=== PATIENT | male | born 1970 | race Caucasian/White ===

== ENCOUNTER 2019-03-11 19:13 | Inpatient (IN) | payer OTHER ==
[2019-03-11] MEDS ORDERED: IPRATROPIUM-ALBUTEROL 3 ML NEB INHALATION STA (19:19)
[2019-03-11] MEDS ORDERED: ONDANSETRON 4 MG/2 ML VIAL IVP STA (19:19)
[2019-03-11] MEDS ORDERED: ONDANSETRON 4 MG/2 ML VIAL IVP PRN (19:19)
[2019-03-11] MEDS ORDERED: methylPREDNISolone SOD SUCCI 125 MG/2 ML VIAL IV STA (19:19)
[2019-03-11] MEDS ORDERED: SODIUM CHLORIDE 0.9% 1,000 ML IV STA (19:19)
[2019-03-11] MEDS ORDERED: PANTOPRAZOLE 40 MG/10 ML VIAL IVP STA (19:19)
--- NOTE | 2019-03-11 20:00 | ED ---
SOB HPI - General Chief Complaint: Shortness of Breath Stated Complaint: Vomiting blood, OMAR Time Seen by Provider: 03/11/19 19:19 Source: patient, RN notes reviewed, old records reviewed Mode of arrival: wheelchair Limitations: no limitations - History of Present Illness Initial Comments: This is a 48-year-old male the ER for evaluation presents today for weakness shortness of breath coughing up bloody sputum. Patient denies vomiting of blood. Patient does feel, significant shortness of breath with exertion. A chest pain denies recent fevers. No travel history sick contacts. No significant admission history for shortness of breath or difficulty breathing or pain. MD Complaint: shortness of breath, cough -: days(s) Severity: moderate Severity scale (1-10): 4 Consistency: constant Improves With: oxygen, bronchodilators Worsens With: exertion Known History Of: asthma Context: recent URI Associated Symptoms: fever, cough, sputum production Treatments Prior to Arrival: none - Related Data Home Medications Medication Instructions Recorded Confirmed Loratadine [Claritin] 10 mg PO DAILY 03/11/19 03/11/19 Allergies Allergy/AdvReac Type Severity Reaction Status Date / Time aspirin Allergy Unknown Verified 03/11/19 19:29 Review of Systems ROS Statement: Those systems with pertinent positive or pertinent negative responses have been documented in the HPI. ROS Other: All systems not noted in ROS Statement are negative. Past Medical History Past Medical History: Asthma History of Any Multi-Drug Resistant Organisms: None Reported Past Surgical History: No Surgical Hx Reported Past Psychological History: No Psychological Hx Reported Smoking Status: Never smoker Past Alcohol Use History: None Reported Past Drug Use History: None Reported - Past Family History Mother Family Medical History: AFIB, Chest Pain / Angina, CVA/TIA, GERD/Reflux, Hyperlipidemia, Hypertension Father Family Medical History: Chest Pain / Angina, CVA/TIA, Hyperlipidemia, Hypertension Additional Family Medical History / Comment(s): Open heart surgery 08/12/18 General Exam Limitations: no limitations General appearance: alert, in no apparent distress, anxious Head exam: Present: atraumatic, normocephalic, normal inspection Eye exam: Present: normal appearance, PERRL, EOMI. Absent: scleral icterus, conjunctival injection, periorbital swelling ENT exam: Present: normal exam, mucous membranes moist Neck exam: Present: normal inspection. Absent: tenderness, meningismus, lymp hadenopathy Respiratory exam: Present: normal lung sounds bilaterally. Absent: respiratory distress, wheezes, rales, rhonchi, stridor Cardiovascular Exam: Present: normal rhythm, tachycardia, normal heart sounds. Absent: systolic murmur, diastolic murmur, rubs, gallop, clicks GI/Abdominal exam: Present: soft, normal bowel sounds. Absent: distended, tenderness, guarding, rebound, rigid Extremities exam: Present: normal inspection, full ROM, normal capillary refill. Absent: tenderness, pedal edema, joint swelling, calf tenderness Back exam: Present: normal inspection Neurological exam: Present: alert, oriented X3, CN II-XII intact Psychiatric exam: Present: normal affect, normal mood Skin exam: Present: warm, dry, intact, normal color. Absent: rash Course Vital Signs 03/11/19 03/11/19 03/11/19 19:14 19:48 20:01 Temperature 98.1 F Pulse Rate 129 H 121 H 119 H Respiratory 20 18 18 Rate Blood Pressure 133/90 O2 Sat by Pulse 96 Oximetry 03/11/19 03/11/19 23:17 23:59 Temperature Pulse Rate 112 H 112 H Respiratory 18 19 Rate Blood Pressure 126/84 126/84 O2 Sat by Pulse 95 95 Oximetry - Reevaluation(s) Reevaluation #1: 03/11/19 21:00 Medical records reviewed Reevaluation #2: 03/11/19 21:00 Minimal improvement patient's resting and sleeping comfortably Medical Decision Making - Medical Decision Making 48 male the ER for evaluation will will admit for Cockman it as an exacerbation of CHF, patient also has elevated troponin non-STEMI. - Lab Data Result diagrams: 03/12/19 02:49 03/11/19 20:06 Lab Results 03/11/19 03/11/19 03/11/19 Range/Units 20:06 20:06 20:06 WBC 10.3 (3.8-10.6) k/uL RBC 4.94 (4.30-5.90) m/uL Hgb 14.9 (13.0-17.5) gm/dL Hct 44.6 (39.0-53.0) % MCV 90.3 (80.0-100.0) fL MCH 30.1 (25.0-35.0) pg MCHC 33.3 (31.0-37.0) g/dL RDW 13.9 (11.5-15.5) % Plt Count 309 (150-450) k/uL Neutrophils % 81 % Lymphocytes % 10 % Monocytes % 5 % Eosinophils % 1 % Basophils % 1 % Neutrophils # 8.4 H (1.3-7.7) k/uL Lymphocytes # 1.0 (1.0-4.8) k/uL Monocytes # 0.5 (0-1.0) k/uL Eosinophils # 0.1 (0-0.7) k/uL Basophils # 0.1 (0-0.2) k/uL PT (9.0-12.0) sec INR (<1.2) APTT (22.0-30.0) sec Sodium 139 (137-145) mmol/L Potassium 4.3 (3.5-5.1) mmol/L Chloride 109 H (98-107) mmol/L Carbon Dioxide 21 L (22-30) mmol/L Anion Gap 9 mmol/L BUN 16 (9-20) mg/dL Creatinine 1.42 H (0.66-1.25) mg/dL Est GFR (CKD-EPI)AfAm 68 (>60 ml/min/1.73 sqM) Est GFR (CKD-EPI)NonAf 59 (>60 ml/min/1.73 sqM) Glucose 113 H (74-99) mg/dL Calcium 9.2 (8.4-10.2) mg/dL Magnesium 1.9 (1.6-2.3) mg/dL Total Bilirubin 1.2 (0.2-1.3) mg/dL AST 36 (17-59) U/L ALT 50 (21-72) U/L Alkaline Phosphatase 68 (38-126) U/L Creatine Kinase 524 H (55-170) U/L Troponin I (0.000-0.034) ng/mL NT-Pro-B Natriuret Pep 6300 pg/mL Total Protein 6.4 (6.3-8.2) g/dL Albumin 3.7 (3.5-5.0) g/dL 03/11/19 03/11/19 Range/Units 20:06 20:06 WBC (3.8-10.6) k/uL RBC (4.30-5.90) m/uL Hgb (13.0-17.5) gm/dL Hct (39.0-53.0) % MCV (80.0-100.0) fL MCH (25.0-35.0) pg MCHC (31.0-37.0) g/dL RDW (11.5-15.5) % Plt Count (150-450) k/uL Neutrophils % % Lymphocytes % % Monocytes % % Eosinophils % % Basophils % % Neutrophils # (1.3-7.7) k/uL Lymphocytes # (1.0-4.8) k/uL Monocytes # (0-1.0) k/uL Eosinophils # (0-0.7) k/uL Basophils # (0-0.2) k/uL PT 10.5 (9.0-12.0) sec INR 1.0 (<1.2) APTT 23.7 (22.0-30.0) sec Sodium (137-145) mmol/L Potassium (3.5-5.1) mmol/L Chloride (98-107) mmol/L Carbon Dioxide (22-30) mmol/L Anion Gap mmol/L BUN (9-20) mg/dL Creatinine (0.66-1.25) mg/dL Est GFR (CKD-EPI)AfAm (>60 ml/min/1.73 sqM) Est GFR (CKD-EPI)NonAf (>60 ml/min/1.73 sqM) Glucose (74-99) mg/dL Calcium (8.4-10.2) mg/dL Magnesium (1.6-2.3) mg/dL Total Bilirubin (0.2-1.3) mg/dL AST (17-59) U/L ALT (21-72) U/L Alkaline Phosphatase (38-126) U/L Creatine Kinase (55-170) U/L Troponin I 0.065 H* (0.000-0.034) ng/mL NT-Pro-B Natriuret Pep pg/mL Total Protein (6.3-8.2) g/dL Albumin (3.5-5.0) g/dL - EKG Data -: EKG Interpreted by Me (EKG shows sinus tachycardia rate of 120, MI 140, QRS 72, QTc 452) - Radiology Data Radiology results: report reviewed (Chest x-rays negative for acute disease, CTA chest negative for acute disease), image reviewed Disposition Clinical Impression: Acute exacerbation of chronic obstructive airways disease, Asthma with exacerbation, Acute pulmonary edema, NSTEMI (non-ST elevated myocardial infarction) Disposition: ADMITTED IP TO THIS HOSP Condition: Fair Is patient prescribed a controlled substance at d/c from ED?: No
[2019-03-11 20:17] LABS: Basophils # (A) 0.1 k/uL (0-0.2); Basophils % (A) 1 %; Eosinophils # (A) 0.1 k/uL (0-0.7); Eosinophils % (A) 1 %; HCT 44.6 % (39.0-53.0); HGB 14.9 gm/dL (13.0-17.5); Lymphocytes % (A) 10 %; MCH 30.1 pg (25.0-35.0); MCHC 33.3 g/dL (31.0-37.0); MCV 90.3 fL (80.0-100.0); Mean Platelet Volume 8.1; Monocytes # (A) 0.5 k/uL (0-1.0); Monocytes % (A) 5 %; Neutrophils # (A) 8.4 k/uL (1.3-7.7); Neutrophils % (A) 81 %; Platelet Count 309 k/uL (150-450); RBC 4.94 m/uL (4.30-5.90); RDW 13.9 % (11.5-15.5); WBC 10.3 k/uL (3.8-10.6)
[2019-03-11 20:27] LABS: Albumin 3.7 g/dL (3.5-5.0); Calcium 9.2 mg/dL (8.4-10.2); Magnesium 1.9 mg/dL (1.6-2.3); Potassium 4.3 mmol/L (3.5-5.1); Total Bilirubin 1.2 mg/dL (0.2-1.3); Total Protein 6.4 g/dL (6.3-8.2)
[2019-03-11 20:29] LABS: Partial Thromboplastin Time 23.7 sec (22.0-30.0); Prothrombin Time 10.5 sec (9.0-12.0)
--- NOTE | 2019-03-11 20:45 | XR ---
EXAMINATION: XR chest 1V portable DATE AND TIME: 03/11/2019 8:10 PM CLINICAL INDICATION: PHH; sob TECHNIQUE: AP upright portable COMPARISON: None FINDINGS: The lungs are clear. The pleural spaces are negative. The cardiac silhouette is prominently enlarged. The remainder of the mediastinal silhouette is unremarkable. The skeletal structures and soft tissues are negative for acute findings. IMPRESSION: Moderately enlarged cardiac silhouette.
[2019-03-11] MEDS ORDERED: NITROGLYCERIN SL TABS 0.4 MG TAB SUBLINGUAL PRN (20:57)
[2019-03-11] MEDS ORDERED: ALBUTEROL NEBULIZED 2.5 MG/3 ML INHALATION PRN (20:57)
[2019-03-11] MEDS ORDERED: HEPARIN SODIUM,PORCINE 5,000 UNIT/ML 1 ML VIAL IV PRN (21:01)
[2019-03-11] MEDS ORDERED: HEPARIN SODIUM,PORCINE 5,000 UNIT/ML 1 ML VIAL IV ONE (21:01)
--- NOTE | 2019-03-11 21:51 | CT ---
EXAMINATION TYPE: CT angio chest with contrast and with 3-D reconstruction renderings DATE OF EXAM: 03/11/2019 9:35 PM COMPARISON: None HISTORY: chest pain, SOB. CT DLP: 1151.2 mGycm Automated exposure control for dose reduction was used. CONTRAST: CTA scan of the thorax is performed with IV Contrast, patient injected with 93cc mL of Isov ue 370, pulmonary embolism protocol. Review reconstructions. FINDINGS: Patient motion artifact on all images, limiting visualization and therefore accuracy of the examination. AIRWAYS: Unremarkable. LUNGS: On the right lung base there is partial airlessness laterally where there is a diffuse bilate ral pattern of mild silhouetting of the pulmonary vasculature; these changes suggest mild interstitia l phase pulmonary edema. No listhesis or evidence of mendel pneumonia. PLEURAL SPACES: There is a dependent mild/moderate right-sided pleural effusion. No left-sided pleura l effusion. No pneumothorax. MEDIASTINUM: There is enhancement of the pulmonary artery and its branches, with no CT evidence for p ulmonary embolism. No acute aortic findings. There is moderate cardiomegaly, panchamber enlargement, and a mild-moderate pericardial fusion. No adenopathy. OTHER: No additional significant abnormality is seen. IMPRESSION: 1) MILD INTERSTITIAL PHASE PULMONARY EDEMA, PRESUMABLY CARDIOGENIC ETIOLOGY, WITH RIGHT PLEURAL EFFU SANDOVAL. 2) MODERATE CARDIOMEGALY, PANCHAMBER ENLARGEMENT, AND PERICARDIAL EFFUSION.
[2019-03-11] MEDS: HEPARIN SOD,PORK IN 0.45% NACL 25,000 UNIT in 0.45% NACL 1 250ML.BAG IV SCH (23:36)
[2019-03-11] MEDS: SODIUM CHLORIDE 0.9% 1,000 ML IV SCH (23:40)
[2019-03-12] MEDS: methylPREDNISolone SOD SUCCI 125 MG/2 ML VIAL IV SCH ×3 (01:30→12:18)
[2019-03-12 03:22] LABS: Cholesterol 154 mg/dL (<200); HDL Cholesterol 38 mg/dL (40-60); LDL Cholesterol,Calculated 98 mg/dL (0-99); Triglycerides 92 mg/dL (<150)
[2019-03-12 03:26] LABS: Basophils % (A) 0 %; Eosinophils # (A) 0.1 k/uL (0-0.7); Eosinophils % (A) 1 %; HCT 43.8 % (39.0-53.0); HGB 14.3 gm/dL (13.0-17.5); Lymphocytes # (A) 0.5 k/uL (1.0-4.8); Lymphocytes % (A) 4 %; MCH 30.4 pg (25.0-35.0); MCHC 32.6 g/dL (31.0-37.0); MCV 93.1 fL (80.0-100.0); Monocytes # (A) 0.1 k/uL (0-1.0); Monocytes % (A) 1 %; Neutrophils # (A) 9.5 k/uL (1.3-7.7); Neutrophils % (A) 93 %; Platelet Count 287 k/uL (150-450); RDW 15.1 % (11.5-15.5); WBC 10.2 k/uL (3.8-10.6)
[2019-03-12 06:32] LABS: Glucose,Whole Blood 161 mg/dL (75-99)
[2019-03-12] MEDS: INSULIN ASPART (NovoLOG) 100 UNIT/ML VIAL SQ SCH ×4 (06:36→21:16)
[2019-03-12] MEDS: IPRATROPIUM-ALBUTEROL 3 ML NEB INHALATION SCH ×4 (07:57→19:09)
[2019-03-12] MEDS: PANTOPRAZOLE 40 MG/10 ML VIAL IVP SCH ×2 (08:25→21:16)
[2019-03-12 09:48] LABS: Prothrombin Time 10.8 sec (9.0-12.0)
[2019-03-12 11:41] LABS: Glucose,Whole Blood 151 mg/dL (75-99)
--- NOTE | 2019-03-12 11:41 | ECHOF ---
Referral Reason:chf MEASUREMENTS -------- HEIGHT: 167.6 cm WEIGHT: 146.5 kg BP: 117/66 RVIDd: 3.4 cm (< 3.3) IVSd: 1.0 cm (0.6 - 1.1) LVIDd: 5.7 cm (3.9 - 5.3) LVPWd: 1.1 cm (0.6 - 1.1) IVSs: 1.4 cm LVIDs: 4.8 cm LVPWs: 1.4 cm LA Diam: 3.7 cm (2.7 - 3.8) LAESV Index (A-L): 37.05 ml/m Ao Diam: 3.8 cm (2.0 - 3.7) AV Cusp: 2.1 cm (1.5 - 2.6) MV EXCURSION: 16.963 mm (> 18.000) MV EF SLOPE: 90 mm/s (70 - 150) EPSS: 1.6 cm RAP: 5.00 mmHg RVSP: 42.41 mmHg FINDINGS -------- Resting tachycardia (HR>100bpm). This was a technically difficult study with suboptimal views. The left ventricular size is normal. There is borderline concentric left ventricular hypertrophy. Overall left ventricular systolic function is severely impaired with, an EF between 20 - 25 %. The right ventricle is mildly enlarged. LA is moderately dilated 34-39 ml/m2 The right atrium was not well visualized. 5 ml of Lumason was utilized for enhancement of images. The aortic valve was not well visualized. Mild mitral regurgitation is present. Mild tricuspid regurgitation present. There is mild pulmonary hypertension. The right ventricular systolic pressure, as measured by Doppler, is 42.41mmHg. Trace/mild (physiologic) pulmonic regurgitation. The aortic root is dilated measuring 3.8cm. IVC Not well visulized. There is no pericardial effusion. CONCLUSIONS -------- 1. Resting tachycardia (HR>100bpm). 2. This was a technically difficult study with suboptimal views. 3. The left ventricular size is normal. 4. There is borderline concentric left ventricular hypertrophy. 5. Overall left ventricular systolic function is severely impaired with, an EF between 20 - 25 %. 6. The right ventricle is mildly enlarged. 7. LA is moderately dilated 34-39 ml/m2 8. The right atrium was not well visualized. 9. 5 ml of Lumason was utilized for enhancement of images. 10. The aortic valve was not well visualized. 11. Mild mitral regurgitation is present. 12. Mild tricuspid regurgitation present. 13. There is mild pulmonary hypertension. 14. The right ventricular systolic pressure, as measured by Doppler, is 42.41mmHg. 15. Trace/mild (physiologic) pulmonic regurgitation. 16. The aortic root is dilated measuring 3.8cm. 17. IVC Not well visulized. 18. There is no pericardial effusion. ASSET MANAGEMENT ANALYST: Adrianne Farley RDCS
--- NOTE | 2019-03-12 12:07 | CONS ---
CONSULTATION Mr. Mccollum is a 48-year-old gentleman who is seen for cardiac evaluation. Patient's electronic medical record reviewed. The patient gives a history that he had not been feeling well for last couple of 2 to 3 days and has been having shortness of breath with minimal activity. He has been having predominantly some nonproductive cough and occasionally some blood-tinged sputum. He did not have any fever or chills and denies any chest pain. There is no previous cardiac history. When he was a child he was told that he has asthma. Usually patient is able to walk 2 miles per day without any problem. The patient denies any history of diabetes, hypertension. Denies any recent history suggestive of flu. The patient was admitted with diagnosis of asthma. CT scan of the chest was done, which did not show any evidence of pulmonary embolism. There was a small pleural and minimal pericardial effusion and there were changes suggestive of heart failure. Initial troponin was mildly elevated. PAST MEDICAL HISTORY: Past medical history includes history of asthma. No history of any surgeries. PHYSICAL EXAMINATION: Physical examination at present reveals a 48-year-old gentleman who is obesely built. Blood pressure is 110/79 mmHg. Heart rate is 110. HEENT examination is negative. Neck is supple. There is no increase in jugular venous pressure. Both the carotid pulses are felt. There is no bruit. Chest is symmetrical. HEART: The PMI is not felt. First and second heart sounds are heard. There is evidence of S3 gallop. Lungs reveal a few basal rales. Abdomen is soft. Liver and spleen not enlarged. EXTREMITIES: Peripheral pulsations are 2+. The patient's EKG which was done this morning shows sinus tachycardia without any acute ischemic changes. Patient's CPK was 524. ProBNP level is 6300. Chest x-ray shows cardiomegaly. The patient's troponin is 0.065, 0.069 and 0.042. Echocardiogram was reviewed which shows evidence of diffuse global hypokinesia with basal portion with severely impaired left ventricular systolic function and estimated ejection fraction is in the range of 25%. IMPRESSION: This patient is admitted with acute onset of shortness of breath secondary to congestive cardiac failure. The patient has a severely impaired left ventricular systolic function with a global hypokinesia possibility of acute myocarditis needs to be considered. The patient has evidence of congestive cardiac failure. The rise in the troponin could be secondary to acute congestive cardiac failure. At a later date when his heart failure is improved, patient will need cardiac catheterization to rule out any significant coronary artery disease. RECOMMENDATIONS: We will treat the patient with IV Lasix 40 mg q.12 hourly, Sed rate and C-reactive protein would be done. We will start the patient on Entresto 24/26 mg twice a day and Lopressor 25 mg b.i.d. MMODL / PRANAYN: [id number] /
[2019-03-12] MEDS: SODIUM CHLORIDE 0.9% 1,000 ML IV SCH (12:20)
--- NOTE | 2019-03-12 13:22 | HP ---
HISTORY AND PHYSICAL DATE OF SERVICE: 03/12/2019 CHIEF COMPLAINT: Shortness of breath. HISTORY OF PRESENT ILLNESS: This 48-year-old gentleman with a past medical history of asthma during the childhood, history of no other major medical problems being followed by Dr. Washington in [facility] previously was visiting family in the area. The patient had shortness of breath for the past several days. The patient thought asthma acute exacerbation. He came to to [facility]. Chest x-ray showed evidence of cardiomegaly and as well as significant CHF. The patient also had a 2D echo, subsequently ejection fraction found to be 20% to 25%. Cardiomyopathy was suspected. LA was moderately dilated 34 to 39 . Otherwise, the troponins also indeterminate increased up to 0.069. Cardiology evaluation in progress. The patient is on IV Lasix. Patient is feeling much better. Patient is being closely monitored at this time. PAST MEDICAL HISTORY: Reviewed and history of bronchial asthma during childhood. Otherwise, no other significant cardiovascular illness as mentioned earlier. MEDICATIONS: Medications prior to admission include Claritin 10 mg daily. ALLERGIES: ASPIRIN. FAMILY HISTORY: History of atrial fibrillation with CHF, CVA, TIA, GERD, hypertension, hyperlipidemia, history of CAD, CABG in the family. SOCIAL HISTORY: No history of smoking. No history of alcohol intake. REVIEW OF SYSTEMS: ENT: No diminished hearing or diminished vision. CARDIOVASCULAR SYSTEM: As mentioned earlier. RESPIRATORY SYSTEM: As mentioned earlier. GI: No nausea, vomiting. : No dysuria. NERVOUS SYSTEM: No numbness or weakness. ALLERGY/IMMUNOLOGY: As mentioned earlier. HEMATOLOGY/ONCOLOGY: No history of anemia. ENDOCRINE: No history of diabetes or hypothyroidism. CONSTITUTIONAL: As mentioned earlier. DERMATOLOGY: Negative. RHEUMATOLOGY: Negative. PSYCHIATRY: As mentioned earlier. PHYSICAL EXAMINATION: The patient is alert and oriented x3. Pulse is 113, regular, blood pressure 108/79, respiration 18, temp 98.1, pulse ox 92% on room air. HEENT: Conjunctivae normal. Oral mucosa moist. NECK: Is obese. No jugular venous distention . CARDIOVASCULAR: S1, S2 muffled. No S3, no S4. RESPIRATORY: Diminished breath sounds at the bases. A few scattered rhonchi and crackles. ABDOMEN: Soft, obese, nontender. LEGS: Minimal edema. NERVOUS SYSTEM: Higher function mentioned earlier. Moves all 4 limbs. No focal motor or sensory deficits. LYMPHATICS: No lymphadenopathy of the neck, axillae or groin. SKIN: No ulcer, rash or bleeding. JOINTS: No active deforming arthropathy. LABS: Labs are at this time shows WBC 10.2, hemoglobin 14.3, and APTT 31.7. Creatinine is 1.42. Glucose is 113. Troponin 0.069. ASSESSMENT: 1. Congestive heart failure acute exacerbation with acute on chronic systolic dysfunction, ejection fraction 20% to 25%. 2. Increased creatinine with possibly chronic kidney disease stage 3. 3. Troponin 0.069 indeterminate. 4. Increased creatine kinase. 5. History of asthma. RECOMMENDATIONS AND DISCUSSION: This 48-year-old gentleman who presented with multiple medical issues, at this time I recommend to continue current medications, continue symptomatic treatment, intravenous diuretics initiated by Cardiology. Otherwise, we will also recommend beta blockers and as well as Cardiology also initiated Entresto. We will continue to monitor. Possible cardiac cath. Repeat labs in the morning. Otherwise, heparin monitoring. Guarded prognosis because of multiple complex medical issues. Further recommendations to follow. Recommend the patient to follow with a primary physician and cardiology closely after discharge. MMODL / IJN: [id number] / JANETT
[2019-03-12] MEDS: SACUBITRIL/VALSARTAN 24 MG-26 MG TABLET PO SCH ×2 (15:20→21:19)
[2019-03-12] MEDS: FUROSEMIDE 10 MG/ML 4 ML VIAL IV SCH ×2 (15:20→23:22)
[2019-03-12 16:45] LABS: Glucose,Whole Blood 176 mg/dL (75-99)
[2019-03-12] MEDS: CARVEDILOL 3.125 MG TAB PO SCH (17:11)
[2019-03-12 20:50] LABS: Glucose,Whole Blood 203 mg/dL (75-99)
[2019-03-12] MEDS: HEPARIN SOD,PORK IN 0.45% NACL 25,000 UNIT in 0.45% NACL 1 250ML.BAG IV SCH (21:38)
[2019-03-13 06:31] LABS: Basophils % (A) 0 %; Eosinophils # (A) 0.2 k/uL (0-0.7); Eosinophils % (A) 1 %; HCT 44.6 % (39.0-53.0); Hypochromasia Slight; Lymphocytes # (A) 0.7 k/uL (1.0-4.8); Lymphocytes % (A) 3 %; MCH 29.4 pg (25.0-35.0); MCHC 31.3 g/dL (31.0-37.0); MCV 93.8 fL (80.0-100.0); Mean Platelet Volume 8.5; Monocytes # (A) 0.6 k/uL (0-1.0); Monocytes % (A) 3 %; Neutrophils # (A) 18.9 k/uL (1.3-7.7); Neutrophils % (A) 92 %; Platelet Count 330 k/uL (150-450); RBC 4.76 m/uL (4.30-5.90); RDW 15.1 % (11.5-15.5); WBC 20.5 k/uL (3.8-10.6)
[2019-03-13] MEDS: HEPARIN SOD,PORK IN 0.45% NACL 25,000 UNIT in 0.45% NACL 1 250ML.BAG IV SCH ×2 (06:32→17:15)
[2019-03-13] MEDS: CARVEDILOL 3.125 MG TAB PO SCH (06:32)
[2019-03-13 06:38] LABS: INR 1.1 (<1.2); Prothrombin Time 11.7 sec (9.0-12.0)
[2019-03-13 06:54] LABS: Calcium 8.4 mg/dL (8.4-10.2); Potassium 4.4 mmol/L (3.5-5.1)
[2019-03-13] MEDS: FUROSEMIDE 10 MG/ML 4 ML VIAL IV SCH ×2 (08:45→20:36)
[2019-03-13] MEDS: PANTOPRAZOLE 40 MG/10 ML VIAL IVP SCH (08:46)
[2019-03-13] MEDS: SACUBITRIL/VALSARTAN 24 MG-26 MG TABLET PO SCH ×2 (08:46→20:35)
[2019-03-13] MEDS: IPRATROPIUM-ALBUTEROL 3 ML NEB INHALATION SCH ×4 (08:48→20:02)
--- NOTE | 2019-03-13 16:19 | P.PN ---
Subjective Progress Note Date: 03/13/19 Principal diagnosis: This is a 48-year-old male who was recently admitted for shortness of breath with a past medical history of asthma and is being closely monitored. Chest x- ray upon admission showed evidence of cardiomegaly with significant CHF. Patient underwent a 2-D echo with an ejection fraction of 20-25%. Cardiology is following. The patient is on IV Lasix and shortness of breath has slightly improved. Patient still continues to be quite winded with exertion. Patient denies any chest pain or palpitations at this time. Patient denies any nausea or vomiting and is tolerating diet. Patient is afebrile. Per cardiology recommendations once the patient's congestive heart failure has improved patient will need cardiac catheterization for further evaluation. Guarded prognosis. Objective - Vital Signs Vital signs: Vital Signs Temp 97.5 F L 03/13/19 11:24 Pulse 110 H 03/13/19 13:04 Resp 20 03/13/19 12:52 BP 134/68 03/13/19 11:24 Pulse Ox 93 L 03/13/19 11:24 Intake & Output 03/12/19 03/13/19 03/13/19 18:59 06:59 18:59 Intake Total 782.411 299.083 582 Output Total 900 850 Balance 782.411 -600.917 -268 Weight 146.9 kg 143.9 kg Intake: Intake, IV Titration 80.411 299.083 Amount Heparin Sod,Pork in 0.45% 80.411 299.083 NaCl 25,000 unit In 0.45 % NaCl 1 250ml.bag @ 7. 089 UNITS/KG/HR 10 mls/hr IV .Q24H [facility] Rx#: [id number] Oral 702 582 Output: Urine 900 850 Other: Voiding Method Toilet Toilet # Voids 0 1 1 - Exam Gen: This is a 48-year-old male sitting up at the site of the bed in no acute distress. Vital signs are stable. Temp is 97.5F, pulse is 108, respiratory rate is 20, blood pressure is 134/68, oxygen saturation is 93% on room air. HEENT: Head is atraumatic, normocephalic. Pupils equal, round. Sclerae is anicteric. NECK: Supple. No JVD. No lymphadenopathy. No thyromegaly. LUNGS: Diminished breath sounds at the bases with a few scattered rhonchi noted. No intercostal retractions. HEART: S1 and S2 are muffled. murmur noted. ABDOMEN: Soft. Obese. Bowel sounds are present. No masses. No tenderness. EXTREMITIES: Mild lower extremity edema noted bilaterally. No calf tenderness. NEUROLOGICAL: Patient is awake, alert and oriented x3. Cranial nerves 2 through 12 are grossly intact. - Labs CBC & Chem 7: 03/13/19 06:08 03/13/19 06:08 Labs: Abnormal Lab Results - Last 24 Hours (Table) 03/12/19 03/12/19 03/12/19 Range/Units 16:44 20:39 20:48 WBC (3.8-10.6) k/uL Neutrophils # (1.3-7.7) k/uL Lymphocytes # (1.0-4.8) k/uL APTT 39.0 H (22.0-30.0) sec Chloride (98-107) mmol/L Carbon Dioxide (22-30) mmol/L BUN (9-20) mg/dL Creatinine (0.66-1.25) mg/dL Glucose (74-99) mg/dL POC Glucose (mg/dL) 176 H 203 H (75-99) mg/dL 03/13/19 03/13/19 03/13/19 Range/Units 06:08 06:08 06:08 WBC 20.5 H (3.8-10.6) k/uL Neutrophils # 18.9 H (1.3-7.7) k/uL Lymphocytes # 0.7 L (1.0-4.8) k/uL APTT 57.3 H (22.0-30.0) sec Chloride 112 H (98-107) mmol/L Carbon Dioxide 19 L (22-30) mmol/L BUN 29 H (9-20) mg/dL Creatinine 1.51 H (0.66-1.25) mg/dL Glucose 146 H (74-99) mg/dL POC Glucose (mg/dL) (75-99) mg/dL Assessment and Plan Assessment: Congestive heart failure acute exacerbation with acute on chronic systolic dysf unction, ejection fraction 20-25% Increased creatinine with possible chronic kidney disease stage III Troponin 0.069, indeterminate Increased creatinine kinase History of asthma Obesity Recommendations and discussion: Recommend continue current medications, management, and symptomatically treatment. Will continue with IV diuretics at this time. Cardiology is following closely. Will continue with bronchodilators and IV heparin at this time. Will monitor labs and vital signs closely. Guarded prognosis. Once stabilized cardiac catheterization is needed. Further recommendations to follow.
[2019-03-13] MEDS: PANTOPRAZOLE 40 MG TABLET PO SCH (17:15)
[2019-03-13] MEDS: CARVEDILOL 6.25 MG TAB PO SCH (17:15)
--- NOTE | 2019-03-13 22:57 | PN ---
PROGRESS NOTE This patient is admitted with congestive cardiac failure. Patient's echocardiogram reveals a severely impaired left ventricular systolic function. The patient is feeling better. She still feels tired and slightly short of breath. The patient's echocardiogram shows severely impaired left ventricular systolic function. The heart rate is 110, blood pressure is 134/68 mmHg. First and second heart sounds are normal. Lungs examination revealed few crackles. The patient's laboratory data shows electrolytes are normal. Creatinine is 1.51. Sedimentation rate was 10 and the patient's C-reactive protein is 134/119. FINAL IMPRESSION: This patient is admitted with acute systolic heart failure. Patient has a severely impaired left ventricular systolic function. The patient's C-reactive protein is elevated. This may be suggestive the patient probably has a recent myocarditis. The patient remains sinus tachycardia. We will increase the dose of Coreg to 6.25 mg b.i.d. Continue the rest of the medications. The patient may benefit from MRI after the discharge to establish the diagnosis of myocarditis. MMMIKEL / IJN: [id number] /
[2019-03-14] MEDS: CARVEDILOL 6.25 MG TAB PO SCH (06:10)
[2019-03-14] MEDS: PANTOPRAZOLE 40 MG TABLET PO SCH ×2 (06:10→17:10)
[2019-03-14] MEDS: HEPARIN SOD,PORK IN 0.45% NACL 25,000 UNIT in 0.45% NACL 1 250ML.BAG IV SCH (06:10)
[2019-03-14 07:28] LABS: INR 1.1 (<1.2); Prothrombin Time 11.2 sec (9.0-12.0)
[2019-03-14] MEDS: SACUBITRIL/VALSARTAN 24 MG-26 MG TABLET PO SCH ×2 (07:56→20:31)
[2019-03-14] MEDS: FUROSEMIDE 10 MG/ML 4 ML VIAL IV SCH ×2 (07:57→19:56)
[2019-03-14 08:09] LABS: Calcium 8.2 mg/dL (8.4-10.2)
[2019-03-14 08:14] LABS: Partial Thromboplastin Time 122.2 sec (22.0-30.0)
[2019-03-14 09:14] LABS: Basophils # (A) 0.1 k/uL (0-0.2); Basophils % (A) 1 %; Eosinophils # (A) 0.2 k/uL (0-0.7); Eosinophils % (A) 2 %; HCT 43.4 % (39.0-53.0); HGB 13.5 gm/dL (13.0-17.5); Lymphocytes # (A) 1.8 k/uL (1.0-4.8); Lymphocytes % (A) 15 %; MCH 28.9 pg (25.0-35.0); MCHC 31.1 g/dL (31.0-37.0); MCV 93.1 fL (80.0-100.0); Mean Platelet Volume 9.9; Monocytes # (A) 0.5 k/uL (0-1.0); Monocytes % (A) 4 %; Neutrophils % (A) 77 %; Platelet Count 332 k/uL (150-450); RBC 4.66 m/uL (4.30-5.90); WBC 11.7 k/uL (3.8-10.6)
[2019-03-14] MEDS: IPRATROPIUM-ALBUTEROL 3 ML NEB INHALATION SCH ×4 (09:19→20:04)
[2019-03-14] MEDS ORDERED: ALPRAZolam 0.5 MG TAB PO PRN (13:00)
[2019-03-14] MEDS ORDERED: ATORVASTATIN 80 MG TAB PO STA (13:00)
[2019-03-14] MEDS ORDERED: ASPIRIN 325 MG TAB PO STA (13:00)
[2019-03-14] MEDS ORDERED: ALPRAZolam 0.25 MG TAB PO PRN (13:00)
[2019-03-14] MEDS ORDERED: NITROGLYCERIN SL TABS 0.4 MG TAB SUBLINGUAL PRN (13:00)
--- NOTE | 2019-03-14 14:34 | XR ---
EXAMINATION TYPE: XR chest 2V DATE OF EXAM: 03/14/2019 COMPARISON: 03/11/2019 HISTORY: Follow-up for congestive heart failure. COPD. Preoperative evaluation. TECHNIQUE: Frontal and lateral views of the chest are obtained. FINDINGS: There is improved aeration of the lungs with minimal pulmonary vascular prominence remaini ng and strand-like probable right infrahilar atelectasis. Cardiomediastinal silhouette is enlarged. N o pleural effusion or pneumothorax. IMPRESSION: Improved aeration of the lungs in comparison the prior. Only minimal cephalization/pulmo nary vascular congestion remains.
--- NOTE | 2019-03-14 15:27 | P.PN ---
Subjective Progress Note Date: 03/14/19 This is a 48-year-old gentleman admitted to the hospital with congestive cardiac failure, his echocardiogram with Doppler study revealed a severely impaired left ventricular systolic function, today overall he's feeling significantly better. We will discontinue his heparin today and repeat a chest x-ray. I did have a discussion with the patient and his significant other today, patient will undergo cardiac catheterization on Sunday by Dr. Hubbard. The risks and benefits were explained to the patient as well as the procedure in detail. Blood pressure 94/60 with a heart rate in the 90s, 93% on room air. White blood cell count 11.7, hemoglobin 13.5, platelet count 332. Sodium 142, potassium 4.0, BUN 33 and creatinine 1.5. Objective - Vital Signs Vital signs: Vital Signs Temp 97.5 F L 03/14/19 11:05 Pulse 102 H 03/14/19 13:13 Resp 18 03/14/19 11:18 BP 121/82 03/14/19 11:05 Pulse Ox 93 L 03/14/19 11:05 Intake & Output 03/13/19 03/14/19 03/14/19 18:59 06:59 18:59 Intake Total 1269.225 250 527.283 Output Total 850 1000 1425 Balance 419.225 -750 -897.717 Weight 134.7 kg Intake: Intake, IV Titration 243.225 250 47.283 Amount Heparin Sod,Pork in 0.45% 243.225 250 47.283 NaCl 25,000 unit In 0.45 % NaCl 1 250ml.bag @ 7. 089 UNITS/KG/HR 10 mls/hr IV .Q24H [facility] Rx#: [id number] Oral 1026 480 Output: Urine 850 1000 1425 Other: Voiding Method Toilet Toilet Toilet # Voids 1 - Exam PHYSICAL EXAMINATION: GENERAL: 88-year-old gentleman in no acute distress at the time of my examination HEENT: Head is atraumatic, normocephalic. Pupils equal, round. Sclera anicteric. Conjunctiva are clear. Mucous membranes of the mouth are moist. Neck is supple. There is no elevated jugular venous pressure. No carotid bruit is heard. HEART EXAMINATION: Heart S1, S2 normal. No murmur or gallop heard. CHEST EXAMINATION: Lungs are clear with fine crackles to bilateral bases. ABDOMEN: Soft, nontender. Bowel sounds are heard. No organomegaly noted. EXTREMITIES: 2+ peripheral pulses with no evidence of peripheral edema and no calf tenderness noted. NEUROLOGIC patient is awake, alert and oriented X3. . - Labs CBC & Chem 7: 03/14/19 06:21 03/14/19 06:21 Labs: Abnormal Lab Results - Last 24 Hours (Table) 03/14/19 03/14/19 03/14/19 Range/Units 06:21 06:21 06:21 WBC 11.7 H (3.8-10.6) k/uL Neutrophils # 9.0 H (1.3-7.7) k/uL APTT 122.2 H* (22.0-30.0) sec Chloride 108 H (98-107) mmol/L BUN 33 H (9-20) mg/dL Creatinine 1.52 H (0.66-1.25) mg/dL Glucose 112 H (74-99) mg/dL Calcium 8.2 L (8.4-10.2) mg/dL Assessment and Plan Plan: Assessment and plan #1 systolic congestive heart failure acute on chronic #2 severely impaired left ventricular systolic function, possible a recent myocarditis, CRP is elevated Plan We will discontinue the heparin today, request a repeat chest x-ray. DNP note has been reviewed, I agree with a documented findings and plan of care. Patient was seen and examined.
[2019-03-14] MEDS: CARVEDILOL 12.5 MG TAB PO SCH (17:10)
--- NOTE | 2019-03-15 05:55 | P.PN ---
Subjective Progress Note Date: 03/14/19 Principal diagnosis: This is a 48-year-old male who was recently admitted for shortness of breath with a past medical history of asthma and is being closely monitored. Chest x- ray upon admission showed evidence of cardiomegaly with significant CHF. Patient underwent a 2-D echo with an ejection fraction of 20-25%. Cardiology is following. The patient is on IV Lasix and shortness of breath has slightly improved. Patient still continues to be quite winded with exertion. Patient denies any chest pain or palpitations at this time. Patient denies any nausea or vomiting and is tolerating diet. Patient is afebrile. Per cardiology recommendations once the patient's congestive heart failure has improved patient will need cardiac catheterization for further evaluation. Guarded prognosis. 03/14/2019 Patient is sitting up in bed with legs dangled in no acute distress. Patient is requiring oxygen via NC at 2 L today due to shortness of breath at times with minimal exertion. Patient denies any chest pain or palpitations at this time. Patient denies any nausea or vomiting at this time. Patient tolerating diet. Patient remains afebrile. Cardiology is following closely. Patient remains on bronchodilators at this time as well as IV lasix. Will continue to monitor closely. Guarded prognosis. Objective - Vital Signs Vital signs: Vital Signs Temp 97.0 F L 03/15/19 04:00 Pulse 87 03/15/19 04:00 Resp 18 03/15/19 04:00 BP 100/66 03/15/19 04:00 Pulse Ox 91 L 03/15/19 04:00 Intake & Output 03/14/19 03/14/19 03/15/19 06:59 18:59 06:59 Intake Total 250 1307.283 Output Total 1000 1425 900 Balance -750 -117.717 -900 Weight 134.7 kg 138.8 kg Intake: Intake, IV Titration 250 47.283 Amount Heparin Sod,Pork in 0.45% 250 47.283 NaCl 25,000 unit In 0.45 % NaCl 1 250ml.bag @ 7. 089 UNITS/KG/HR 10 mls/hr IV .Q24H [facility] Rx#: [id number] Oral 1260 Output: Urine 1000 1425 900 Other: Voiding Method Toilet Toilet Toilet - Exam Gen: This is a 48-year-old male sitting up at the site of the bed in no acute distress. Vital signs are stable. Temp is 98.2F, pulse is 101, respiratory rate is 18, blood pressure is 107/65, oxygen saturation is 93% on room air. Patient is intermittently using 02 via NC at 1-2 L HEENT: Head is atraumatic, normocephalic. Pupils equal, round. Sclerae is anicteric. NECK: Supple. No JVD. No lymphadenopathy. No thyromegaly. LUNGS: Diminished breath sounds at the bases with a few scattered rhonchi noted. No intercostal retractions. HEART: S1 and S2 are muffled. murmur noted. ABDOMEN: Soft. Obese. Bowel sounds are present. No masses. No tenderness. EXTREMITIES: Mild lower extremity edema noted bilaterally. No calf tenderness. NEUROLOGICAL: Patient is awake, alert and oriented x3. Cranial nerves 2 through 12 are grossly intact. - Labs CBC & Chem 7: 03/14/19 06:21 03/14/19 06:21 Labs: Abnormal Lab Results - Last 24 Hours (Table) 03/14/19 03/14/19 03/14/19 Range/Units 06:21 06:21 06:21 WBC 11.7 H (3.8-10.6) k/uL Neutrophils # 9.0 H (1.3-7.7) k/uL APTT 122.2 H* (22.0-30.0) sec Chloride 108 H (98-107) mmol/L BUN 33 H (9-20) mg/dL Creatinine 1.52 H (0.66-1.25) mg/dL Glucose 112 H (74-99) mg/dL Calcium 8.2 L (8.4-10.2) mg/dL Assessment and Plan Assessment: Congestive heart failure acute exacerbation with acute on chronic systolic dysfunction, ejection fraction 20-25% Increased creatinine with possible chronic kidney disease stage III Troponin 0.069, indeterminate Increased creatinine kinase History of asthma Obesity Recommendations and discussion: Recommend continue current medications, management, and symptomatically treatment. Will continue with IV diuretics at this time. Cardiology is f ollowing closely. Will continue with bronchodilators and IV heparin is being discontinued today. Chest xray today shows improved aeration of the lungs with a minimal cephalization/pulmonary vascular congestion remains. Repeat cxr in the morning. Will monitor labs and vital signs closely. Guarded prognosis. Once stabilized cardiac catheterization is needed. Further recommendations to follow.
[2019-03-15] MEDS: CARVEDILOL 12.5 MG TAB PO SCH ×2 (06:28→17:28)
[2019-03-15] MEDS: PANTOPRAZOLE 40 MG TABLET PO SCH ×2 (06:28→17:28)
[2019-03-15 08:19] LABS: Calcium 8.1 mg/dL (8.4-10.2); Potassium 3.9 mmol/L (3.5-5.1)
[2019-03-15] MEDS: IPRATROPIUM-ALBUTEROL 3 ML NEB INHALATION SCH ×4 (08:23→19:59)
[2019-03-15] MEDS: FUROSEMIDE 10 MG/ML 4 ML VIAL IV SCH (09:15)
[2019-03-15] MEDS: SACUBITRIL/VALSARTAN 24 MG-26 MG TABLET PO SCH ×2 (09:15→20:09)
[2019-03-15] MEDS: ASPIRIN 81 MG PO SCH (09:15)
[2019-03-15] MEDS: DOCUSATE 100 MG CAP PO SCH ×2 (11:52→20:00)
--- NOTE | 2019-03-15 13:14 | P.PN ---
Subjective Progress Note Date: 03/15/19 This is a 48-year-old gentleman admitted to the hospital with congestive cardiac failure, his echocardiogram with Doppler study revealed a severely impaired left ventricular systolic function, today overall he's feeling significantly better. We will discontinue his heparin today and repeat a chest x-ray. I did have a discussion with the patient and his significant other today, patient will undergo cardiac catheterization on Sunday by Dr. Hubbard. The risks and benefits were explained to the patient as well as the procedure in detail. Blood pressure 94/60 with a heart rate in the 90s, 93% on room air. White blood cell count 11.7, hemoglobin 13.5, platelet count 332. Sodium 142, potassium 4.0, BUN 33 and creatinine 1.5. 03/15/2019 A shunt seen and examined this morning, he feels well, continues to diurese well on the IV Lasix. Blood pressure 122/70 with a heart rate in the 80s today. Sodium 140, potassium 3.9, BUN 26 and creatinine 1.4. Objective - Vital Signs Vital signs: Vital Signs Temp 98.2 F 03/15/19 11:44 Pulse 88 03/15/19 11:49 Resp 16 03/15/19 11:44 BP 122/73 03/15/19 11:44 Pulse Ox 96 03/15/19 11:44 Intake & Output 03/14/19 03/15/19 03/15/19 18:59 06:59 18:59 Intake Total 1307.283 Output Total 1425 900 700 Balance -117.717 -900 -700 Weight 138.8 kg Intake: Intake, IV Titration 47.283 Amount Heparin Sod,Pork in 0.45% 47.283 NaCl 25,000 unit In 0.45 % NaCl 1 250ml.bag @ 7. 089 UNITS/KG/HR 10 mls/hr IV .Q24H [facility] Rx#: [id number] Oral 1260 Output: Urine 1425 900 700 Other: Voiding Method Toilet Toilet Urinal - Exam PHYSICAL EXAMINATION: GENERAL: 88-year-old gentleman in no acute distress at the time of my examination HEENT: Head is atraumatic, normocephalic. Pupils equal, round. Sclera anicteric. Conjunctiva are clear. Mucous membranes of the mouth are moist. Neck is supple. There is no elevated jugular venous pressure. No carotid bruit is heard. HEART EXAMINATION: Heart S1, S2 normal. No murmur or gallop heard. CHEST EXAMINATION: Lungs are clear with fine crackles to bilateral bases. ABDOMEN: Soft, nontender. Bowel sounds are heard. No organomegaly noted. EXTREMITIES: 2+ peripheral pulses with no evidence of peripheral edema and no calf tenderness noted. NEUROLOGIC patient is awake, alert and oriented X3. . - Labs CBC & Chem 7: 03/14/19 06:21 03/15/19 06:28 Labs: Abnormal Lab Results - Last 24 Hours (Table) 03/15/19 Range/Units 06:28 BUN 26 H (9-20) mg/dL Creatinine 1.40 H (0.66-1.25) mg/dL Calcium 8.1 L (8.4-10.2) mg/dL Assessment and Plan Plan: Assessment and plan #1 systolic congestive heart failure acute on chronic #2 severely impaired left ventricular systolic function, possible a recent myocarditis, CRP is elevated Plan Repeat chest x-ray did show improved aeration of the lungs as comparison with prior. We will continue the IV Lasix for 24 hours. Cardiac catheterization scheduled for Sunday. DNP note has been reviewed, I agree with a documented findings and plan of care. Patient was seen and examined.
--- NOTE | 2019-03-15 20:24 | PN ---
PROGRESS NOTE DATE OF SERVICE: 03/15/2019 This 48-year-old gentleman who was admitted with CHF acute exacerbation also had possible new onset cardiomyopathy. meds being adjusted. Cardiology is planning cardiac catheterization on Sunday. No chest pain. No palpitations. No fever. EXAM: Alert and oriented x3, pulse 93, blood pressure 119/76, respiration 20, temperature 98.4, pulse ox 97% on 2 L. HEENT: Conjunctivae normal. Oral mucosa moist. NECK: No jugular venous distention. No lymph node enlargement. CARDIOVASCULAR: S1, S2. RESPIRATORY: Diminished breath sounds at the bases. A few rhonchi, no crackles. ABDOMEN: Soft, nontender. LEGS: No swelling. NERVOUS SYSTEM: No focal deficits. LABS: Creatinine 1.40. ASSESSMENT: 1. Congestive heart failure acute exacerbation, acute on chronic systolic dysfunction, ejection fraction 20% to 25%. 2. Increased creatinine with possibly chronic kidney disease stage III. 3. Troponin 0.06, indeterminate. 4. Increased creatine kinase. 5. History of asthma. 6. History of obesity. RECOMMENDATIONS AND DISCUSSION: I recommend to continue current medications, continue to monitor, continue symptomatic treatment. Otherwise, at this time continue with beta blockers. Continue the rest of medications. The patient is also on Crestor at this time. Otherwise, cardiac cath per Cardiology. Guarded prognosis because of multiple complex medical issues. Further recommendations to follow. MMODL / IJN: [id number] / [email or web address]
[2019-03-16] MEDS: CARVEDILOL 12.5 MG TAB PO SCH ×2 (06:21→16:53)
[2019-03-16] MEDS: PANTOPRAZOLE 40 MG TABLET PO SCH ×2 (06:21→16:44)
[2019-03-16 07:03] LABS: Basophils % (A) 1 %; Eosinophils # (A) 0.3 k/uL (0-0.7); Eosinophils % (A) 5 %; HCT 44.1 % (39.0-53.0); HGB 14.2 gm/dL (13.0-17.5); Lymphocytes # (A) 1.2 k/uL (1.0-4.8); Lymphocytes % (A) 18 %; MCH 29.6 pg (25.0-35.0); MCHC 32.2 g/dL (31.0-37.0); MCV 91.9 fL (80.0-100.0); Mean Platelet Volume 7.7; Monocytes # (A) 0.4 k/uL (0-1.0); Monocytes % (A) 5 %; Neutrophils % (A) 70 %; Platelet Count 245 k/uL (150-450); RDW 13.7 % (11.5-15.5)
[2019-03-16 07:15] LABS: Calcium 8.4 mg/dL (8.4-10.2); Potassium 3.9 mmol/L (3.5-5.1)
[2019-03-16] MEDS: DOCUSATE 100 MG CAP PO SCH ×2 (08:10→21:02)
[2019-03-16] MEDS: ASPIRIN 81 MG PO SCH (08:47)
[2019-03-16] MEDS: FUROSEMIDE 40 MG TAB PO SCH (08:47)
[2019-03-16] MEDS: SACUBITRIL/VALSARTAN 24 MG-26 MG TABLET PO SCH ×2 (08:47→21:04)
[2019-03-16] MEDS: IPRATROPIUM-ALBUTEROL 3 ML NEB INHALATION SCH ×4 (08:58→20:16)
[2019-03-16] MEDS ORDERED: SODIUM CHLORIDE 0.9% 1,000 ML in EMPTY BAG 1 BAG IV ONE (13:00)
--- NOTE | 2019-03-16 13:00 | P.PN ---
Subjective Progress Note Date: 03/16/19 This is a 48-year-old gentleman admitted to the hospital with congestive cardiac failure, his echocardiogram with Doppler study revealed a severely impaired left ventricular systolic function, today overall he's feeling significantly better. We will discontinue his heparin today and repeat a chest x-ray. I did have a discussion with the patient and his significant other today, patient will undergo cardiac catheterization on Sunday by Dr. Hubbard. The risks and benefits were explained to the patient as well as the procedure in detail. Blood pressure 94/60 with a heart rate in the 90s, 93% on room air. White blood cell count 11.7, hemoglobin 13.5, platelet count 332. Sodium 142, potassium 4.0, BUN 33 and creatinine 1.5. 03/15/2019 Patient seen and examined this morning, he feels well, continues to diurese well on the IV Lasix. Blood pressure 122/70 with a heart rate in the 80s today. Sodium 140, potassium 3.9, BUN 26 and creatinine 1.4. 03/16/2019 Patient was seen and examined this morning, denies any chest discomfort, states that his breathing is overall stable. He does complain of back he coughs today. Blood pressure 118/78 with a heart rate in the 80s, 93% on room air. ABC is normal, sodium 141, potassium 3.9, BUN 22 and creatinine 1.4. Scheduled for cardiac catheterization tomorrow. Objective - Vital Signs Vital signs: Vital Signs Temp 98 F 03/16/19 11:17 Pulse 88 03/16/19 12:39 Resp 20 03/16/19 11:17 BP 118/79 03/16/19 11:17 Pulse Ox 93 L 03/16/19 11:17 Intake & Output 03/15/19 03/16/19 03/16/19 18:59 06:59 18:59 Intake Total 452 230 Output Total 1400 400 Balance -948 -170 Weight 137.7 kg Intake: Oral 452 230 Output: Urine 1400 400 Other: Voiding Method Urinal Toilet Toilet Urinal Urinal # Voids 2 # Bowel Movements 1 1 - Exam PHYSICAL EXAMINATION: GENERAL: 88-year-old gentleman in no acute distress at the time of my examination HEENT: Head is atraumatic, normocephalic. Pupils equal, round. Sclera anicteric. Conjunctiva are clear. Mucous membranes of the mouth are moist. Neck is supple. There is no elevated jugular venous pressure. No carotid bruit is heard. HEART EXAMINATION: Heart S1, S2 normal. No murmur or gallop heard. CHEST EXAMINATION: Lungs are clear with fine crackles to bilateral bases, diminished air entry to the bases ABDOMEN: Soft, nontender. Bowel sounds are heard. No organomegaly noted. EXTREMITIES: 2+ peripheral pulses with no evidence of peripheral edema and no calf tenderness noted. NEUROLOGIC patient is awake, alert and oriented X3. . - Labs CBC & Chem 7: 03/16/19 06:34 03/16/19 06:34 Labs: Abnormal Lab Results - Last 24 Hours (Table) 03/16/19 Range/Units 06:34 BUN 22 H (9-20) mg/dL Creatinine 1.40 H (0.66-1.25) mg/dL Assessment and Plan Plan: Assessment and plan #1 systolic congestive heart failure acute on chronic #2 severely impaired left ventricular systolic function, possible a recent myocarditis, CRP is elevated Plan We will repeat a chest x-ray again tomorrow morning, patient will be scheduled tomorrow to undergo cardiac catheterization. DNP note has been reviewed, I agree with a documented findings and plan of care. Patient was seen and examined.
--- NOTE | 2019-03-16 14:25 | XR ---
EXAMINATION TYPE: XR chest 2V DATE OF EXAM: 03/16/2019 COMPARISON: 03/14/2019 HISTORY: Short of breath TECHNIQUE: Frontal and lateral views of the chest are obtained. FINDINGS: There is poor inspiration. Heart appears enlarged. There is mild pulmonary congestion. The re are chest leads. IMPRESSION: Mild pulmonary congestion and cardiomegaly. No pleural fluid. No overt heart failure. In spiration decreased compared to recent exam.
[2019-03-16] MEDS: guaiFENesin SYRUP 100MG/5ML 200 MG/10 ML CUP PO PRN ×2 (16:44→23:06)
--- NOTE | 2019-03-16 20:12 | PN ---
PROGRESS NOTE DATE OF SERVICE: 03/16/2019 This 48-year-old gentleman admitted with CHF acute exacerbation, also had increased elevated creatinine. Cardiology is planning for cardiac catheterization tomorrow. The most recent chest x-ray showed persistent cardiomegaly as well as some evidence of CHF also. No chest pain. No palpitations. No fever. The patient is on p.o. diuretics. EXAM: Alert and oriented x3. Pulse is 100, blood pressure 110/70, respiration 20, temperature 98.2, pulse ox 94% on room air. HEENT: Conjunctivae normal. Oral mucosa moist. NECK: No jugular venous distention. No lymph node enlargement. CARDIOVASCULAR: S1, S2. RESPIRATORY: Diminished breath sounds at the bases. A few scattered rhonchi. ABDOMEN: Soft, nontender. LEGS: No swelling. NERVOUS SYSTEM: No focal deficits. LABS: CBC within normal limits. Creatinine 1.40. ASSESSMENT: 1. Congestive heart failure acute exacerbation with acute on chronic systolic dysfunction, ejection fraction 20 to 25%, rule out coronary artery disease. 2. Increased creatinine with possible chronic kidney disease stage III. 3. Troponin 0.06, indeterminate. 4. Increased creatine kinase. 5. History of asthma. 6. History of obesity. RECOMMENDATIONS AND DISCUSSION: Recommend to continue current management, continue symptomatic treatment. Otherwise, the chest x-ray is definitely improving. I will follow closely with Cardiology regarding the cardiac catheterization. Otherwise, continue to monitor. Guarded prognosis. Further recommendations to follow. MMODL / IJN: [id number] /
[2019-03-17] MEDS: ASPIRIN 81 MG PO SCH (03:55)
[2019-03-17] MEDS: CARVEDILOL 12.5 MG TAB PO SCH ×2 (03:55→18:20)
[2019-03-17] MEDS: FUROSEMIDE 40 MG TAB PO SCH ×2 (03:57→18:20)
[2019-03-17] MEDS: PANTOPRAZOLE 40 MG TABLET PO SCH ×2 (03:57→18:20)
[2019-03-17] MEDS: SACUBITRIL/VALSARTAN 24 MG-26 MG TABLET PO SCH ×2 (03:57→20:58)
[2019-03-17] MEDS: SODIUM CHLORIDE 0.9% 1,000 ML IV SCH ×2 (05:55→21:00)
[2019-03-17] MEDS ORDERED: ASPIRIN 325 MG TAB PO ONE (06:00)
[2019-03-17] MEDS ORDERED: ATORVASTATIN 80 MG TAB PO ONE (06:00)
[2019-03-17 06:32] LABS: Basophils # (A) 0.1 k/uL (0-0.2); Basophils % (A) 1 %; Eosinophils # (A) 0.5 k/uL (0-0.7); Eosinophils % (A) 5 %; HCT 44.7 % (39.0-53.0); HGB 14.7 gm/dL (13.0-17.5); Lymphocytes # (A) 1.3 k/uL (1.0-4.8); Lymphocytes % (A) 16 %; MCH 29.9 pg (25.0-35.0); MCHC 32.8 g/dL (31.0-37.0); MCV 91.2 fL (80.0-100.0); Mean Platelet Volume 8.5; Monocytes # (A) 0.5 k/uL (0-1.0); Monocytes % (A) 6 %; Neutrophils # (A) 5.8 k/uL (1.3-7.7); Neutrophils % (A) 70 %; Platelet Count 278 k/uL (150-450); RBC 4.91 m/uL (4.30-5.90); RDW 14.9 % (11.5-15.5); WBC 8.3 k/uL (3.8-10.6)
[2019-03-17 07:14] LABS: Calcium 8.6 mg/dL (8.4-10.2); Potassium 4.2 mmol/L (3.5-5.1)
[2019-03-17] MEDS: DOCUSATE 100 MG CAP PO SCH ×2 (07:45→21:14)
[2019-03-17] MEDS: IPRATROPIUM-ALBUTEROL 3 ML NEB INHALATION SCH ×4 (09:22→19:59)
[2019-03-17] MEDS ORDERED: ASPIRIN 81 MG PO ONE (11:29)
[2019-03-17] MEDS ORDERED: MIDAZOLAM (PF) 2 MG/2 ML VIAL IV ONE (11:31)
[2019-03-17] MEDS ORDERED: fentaNYL (PF) 50 MCG/ML 2 ML AMP IV ONE (11:32)
[2019-03-17] MEDS ORDERED: IV FLUID CONTINUATION 800 ML IV ONE (11:32)
[2019-03-17] MEDS ORDERED: IOPAMIDOL-370 125ML BTL INJ ONE (11:50)
--- NOTE | 2019-03-17 14:42 | CC ---
CARDIAC CATHETERIZATION REPORT Mr. Mccollum is a 48-year-old gentleman who was admitted with symptoms of shortness of breath. Patient was found to be in congestive cardiac failure. Echocardiogram revealed a severely impaired global hypokinesia with ejection fraction of 20% to 25%. This patient was treated with the medication. He is feeling better now. The patient was advised cardiac catheterization for definitive diagnosis procedure the right groin was prepped and draped in the usual manner and the right femoral artery was entered using Seldinger technique and micropuncture needle. Subsequently, selective coronary angiography was performed in multiple projections and the left ventricular pressures were obtained. Patient tolerated the procedure well. Sheath was removed and good hemostasis was achieved with the use of Angio-Seal. Moderate sedation was used. Total sedation time was 20 minutes. The left ventricular end-diastolic pressure is 30-32 mmHg. No gradient is noted across the aortic valve selective. CORONARY ANGIOGRAPHY: Left main coronary artery is normal and patent. LAD is a good caliber blood vessel and gives good size diagonal branch. LAD and its branches are normal circumflex coronary artery is a codominant distribution and continues as a good size PLV branch. Circumflex coronary artery and its branches are normal right coronary artery also is codominant distribution gives rise to the posterior descending artery and it is normal. FINAL IMPRESSION: This study reveals normal coronary arteries. Left ventricular end-diastolic pressure is elevated. RECOMMENDATIONS: Continue medical treatment. MMODL / IJN: [id number] /
[2019-03-17] MEDS: guaiFENesin SYRUP 100MG/5ML 200 MG/10 ML CUP PO PRN (18:23)
--- NOTE | 2019-03-18 00:47 | P.PN ---
Subjective Progress Note Date: 03/17/19 Principal diagnosis: This is a 48-year-old male who was recently admitted for shortness of breath with a past medical history of asthma and is being closely monitored. Chest x- ray upon admission showed evidence of cardiomegaly with significant CHF. Patient underwent a 2-D echo with an ejection fraction of 20-25%. Cardiology is following. The patient is on IV Lasix and shortness of breath has slightly improved. Patient still continues to be quite winded with exertion. Patient denies any chest pain or palpitations at this time. Patient denies any nausea or vomiting and is tolerating diet. Patient is afebrile. Per cardiology recommendations once the patient's congestive heart failure has improved patient will need cardiac catheterization for further evaluation. Guarded prognosis. 03/14/2019 Patient is sitting up in bed with legs dangled in no acute distress. Patient is requiring oxygen via NC at 2 L today due to shortness of breath at times with minimal exertion. Patient denies any chest pain or palpitations at this time. Patient denies any nausea or vomiting at this time. Patient tolerating diet. Patient remains afebrile. Cardiology is following closely. Patient remains on bronchodilators at this time as well as IV lasix. Will continue to monitor closely. Guarded prognosis. 03/17/2019 Patient is sitting up at the side of the bed in no acute distress. Family is at the bedside. Patient is awaiting transport to have a cardiac catheterization this morning. Patient states that his shortness of breath has improved. Patient states he is using 02 via NC when exerting himself. Patient denies any chest pain or palpitations at this time. Patient denies any nausea or vomiting. Patient is afebrile. Patient is being closely followed. Guarded prognosis. Objective - Vital Signs Vital signs: Vital Signs Temp 97.4 F L 03/17/19 08:00 Pulse 99 03/17/19 20:06 Resp 14 03/17/19 20:00 BP 111/72 03/17/19 16:09 Pulse Ox 94 L 03/17/19 16:09 Intake & Output 03/17/19 03/17/19 03/18/19 06:59 18:59 06:59 Intake Total 480 1741 Output Total 680 200 Balance -200 1541 Weight 136.6 kg Intake: IV 175 Intake, IV Titration 900 Amount Sodium Chloride 0.9% 1, 900 000 ml @ 75 mls/hr IV . [id number] [facility] Rx#:[id number] Oral 480 666 Output: Urine 680 200 Other: Voiding Method Toilet Toilet Toilet Urinal Urinal Urinal - Exam Gen: This is a 48-year-old male sitting up at the site of the bed in no acute distress. Vital signs are stable. Temp is 97.4F, pulse is 94, respiratory rate is 14, blood pressure is 99/55, oxygen saturation is 99% on room air. Patient is intermittently using 02 via NC at 1-2 L HEENT: Head is atraumatic, normocephalic. Pupils equal, round. Sclerae is anicteric. NECK: Supple. No JVD. No lymphadenopathy. No thyromegaly. LUNGS: Diminished breath sounds at the bases with a few scattered rhonchi noted. No intercostal retractions. HEART: S1 and S2 are muffled. murmur noted. ABDOMEN: Soft. Obese. Bowel sounds are present. No masses. No tenderness. EXTREMITIES: Mild lower extremity edema noted bilaterally. No calf tenderness. NEUROLOGICAL: Patient is awake, alert and oriented x3. Cranial nerves 2 through 12 are grossly intact. - Labs CBC & Chem 7: 03/17/19 06:05 03/17/19 06:05 Labs: Abnormal Lab Results - Last 24 Hours (Table) 03/17/19 Range/Units 06:05 Creatinine 1.41 H (0.66-1.25) mg/dL Glucose 105 H (74-99) mg/dL Assessment and Plan Assessment: Congestive heart failure acute exacerbation with acute on chronic systolic dysfunction, ejection fraction 20-25%, rule out coronary artery disease. Increased creatinine with possible chronic kidney disease stage III Troponin 0.069, indeterminate Increased creatinine kinase History of asthma Obesity Recommendations and discussion: Recommend continue current medications, management, and symptomatically treatment. Will continue with oral diuretics at this time. Cardiology is following closely. Will monitor labs and vital signs closely. Guarded prognosis. Cardiac catheterization is set for today. Will await report. Further recommendations to follow. Possible discharge in 24-48 hours.
[2019-03-18] MEDS: PANTOPRAZOLE 40 MG TABLET PO SCH ×2 (06:37→17:24)
[2019-03-18] MEDS: CARVEDILOL 12.5 MG TAB PO SCH ×2 (06:37→17:24)
[2019-03-18 06:39] LABS: Calcium 8.8 mg/dL (8.4-10.2); Potassium 4.1 mmol/L (3.5-5.1)
[2019-03-18 06:42] LABS: Basophils # (A) 0.1 k/uL (0-0.2); Basophils % (A) 1 %; Eosinophils # (A) 0.4 k/uL (0-0.7); Eosinophils % (A) 5 %; HCT 43.6 % (39.0-53.0); HGB 14.1 gm/dL (13.0-17.5); Lymphocytes # (A) 1.2 k/uL (1.0-4.8); Lymphocytes % (A) 16 %; MCH 29.8 pg (25.0-35.0); MCHC 32.3 g/dL (31.0-37.0); MCV 92.2 fL (80.0-100.0); Mean Platelet Volume 8.9; Monocytes # (A) 0.5 k/uL (0-1.0); Monocytes % (A) 7 %; Neutrophils # (A) 4.9 k/uL (1.3-7.7); Neutrophils % (A) 68 %; Platelet Count 264 k/uL (150-450); RBC 4.73 m/uL (4.30-5.90); WBC 7.2 k/uL (3.8-10.6)
[2019-03-18] MEDS: IPRATROPIUM-ALBUTEROL 3 ML NEB INHALATION SCH ×4 (07:54→20:05)
[2019-03-18] MEDS: SACUBITRIL/VALSARTAN 24 MG-26 MG TABLET PO SCH ×2 (08:24→21:37)
[2019-03-18] MEDS: FUROSEMIDE 40 MG TAB PO SCH (08:24)
[2019-03-18] MEDS: ASPIRIN 81 MG PO SCH (08:24)
[2019-03-18] MEDS: SPIRONOLACTONE 25 MG TAB PO SCH (08:24)
[2019-03-18] MEDS: guaiFENesin SYRUP 100MG/5ML 200 MG/10 ML CUP PO PRN ×3 (08:24→23:06)
[2019-03-18] MEDS: SODIUM CHLORIDE 0.9% 1,000 ML IV SCH (08:25)
[2019-03-18] MEDS: DOCUSATE 100 MG CAP PO SCH ×2 (08:25→21:35)
[2019-03-18 11:22] VITALS: BMI 48.3
--- NOTE | 2019-03-18 11:35 | PN ---
PROGRESS NOTE This patient is admitted with cardiomyopathy. He underwent cardiac catheterization and was found to have no significant coronary artery disease. He still continues to have some shortness of breath and nonproductive cough. He is able to walk around. Blood pressure is 114/55 mmHg. HEART: S1 and S2 normal. Lungs are clinically clear to auscultation and percussion. The patient still has 1+ leg edema. The patient's cardiac catheterization showed significantly elevated end-diastolic pressure. In view of that, I will treat the patient with IV Lasix for another 24 to 48 hours. The risks and benefits of the LifeVest were fully discussed with him and he wants to proceed with having a LifeVest until his left ventricular systolic function is improved. MMODL / IJN: [id number] /
[2019-03-18] MEDS: FUROSEMIDE 10 MG/ML 4 ML VIAL IV SCH ×2 (15:19→23:06)
--- NOTE | 2019-03-18 16:36 | P.PN ---
Subjective Progress Note Date: 03/18/19 Principal diagnosis: This is a 48-year-old male who was recently admitted for shortness of breath with a past medical history of asthma and is being closely monitored. Chest x- ray upon admission showed evidence of cardiomegaly with significant CHF. Patient underwent a 2-D echo with an ejection fraction of 20-25%. Cardiology is following. The patient is on IV Lasix and shortness of breath has slightly improved. Patient still continues to be quite winded with exertion. Patient denies any chest pain or palpitations at this time. Patient denies any nausea or vomiting and is tolerating diet. Patient is afebrile. Per cardiology recommendations once the patient's congestive heart failure has improved patient will need cardiac catheterization for further evaluation. Guarded prognosis. 03/14/2019 Patient is sitting up in bed with legs dangled in no acute distress. Patient is requiring oxygen via NC at 2 L today due to shortness of breath at times with minimal exertion. Patient denies any chest pain or palpitations at this time. Patient denies any nausea or vomiting at this time. Patient tolerating diet. Patient remains afebrile. Cardiology is following closely. Patient remains on bronchodilators at this time as well as IV lasix. Will continue to monitor closely. Guarded prognosis. 03/17/2019 Patient is sitting up at the side of the bed in no acute distress. Family is at the bedside. Patient is awaiting transport to have a cardiac catheterization this morning. Patient states that his shortness of breath has improved. Patient states he is using 02 via NC when exerting himself. Patient denies any chest pain or palpitations at this time. Patient denies any nausea or vomiting. Patient is afebrile. Patient is being closely followed. Guarded prognosis. 03/18/2019 Patient is sitting up in bed in no acute distress. Patient underwent cardiac catheterization yesterday which showed no significant coronary artery disease along with significantly elevated end-diastolic pressure and is being closely monitored at this time. Cardiology is following closely. Per cardiology recommendations patient will continue on IV Lasix for another day and continue t o monitor. A LifeVest was discussed with the patient and is currently waiting an approval for this at this time. Case management is social work are following closely. Patient had no insurance and has recently obtained Medicaid and awaiting authorization for this LifeVest. Patient denies any chest pain or palpitations at this time. Patient is still having some shortness of breath with exertion. Patient denies any nausea or vomiting and has been tolerating diet. Patient is afebrile. Guarded prognosis. Objective - Vital Signs Vital signs: Vital Signs Temp 97.6 F 03/18/19 15:40 Pulse 84 03/18/19 15:41 Resp 18 03/18/19 15:40 BP 112/71 03/18/19 15:40 Pulse Ox 94 L 03/18/19 15:40 Intake & Output 03/17/19 03/18/19 03/18/19 18:59 06:59 18:59 Intake Total 1741 660 462 Output Total 072 796 1411 Balance 1541 260 -738 Weight 135.9 kg 135.9 kg Intake: IV 175 Intake, IV Titration 900 300 Amount Sodium Chloride 0.9% 1, 900 300 000 ml @ 75 mls/hr IV . [id number] [facility] Rx#:[id number] Oral 666 360 462 Output: Urine 328 904 0950 Other: Voiding Method Toilet Toilet Toilet Urinal Urinal - Exam Gen: This is a 48-year-old male sitting up in bed in no acute distress. Vital signs are stable. Temp is 97.5F, pulse is 85, respiratory rate is 16, blood pressure is 103/67, oxygen saturation is 96 % on room air. Patient is intermittently using 02 via NC at 1-2 L HEENT: Head is atraumatic, normocephalic. Pupils equal, round. Sclerae is anicteric. NECK: Supple. No JVD. No lymphadenopathy. No thyromegaly. LUNGS: Diminished breath sounds at the bases with a few scattered rhonchi noted. No intercostal retractions. HEART: S1 and S2 are muffled. murmur noted. ABDOMEN: Soft. Obese. Bowel sounds are present. No masses. No tenderness. EXTREMITIES: Mild lower extremity edema noted bilaterally. No calf tenderness. NEUROLOGICAL: Patient is awake, alert and oriented x3. Cranial nerves 2 through 12 are grossly intact. - Labs CBC & Chem 7: 03/18/19 05:07 03/18/19 05:07 Labs: Abnormal Lab Results - Last 24 Hours (Table) 03/18/19 Range/Units 05:07 BUN 21 H (9-20) mg/dL Creatinine 1.42 H (0.66-1.25) mg/dL Glucose 104 H (74-99) mg/dL Assessment and Plan Assessment: Congestive heart failure acute exacerbation with acute on chronic systolic dysfunction, ejection fraction 20-25%, rule out coronary artery disease. Increased creatinine with possible chronic kidney disease stage III Troponin 0.069, indeterminate Increased creatinine kinase History of asthma Obesity Recommendations and discussion: Recommend continue current medications, management, and symptomatically treatment. Will continue with IV diuretics at this time. Cardiology is following closely. Will monitor labs and vital signs closely. Guarded progn osis. Patient discussed with cardiology about the possibility of a LifeVest and would like to proceed. Patient just obtained Medicaid insurance and authorization is pending at this time. Case management and social work are following closely. Further recommendations to follow. Possible discharge in 24- 48 hours.
[2019-03-19] MEDS: HYDROcodone/APAP 5-325MG 1 EACH TAB PO PRN (03:43)
[2019-03-19] MEDS: CARVEDILOL 12.5 MG TAB PO SCH ×2 (06:51→18:05)
[2019-03-19] MEDS: PANTOPRAZOLE 40 MG TABLET PO SCH ×2 (06:51→18:04)
--- NOTE | 2019-03-19 08:15 | XR ---
EXAMINATION TYPE: XR chest 2V DATE OF EXAM: 03/19/2019 COMPARISON: 03/16/2019 HISTORY: Shortness of breath TECHNIQUE: Frontal and lateral views of the chest are obtained. FINDINGS: Strand-like right basilar subsegmental atelectasis is present. There are overall low lung volumes. Trace pulmonary vascular congestion is unchanged from the prior. Cardiomediastinal silhouett e is stable. No sizable pleural effusion or pneumothorax. No acute osseous process. IMPRESSION: Stable very mild pulmonary vascular congestion and right basilar subsegmental atelectasi s.
[2019-03-19] MEDS: ASPIRIN 81 MG PO SCH (08:32)
[2019-03-19] MEDS: SACUBITRIL/VALSARTAN 24 MG-26 MG TABLET PO SCH ×2 (08:33→21:25)
[2019-03-19] MEDS: SPIRONOLACTONE 25 MG TAB PO SCH (08:33)
[2019-03-19] MEDS: FUROSEMIDE 10 MG/ML 4 ML VIAL IV SCH ×3 (08:33→23:25)
[2019-03-19] MEDS: guaiFENesin SYRUP 100MG/5ML 200 MG/10 ML CUP PO PRN ×3 (08:33→23:25)
[2019-03-19] MEDS: DOCUSATE 100 MG CAP PO SCH ×2 (08:36→21:16)
[2019-03-19] MEDS: IPRATROPIUM-ALBUTEROL 3 ML NEB INHALATION SCH ×4 (09:33→20:05)
--- NOTE | 2019-03-19 14:59 | P.PN ---
Subjective Progress Note Date: 03/19/19 Principal diagnosis: This is a 48-year-old male who was recently admitted for shortness of breath with a past medical history of asthma and is being closely monitored. Chest x- ray upon admission showed evidence of cardiomegaly with significant CHF. Patient underwent a 2-D echo with an ejection fraction of 20-25%. Cardiology is following. The patient is on IV Lasix and shortness of breath has slightly improved. Patient still continues to be quite winded with exertion. Patient denies any chest pain or palpitations at this time. Patient denies any nausea or vomiting and is tolerating diet. Patient is afebrile. Per cardiology recommendations once the patient's congestive heart failure has improved patient will need cardiac catheterization for further evaluation. Guarded prognosis. 03/14/2019 Patient is sitting up in bed with legs dangled in no acute distress. Patient is requiring oxygen via NC at 2 L today due to shortness of breath at times with minimal exertion. Patient denies any chest pain or palpitations at this time. Patient denies any nausea or vomiting at this time. Patient tolerating diet. Patient remains afebrile. Cardiology is following closely. Patient remains on bronchodilators at this time as well as IV lasix. Will continue to monitor closely. Guarded prognosis. 03/17/2019 Patient is sitting up at the side of the bed in no acute distress. Family is at the bedside. Patient is awaiting transport to have a cardiac catheterization this morning. Patient states that his shortness of breath has improved. Patient states he is using 02 via NC when exerting himself. Patient denies any chest pain or palpitations at this time. Patient denies any nausea or vomiting. Patient is afebrile. Patient is being closely followed. Guarded prognosis. 03/18/2019 Patient is sitting up in bed in no acute distress. Patient underwent cardiac catheterization yesterday which showed no significant coronary artery disease along with significantly elevated end-diastolic pressure and is being closely monitored at this time. Cardiology is following closely. Per cardiology recommendations patient will continue on IV Lasix for another day and continue t o monitor. A LifeVest was discussed with the patient and is currently waiting an approval for this at this time. Case management is social work are following closely. Patient had no insurance and has recently obtained Medicaid and awaiting authorization for this LifeVest. Patient denies any chest pain or palpitations at this time. Patient is still having some shortness of breath with exertion. Patient denies any nausea or vomiting and has been tolerating diet. Patient is afebrile. Guarded prognosis. 03/19/2019 Patient is sitting up in the bed at the bedside in no acute distress. Family is at the bedside. Currently patient has the LifeVest on and is tolerating well. Cardiology is following closely. Patient denies any chest pain or palpitations at this time. Patient states that he is still having some shortness of breath with exertion. Patient is currently on room air at this time. Patient states that he required some oxygen 1-2 L last night. Nursing staff performed and oxygen eval and patient had an oxygen saturation of 91% on room air with exertion. Patient was 93% on room air while at rest. Will continue to monitor. Patient denies any nausea or vomiting and has been tolerating diet. Patient has remained afebrile. Patient is awaiting to see cardiology today to discuss the next step in his treatment plan. Guarded prognosis. Objective - Vital Signs Vital signs: Vital Signs Temp 97.5 F L 03/19/19 11:38 Pulse 91 03/19/19 13:05 Resp 18 03/19/19 11:38 BP 100/59 03/19/19 11:38 Pulse Ox 92 L 03/19/19 11:38 Intake & Output 03/18/19 03/19/19 03/19/19 18:59 06:59 18:59 Intake Total 822 358 Output Total 2049 1050 Balance -1228 -1050 358 Weight 135.9 kg 130.8 kg Intake: Oral 822 358 Output: Urine 2049 105 Other: Voiding Method Toilet Urinal Urinal # Voids 2 - Exam Gen: This is a 48-year-old male sitting up at the bedside in no acute distress. Vital signs are stable. Temp is 97.5F, pulse is 88, respiratory rate is 18, blood pressure is 100/59, oxygen saturation is 92 % on room air. Patient is intermittently using 02 via NC at 1-2 L HEENT: Head is atraumatic, normocephalic. Pupils equal, round. Sclerae is anicteric. NECK: Supple. No JVD. No lymphadenopathy. No thyromegaly. LUNGS: Diminished breath sounds at the bases with a few scattered rhonchi no traci. No intercostal retractions. HEART: S1 and S2 are muffled. murmur noted. Life vest noted. ABDOMEN: Soft. Obese. Bowel sounds are present. No masses. No tenderness. EXTREMITIES: Mild lower extremity edema noted bilaterally with improvement. No calf tenderness. NEUROLOGICAL: Patient is awake, alert and oriented x3. Cranial nerves 2 through 12 are grossly intact. - Labs CBC & Chem 7: 03/18/19 05:07 03/18/19 05:07 Assessment and Plan Assessment: Congestive heart failure acute exacerbation with acute on chronic systolic dysfunction, ejection fraction 20-25%, rule out coronary artery disease. Increased creatinine with possible chronic kidney disease stage III Troponin 0.069, indeterminate Increased creatinine kinase History of asthma Obesity Recommendations and discussion: Recommend continue current medications, management, and symptomatic treatment. Will continue with IV diuretics at this time. Cardiology is following closely. Awaiting cardiology report from today. Spoke to cardiology [employer]OL STORAGE ATTENDANT about possible discharge in the next 24-48 hours. Will monitor labs and vital signs closely. Will monitor a.m. labs. Guarded prognosis. Case management and social work are following closely. Further recommendations to follow. Possible discharge in 24- 48 hours.
--- NOTE | 2019-03-19 19:55 | PN ---
PROGRESS NOTE This patient has cardiomyopathy with significantly impaired left ventricular systolic function. The patient gives a history that he has been having still some symptoms of shortness of breath and some nonproductive cough. Denies any orthopnea or PND. Chest x- ray shows very mild pulmonary congestion. First and second heart sounds are normal. Lungs are clinically clear to auscultation and percussion. Patient's respirations are otherwise not labored. Oxygen saturation is 92%. We will ambulate the patient and check oxygen saturation. His urine output remains good. Patient's weight is down about 7 kg. Continue IV Lasix for another 24 hours, and if the patient is feeling better, he will be discharged home tomorrow. MMODL / IJN: [id number] /
[2019-03-20] MEDS: PANTOPRAZOLE 40 MG TABLET PO SCH ×2 (06:47→17:09)
[2019-03-20] MEDS: CARVEDILOL 12.5 MG TAB PO SCH ×2 (06:51→17:10)
[2019-03-20] MEDS: FUROSEMIDE 10 MG/ML 4 ML VIAL IV SCH ×2 (08:07→09:24)
[2019-03-20] MEDS: ASPIRIN 81 MG PO SCH (08:08)
[2019-03-20] MEDS: guaiFENesin SYRUP 100MG/5ML 200 MG/10 ML CUP PO PRN ×2 (08:08→20:56)
[2019-03-20] MEDS: IPRATROPIUM-ALBUTEROL 3 ML NEB INHALATION SCH ×4 (08:10→19:24)
[2019-03-20] MEDS: SPIRONOLACTONE 25 MG TAB PO SCH (08:29)
[2019-03-20 08:37] LABS: Calcium 9.2 mg/dL (8.4-10.2)
[2019-03-20 08:38] LABS: Potassium 4.1 mmol/L (3.5-5.1)
[2019-03-20] MEDS: SACUBITRIL/VALSARTAN 24 MG-26 MG TABLET PO SCH ×2 (09:24→20:56)
[2019-03-20] MEDS: DOCUSATE 100 MG CAP PO SCH ×3 (09:24→20:50)
--- NOTE | 2019-03-20 13:26 | P.PN ---
Subjective Progress Note Date: 03/20/19 Principal diagnosis: This is a 48-year-old male who was recently admitted for shortness of breath with a past medical history of asthma and is being closely monitored. Chest x- ray upon admission showed evidence of cardiomegaly with significant CHF. Patient underwent a 2-D echo with an ejection fraction of 20-25%. Cardiology is following. The patient is on IV Lasix and shortness of breath has slightly improved. Patient still continues to be quite winded with exertion. Patient denies any chest pain or palpitations at this time. Patient denies any nausea or vomiting and is tolerating diet. Patient is afebrile. Per cardiology recommendations once the patient's congestive heart failure has improved patient will need cardiac catheterization for further evaluation. Guarded prognosis. 03/14/2019 Patient is sitting up in bed with legs dangled in no acute distress. Patient is requiring oxygen via NC at 2 L today due to shortness of breath at times with minimal exertion. Patient denies any chest pain or palpitations at this time. Patient denies any nausea or vomiting at this time. Patient tolerating diet. Patient remains afebrile. Cardiology is following closely. Patient remains on bronchodilators at this time as well as IV lasix. Will continue to monitor closely. Guarded prognosis. 03/17/2019 Patient is sitting up at the side of the bed in no acute distress. Family is at the bedside. Patient is awaiting transport to have a cardiac catheterization this morning. Patient states that his shortness of breath has improved. Patient states he is using 02 via NC when exerting himself. Patient denies any chest pain or palpitations at this time. Patient denies any nausea or vomiting. Patient is afebrile. Patient is being closely followed. Guarded prognosis. 03/18/2019 Patient is sitting up in bed in no acute distress. Patient underwent cardiac catheterization yesterday which showed no significant coronary artery disease along with significantly elevated end-diastolic pressure and is being closely monitored at this time. Cardiology is following closely. Per cardiology recommendations patient will continue on IV Lasix for another day and continue t o monitor. A LifeVest was discussed with the patient and is currently waiting an approval for this at this time. Case management is social work are following closely. Patient had no insurance and has recently obtained Medicaid and awaiting authorization for this LifeVest. Patient denies any chest pain or palpitations at this time. Patient is still having some shortness of breath with exertion. Patient denies any nausea or vomiting and has been tolerating diet. Patient is afebrile. Guarded prognosis. 03/19/2019 Patient is sitting up in the bed at the bedside in no acute distress. Family is at the bedside. Currently patient has the LifeVest on and is tolerating well. Cardiology is following closely. Patient denies any chest pain or palpitations at this time. Patient states that he is still having some shortness of breath with exertion. Patient is currently on room air at this time. Patient states that he required some oxygen 1-2 L last night. Nursing staff performed and oxygen eval and patient had an oxygen saturation of 91% on room air with exertion. Patient was 93% on room air while at rest. Will continue to monitor. Patient denies any nausea or vomiting and has been tolerating diet. Patient has remained afebrile. Patient is awaiting to see cardiology today to discuss the next step in his treatment plan. Guarded prognosis. 03/20/2019 Patient is sitting up in the chair with legs elevated in no acute distress. Patient states that he was walking the unit a couple of times today and felt quite winded and short of breath. Patient has oxygen via nasal cannula on at 2 L at the moment. Patient denies any chest pain or palpitations at this time. Patient states that he does feel a little tired today. Patient was transitioned to oral Lasix and will continue to be monitored closely. Cardiology is following closely as well. Life Vest noted on exam. Patient denies any nausea or vomiting and has been tolerating diet. Patient is afebrile. Spoke to cardiology EQUIPMENT SUPERINTENDENT and patient had a brief rapid episode of Aflutter. Patient is being placed on Eliquis per cardiology recommendations. Guarded prognosis. REVIEW OF SYSTEMS: ENT: No diminished vision or hearing. CARDIOVASCULAR: Mentioned earlier. RESPIRATORY: As mentioned earlier. GI: No nauscea, vomiting or diarrhea. : No dysuria or retention. NERVOUS SYSTEM: No numbness or weakness. CONSTITUTIONAL: Reports fatigue. Active Medications Hydrocodone Bitart/Acetaminophen (Hankamer 5-325) 1 each PO Q6HR PRN Albuterol Sulfate (Ventolin Nebulized) 2.5 mg INHALATION RT-QID PRN Albuterol/Ipratropium (Duoneb 0.5 Mg-3 Mg/3 Ml Soln) 3 ml INHALATION RT-QID [facility]AVO Alprazolam (Xanax) 0.25 mg PO Q6HR PRN Alprazolam (Xanax) 0.5 mg PO Q6HR PRN Apixaban (Eliquis) 5 mg PO BID [facility] Aspirin (Aspirin) 81 mg PO DAILY [facility] Carvedilol (Coreg) 25 mg PO BID-W/MEALS [facility] Docusate Sodium (Colace) 100 mg PO BID T[facility] Furosemide (Lasix) 40 mg PO BID@0900,1600 [facility] Guaifenesin (Robitussin) 200 mg PO Q6H PRN Nitroglycerin (Nitrostat) 0.4 mg SUBLINGUAL Q5M PRN Nitroglycerin (Nitrostat) 0.4 mg SUBLINGUAL Q5M PRN Ondansetron HCl (Zofran) 4 mg IVP Q6HR PRN Pantoprazole Sodium (Protonix) 40 mg PO AC-BID [facility] Sacubitril/Valsartan (Entresto 24 Mg-26 Mg Tablet) 1 each PO BID [facility] Spironolactone (Aldactone) 25 mg PO DAILY [facility] Objective - Vital Signs Vital signs: Vital Signs Temp 98.4 F 03/20/19 12:48 Pulse 89 03/20/19 12:48 Resp 22 03/20/19 12:48 BP 109/51 03/20/19 12:48 Pulse Ox 93 L 03/20/19 12:48 Intake & Output 03/19/19 03/20/19 03/20/19 18:59 06:59 18:59 Intake Total 1024 222 Output Total 900 Balance 1024 -900 222 Weight 130.5 kg Intake: Oral 1024 222 Output: Urine 900 Other: Voiding Method Urinal Toilet Toilet # Voids 2 500 - Exam Gen: This is a 48-year-old male sitting up at the chair in no acute distress. Vital signs are stable. Temp is 97.9F, pulse is 84, respiratory rate is 22, blood pressure is 96/57, oxygen saturation is 92 % on 2 L via nasal cannula. Patient is intermittently using 02 via NC at 1-2 L HEENT: Head is atraumatic, normocephalic. Pupils equal, round. Sclerae is anicteric. NECK: Supple. No JVD. No lymphadenopathy. No thyromegaly. LUNGS: Diminished breath sounds at the bases otherwise clear upon auscultation. No intercostal retractions. HEART: S1 and S2 are muffled. murmur noted. Life vest noted. ABDOMEN: Soft. Obese. Bowel sounds are present. No masses. No tenderness. EXTREMITIES: Mild lower extremity edema noted bilaterally with improvement. No calf tenderness. NEUROLOGICAL: Patient is awake, alert and oriented x3. Cranial nerves 2 through 12 are grossly intact. - Labs CBC & Chem 7: 03/18/19 05:07 03/20/19 06:11 Labs: Abnormal Lab Results - Last 24 Hours (Table) 03/20/19 Range/Units 06:11 BUN 25 H (9-20) mg/dL Creatinine 1.54 H (0.66-1.25) mg/dL Assessment and Plan Assessment: Congestive heart failure acute exacerbation with acute on chronic systolic dysfunction, ejection fraction 20-25%, rule out coronary artery disease. Cardiomyopathy with impaired left ventricular systolic function; cardiology is following closely. Patient has a life vest on. Increased creatinine with possible chronic kidney disease stage III; current creatinine is 1.54 Troponin 0.069, indeterminate Increased creatinine kinase History of asthma Obesity Recommendations and discussion: Recommend continue current medications, management, and symptomatic treatment. Cardiology is following closely. Spoke to cardiology EQUIPMENT SUPERINTENDENT today as patient had a brief run of a flutter. Patient being started on oral anticoagulation in the form of Eliquis. Will monitor labs and vital signs closely. Will monitor a.m. labs. Guarded prognosis. Case management and social work are following closely. Further recommendations to follow. Possible discharge in 24-48 hours.
[2019-03-20] MEDS: APIXABAN 5 MG TAB PO SCH ×2 (13:41→20:56)
[2019-03-20] MEDS ORDERED: ACETAMINOPHEN TAB 325 MG TAB PO STA (13:44)
--- NOTE | 2019-03-20 15:23 | P.PN ---
Subjective Progress Note Date: 03/20/19 This is a 48-year-old gentleman admitted to the hospital with congestive cardiac failure, his echocardiogram with Doppler study revealed a severely impaired left ventricular systolic function, today overall he's feeling significantly better. We will discontinue his heparin today and repeat a chest x-ray. I did have a discussion with the patient and his significant other today, patient will undergo cardiac catheterization on Sunday by Dr. Hubbard. The risks and benefits were explained to the patient as well as the procedure in detail. Blood pressure 94/60 with a heart rate in the 90s, 93% on room air. White blood cell count 11.7, hemoglobin 13.5, platelet count 332. Sodium 142, potassium 4.0, BUN 33 and creatinine 1.5. 03/15/2019 Patient seen and examined this morning, he feels well, continues to diurese well on the IV Lasix. Blood pressure 122/70 with a heart rate in the 80s today. Sodium 140, potassium 3.9, BUN 26 and creatinine 1.4. 03/16/2019 Patient was seen and examined this morning, denies any chest discomfort, states that his breathing is overall stable. He does complain of back he coughs today. Blood pressure 118/78 with a heart rate in the 80s, 93% on room air. ABC is normal, sodium 141, potassium 3.9, BUN 22 and creatinine 1.4. Scheduled for cardiac catheterization tomorrow. 03/20/2019 Patient did undergo a cardiac catheterization which revealed normal coronary arteries. He was also fitted with a LifeVest in the anticipating possible discharge home today. He continues to be on IV Lasix, diuresed well, breathing today is overall much improved. Patient was noted on the monitor to have an episode of atrial flutter with rapid ventricular response. Because of his cardiomyopathy, in view of the new onset atrial flutter, we would recommend to start the patient on Eliquis. Objective - Vital Signs Vital signs: Vital Signs Temp 98.4 F 03/20/19 12:48 Pulse 89 03/20/19 12:48 Resp 22 03/20/19 12:48 BP 109/51 03/20/19 12:48 Pulse Ox 93 L 03/20/19 12:48 Intake & Output 09/11/19 09/12/19 09/12/19 18:59 06:59 18:59 Intake Total 1024 222 Output Total 900 Balance 1024 -900 222 Weight 130.5 kg Intake: Oral 1024 222 Output: Urine 900 Other: Voiding Method Urinal Toilet Toilet # Voids 2 500 1 - Exam PHYSICAL EXAMINATION: GENERAL: 88-year-old gentleman in no acute distress at the time of my examination HEENT: Head is atraumatic, normocephalic. Pupils equal, round. Sclera anicteric. Conjunctiva are clear. Mucous membranes of the mouth are moist. Neck is supple. There is no elevated jugular venous pressure. No carotid bruit is heard. HEART EXAMINATION: Heart S1, S2 normal. No murmur or gallop heard. CHEST EXAMINATION: Lungs are clear to auscultation. ABDOMEN: Soft, nontender. Bowel sounds are heard. No organomegaly noted. EXTREMITIES: 2+ peripheral pulses with no evidence of peripheral edema and no calf tenderness noted. NEUROLOGIC patient is awake, alert and oriented X3. . - Labs CBC & Chem 7: 03/18/19 05:07 03/20/19 06:11 Labs: Abnormal Lab Results - Last 24 Hours (Table) 03/20/19 Range/Units 06:11 BUN 25 H (9-20) mg/dL Creatinine 1.54 H (0.66-1.25) mg/dL Assessment and Plan Plan: Assessment and plan #1 systolic congestive heart failure acute on chronic #2 severely impaired left ventricular systolic function, possible a recent myocarditis, CRP is elevated #3 nonischemic cardiomyopathy #4 cardiac catheterization revealed normal coronary arteries #5 paroxysmal atrial flutter, typical Plan We will start the patient on Eliquis 5 mg one tablet by mouth twice a day, continue oral diuretics. Continue to monitor for 24 hours and plan for possible discharge home in the morning if stable. DNP note has been reviewed, I agree with a documented findings and plan of care. Patient was seen and examined.
[2019-03-20] MEDS: FUROSEMIDE 40 MG TAB PO SCH (17:10)
[2019-03-21] MEDS: HYDROcodone/APAP 5-325MG 1 EACH TAB PO PRN (01:25)
[2019-03-21] MEDS: CARVEDILOL 12.5 MG TAB PO SCH ×2 (06:40→17:41)
[2019-03-21] MEDS: PANTOPRAZOLE 40 MG TABLET PO SCH ×2 (06:40→17:40)
[2019-03-21] MEDS: FUROSEMIDE 40 MG TAB PO SCH ×2 (08:23→15:32)
[2019-03-21] MEDS: APIXABAN 5 MG TAB PO SCH (08:23)
[2019-03-21] MEDS: ASPIRIN 81 MG PO SCH (08:23)
[2019-03-21] MEDS: DOCUSATE 100 MG CAP PO SCH (08:25)
[2019-03-21] MEDS: guaiFENesin SYRUP 100MG/5ML 200 MG/10 ML CUP PO PRN ×2 (08:47→17:40)
[2019-03-21] MEDS: IPRATROPIUM-ALBUTEROL 3 ML NEB INHALATION SCH ×3 (08:49→16:04)
[2019-03-21 09:00] VITALS: RESP 18
[2019-03-21 10:10] LABS: Calcium 9.5 mg/dL (8.4-10.2); Potassium 4.2 mmol/L (3.5-5.1)
[2019-03-21] MEDS: SPIRONOLACTONE 25 MG TAB PO SCH (10:23)
[2019-03-21] MEDS: SACUBITRIL/VALSARTAN 24 MG-26 MG TABLET PO SCH (10:23)
--- NOTE | 2019-03-21 15:43 | P.PN ---
Subjective Progress Note Date: 03/21/19 Principal diagnosis: This is a 48-year-old male who was recently admitted for shortness of breath with a past medical history of asthma and is being closely monitored. Chest x- ray upon admission showed evidence of cardiomegaly with significant CHF. Patient underwent a 2-D echo with an ejection fraction of 20-25%. Cardiology is following. The patient is on IV Lasix and shortness of breath has slightly improved. Patient still continues to be quite winded with exertion. Patient denies any chest pain or palpitations at this time. Patient denies any nausea or vomiting and is tolerating diet. Patient is afebrile. Per cardiology recommendations once the patient's congestive heart failure has improved patient will need cardiac catheterization for further evaluation. Guarded prognosis. 03/14/2019 Patient is sitting up in bed with legs dangled in no acute distress. Patient is requiring oxygen via NC at 2 L today due to shortness of breath at times with minimal exertion. Patient denies any chest pain or palpitations at this time. Patient denies any nausea or vomiting at this time. Patient tolerating diet. Patient remains afebrile. Cardiology is following closely. Patient remains on bronchodilators at this time as well as IV lasix. Will continue to monitor closely. Guarded prognosis. 03/17/2019 Patient is sitting up at the side of the bed in no acute distress. Family is at the bedside. Patient is awaiting transport to have a cardiac catheterization this morning. Patient states that his shortness of breath has improved. Patient states he is using 02 via NC when exerting himself. Patient denies any chest pain or palpitations at this time. Patient denies any nausea or vomiting. Patient is afebrile. Patient is being closely followed. Guarded prognosis. 03/18/2019 Patient is sitting up in bed in no acute distress. Patient underwent cardiac catheterization yesterday which showed no significant coronary artery disease along with significantly elevated end-diastolic pressure and is being closely monitored at this time. Cardiology is following closely. Per cardiology recommendations patient will continue on IV Lasix for another day and continue t o monitor. A LifeVest was discussed with the patient and is currently waiting an approval for this at this time. Case management is social work are following closely. Patient had no insurance and has recently obtained Medicaid and awaiting authorization for this LifeVest. Patient denies any chest pain or palpitations at this time. Patient is still having some shortness of breath with exertion. Patient denies any nausea or vomiting and has been tolerating diet. Patient is afebrile. Guarded prognosis. 03/19/2019 Patient is sitting up in the bed at the bedside in no acute distress. Family is at the bedside. Currently patient has the LifeVest on and is tolerating well. Cardiology is following closely. Patient denies any chest pain or palpitations at this time. Patient states that he is still having some shortness of breath with exertion. Patient is currently on room air at this time. Patient states that he required some oxygen 1-2 L last night. Nursing staff performed and oxygen eval and patient had an oxygen saturation of 91% on room air with exertion. Patient was 93% on room air while at rest. Will continue to monitor. Patient denies any nausea or vomiting and has been tolerating diet. Patient has remained afebrile. Patient is awaiting to see cardiology today to discuss the next step in his treatment plan. Guarded prognosis. 03/20/2019 Patient is sitting up in the chair with legs elevated in no acute distress. Patient states that he was walking the unit a couple of times today and felt quite winded and short of breath. Patient has oxygen via nasal cannula on at 2 L at the moment. Patient denies any chest pain or palpitations at this time. Patient states that he does feel a little tired today. Patient was transitioned to oral Lasix and will continue to be monitored closely. Cardiology is following closely as well. Life Vest noted on exam. Patient denies any nausea or vomiting and has been tolerating diet. Patient is afebrile. Spoke to cardiology COMBINE DRIVER and patient had a brief rapid episode of Aflutter. Patient is being placed on Eliquis per cardiology recommendations. Guarded prognosis. 03/21/2019 Patient is sitting up in the chair in no acute distress. Patient is currently on room air and tolerating well. Patient denies any acute overnight events. Patient states that he does occasionally have some mild lower right side pain but denies any current pain at the moment. Patient states that it comes and goes. Patient was given a [place] last night which helped. Patient denies any chest pain, shortness of breath, or palpitations at this time. Patient remains afebrile. Life Vest is on with no complications at this time. Cardiology is following closely. Objective - Vital Signs Vital signs: Vital Signs Temp 97.6 F 03/21/19 11:49 Pulse 74 03/21/19 12:17 Resp 18 03/21/19 11:49 BP 100/60 03/21/19 11:49 Pulse Ox 94 L 03/21/19 11:49 Intake & Output 03/20/19 03/21/19 03/21/19 18:59 06:59 18:59 Intake Total 222 480 Output Total 600 Balance 222 -600 480 Weight 131.5 kg Intake: Oral 222 480 Output: Urine 600 Other: Voiding Method Toilet # Voids 1 1 - Exam Gen: This is a 48-year-old male sitting up at the chair in no acute distress. Vital signs are stable. Temp is 97.6F, pulse is 64, respiratory rate is 18, blood pressure is 100/60, oxygen saturation is 94 % on room air Patient is intermittently using 02 via NC at 1-2 L HEENT: Head is atraumatic, normocephalic. Pupils equal, round. Sclerae is anicteric. NECK: Supple. No JVD. No lymphadenopathy. No thyromegaly. LUNGS: Diminished breath sounds at the bases otherwise clear upon auscultation. No intercostal retractions. HEART: S1 and S2 are muffled. murmur noted. Life vest noted. ABDOMEN: Soft. Obese. Bowel sounds are present. No masses. No tenderness. EXTREMITIES: Mild lower extremity edema noted bilaterally with improvement. No calf tenderness. NEUROLOGICAL: Patient is awake, alert and oriented x3. Cranial nerves 2 through 12 are grossly intact. Gait is steady. - Labs CBC & Chem 7: 03/18/19 05:07 03/21/19 09:16 Labs: Abnormal Lab Results - Last 24 Hours (Table) 03/21/19 Range/Units 09:16 BUN 31 H (9-20) mg/dL Creatinine 1.72 H (0.66-1.25) mg/dL Glucose 113 H (74-99) mg/dL Assessment and Plan Assessment: Congestive heart failure acute exacerbation with acute on chronic systolic dysfunction, ejection fraction 20-25%; patient underwent cardiac catheterization which reveals normal coronary arteries with left ventricular end-diastolic pressure elevation. Non-ischemic Cardiomyopathy with impaired left ventricular systolic function; cardiology is following closely. Patient has a life vest on. Increased creatinine with possible chronic kidney disease stage III; current creatinine is 1.54 Troponin 0.069, indeterminate Increased creatinine kinase History of asthma Obesity Recommendations and discussion: Recommend continue current medications, management, and symptomatic treatment. Cardiology is following closely. Adjustments to medications per cardiology recommendations. Will monitor labs and vital signs closely. Guarded prognosis. Case management and social work are following closely. Further recommendations to follow. Possible discharge in 24-48 hours.
[2019-03-21 15:50] VITALS: BP 91/52; TEMP 96.7
[2019-03-21 16:11] VITALS: PULSE 84
--- NOTE | 2019-03-21 16:57 | P.DS ---
Providers Date of admission: 03/11/19 20:58 Expected date of discharge: 03/21/19 Attending physician: Saamria Velasquez Consults: 03/12/19 07:56 Consult Physician Urgent Consulting Provider: Ani Hubbard Consult Reason/Comments: Elevated trops, Do you want consulting provider notified?: Yes Primary care physician: Stated None Hospital Course: Final diagnosis Congestive heart failure acute exacerbation with acute on chronic systolic dysfunction Non-ischemic cardiomyopathy with impaired left ventricular systolic function Increased creatinine with possible chronic kidney disease stage III Elevated troponin 0.069, indeterminate Increased creatinine kinase History of asthma Obesity Discharge disposition Patient is being discharged in a stable condition with guarded prognosis to home. Patient is currently staying with mother in the area and would like to follow-up with Dr. Ryan. Patient will follow-up with Dr. Hubbard in the outpatient setting in 1 week per cardiology recommendations. Total time taken is 35 minutes. History of present illness This is a 48-year-old male who was recently admitted for shortness of breath and was found to have evidence of cardiomegaly with significant CHF and was being closely monitored. Cardiology was following closely as well. During hospitalization patient underwent a 2-D echo showing an ejection fraction of 20- 25%. Once stabilized patient underwent cardiac catheterization which showed no significant coronary artery disease, significantly elevated diastolic pressure with nonischemic cardiomyopathy as well as impaired left ventricular systolic function. Patient currently has a LifeVest on and will follow-up with cardiology in the outpatient setting in one week. During hospitalization patient had a brief run of a flutter with rapid ventricular response and was placed on oral anticoagulation in the form of Eliquis. Patient's creatinine was slightly elevated. Patient is to have repeat labs in 2-3 days. Currently patient's condition is stable with much improvement. Patient denies any chest pain, shortness of breath, or palpitations at this time. Patient is afebrile. Patient denies any nausea or vomiting and has been tolerating diet. Patient states that he would like to go home today. Guarded prognosis. On exam vital signs are stable. Temp is 96.7F, pulse is 83, respirations are 18, blood pressure is 91/52, oxygen saturation is 92% on room air. Cardio S1 and S2 are muffled. Respiratory system shows diminished breath sounds at the bases otherwise clear upon auscultation. Abdomen is soft, obese, and non- tender. Nervous system shows no focal deficits and gait is steady. Please refer to medication reconciliation sheet for a list of medications. Patient Condition at Discharge: Fair Plan - Discharge Summary New Discharge Prescriptions: New Spironolactone [Aldactone] 25 mg PO DAILY #30 tab Aspirin 81 mg PO DAILY #30 chew Carvedilol [Coreg*] 12.5 mg PO BID-W/MEALS #60 tab Apixaban [Eliquis] 5 mg PO BID #60 tab Sacubitril/Valsartan [Entresto 24 mg-26 mg Tablet] 1 each PO BID #60 tablet Furosemide [Lasix] 40 mg PO BID@0900,1600 #60 tab Nitroglycerin Sl Tabs [Nitrostat] 0.4 mg SUBLINGUAL Q5M PRN #25 tab PRN Reason: Chest Pain Pantoprazole [Protonix] 40 mg PO AC-BID #60 tablet. guaiFENesin SYRUP 100MG/5ML [Robitussin] 200 mg PO Q6H PRN 10 Days cup PRN Reason: Cough Albuterol Nebulized [Ventolin Nebulized] 2.5 mg INHALATION TID PRN 30 Days #90 nebu PRN Reason: Bronchospasm Continue Loratadine [Claritin] 10 mg PO DAILY Discharge Medication List Loratadine [Claritin] 10 mg PO DAILY 03/11/19 [History] Albuterol Nebulized [Ventolin Nebulized] 2.5 mg INHALATION TID PRN 30 Days #90 nebu 03/21/19 [Rx] Apixaban [Eliquis] 5 mg PO BID #60 tab 03/21/19 [Rx] Aspirin 81 mg PO DAILY #30 chew 03/21/19 [Rx] Carvedilol [Coreg*] 12.5 mg PO BID-W/MEALS #60 tab 03/21/19 [Rx] Furosemide [Lasix] 40 mg PO BID@0900,1600 #60 tab 03/21/19 [Rx] Nitroglycerin Sl Tabs [Nitrostat] 0.4 mg SUBLINGUAL Q5M PRN #25 tab 03/21/19 [Rx] Pantoprazole [Protonix] 40 mg PO AC-BID #60 tablet. 03/21/19 [Rx] Sacubitril/Valsartan [Entresto 24 mg-26 mg Tablet] 1 each PO BID #60 tablet 03/21/19 [Rx] Spironolactone [Aldactone] 25 mg PO DAILY #30 tab 03/21/19 [Rx] guaiFENesin SYRUP 100MG/5ML [Robitussin] 200 mg PO Q6H PRN 10 Days cup 03/21/19 [Rx] Follow up Appointment(s)/Referral(s): Chicho Ryan MD [STAFF PHYSICIAN] - 1 Week (Please call office to see if accepting new patients.) Ani Hubbard MD [STAFF PHYSICIAN] - 1 Week (Spoke to milled rice broker. Office will call you with appointment time.) Ambulatory/Diagnostic Orders: Basic Metabolic Panel [LAB.AMB] Time Frame: 3 Days, Location: None Selected Patient Instructions/Handouts: Heart Failure (DC), Heart Healthy Diet (DC) Activity/Diet/Wound Care/Special Instructions: Activity Limited until follow-up Follow-up with cardiology in one week Follow-up with primary care provider this week Continue to wear the life vest as discussed and keep batteries charged at all times Repeat labs in 2-3 days Continue current heart healthy diet Discharge Disposition: HOME SELF-CARE
--- NOTE | 2019-03-21 20:18 | PN ---
PROGRESS NOTE This patient was admitted with cardiomyopathy and congestive heart failure. Patient is feeling well. He is being ambulated in the hallway. Feels slight dizziness. Blood pressure is 100/60 mmHg. Oxygen saturation is 94%. First and second heart sounds are normal. Lungs are clinically clear to auscultation and percussion. Patient will be continued on current medications and the patient will be discharged home today. MMODL / IJN: [id number] /
[2019-03-22] MEDS ORDERED: CARVEDILOL 12.5 MG TAB PO SCH (07:30)
== END 2019-03-21 18:33 | disposition home or self-care (01) | DRG 281 ==
LOC: EC 19:13 → 3SCARD 20:58
PROVIDERS: ADMIT Hospitalist; ATTEND Hospitalist
PROC: B2111ZZ Fluoroscopy of Multiple Coronary Arteries using Low Osmolar Contrast (ICD-10-PCS; 2019-03-17)
PROC: 4A023N7 Measurement of Cardiac Sampling and Pressure, Left Heart, Percutaneous Approach (ICD-10-PCS; principal; 2019-03-17 11:10)
DX: I50.23 Acute on chronic systolic (congestive) heart failure (principal); I21.4 Non-ST elevation (NSTEMI) myocardial infarction; J44.1 Chronic obstructive pulmonary disease with (acute) exacerbation; J45.901 Unspecified asthma with (acute) exacerbation; I42.9 Cardiomyopathy, unspecified; Z68.42 Body mass index [BMI] 45.0-49.9, adult; I48.3 Typical atrial flutter; R04.2 Hemoptysis; N18.3 Chronic kidney disease, stage 3 (moderate); E66.9 Obesity, unspecified; Z79.899 Other long term (current) drug therapy; Z71.3 Dietary counseling and surveillance; Z88.6 Allergy status to analgesic agent; Z82.49 Family history of ischemic heart disease and other diseases of the circulatory system; Z82.3 Family history of stroke; Z83.49 Family history of other endocrine, nutritional and metabolic diseases; Z83.79 Family history of other diseases of the digestive system
CPT/HCPCS: 36415; 71045; 71046; 71275; 80048; 80053; 80061; 82550; 83735; 83880; 84484; 85025; 85610; 85652; 85730; 86140; 86850; 86900; 86901; 93005; 93306; 93458; 94640; 94760; 96361; 96365; 96375; 96376; 99285

== ENCOUNTER → 2019-03-25 | Outpatient (CLI) | payer OTHER ==
[2019-03-25 17:40] LABS: Anion Gap 6.8 mmol/L (4.00-12.00); Calcium 9.1 mg/dL (8.7-10.3); Carbon Dioxide 26.2 mmol/L (21.6-31.8); Potassium 4.4 mmol/L (3.5-5.5)
== END | disposition home or self-care (01) ==
LOC: LABWHC1 09:56
PROVIDERS: ATTEND Registered Nurse
DX: N17.9 Acute kidney failure, unspecified (principal)
CPT/HCPCS: 36415; 80048

== ENCOUNTER 2019-04-04 03:47 | Emergency (ER) | payer OTHER ==
[2019-04-04 04:27] LABS: Basophils # (A) 0.1 k/uL (0-0.2); Basophils % (A) 2 %; Eosinophils # (A) 0.4 k/uL (0-0.7); Eosinophils % (A) 6 %; HCT 44.3 % (39.0-53.0); HGB 15.4 gm/dL (13.0-17.5); Lymphocytes # (A) 1.6 k/uL (1.0-4.8); Lymphocytes % (A) 26 %; MCH 29.5 pg (25.0-35.0); MCHC 34.8 g/dL (31.0-37.0); Mean Platelet Volume 6.8; Monocytes # (A) 0.4 k/uL (0-1.0); Monocytes % (A) 7 %; Neutrophils # (A) 3.6 k/uL (1.3-7.7); Neutrophils % (A) 57 %; Platelet Count 239 k/uL (150-450); RBC 5.23 m/uL (4.30-5.90); RDW 12.7 % (11.5-15.5); WBC 6.3 k/uL (3.8-10.6)
[2019-04-04 04:33] LABS: MCV 84.8 fL (80.0-100.0)
[2019-04-04 04:35] LABS: Albumin 4.1 g/dL (3.5-5.0); Calcium 9.5 mg/dL (8.4-10.2); Magnesium 2.2 mg/dL (1.6-2.3); Total Bilirubin 0.6 mg/dL (0.2-1.3); Total Protein 7.2 g/dL (6.3-8.2)
[2019-04-04 04:38] LABS: Potassium 4.8 mmol/L (3.5-5.1)
--- NOTE | 2019-04-04 04:42 | XR ---
EXAMINATION TYPE: XR chest 2V DATE OF EXAM: 04/04/2019 COMPARISON: 03/19/2019 HISTORY: Chest pain TECHNIQUE: Frontal and lateral views of the chest are obtained. FINDINGS: There is no heart failure nor confluent pneumonic infiltrate. Costophrenic angles are keith r. There are chest leads. Diaphragm is normal. Bony thorax is intact. IMPRESSION: No active cardiopulmonary disease. No change.
[2019-04-04 04:47] LABS: Partial Thromboplastin Time 22.6 sec (22.0-30.0); Prothrombin Time 10.3 sec (9.0-12.0)
--- NOTE | 2019-04-04 04:50 | ED ---
Chest Pain HPI - General Chief Complaint: Chest Pain Stated Complaint: Chest Pain Time Seen by Provider: 04/04/19 03:58 Source: patient Mode of arrival: ambulatory Limitations: no limitations - History of Present Illness Initial Comments: Darek is a 48-year-old gentleman with a history of heart failure who is currently wearing a LifeVest. Patient presents to the emergency department today for evaluation of left lateral chest wall pain. Patient reports that yesterday he put on the Past and is concerned he has it on too tight, he states he has pain in his left side of his chest. He did notice some redness where the bead has been up against the skin. Patient reports pain is worse with certain movements and palpation. Patient wasn't certain if this was chest pain from his heart or chest wall pain so he came to ER for evaluation. - Related Data Home Medications Medication Instructions Recorded Confirmed Loratadine [Claritin] 10 mg PO DAILY 03/11/19 03/11/19 Previous Rx's Medication Instructions Recorded Albuterol Nebulized [Ventolin 2.5 mg INHALATION TID PRN 30 Days 03/21/19 Nebulized] #90 nebu Apixaban [Eliquis] 5 mg PO BID #60 tab 03/21/19 Aspirin 81 mg PO DAILY #30 chew 03/21/19 Carvedilol [Coreg*] 12.5 mg PO BID-W/MEALS #60 tab 03/21/19 Furosemide [Lasix] 40 mg PO BID@0900,1600 #60 tab 03/21/19 Nitroglycerin Sl Tabs [Nitrostat] 0.4 mg SUBLINGUAL Q5M PRN #25 tab 03/21/19 Pantoprazole [Protonix] 40 mg PO AC-BID #60 tablet. 03/21/19 Sacubitril/Valsartan [Entresto 24 1 each PO BID #60 tablet 03/21/19 mg-26 mg Tablet] Spironolactone [Aldactone] 25 mg PO DAILY #30 tab 03/21/19 guaiFENesin SYRUP 100MG/5ML 200 mg PO Q6H PRN 10 Days cup 03/21/19 [Robitussin] Allergies Allergy/AdvReac Type Severity Reaction Status Date / Time No Known Allergies Allergy Verified 04/04/19 03:55 Review of Systems ROS Statement: Those systems with pertinent positive or pertinent negative responses have been documented in the HPI. ROS Other: All systems not noted in ROS Statement are negative. EKG Findings - EKG Comments: EKG Findings:: EKG was obtained due to complaint of chest pain and a cardiac patient, EKG was obtained at [facility], rate is 78, rhythm is sinus, there is a normal axis, there are normal intervals, SD 178, QRS 78, QTC is 337, there are no acute ST elevations or depressions there is no evidence of acute ischemia or infarction. Past Medical History Past Medical History: Asthma, Heart Failure History of Any Multi-Drug Resistant Organisms: None Reported Past Surgical History: No Surgical Hx Reported Past Psychological History: No Psychological Hx Reported Smoking Status: Never smoker Past Alcohol Use History: None Reported Past Drug Use History: None Reported - Past Family History Mother Family Medical History: AFIB, Chest Pain / Angina, CVA/TIA, GERD/Reflux, Hyperlipidemia, Hypertension Father Family Medical History: Chest Pain / Angina, CVA/TIA, Hyperlipidemia, Hypertension Additional Family Medical History / Comment(s): Open heart surgery 08/12/18 General Exam - General Exam Comments Initial Comments: Physical Exam GENERAL: Patient is well-developed and well-nourished. Patient is nontoxic and well- hydrated and is in no distress. HENT: Normocephalic, Atraumatic. EYES: PERRL, EOMI PULMONARY: Unlabored respirations. No audible rales rhonchi or wheezing was noted. CARDIOVASCULAR: There is a regular rate and rhythm without any murmurs gallops or rubs. No lower extremity edema ABDOMEN: Soft and nontender with normal bowel sounds. SKIN: There is some skin irritation over the left lateral chest where the cardiac lead was applying pressure to the chest wall No obvious skin breakdown : Deferred NEUROLOGIC: Patient is alert and oriented x3. Moving all extremities spontaneously MUSCULOSKELETAL: Normal extremities with adequate strength and full range of motion. No lower extremity swelling or edema. No calf tenderness. PSYCHIATRIC: Normal psychiatric evaluation. Limitations: no limitations Course Vital Signs 04/04/19 04/04/19 03:52 04:30 Temperature 97.8 F Pulse Rate 84 87 Respiratory 20 18 Rate Blood Pressure 112/70 134/68 O2 Sat by Pulse 96 95 Oximetry Chest Pain MDM - [facility] She was seen and evaluated history is obtained from the patient This is a 48 her old gentleman who has what appears to be musculoskeletal chest pain after wearing his lifevest too tight. However given that he is very high risk for cardiac etiology of his pain we will obtain labs EKG and chest x-ray. Improving creatinine, troponin negative, BNP only mildly elevated, chest x-ray unremarkable EKG nonischemic. Given these findings I am confident that the patient's chest pain is muscular skeletal in nature secondary to a poorly fitted lifevest. Advised the patient to readjust his lifevest follow-up with his cardiology in the outpatient setting. All questions pertaining care were answered return parameters were discussed patient was discharged home in stable condition. Disposition Clinical Impression: Chest wall pain Disposition: HOME SELF-CARE Condition: Stable Instructions (If sedation given, give patient instructions): How to Prevent Pressure Injuries (ED) Is patient prescribed a controlled substance at d/c from ED?: No Referrals: Chicho Ryan MD [Primary Care Provider] - 1-2 days
[2019-04-04 05:16] VITALS: BP 127/84; PULSE 78; RESP 19
[2019-04-04 05:26] VITALS: TEMP 98.6
== END 2019-04-04 05:25 | disposition home or self-care (01) ==
LOC: EC 03:47
DX: R07.89 Other chest pain (principal); R79.89 Other specified abnormal findings of blood chemistry; R23.8 Other skin changes; I50.9 Heart failure, unspecified; Z82.49 Family history of ischemic heart disease and other diseases of the circulatory system; Z79.899 Other long term (current) drug therapy
CPT/HCPCS: 36415; 71046; 80053; 83735; 83880; 84484; 85025; 85610; 85730; 93005; 99285

== ENCOUNTER → 2019-04-22 | Outpatient (CLI) | payer OTHER ==
[2019-04-22 15:48] LABS: African American GFR (CKD) 69.3 (60.0-200.0); Anion Gap 8.5 mmol/L (4.00-12.00); BUN/Creat Ratio 17.14 Ratio (12.00-20.00); C Reactive Protein 0.9 mg/dL (0.0-0.8); Calcium 9.7 mg/dL (8.7-10.3); Carbon Dioxide 26.5 mmol/L (21.6-31.8); Potassium 4.3 mmol/L (3.5-5.5)
== END | disposition home or self-care (01) ==
LOC: LABWHC1 11:05
PROVIDERS: ATTEND Internal Medicine Cardiovascular Disease
DX: I42.9 Cardiomyopathy, unspecified (principal)
CPT/HCPCS: 36415; 80048; 83880; 86140

== ENCOUNTER → 2019-07-07 | Outpatient (CLI) | payer OTHER ==
--- NOTE | 2019-07-07 10:20 | CT ---
EXAMINATION TYPE: CT angio head DATE OF EXAM: 07/07/2019 10:03 AM COMPARISON: None. HISTORY: Headaches with weakness CT DLP: 1518.2 mGycm Automated exposure control for dose reduction was used. TECHNIQUE: Performed without and with IV Contrast, patient injected with 100 mL of Isovue 370. 3D reconstructed images are created on an independent workstation and reviewed.. FINDINGS: Noncontrast CT shows no acute intracranial hemorrhage or midline shift. Ventricles and sulci are norm al in size. Wallace-white matter differentiation is maintained. There is [id number] eccentric muco cookie thickening inferior aspect right maxillary sinus. Remainder paranasal sinuses are clear. Globes a re intact bilaterally. Soft tissue density deep in the bilateral external auditory canals is thought to reflect cerumen. There is codominant vertebrobasilar system. Vertebral arteries are patent to basilar junction. Paten t bilateral posterior communicating arteries are seen. No significant focal stenosis or aneurysmal ch rosangela is present. Images of the anterior circulation show patent anterior communicating artery image 22 series 16. Ther e is no significant focal stenosis or aneurysmal change in the anterior circulation. IMPRESSION: No aneurysmal change at the level of the [place].
== END | disposition home or self-care (01) ==
LOC: RADCTMAIN 08:56
PROVIDERS: ATTEND Family Medicine
DX: R51 Headache (principal)
CPT/HCPCS: 70496; Q9967

== ENCOUNTER → 2019-10-07 | Day surgery (SDC) | payer OTHER ==
[2019-10-03 10:23] VITALS: BMI 48.1
[~2019-10-07] MED LIST: LACTATED RINGERS 1,000 ML IV SCH; SODIUM CHLORIDE 0.9% 1,000 ML IV SCH; ceFAZolin 1,000 MG in SODIUM CHLORIDE 0.9% IRRIGATIO 250 ML IRRIGATION ONE
[2019-10-07 08:43] LABS: Basophils # (A) 0.1 k/uL (0-0.2); Basophils % (A) 1 %; Eosinophils # (A) 0.2 k/uL (0-0.7); Eosinophils % (A) 3 %; HCT 41.6 % (39.0-53.0); HGB 14.6 gm/dL (13.0-17.5); Lymphocytes # (A) 1.7 k/uL (1.0-4.8); Lymphocytes % (A) 25 %; MCH 30.8 pg (25.0-35.0); MCV 87.8 fL (80.0-100.0); Mean Platelet Volume 8.9; Monocytes # (A) 0.5 k/uL (0-1.0); Monocytes % (A) 8 %; Neutrophils % (A) 60 %; Platelet Count 248 k/uL (150-450); RBC 4.74 m/uL (4.30-5.90); RDW 12.5 % (11.5-15.5); WBC 6.7 k/uL (3.8-10.6)
[2019-10-07 08:45] LABS: Calcium 9.3 mg/dL (8.4-10.2)
== END ==
LOC: CATHEP 06:49
PROVIDERS: ATTEND Internal Medicine Clinical Cardiac Electrophysiology
DX: I42.9 Cardiomyopathy, unspecified (principal); Z53.9 Procedure and treatment not carried out, unspecified reason
CPT/HCPCS: 80048; 85025

== ENCOUNTER → 2019-11-11 | Outpatient (CLI) | payer OTHER | END | disposition home or self-care (01) | LOC: LABWHC1 10:20 | PROVIDERS: ATTEND Internal Medicine Clinical Cardiac Electrophysiology | DX: U07.1 COVID-19 (principal) | CPT/HCPCS: 87635 ==

== ENCOUNTER → 2019-11-13 | Day surgery (SDC) | payer OTHER ==
[2019-11-11 15:21] VITALS: BMI 49.0
[~2019-11-13] MED LIST changes: +ACETAMINOPHEN IV (For NPO) 1,000 MG in EMPTY BAG 1 BAG IVPB ONE; +ACETAMINOPHEN TAB 325 MG TAB PO PRN; +IOPAMIDOL-370 50ML BTL INJ ONE; +KETAMINE 10 MG/ML 20 ML VIAL ONE; +LIDOCAINE 1% INJ 10MG/ML (20 ML MDV) ONE; +LIDOCAINE 1% INJ 10MG/ML (20 ML MDV) SQ ONE; +MIDAZOLAM 2 MG/2 ML VIAL ONE; +PROPOFOL 10 MG/ML 20 ML VIAL IV ONE; +SODIUM CHLORIDE 0.9% 100 ML BAG ONE; +ceFAZolin 1,000 MG VIAL ONE; +fentaNYL (PF) 50 MCG/ML 2 ML AMP ONE
[2019-11-13 09:30] VITALS: TEMP 97.8
[2019-11-13 09:42] LABS: Basophils # (A) 0.1 k/uL (0-0.2); Basophils % (A) 1 %; Eosinophils # (A) 0.2 k/uL (0-0.7); Eosinophils % (A) 4 %; HCT 42.4 % (39.0-53.0); Lymphocytes # (A) 1.4 k/uL (1.0-4.8); Lymphocytes % (A) 23 %; MCH 29.2 pg (25.0-35.0); MCV 88.5 fL (80.0-100.0); Mean Platelet Volume 7.9; Monocytes # (A) 0.4 k/uL (0-1.0); Monocytes % (A) 7 %; Neutrophils # (A) 3.9 k/uL (1.3-7.7); Neutrophils % (A) 63 %; Platelet Count 242 k/uL (150-450); RBC 4.78 m/uL (4.30-5.90); RDW 12.9 % (11.5-15.5); WBC 6.3 k/uL (3.8-10.6)
[2019-11-13 09:51] LABS: Calcium 9.2 mg/dL (8.4-10.2); Potassium 4.4 mmol/L (3.5-5.1)
--- NOTE | 2019-11-13 12:47 | P.PCN ---
Preoperative Diagnosis: Left upper extremity venogram 15 mL IV dye injected in the left upper arm Patent cephalic, axillary, subclavian and innominate veins up to the SVC Plan Proceed with ICD implantation
--- NOTE | 2019-11-13 12:48 | P.PCN ---
Preoperative Diagnosis: DFT testing and anesthesia A DC fibber shock was used to induce ventricular fibrillation. This was adequately and appropriately detected at least sensitivity. Successfully internally defibrillated with 10 J shock, cathode line shocking impedance 92 ohms Charge time 1.6 seconds No dropouts Successful energy 10 J Device was then programmed according to the [facility] programming with first cardioversion 10 J first defibrillation 20 J
--- NOTE | 2019-11-13 12:49 | P.PRLE ---
RE: Darek Mccollum Dear Chicho Mr. Ramirez underwent successful ICD implantation for primary prevention of sudden cardiac . As you know he has severe dilated cardiomyopathy despite ENT YOGESH beta blockers spironolactone Today I'm increasing the dose of carvedilol 18.75 mg twice daily We will see him again in the device clinic within a week Thank you for entrusting me with the care of the patient Warm regards Sincerely Sixto Reddy
[2019-11-13 15:41] VITALS: PULSE 87; RESP 18
--- NOTE | 2019-11-13 15:44 | PCN ---
PROCEDURE NOTE This is a 49-year-old male patient with severe nonischemic cardiomyopathy with dilated left ventricle, nonsustained ventricular tachycardia, congestive heart failure. No improvement on guideline-directed medical treatment. He is brought in for single- chamber ICD implantation. The patient is brought to the EP lab in a fasting state. Written informed consent was obtained prior to the procedure. The left shoulder area was prepped and draped as per protocol. 1% lidocaine was used for local anesthesia. A 4 cm incision was made parallel to the deltopectoral groove, about 1.5 cm medial to it. The incision was carried down to the level of the pectoralis muscle. A subfascial pocket was made, hemostasis was assured. The left axillary vein was accessed at a single point and via an appropriately-sized introducer sheath, [employer] single coil ICD lead was positioned the right heart. This was a [employer] model #7122, 65 cm in length and serial #[id number]. The lead was positioned in the low RV septum. R-waves were 11.3 mV, pacing impedance 1100 ohms, pacing threshold 0.5 V at 0.5 milliseconds, 10 V test negative. The lead was secured to the underlying pectoralis muscle using 2 nonabsorbable sutures. Pocket was irrigated with antibiotic solution. Lead was connected to the generator ([employer] model CD 1357-40 C, serial #[id number].) The leads and generator were then placed a subfascial pocket. The wound was closed in 3 layers and dressed per protocol. RESULT: Successful single-chamber pacemaker implantation for primary prevention of sudden cardiac in this gentleman with severe nonischemic cardiomyopathy that has not improved despite guideline-directed medical treatment. PLAN: Further maximization of carvedilol 18.75 mg twice daily. Continue Entresto, spironolactone and Lasix. MMODL / IJN: [id number] /
[2019-11-13 16:50] VITALS: BP 125/77
--- NOTE | 2019-11-13 16:56 | XR ---
EXAMINATION TYPE: XR chest 1V portable DATE OF EXAM: 11/13/2019 COMPARISON: 04/04/2019 HISTORY: Lead placement tract TECHNIQUE: Single frontal view of the chest is obtained. FINDINGS: Interval left-sided ventricular lead cardiac pacemaker has been inserted in the interim. T here is redemonstration of cardiomegaly. No postprocedural pneumothorax appreciated. No new focal con solidation, pleural effusion or pneumothorax. IMPRESSION: Interval insertion of a single lead left-sided cardiac defibrillator.
== END | disposition home or self-care (01) ==
LOC: CATHEP 08:58
PROVIDERS: ATTEND Internal Medicine Clinical Cardiac Electrophysiology
DX: I42.0 Dilated cardiomyopathy (principal); I11.0 Hypertensive heart disease with heart failure; I50.22 Chronic systolic (congestive) heart failure; I47.2 Ventricular tachycardia; G47.33 Obstructive sleep apnea (adult) (pediatric); J44.9 Chronic obstructive pulmonary disease, unspecified; Z86.73 Personal history of transient ischemic attack (TIA), and cerebral infarction without residual deficits; K21.9 Gastro-esophageal reflux disease without esophagitis; Z79.82 Long term (current) use of aspirin; Z79.02 Long term (current) use of antithrombotics/antiplatelets; Z79.01 Long term (current) use of anticoagulants; Z79.899 Other long term (current) drug therapy; Z82.49 Family history of ischemic heart disease and other diseases of the circulatory system
CPT/HCPCS: 33249; 71045; 80048; 85025; 93641

== ENCOUNTER 2019-11-25 08:44 | Emergency (ER) | payer OTHER ==
--- NOTE | 2019-11-25 09:19 | ED ---
General Adult HPI - General Chief complaint: Wound/Laceration Stated complaint: Bleeding post surgery Time Seen by Provider: 11/25/19 08:52 Source: patient, RN notes reviewed, old records reviewed Mode of arrival: ambulatory Limitations: no limitations - History of Present Illness Initial comments: This Patient is a pleasant 49-year-old male who presents emergency department today for evaluation with chief complaint of serosanguineous drainage from the lateral aspect of his defibrillator incision site. He had a defibrillator placed by Dr. Reddy on November 12. Since that he reached down to grab some close with his right hand and the wound opened and started to drain. Patient denies any chest pain, shortness of breath. Patient denies any nausea or vomiting or fevers. Patient states that the incision site is otherwise well. - Related Data Home Medications Medication Instructions Recorded Confirmed Loratadine [Claritin] 10 mg PO DAILY 03/11/19 11/13/19 Furosemide [Lasix] 40 mg PO DAILY 10/03/19 11/13/19 Pantoprazole [Protonix] 40 mg PO DAILY 10/03/19 11/13/19 Spironolactone [Aldactone] 12.5 mg PO DAILY 10/03/19 11/13/19 Previous Rx's Medication Instructions Recorded Albuterol Nebulized [Ventolin 2.5 mg INHALATION TID PRN 30 Days 03/21/19 Nebulized] #90 nebu Apixaban [Eliquis] 5 mg PO BID #60 tab 03/21/19 Aspirin 81 mg PO DAILY #30 chew 03/21/19 Nitroglycerin Sl Tabs [Nitrostat] 0.4 mg SUBLINGUAL Q5M PRN #25 tab 03/21/19 Sacubitril/Valsartan [Entresto 24 1 each PO BID #60 tablet 03/21/19 mg-26 mg Tablet] guaiFENesin SYRUP 100MG/5ML 200 mg PO Q6H PRN 10 Days cup 03/21/19 [Robitussin] Carvedilol [Coreg*] 18.75 mg PO BID #270 tablet 11/13/19 Allergies Allergy/AdvReac Type Severity Reaction Status Date / Time No Known Allergies Allergy Verified 11/11/19 14:49 Review of Systems ROS Statement: Those systems with pertinent positive or pertinent negative responses have been documented in the HPI. ROS Other: All systems not noted in ROS Statement are negative. Past Medical History Past Medical History: Asthma, Chest Pain / Angina, Heart Failure, COPD, Sleep Apnea/CPAP/BIPAP Additional Past Medical History / Comment(s): No CPAP currently. , SEE DR. VYAS H & P History of Any Multi-Drug Resistant Organisms: None Reported Past Surgical History: Heart Catheterization Additional Past Surgical History / Comment(s): defribrillator Past Anesthesia/Blood Transfusion Reactions: No Reported Reaction Past Psychological History: No Psychological Hx Reported Smoking Status: Never smoker Past Alcohol Use History: None Reported Past Drug Use History: None Reported - Past Family History Mother Family Medical History: AFIB, Chest Pain / Angina, CVA/TIA, GERD/Reflux, Hyperlipidemia, Hypertension Father Family Medical History: Chest Pain / Angina, Coronary Artery Disease (CAD), CVA/TIA, Hyperlipidemia, Hypertension Additional Family Medical History / Comment(s): Open heart surgery 08/12/18 General Exam - General Exam Comments Initial Comments: 49 year old male, no distress. Limitations: no limitations General appearance: alert Head exam: Present: atraumatic, normocephalic, normal inspection Eye exam: Present: normal appearance, PERRL, EOMI. Absent: scleral icterus, conjunctival injection, periorbital swelling ENT exam: Present: normal exam, mucous membranes moist Neck exam: Present: normal inspection. Absent: tenderness, meningismus, lymphadenopathy Respiratory exam: Present: normal lung sounds bilaterally, other (patient has a well appearing incision site over L chest wall, with less than 1cm dihisence with serosanguinous drainage. Approximately 10-20cc of fluid on rag. Drainage when leaning forward. ). Absent: respiratory distress, wheezes, rales, rhonchi, stridor Cardiovascular Exam: Present: regular rate, normal rhythm, normal heart sounds. Absent: systolic murmur, diastolic murmur, rubs, gallop, clicks GI/Abdominal exam: Present: soft, normal bowel sounds. Absent: distended, tenderness, guarding, rebound, rigid Extremities exam: Present: normal inspection, full ROM, normal capillary refill. Absent: tenderness, pedal edema, joint swelling, calf tenderness Back exam: Present: normal inspection Neurological exam: Present: alert, oriented X3, CN II-XII intact Psychiatric exam: Present: normal affect, normal mood Skin exam: Present: warm, dry, intact, normal color. Absent: rash Course Vital Signs 11/25/19 11/25/19 08:46 12:11 Temperature 97.8 F 98.2 F Pulse Rate 83 75 Respiratory 18 20 Rate Blood Pressure 131/89 122/75 O2 Sat by Pulse 96 99 Oximetry - Reevaluation(s) Reevaluation #1: 11/25/19 09:43 Wound is being dressed by Josey parker. She called Dr. Vazquez who will come to the ER to place a stitch and his surgical site. They ordered 2 g of Kefzol to patient have in ED. Reevaluation #2: 11/25/19 10:18 Patient is resting in bed, still waiting for Dr. Vazquez to perform sutures. Medical Decision Making - Medical Decision Making Sussy napier a 48 is a 49-year-old male presents emergency department today with wound dehiscence and likely bleeding seroma from his recent defibrillator placement. Patient was evaluating emergency department quickly contacted Josey Coellos practitioner. She came to evaluate the Patient and called his surgeon Dr. Vazquez. He requested that the Patient remain in the emergency department for him to place a suture. And he was given 2 g of. There is no significant signs of infection around the incision site at this time including redness significant swelling, consistent with cellulitis and there was a serosanguineous fluid that was returning from the incision site. Patient remain in emergency department and Dr. Vazquez evaluated the Patient in the ER. Patient was then received [address] Vazquez and will follow-up with him in the outpatient office next week. He was given 2 g of Kefzol one time in the emergency department with no prescription of antibiotic to go at this time. Disposition Clinical Impression: Seroma Disposition: HOME SELF-CARE Condition: Good Instructions (If sedation given, give patient instructions): Seroma (DC) Additional Instructions: Have patient follow up with cardiology office to have suture removed. Is patient prescribed a controlled substance at d/c from ED?: No Referrals: Chicho Ryan MD [Primary Care Provider] - 1-2 days Time of Disposition: 11:52
[2019-11-25 12:15] VITALS: PULSE 75; RESP 20
[2019-11-25] MEDS ORDERED: LIDOCAINE 1% INJ 10MG/ML (20 ML MDV) SQ ONE (12:16)
--- NOTE | 2019-11-25 12:58 | P.PCN ---
Preoperative Diagnosis: Procedure Wound closure Indication for procedure bleeding from the edge of the wound this morning Patient received antibiotics in the emergency room Skin was cleaned with chlorhexidine and then draped,Under sterile precautions local anesthesia was given The wound was inspected 3 sutures were applied at the edge of the wound to prevent any wound gaping The wound was dressed Plan Continue current medications discharge home follow-up next week for suture removal Keep wound dry
--- NOTE | 2019-11-25 12:59 | P.CRDCN ---
History of Present Illness History of present illness: Patient stated that this morning when he woke up he had documented blood oozing from the edge of the wound No fever chills He came to the ER and I received a call from Josey rader IV antibiotics were administered Suturing of the wound later today plan Past Medical History Past Medical History: Asthma, Chest Pain / Angina, Heart Failure, COPD, Sleep Apnea/CPAP/BIPAP Additional Past Medical History / Comment(s): No CPAP currently. , SEE DR. VYAS H & P History of Any Multi-Drug Resistant Organisms: None Reported Past Surgical History: Heart Catheterization Additional Past Surgical History / Comment(s): defribrillator Past Anesthesia/Blood Transfusion Reactions: No Reported Reaction Past Psychological History: No Psychological Hx Reported Smoking Status: Never smoker Past Alcohol Use History: None Reported Past Drug Use History: None Reported - Past Family History Mother Family Medical History: AFIB, Chest Pain / Angina, CVA/TIA, GERD/Reflux, Hyperlipidemia, Hypertension Father Family Medical History: Chest Pain / Angina, Coronary Artery Disease (CAD), CVA/TIA, Hyperlipidemia, Hypertension Additional Family Medical History / Comment(s): Open heart surgery 08/12/18 Medications and Allergies Home Medications Medication Instructions Recorded Confirmed Type RX: Loratadine [Claritin] 10 mg PO DAILY 03/11/19 11/13/19 History RX: Albuterol Nebulized [Ventolin 2.5 mg INHALATION TID PRN 30 Days 03/21/19 11/13/19 Rx Nebulized] #90 nebu RX: Apixaban [Eliquis] 5 mg PO BID #60 tab 03/21/19 11/13/19 Rx RX: Aspirin 81 mg PO DAILY #30 chew 03/21/19 11/13/19 Rx RX: Nitroglycerin Sl Tabs 0.4 mg SUBLINGUAL Q5M PRN #25 tab 03/21/19 11/13/19 Rx [Nitrostat] RX: Sacubitril/Valsartan [Entresto 1 each PO BID #60 tablet 03/21/19 11/13/19 Rx 24 mg-26 mg Tablet] RX: guaiFENesin SYRUP 100MG/5ML 200 mg PO Q6H PRN 10 Days cup 03/21/19 11/13/19 Rx [Robitussin] RX: Furosemide [Lasix] 40 mg PO DAILY 10/03/19 11/13/19 History RX: Pantoprazole [Protonix] 40 mg PO DAILY 10/03/19 11/13/19 History RX: Spironolactone [Aldactone] 12.5 mg PO DAILY 10/03/19 11/13/19 History RX: Carvedilol [Coreg*] 18.75 mg PO BID #270 tablet 11/13/19 Rx Allergies Allergy/AdvReac Type Severity Reaction Status Date / Time No Known Allergies Allergy Verified 11/11/19 14:49 Physical Exam Vitals: Vital Signs Temp Pulse Resp BP Pulse Ox 11/25/19 12:11 98.2 F 75 20 122/75 99 11/25/19 08:46 97.8 F 83 18 131/89 96 Intake and Output 11/24/19 11/25/19 11/25/19 22:59 06:59 14:59 Other: Weight 137.892 kg Results Intake and Output 11/24/19 11/25/19 11/25/19 22:59 06:59 14:59 Other: Weight 137.892 kg Patient Weight 11/26/19 06:59 Weight 137.892 kg
[2019-11-25 13:09] VITALS: BP 141/68; TEMP 98
== END 2019-11-25 13:00 | disposition home or self-care (01) ==
LOC: EC 08:44
DX: L76.34 Postprocedural seroma of skin and subcutaneous tissue following other procedure (principal); I25.2 Old myocardial infarction; I50.9 Heart failure, unspecified; Z79.899 Other long term (current) drug therapy; Z95.5 Presence of coronary angioplasty implant and graft; Z95.810 Presence of automatic (implantable) cardiac defibrillator; Z82.49 Family history of ischemic heart disease and other diseases of the circulatory system
CPT/HCPCS: 96365; 12001; 99284; J0690; J2001

== ENCOUNTER 2019-12-14 10:09 | Observation (INO) | payer OTHER ==
[2019-12-14] MEDS ORDERED: ACETAMINOPHEN TAB 500 MG TAB PO STA (10:33)
[2019-12-14] MEDS ORDERED: SODIUM CHLORIDE 0.9% 500 ML 500 ML IV STA (10:34)
--- NOTE | 2019-12-14 10:58 | ED ---
General Adult HPI - General Chief complaint: Fever Stated complaint: Fever, vomiting Time Seen by Provider: 12/14/19 10:19 Source: patient, RN notes reviewed Mode of arrival: ambulatory - History of Present Illness Initial comments: 49-year-old male with a past medical history of asthma, COPD, heart failure, AICD placement 1 month ago presents to the emergency department for a chief complaint of fever. Patient states he has had chills and felt febrile for about a week now. Patient states he does have a cough although he is unsure if this cough is worse than normal. He does think he has increased sputum production. The patient states sometimes he coughs so hard he does vomit up clear phlegm. Patient also complaining of diarrhea. Patient states he has had diarrhea on and off for the past week. States it is about 1 time per day. Patient denies any associated abdominal pain. Denies any dysuria. Denies sore throat. Does admit to increased fatigue.Patient has no other complaints at this time including shortness of breath, chest pain, abdominal pain, headache, or visual changes. - Related Data Home Medications Medication Instructions Recorded Confirmed Loratadine [Claritin] 10 mg PO DAILY 03/11/19 11/13/19 Furosemide [Lasix] 40 mg PO DAILY 10/03/19 11/13/19 Pantoprazole [Protonix] 40 mg PO DAILY 10/03/19 11/13/19 Spironolactone [Aldactone] 12.5 mg PO DAILY 10/03/19 11/13/19 Previous Rx's Medication Instructions Recorded Albuterol Nebulized [Ventolin 2.5 mg INHALATION TID PRN 30 Days 03/21/19 Nebulized] #90 nebu Apixaban [Eliquis] 5 mg PO BID #60 tab 03/21/19 Aspirin 81 mg PO DAILY #30 chew 03/21/19 Nitroglycerin Sl Tabs [Nitrostat] 0.4 mg SUBLINGUAL Q5M PRN #25 tab 03/21/19 Sacubitril/Valsartan [Entresto 24 1 each PO BID #60 tablet 03/21/19 mg-26 mg Tablet] guaiFENesin SYRUP 100MG/5ML 200 mg PO Q6H PRN 10 Days cup 03/21/19 [Robitussin] Carvedilol [Coreg*] 18.75 mg PO BID #270 tablet 11/13/19 Allergies Allergy/AdvReac Type Severity Reaction Status Date / Time No Known Allergies Allergy Verified 12/14/19 10:17 Review of Systems ROS Statement: Those systems with pertinent positive or pertinent negative responses have been documented in the HPI. ROS Other: All systems not noted in ROS Statement are negative. Past Medical History Past Medical History: Asthma, Chest Pain / Angina, Heart Failure, COPD, Sleep Apnea/CPAP/BIPAP Additional Past Medical History / Comment(s): No CPAP currently. , SEE DR. VYAS H & P recent aicd placement 11/13/2019 History of Any Multi-Drug Resistant Organisms: None Reported Past Surgical History: Heart Catheterization Additional Past Surgical History / Comment(s): defribrillator Past Anesthesia/Blood Transfusion Reactions: No Reported Reaction Past Psychological History: No Psychological Hx Reported Smoking Status: Never smoker Past Alcohol Use History: None Reported Past Drug Use History: None Reported - Past Family History Mother Family Medical History: AFIB, Chest Pain / Angina, CVA/TIA, GERD/Reflux, Hyperlipidemia, Hypertension Father Family Medical History: Chest Pain / Angina, Coronary Artery Disease (CAD), CVA/TIA, Hyperlipidemia, Hypertension Additional Family Medical History / Comment(s): Open heart surgery 08/12/18 General Exam General appearance: alert, in no apparent distress Head exam: Present: atraumatic, normocephalic, normal inspection Eye exam: Present: normal appearance, PERRL, EOMI. Absent: scleral icterus, conjunctival injection, periorbital swelling ENT exam: Present: normal exam, mucous membranes moist Neck exam: Present: normal inspection, full ROM. Absent: tenderness, meningismus, lymphadenopathy Respiratory exam: Present: normal lung sounds bilaterally. Absent: respiratory distress, wheezes, rales, rhonchi, stridor Cardiovascular Exam: Present: regular rate, normal rhythm, normal heart sounds. Absent: systolic murmur, diastolic murmur, rubs, gallop, clicks GI/Abdominal exam: Present: soft, normal bowel sounds. Absent: distended, tenderness (No abdominal tenderness), guarding, rebound, rigid Expanded GI/Abdominal exam: Absent: psoas sign, obturator sign, heel tap sign, Reza's sign, Rovsing's sign, tenderness at McBurney's Point, ascites exam: Present: normal inspection, other (No signs of infection in the groin area). Absent: testicular tenderness, urethral discharge, scrotal swelling, ve rtical testicular lie, circumcision Back exam: Absent: CVA tenderness (R), CVA tenderness (L) Neurological exam: Present: alert, oriented X3 Psychiatric exam: Present: normal affect Skin exam: Present: warm, dry, intact, normal color. Absent: rash Course Vital Signs 12/14/19 12/14/19 12/14/19 10:13 11:00 12:00 Temperature 102.7 F H Pulse Rate 115 H 123 H 112 H Respiratory 24 Rate Blood Pressure 123/78 159/106 122/70 O2 Sat by Pulse 98 95 94 L Oximetry 12/14/19 12/14/19 12/14/19 12:30 13:00 13:54 Temperature 102.4 F H 101.4 F H Pulse Rate 121 H 118 H 112 H Respiratory 18 Rate Blood Pressure 114/87 127/83 124/78 O2 Sat by Pulse 95 94 L 94 L Oximetry EKG Findings - EKG Comments: EKG Findings:: Sinus tach, [place] int 150, QRS duration 70, QTc 460 Medical Decision Making - Medical Decision Making Patient had AICD placed 11/12 for severe nonischemic cardiomyopathy with a d ilated left ventricle, nonsustained ventricular tachycardia, CHF. site does not look infected. Patient initially presents tachycardic and has had sustained tachycardia although improving. Patient also presents febrile at 102.7. He was given a gram of Tylenol and fluids and fever was refractory. Patient's symptoms include a productive cough especially in the morning. Patient always has a cough but thinks it is slightly worse than normal. Her chest x-ray does not show any evidence of pneumonia. CBC is unremarkable. lymphocytosis, chronic virus pending. White blood cell count is normal. CMP is unremarkable. Urinalysis shows possible slight UTI. Patient also evaluated by Dr Cortes. At this time patient will be kept inpatient to monitor for fever of unknown origin. He'll be started on Levaquin given possible tracheobronchitis as well as possible UTI. Blood cultures pending. - Lab Data Result diagrams: 12/14/19 11:54 12/14/19 11:10 Lab Results 12/14/19 12/14/19 12/14/19 Range/Units 11:10 11:10 11:54 WBC 7.8 (3.8-10.6) k/uL RBC 4.13 L (4.30-5.90) m/uL Hgb 12.7 L (13.0-17.5) gm/dL Hct 38.1 L (39.0-53.0) % MCV 92.2 (80.0-100.0) fL MCH 30.8 (25.0-35.0) pg MCHC 33.4 (31.0-37.0) g/dL RDW 13.8 (11.5-15.5) % Plt Count 224 (150-450) k/uL Neutrophils % 80 % Lymphocytes % 10 % Monocytes % 5 % Eosinophils % 1 % Basophils % 1 % Neutrophils # 6.2 (1.3-7.7) k/uL Lymphocytes # 0.7 L (1.0-4.8) k/uL Monocytes # 0.4 (0-1.0) k/uL Eosinophils # 0.1 (0-0.7) k/uL Basophils # 0.1 (0-0.2) k/uL PT (9.0-12.0) sec INR (<1.2) APTT (22.0-30.0) sec Sodium 138 (137-145) mmol/L Potassium 4.3 (3.5-5.1) mmol/L Chloride 107 (98-107) mmol/L Carbon Dioxide 21 L (22-30) mmol/L Anion Gap 10 mmol/L BUN 14 (9-20) mg/dL Creatinine 1.20 (0.66-1.25) mg/dL Est GFR (CKD-EPI)AfAm 83 (>60 ml/min/1.73 sqM) Est GFR (CKD-EPI)NonAf 72 (>60 ml/min/1.73 sqM) Glucose 124 H (74-99) mg/dL Plasma Lactic Acid Simeon 1.5 (0.7-2.0) mmol/L Calcium 8.6 (8.4-10.2) mg/dL Total Bilirubin 1.1 (0.2-1.3) mg/dL AST 56 (17-59) U/L ALT 42 (4-49) U/L Alkaline Phosphatase 113 (38-126) U/L Total Protein 7.9 (6.3-8.2) g/dL Albumin 3.7 (3.5-5.0) g/dL Urine Color Urine Appearance (Clear) Urine pH (5.0-8.0) Ur Specific [place] (1.001-1.035) Urine Protein (Negative) Urine Glucose (UA) (Negative) Urine Ketones (Negative) Urine Blood (Negative) Urine Nitrite (Negative) Urine Bilirubin (Negative) Urine Urobilinogen (<2.0) mg/dL Ur Leukocyte Esterase (Negative) Urine RBC (0-5) /hpf Urine WBC (0-5) /hpf Ur Squamous Epith Cells (0-4) /hpf Urine Bacteria (None) /hpf Urine Mucus (None) /hpf 12/14/19 12/14/19 Range/Units 11:54 12:29 WBC (3.8-10.6) k/uL RBC (4.30-5.90) m/uL Hgb (13.0-17.5) gm/dL Hct (39.0-53.0) % MCV (80.0-100.0) fL MCH (25.0-35.0) pg MCHC (31.0-37.0) g/dL RDW (11.5-15.5) % Plt Count (150-450) k/uL Neutrophils % % Lymphocytes % % Monocytes % % Eosinophils % % Basophils % % Neutrophils # (1.3-7.7) k/uL Lymphocytes # (1.0-4.8) k/uL Monocytes # (0-1.0) k/uL Eosinophils # (0-0.7) k/uL Basophils # (0-0.2) k/uL PT 10.0 (9.0-12.0) sec INR 1.0 (<1.2) APTT 26.4 (22.0-30.0) sec Sodium (137-145) mmol/L Potassium (3.5-5.1) mmol/L Chloride (98-107) mmol/L Carbon Dioxide (22-30) mmol/L Anion Gap mmol/L BUN (9-20) mg/dL Creatinine (0.66-1.25) mg/dL Est GFR (CKD-EPI)AfAm (>60 ml/min/1.73 sqM) Est GFR (CKD-EPI)NonAf (>60 ml/min/1.73 sqM) Glucose (74-99) mg/dL Plasma Lactic Acid Simeon (0.7-2.0) mmol/L Calcium (8.4-10.2) mg/dL Total Bilirubin (0.2-1.3) mg/dL AST (17-59) U/L ALT (4-49) U/L Alkaline Phosphatase (38-126) U/L Total Protein (6.3-8.2) g/dL Albumin (3.5-5.0) g/dL Urine Color Yellow Urine Appearance Clear (Clear) Urine pH 6.0 (5.0-8.0) Ur Specific [place] 1.041 H (1.001-1.035) Urine Protein 2+ H (Negative) Urine Glucose (UA) Negative (Negative) Urine Ketones Trace H (Negative) Urine Blood Moderate H (Negative) Urine Nitrite Negative (Negative) Urine Bilirubin 1+ H (Negative) Urine Urobilinogen 3.0 (<2.0) mg/dL Ur Leukocyte Esterase Negative (Negative) Urine RBC 10 H (0-5) /hpf Urine WBC 10 H (0-5) /hpf Ur Squamous Epith Cells <1 (0-4) /hpf Urine Bacteria Rare H (None) /hpf Urine Mucus Occasional H (None) /hpf Disposition Clinical Impression: FUO (fever of unknown origin), Cough Disposition: ADMITTED IP TO THIS HOSP Condition: Fair Is patient prescribed a controlled substance at d/c from ED?: No Referrals: Chicho Ryan MD [Primary Care Provider] - 1-2 days Time of Disposition: 14:29
[2019-12-14] MEDS ORDERED: ONDANSETRON 4 MG/2 ML VIAL IVP STA (11:02)
[2019-12-14 11:31] LABS: Albumin 3.7 g/dL (3.5-5.0); Calcium 8.6 mg/dL (8.4-10.2); Potassium 4.3 mmol/L (3.5-5.1); Total Bilirubin 1.1 mg/dL (0.2-1.3); Total Protein 7.9 g/dL (6.3-8.2)
--- NOTE | 2019-12-14 12:28 | XR ---
EXAMINATION TYPE: XR chest 2V DATE OF EXAM: 12/14/2019 HISTORY: Fever. REFERENCE: Previous study dated 11/13/2019. FINDINGS: The study is quite lordotic. The heart is enlarged. Lungs appear clear. Pleural space are clear. A unipolar pacemaker is in place on the left. IMPRESSION: CARDIOMEGALY.
[2019-12-14 12:44] LABS: Partial Thromboplastin Time 26.4 sec (22.0-30.0)
[2019-12-14 12:46] LABS: Basophils # (A) 0.1 k/uL (0-0.2); Basophils % (A) 1 %; Eosinophils # (A) 0.1 k/uL (0-0.7); Eosinophils % (A) 1 %; HCT 38.1 % (39.0-53.0); HGB 12.7 gm/dL (13.0-17.5); Lymphocytes # (A) 0.7 k/uL (1.0-4.8); Lymphocytes % (A) 10 %; MCH 30.8 pg (25.0-35.0); MCHC 33.4 g/dL (31.0-37.0); MCV 92.2 fL (80.0-100.0); Mean Platelet Volume 9.4; Monocytes # (A) 0.4 k/uL (0-1.0); Monocytes % (A) 5 %; Neutrophils # (A) 6.2 k/uL (1.3-7.7); Neutrophils % (A) 80 %; Platelet Count 224 k/uL (150-450); RBC 4.13 m/uL (4.30-5.90); RDW 13.8 % (11.5-15.5); WBC 7.8 k/uL (3.8-10.6)
[2019-12-14 12:46] LABS: Appearance,Urine Clear (Clear); Bacteria,Urine Rare /hpf; Bilirubin,Urine 1+ (Negative); Blood,Urine Moderate (Negative); Color,Urine Yellow; Glucose,Urine (UA) Negative (Negative); Ketones,Urine Trace (Negative); Leukocyte Esterase,Urine Negative (Negative); Mucus,Urine Occasional /hpf; Nitrite,Urine Negative (Negative); Protein,Urine 2+ (Negative); RBC,Urine 10 /hpf (0-5); Specific Gravity,Urine 1.041 (1.001-1.035); Squamous Epithelial Cell,Urine <1 /hpf (0-4); WBC,Urine 10 /hpf (0-5)
[2019-12-14] MEDS ORDERED: IBUPROFEN 800 MG TAB PO STA (14:09)
[2019-12-14] MEDS ORDERED: LEVOFLOXACIN 750MG-D5W PMX 750 MG in DEXTROSE/WATER 1 150ML.BAG IVPB STA (14:22)
[2019-12-14] MEDS ORDERED: PNEUMONIA PROTOCOL UTILIZED 1 EACH MISC PO PRN (14:22)
[2019-12-14 15:43] LABS: C Reactive Protein 79.1 mg/L (<10.0)
[2019-12-14] MEDS ORDERED: IBUPROFEN 800 MG TAB PO PRN (15:57)
[2019-12-14] MEDS ORDERED: ALBUTEROL NEBULIZED 2.5 MG/3 ML INHALATION PRN (18:52)
[2019-12-14] MEDS ORDERED: RX INFO: IV CONTRAST WAS GIVEN 1 EACH MISC MISCELLANE PRN (18:56)
--- NOTE | 2019-12-14 19:51 | CT ---
CT CHEST FOR PULMONARY EMBOLISM. EXAMINATION TYPE: CT angio chest DATE OF EXAM: 12/14/2019 INDICATION: Fever, dyspnea, elevated d-dimer. CT DLP: 950.9 mGycm, Automated exposure control for dose reduction was used. CONTRAST: Patient injected with 100 mL of Isovue 370. COMPARISON: 09/25/2018 TECHNIQUE: CT of the chest is performed on a spiral scan at 2 mm thick sections. Study is performed with intravenous contrast timed for evaluation for pulmonary embolism. This will limit additional po rtions of the evaluation. 3-D MIP images reconstructed by the technologist are reviewed on the compu ter in the coronal and sagittal planes. FINDINGS: No persistent filling defects are evident to suggest an acute pulmonary embolism. No mediastinal or hilar adenopathy enlarged by CT criteria is evident. The ascending aorta diameter at the level of the main pulmonary artery is 4.1 cm. The main pulmonary artery diameter at the bifur cation is 2.7 cm. Very minimal left pleural effusion is not excluded. There is fullness within the superior mediastinum. This appears to be mediastinal fat. Discrete mass is not identified. Limited CT section through the upper abdomen are unremarkable. IMPRESSIONS: 1. No acute pulmonary embolism. 2. Fullness within the superior mediastinum appears to be mediastinal fat. Is present 03/11/2019
[2019-12-14] MEDS: SACUBITRIL/VALSARTAN 24 MG-26 MG TABLET PO SCH (21:39)
[2019-12-14] MEDS: carvediloL 12.5 MG TAB PO SCH (21:39)
[2019-12-14] MEDS: AZITHROMYCIN 500 MG in SODIUM CHLORIDE 0.9% 250 ML IVPB SCH (21:39)
[2019-12-14] MEDS: APIXABAN 5 MG TAB PO SCH (21:39)
--- NOTE | 2019-12-15 04:59 | HP ---
HISTORY AND PHYSICAL Fever, vomiting, history of asthma, COPD, heart failure, AICD placement one month ago, complaining of a fever over the past 7 days, chills, fever. Has slightly increased cough with some sputum production. CT of the chest negative for PE or pneumonia. No dysuria, frequency, urgency, hesitancy. HOME MEDICATIONS: 1. Claritin. 2. Lasix. 3. Protonix. 4. Aldactone. 5. Albuterol. 6. Eliquis. 7. Aspirin. 8. Nitrostat. 9. Entresto. 10.Guaifenesin. 11.Coreg. ALLERGIES: No known drug allergies. PAST MEDICAL HISTORY: Asthma, chest pain, angina, heart failure, COPD, sleep apnea, heart catheterization, defibrillator. SOCIAL HISTORY: Never smoked. No alcohol. No illicit drugs. FAMILY HISTORY: Mother with GERD, hypertension, CVA, atrial fibrillation, hypertension, angina. Father, angina, coronary artery disease, CVA, TIA, dyslipidemia, hypertension PHYSICAL EXAMINATION: This is a white male, BMI is over 40. He appears in no acute distress. CARDIOVASCULAR: S1, S2. LUNGS: Clear. GI: Distended due to obesity. Soft. INTEGUMENT: He has a scar of left upper chest which no redness or induration for where he had a ICD put in 2 weeks ago. No rebound. No guarding. : No suprapubic tenderness. BACK: No CVA tenderness. NEUROLOGIC: Cranial nerves are intact. PSYCH: Fair mood and affect. VITAL SIGNS: Temperature 102.7, heart rate 115 to123, respiratory rate 20s to 30, blood pressure is 120s over 70s. EKG sinus tach. ASSESSMENT: 1. Fever, unclear etiology. Echo will be done to rule out valvular disease severe. 2. Nonischemic cardiomyopathy. 3. Nonsustained ventricular tachycardia. 4. Congestive heart failure. 5. Site does not look infected. Tylenol for fevers, treat for possible COVID as nothing else is showing. White cells normal. Possibly slight UTI. Consult Dr. Juarez from Infection Disease. Start Levaquin and azithromycin. Please see further orders. MMODL / IJN: [id number] /
--- NOTE | 2019-12-15 07:02 | P.CONS ---
History of Present Illness - Reason for Consult Consult date: 12/14/19 Fever Requesting physician: Chicho Ryan - Chief Complaint Fever x few days - History of Present Illness Patient is a 49-year-old male with a past medical he significant for asthma/COPD heart failure this patient who recently did have AICD placement about a month ago presenting to the ER with chief complaints of fever patient mention he is having a fever and chills is been going on for about a week patient denies having any headache or URI symptoms patient did have a cough which has been mild to moderate intensity with occasional sputum which has been mostly whitish and no yellow patient denies having any pleuritic chest pain he denies any pain in his ICD site no swelling or redness at that site patient had also having diarrhea off and on for the last 1 week no blood or mucus in the stool no nausea no vomiting denies having any dysuria or sore throat denies having any change in the taste or smell with the symptom the patient was evaluated by the ER physician on arrival to the ER patient did have a fever of 102.7 F patient was tachycardic with heart rate 115 patient did have a normal white count did have slight lymphopenia d-dimer was mildly elevated creatinine was normal liver enzymes are normal CRP is elevated urine did shows slight hematuria but leukocyte esterase was negative patient has been admitted to hospital started on Levaquin and Zithromax infectious disease has been consulted for further management of antibiotic therapy. Review of Systems Positive point has been mentioned in HPI rest of the systems are negative Past Medical History Past Medical History: Asthma, Chest Pain / Angina, Heart Failure, COPD, Sleep Apnea/CPAP/BIPAP Additional Past Medical History / Comment(s): No CPAP currently. , SEE DR. VYAS H & P recent aicd placement 11/13/2019 History of Any Multi-Drug Resistant Organisms: None Reported Past Surgical History: Heart Catheterization Additional Past Surgical History / Comment(s): defribrillator Past Anesthesia/Blood Transfusion Reactions: No Reported Reaction Past Psychological History: No Psychological Hx Reported Smoking Status: Never smoker Past Alcohol Use History: None Reported Past Drug Use History: None Reported - Past Family History Mother Family Medical History: AFIB, Chest Pain / Angina, CVA/TIA, GERD/Reflux, Hyperlipidemia, Hypertension Father Family Medical History: Chest Pain / Angina, Coronary Artery Disease (CAD), CVA/TIA, Hyperlipidemia, Hypertension Additional Family Medical History / Comment(s): Open heart surgery 08/12/18 Medications and Allergies Home Medications Medication Instructions Recorded Confirmed Type Loratadine [Claritin] 10 mg PO DAILY 03/11/19 12/14/19 History Albuterol Nebulized [Ventolin 2.5 mg INHALATION TID PRN 30 Days 03/21/19 12/14/19 Rx Nebulized] #90 nebu Apixaban [Eliquis] 5 mg PO BID #60 tab 03/21/19 12/14/19 Rx Aspirin 81 mg PO DAILY #30 chew 03/21/19 12/14/19 Rx Furosemide [Lasix] 40 mg PO DAILY 10/03/19 12/14/19 History Pantoprazole [Protonix] 40 mg PO DAILY 10/03/19 12/14/19 History Spironolactone [Aldactone] 12.5 mg PO DAILY 10/03/19 12/14/19 History Carvedilol [Coreg*] 18.75 mg PO BID #270 tablet 11/13/19 12/14/19 Rx Sacubitril/Valsartan [Entresto 24 1 tab PO BID 12/14/19 12/14/19 History mg-26 mg Tablet] Allergies Allergy/AdvReac Type Severity Reaction Status Date / Time No Known Allergies Allergy Verified 12/14/19 15:08 Physical Exam Vitals: Vital Signs Temp Pulse Pulse Resp BP BP Pulse Ox 12/15/19 03:15 98.5 F 80 121/80 95 12/14/19 20:57 101 H 12/14/19 20:47 100 12/14/19 20:00 98.5 F 93 15 119/73 95 12/14/19 17:26 99.1 F 12/14/19 15:33 100.4 F H 105 H 17 128/85 95 12/14/19 15:04 99.6 F 107 H 20 109/67 93 L 12/14/19 13:54 101.4 F H 112 H 18 124/78 94 L 12/14/19 13:00 102.4 F H 118 H 127/83 94 L 12/14/19 12:30 121 H 114/87 95 12/14/19 12:00 112 H 122/70 94 L 12/14/19 11:00 123 H 159/106 95 12/14/19 10:13 102.7 F H 115 H 24 123/78 98 Intake and Output 12/14/19 12/14/19 12/15/19 14:59 22:59 06:59 Other: Voiding Method Toilet Toilet # Voids 2 2 Weight 139.797 kg 139.797 kg GENERAL DESCRIPTION: Middle-aged male lying in bed, no distress. No tachypnea or accessory muscle of respiration use. HEENT: Shows Pallor , no scleral icterus. Oral mucous membrane is dry. NECK: Trachea central, no thyromegaly. LUNGS: Unlabored breathing. Clear to auscultation anteriorly. No wheeze or crackle. HEART: S1, S2, regular rate and rhythm. ABDOMEN: Soft, no tenderness , guarding or rigidity EXTREMITIES: No edema of feet. SKIN: No rash, no masses palpable. NEUROLOGICAL: The patient is awake, alert, oriented x3, mood and affect normal. Results CBC & Chem 7: 12/14/19 11:54 12/14/19 11:10 Labs: Abnormal Lab Results - Last 24 Hours (Table) 12/14/19 12/14/19 12/14/19 Range/Units 11:10 11:54 11:54 RBC 4.13 L (4.30-5.90) m/uL Hgb 12.7 L (13.0-17.5) gm/dL Hct 38.1 L (39.0-53.0) % Lymphocytes # 0.7 L (1.0-4.8) k/uL D-Dimer 0.96 H (<0.60) mg/L FEU Carbon Dioxide 21 L (22-30) mmol/L Glucose 124 H (74-99) mg/dL Lactate Dehydrogenase (313-618) U/L C-Reactive Protein (<10.0) mg/L Ur Specific [place] (1.001-1.035) Urine Protein (Negative) Urine Ketones (Negative) Urine Blood (Negative) Urine Bilirubin (Negative) Urine RBC (0-5) /hpf Urine WBC (0-5) /hpf Urine Bacteria (None) /hpf Urine Mucus (None) /hpf 12/14/19 12/14/19 Range/Units 11:54 12:29 RBC (4.30-5.90) m/uL Hgb (13.0-17.5) gm/dL Hct (39.0-53.0) % Lymphocytes # (1.0-4.8) k/uL D-Dimer (<0.60) mg/L FEU Carbon Dioxide (22-30) mmol/L Glucose (74-99) mg/dL Lactate Dehydrogenase 1006 H (313-618) U/L C-Reactive Protein 79.1 H (<10.0) mg/L Ur Specific [place] 1.041 H (1.001-1.035) Urine Protein 2+ H (Negative) Urine Ketones Trace H (Negative) Urine Blood Moderate H (Negative) Urine Bilirubin 1+ H (Negative) Urine RBC 10 H (0-5) /hpf Urine WBC 10 H (0-5) /hpf Urine Bacteria Rare H (None) /hpf Urine Mucus Occasional H (None) /hpf Microbiology - Last 24 Hours (Table) 12/14/19 11:33 Blood Culture - Final Blood 12/14/19 14:28 Urine Culture - Preliminary Urine,Clean Catch Assessment and Plan Assessment: patient presented to the hospital with sepsis in this patient who did have a fever tachycardia predominantly respiratory symptoms though chest x-ray reported to be negative for acute infiltrate did show some cardiomegaly in this patient who did have a recent AICD placement that site looks clean with concern for possible tracheobronchitis with asthma/COPD exacerbation versus COVID-19 infection (1) Fever Current Visit: Yes Status: Acute Code(s): R50.9 - FEVER, UNSPECIFIED SNOMED Code(s): 490679746 (2) Suspected 2019 novel coronavirus infection Current Visit: Yes Status: Acute Code(s): Z20.828 - CONTACT W AND EXPOSURE TO H VIRAL COMMUNICABLE DISEASES SNOMED Code(s): 735543325 Plan: 1-we will obtain LDH procalcitonin level and d-dimer and await nasopharyngeal swab for COVID-19 to be finalized 2-continue with Levaquin bronchodilator 3-droplet isolation and respiratory support We will follow on clinical condition and cultures to further adjust medication if needed Thank you for this consultation we will follow the patient along with you Time with Patient: Greater than 30
[2019-12-15 08:15] LABS: Basophils % (A) 0 %; Eosinophils % (A) 0 %; HCT 38.7 % (39.0-53.0); Hypochromasia Slight; Lymphocytes # (A) 0.7 k/uL (1.0-4.8); Lymphocytes % (A) 6 %; MCH 28.9 pg (25.0-35.0); MCHC 31.1 g/dL (31.0-37.0); Mean Platelet Volume 9.3; Monocytes # (A) 0.2 k/uL (0-1.0); Monocytes % (A) 2 %; Neutrophils # (A) 10.8 k/uL (1.3-7.7); Neutrophils % (A) 91 %; Platelet Count 266 k/uL (150-450); RBC 4.16 m/uL (4.30-5.90); WBC 11.9 k/uL (3.8-10.6)
[2019-12-15] MEDS: carvediloL 12.5 MG TAB PO SCH ×2 (08:49→17:24)
[2019-12-15] MEDS: ASPIRIN 81 MG PO SCH (08:50)
[2019-12-15] MEDS: SPIRONOLACTONE 25 MG TAB PO SCH (08:50)
[2019-12-15] MEDS: FUROSEMIDE 40 MG TAB PO SCH (08:50)
[2019-12-15] MEDS: LORATADINE 10 MG TAB PO SCH (08:50)
[2019-12-15] MEDS: APIXABAN 5 MG TAB PO SCH ×2 (08:50→19:47)
[2019-12-15] MEDS: PANTOPRAZOLE 40 MG TABLET PO SCH (08:50)
[2019-12-15] MEDS: CEFEPIME 2 GM in SODIUM CHLORIDE 0.9% 100 ML IVPB SCH ×2 (08:51→22:13)
[2019-12-15] MEDS: SACUBITRIL/VALSARTAN 24 MG-26 MG TABLET PO SCH ×2 (09:35→19:47)
[2019-12-15] MEDS ORDERED: LEVOFLOXACIN 750MG-D5W PMX 750 MG in DEXTROSE/WATER 1 150ML.BAG IVPB SCH (16:00)
[2019-12-15] MEDS: AZITHROMYCIN 500 MG in SODIUM CHLORIDE 0.9% 250 ML IVPB SCH (19:47)
--- NOTE | 2019-12-16 03:42 | PN ---
PROGRESS NOTE DATE OF SERVICE: 12/15/2019 REASON FOR FOLLOWUP: Sepsis with gram-negative bacteremia. INTERVAL HISTORY: The patient overall fever pattern has improved. The patient is breathing comfortably. The patient denies having any chest pain or shortness of breath or cough. No nausea, vomiting, abdominal pain, or diarrhea and no pain in the AICD site. PHYSICAL EXAMINATION: Blood pressure is 119/78 with a pulse of 95, temperature 98.6. He is 95% on room air. General description is a middle-aged male up in the bed in no distress. RESPIRATORY SYSTEM: Unlabored breathing, clear to auscultation anteriorly. HEART: S1, S2. Regular rate and rhythm. ABDOMEN: Soft, no tenderness. LABS: Blood culture with Serratia marcescens. Hemoglobin is 12, white count 11.9. DIAGNOSTIC IMPRESSION AND PLAN: Patient admitted to the hospital with sepsis with evidence of a Serratia marcescens bacteremia with no obvious clinical focus. We will obtain a WBC scan. Keep the patient on cefepime 2 grams q.12 hours. Followup blood cultures will be ordered and follow and continue with supportive care. MMODL / IJN: [id number] /
--- NOTE | 2019-12-16 05:12 | PN ---
PROGRESS NOTE This white male was admitted with fever of unknown origin, bacteremia, gram-negative was seen on the blood culture. Systolic CHF. COVID is negative. We will do a white blood cell scan to see if he has an infected ICD device that was placed 2 weeks ago because there is no other source of infection. UA is negative. Chest x-ray is negative. No significant cough or phlegm production. VITAL SIGNS: Stable, afebrile. CARDIOVASCULAR: S1, S2. LUNGS: Clear. GI: Soft. ASSESSMENT: 1. Fever, unknown origin. 2. Bacteremia, gram-negative. 3. Systolic congestive heart failure. Check white blood cell scan. Continue broad-spectrum antibiotics. MMODL / IJN: [id number] /
--- NOTE | 2019-12-16 08:00 | ECHOF ---
Referral Reason:valve vegetations rule out MEASUREMENTS -------- HEIGHT: 180.3 cm WEIGHT: 139.7 kg BP: IVSd: 1.3 cm (0.6 - 1.1) LVIDd: 4.9 cm (3.9 - 5.3) LVPWd: 1.5 cm (0.6 - 1.1) IVSs: 1.3 cm LVIDs: 4.0 cm LVPWs: 1.5 cm MV E Loy: 0.61 m/s MV DecT: 145 ms MV A Loy: 0.67 m/s MV E/A Ratio: 0.91 RAP: 5.00 mmHg RVSP: 11.51 mmHg FINDINGS -------- This was a technically difficult study with suboptimal views. The left ventricular size is normal. There is moderate concentric left ventricular hypertrophy. O verall left ventricular systolic function is low-normal with, an EF between 50 - 55 %. Right side appears enlarged. The left atrial size is normal. The right atrial size is normal. Lumason used The aortic valve is trileaflet and appears structurally normal. There is trace mitral regurgitation. Trace tricuspid regurgitation present. Right ventricular systolic pressure is normal at < 35 mmHg. There is no pulmonic regurgitation present. The aortic root size is normal. IVC Not well visulized. There is no pericardial effusion. CONCLUSIONS -------- 1. This was a technically difficult study with suboptimal views. 2. The left ventricular size is normal. 3. There is moderate concentric left ventricular hypertrophy. 4. Right side appears enlarged. 5. The left atrial size is normal. 6. The right atrial size is normal. 7. Lumason used 8. The aortic valve is trileaflet and appears structurally normal. 9. There is trace mitral regurgitation. 10. Trace tricuspid regurgitation present. 11. Right ventricular systolic pressure is normal at < 35 mmHg. 12. There is no pulmonic regurgitation present. 13. The aortic root size is normal. 14. IVC Not well visulized. 15. There is no pericardial effusion. SOLAR FIELD SERVICE TECHNICIAN: Lupe Cortez, [facility]
[2019-12-16] MEDS: SPIRONOLACTONE 25 MG TAB PO SCH (08:22)
[2019-12-16] MEDS: LORATADINE 10 MG TAB PO SCH (08:22)
[2019-12-16] MEDS: ASPIRIN 81 MG PO SCH (08:22)
[2019-12-16] MEDS: PANTOPRAZOLE 40 MG TABLET PO SCH (08:22)
[2019-12-16] MEDS: carvediloL 12.5 MG TAB PO SCH ×2 (08:22→17:43)
[2019-12-16] MEDS: FUROSEMIDE 40 MG TAB PO SCH (08:22)
[2019-12-16] MEDS: SACUBITRIL/VALSARTAN 24 MG-26 MG TABLET PO SCH ×2 (08:23→21:11)
[2019-12-16] MEDS: APIXABAN 5 MG TAB PO SCH ×2 (08:23→21:11)
[2019-12-16] MEDS: CEFEPIME 2 GM in SODIUM CHLORIDE 0.9% 100 ML IVPB SCH ×2 (08:25→21:12)
--- NOTE | 2019-12-16 10:48 | CDI ---
Documentation Clarification Form Date: 12/16/2019 10:29:15 AM From: Rosa August RN CCDS Admit Date: 12/15/2019 01:11:00 PM Patient Name: Darek Mccollum Visit Number: [id number] Discharge Date: ATTENTION: The Clinical Documentation Specialists (CDI) and [facility] Coding Staff appreciate your assistance in clarifying documentation. Please respond to the clarification below the line at the bottom and electronically sign. The CDI & [facility] Coding staff will review the response and follow-up if needed. Please note: Queries are made part of the Legal Health Record. If you have any questions, please contact the author of this message via ITS. Dr. Chicho Ryan The COVID-19 test obtained on 12/13 was reported as Negative on 12/14. Treat for possible COVID as nothing else is showing. Documented in H&P 12/13. COVID is negative Documented in your Progress note 12/14. 49-year-old male presents to the ED with fever and chills for about one week. Medical History Systolic heart failure, AICD placement one month ago, COPD, asthma. Clinical Indicators Patient reported Fever, chills, diarrhea, some sputum production and increased fatigue. 12/13 CXR Cardiomegaly 12/13 VS in ED Triage: T: 102.7, P: 115, R: 24, Sat 98% on room air 12/14 WBC 11.9, Lymphocytes 0.7, Treatment 12/13 Azithromycin Ivpb at HS dcd 12/14 In order to capture the severity of condition, please clarify the COVID-19 status: False negative, treating for COVID-19 infection COVID-19 ruled out Other, please specify (Last Form Revision: September 2019) MTDD
--- NOTE | 2019-12-16 11:04 | CDI ---
Documentation Clarification Form Date: 12/16/2019 10:50:37 AM From: Rosa August Admit Date: 12/15/2019 01:11:00 PM Patient Name: Darek Mccollum Visit Number: [id number] Discharge Date: ATTENTION: The Clinical Documentation Specialists (CDI) and [facility] Coding Staff appreciate your assistance in clarifying documentation. Please respond to the clarification below the line at the bottom and electronically sign. The CDI & [facility] Coding staff will review the response and follow-up if needed. Please note: Queries are made part of the Legal Health Record. If you have any questions, please contact the author of this message via ITS. Dr. Chicho Ryan Systolic CHF documented in your progress note 12/14 History/Risk Factors: 49-year-old male presents to the ED with fever and chills for about one week. Medical History Systolic heart failure, AICD placement one month ago, COPD, asthma. Clinical Indicators: 12/13 VSSB/P: 123/79; HR: 115; T: 102.7; RR: 24; SpO2 98% ra 12/14 Echocardiogram Results: Moderate concentric left ventricular hypertrophy. Overall left ventricular systolic function is low-normal with, an EF 50-55% Right side appears enlarged. 12/13 Chest X Ray: Cardiomegaly Treatment: 12/13 Coreg PO BID, 12/14 Lasix PO Daily, Aldactone PO Daily In your professional opinion, can you please clarify the acuity of CHF if known? Chronic Systolic Heart Failure Unable to Determine Other, please specify (Last Revision: October 2017) MTDD
--- NOTE | 2019-12-16 20:59 | PN ---
PROGRESS NOTE DATE OF SERVICE: 12/16/2019 REASON FOR FOLLOWUP: Serratia marcescens bacteremia. INTERVAL HISTORY: The patient is currently afebrile. The patient is breathing comfortably. The patient continues to have some occasional cough but no sputum production. Denies having any nausea. No vomiting. No abdominal pain. No diarrhea. PHYSICAL EXAMINATION: Blood pressure 127/73 with a pulse of 80, temperature 98.5. He is 94% on room air. General description is a middle-aged male up in the chair in no distress. RESPIRATORY SYSTEM: Unlabored breathing. Clear to auscultation anteriorly. HEART: S1, S2. Regular rate and rhythm. ABDOMEN: Soft. No tenderness. LABS: Hemoglobin is 12, white count 11.9. Procalcitonin and CRP are elevated. Urine culture negative. Blood culture with Serratia marcescens. Repeat blood culture positive as well. DIAGNOSTIC IMPRESSION AND PLAN: Patient with Serratia marcescens bacteremia with no clear focus. CT angiogram did not show any pneumonia. Echocardiogram negative for any vegetation. We are waiting for the cultures to finalize. Keep the patient on cefepime 2 grams q.12 hours and monitor his clinical course closely. MMODL / IJN: [id number] / MTDD
[2019-12-17] MEDS: carvediloL 12.5 MG TAB PO SCH ×2 (08:28→15:21)
[2019-12-17] MEDS: SPIRONOLACTONE 25 MG TAB PO SCH (08:29)
[2019-12-17] MEDS: PANTOPRAZOLE 40 MG TABLET PO SCH (08:29)
[2019-12-17] MEDS: ASPIRIN 81 MG PO SCH (08:29)
[2019-12-17] MEDS: LORATADINE 10 MG TAB PO SCH (08:29)
[2019-12-17] MEDS: FUROSEMIDE 40 MG TAB PO SCH (08:30)
[2019-12-17] MEDS: APIXABAN 5 MG TAB PO SCH ×2 (08:30→20:46)
[2019-12-17] MEDS: CEFEPIME 2 GM in SODIUM CHLORIDE 0.9% 100 ML IVPB SCH ×2 (09:19→20:45)
[2019-12-17] MEDS: SACUBITRIL/VALSARTAN 24 MG-26 MG TABLET PO SCH ×2 (10:18→20:45)
--- NOTE | 2019-12-17 12:35 | PN ---
PROGRESS NOTE DATE OF SERVICE: 12/17/2019 REASON FOR FOLLOWUP: Serratia marcescens bacteremia. INTERVAL HISTORY: The patient is currently afebrile. The patient is breathing comfortably. He is complaining of dry hacking cough of moderate intensity. No chest pain. No nausea, no vomiting. No abdominal pain, no diarrhea. PHYSICAL EXAMINATION: Blood pressure 136/87, pulse of 90, temperature 99.6. He is 94% on room air. General description is a middle-aged male, lying in bed in no distress. RESPIRATORY SYSTEM: Unlabored breathing, decreased breath sounds in the base, no wheeze. HEART: S1, S2. Regular rate and rhythm. ABDOMEN: Soft, no tenderness. LABS: Hemoglobin is 12, white count 11.9. Blood cultures 68 and 67 positive, sputum cultures currently pending. DIAGNOSTIC IMPRESSION AND PLAN: Patient with Serratia marcescens bacteremia, source is currently not all these, as this patient's workup so far has been negative. CT angiogram did not show any evidence of any pneumonia. Will keep the patient on cefepime. Waiting for the WBC scan. Continue supportive care. MMODL / IJN: [id number] /
--- NOTE | 2019-12-17 13:48 | P.CRDCN ---
History of Present Illness History of present illness: HISTORY OF PRESENTING ILLNESS This is a pleasant 49-year-old male past medical history significant for nonischemic dilated cardiomyopathy status post AICD placement 11/13/2019, chronic systolic heart failure, COPD, paroxysmal typical atrial flutter noted 03/2020 on eliquis and sleep apnea. He follows in the office with Dr. Reddy. He presented to the hospital with symptoms of cough that has been ongoing and persistent for the previous one week and fever. He was trying to rest at home however his symptoms were not showing any signs of improvement. He does have some shortness of breath at peak exertion however not significant per the patient. He denies chest pain, dizziness or palpitations. AICD was placed on 11/13/2019 the site is clean, dry, intact with no erythema, tenderness or drainage. He has had 2 positive blood cultures withserratia marcescens and is currently being followed by infectious disease on IV antibiotics. Echocardiogram requested reveals improved LV systolic function with ejection fraction 50%, moderate concentric LVH, trace tricuspid regurgitation and no evidence of vegetation on the aortic or mitral valve. DIAGNOSTICS EKG reveals sinus tachycardia heart rate 114. Chest xray reveals cardiomegaly with a unipolar pacemaker on the left. CTA negative for pulmonary embolism. Laboratory reviewed, WBC 11.9, hemoglobin 12, platelets 266, d-dimer 0.96, sodium 138, potassium 4.3, creatinine 1.2, lactate 1006, CRP 346, pro-calcitonin 5.04. Covid 19 negative. Current cardiac medications include entresto 24/26 mg BID, aspirin 81 mg daily, eliquis 5 mg BID, coreg 18.75 mg BID, lasix 40 mg daily and aldactone 12.5 mg daily.. REVIEW OF SYSTEMS At the time of my exam: CONSTITUTIONAL: Denies fever or chills. CARDIOVASCULAR: Denies chest pain, shortness of breath, orthopnea, PND or palpitations. RESPIRATORY: Complains of cough. GASTROINTESTINAL: Denies abdominal pain, diarrhea, constipation, nausea or vomiting. MUSCULOSKELETAL: Denies myalgias. NEUROLOGIC: Denies numbness, tingling or weakness. ENDOCRINE: Denies fatigue, weight change, polydipsia or polyurina. GENITOURINARY: Denies burning, hematuria or urgency with micturation. HEMATOLOGIC: Denies history of anemia or bleeding. PHYSICAL EXAMINATION Blood pressure 136/87 heart rate 91 afebrile and maintaining oxygen saturation on room air. CONSTITUTIONAL: No apparent distress. HEENT: Head is normocephalic. Pupils are equal, round. Sclerae anicteric. Mucous membranes of the mouth are moist. No JVD. No carotid bruit. CHEST EXAMINATION: Lungs are clear to auscultation. No chest wall tenderness is noted on palpation or with deep breathing. HEART EXAMINATION: Regular rate and rhythm. S1, S2 heard. No murmurs, gallops or rub. ABDOMEN: Soft, nontender. Positive bowel sounds. EXTREMITIES: 2+ peripheral pulses, no lower extremity edema and no calf tenderness. NEUROLOGIC EXAMINATION: Patient is awake, alert and oriented x3. ASSESSMENT Bacteremia with cough and fever Leukocytosis Non-ischemic dilated cardiomyopathy Chronic systolic heart failure s/p AICD implant 11/13/2019 Paroxysmal atrial flutter on eliquis PLAN No evidence to suggest AICD site infection or vegetation on TTE. Continue with recommendations and treatment per infectious disease. Thank you kindly for this consultation. Nurse Practitioner note has been reviewed, I agree with a documented findings and plan of care. Patient was seen and examined. Past Medical History Past Medical History: Asthma, Chest Pain / Angina, Heart Failure, COPD, Sleep Apnea/CPAP/BIPAP Additional Past Medical History / Comment(s): No CPAP currently. , SEE DR. VYAS H & P recent aicd placement 11/13/2019 History of Any Multi-Drug Resistant Organisms: None Reported Past Surgical History: Heart Catheterization Additional Past Surgical History / Comment(s): defribrillator Past Anesthesia/Blood Transfusion Reactions: No Reported Reaction Past Psychological History: No Psychological Hx Reported Smoking Status: Never smoker Past Alcohol Use History: None Reported Past Drug Use History: None Reported - Past Family History Mother Family Medical History: AFIB, Chest Pain / Angina, CVA/TIA, GERD/Reflux, Hyperlipidemia, Hypertension Father Family Medical History: Chest Pain / Angina, Coronary Artery Disease (CAD), CVA/TIA, Hyperlipidemia, Hypertension Additional Family Medical History / Comment(s): Open heart surgery 08/12/18 Medications and Allergies Home Medications Medication Instructions Recorded Confirmed Type Loratadine [Claritin] 10 mg PO DAILY 03/11/19 12/14/19 History Albuterol Nebulized [Ventolin 2.5 mg INHALATION TID PRN 30 Days 03/21/19 12/14/19 Rx Nebulized] #90 nebu Apixaban [Eliquis] 5 mg PO BID #60 tab 03/21/19 12/14/19 Rx Aspirin 81 mg PO DAILY #30 chew 03/21/19 12/14/19 Rx Furosemide [Lasix] 40 mg PO DAILY 10/03/19 12/14/19 History Pantoprazole [Protonix] 40 mg PO DAILY 10/03/19 12/14/19 History Spironolactone [Aldactone] 12.5 mg PO DAILY 10/03/19 12/14/19 History Carvedilol [Coreg*] 18.75 mg PO BID #270 tablet 11/13/19 12/14/19 Rx Sacubitril/Valsartan [Entresto 24 1 tab PO BID 12/14/19 12/14/19 History mg-26 mg Tablet] Allergies Allergy/AdvReac Type Severity Reaction Status Date / Time No Known Allergies Allergy Verified 12/14/19 15:08 Physical Exam Vitals: Vital Signs Temp Pulse Resp BP Pulse Ox 12/17/19 08:00 91 16 12/17/19 07:00 99.6 F 91 16 136/87 94 L 12/17/19 02:36 98 F 95 18 133/80 96 12/16/19 19:08 98.5 F 80 18 127/73 94 L 12/16/19 16:00 67 19 12/16/19 15:00 98.5 F 67 19 104/69 95 Intake and Output 12/16/19 12/17/19 12/17/19 22:59 06:59 14:59 Other: Voiding Method Toilet Toilet # Voids 2 Results 12/15/19 07:47 12/14/19 11:10 Current Medications Generic Name Dose Route Start Last Admin Trade Name Freq PRN Reason Stop Dose Admin Acetaminophen 650 mg 12/14/19 15:56 Tylenol Tab PO Q6HR PRN Fever and/ or Pain Albuterol Sulfate 2.5 mg 12/14/19 18:52 12/14/19 20:46 Ventolin Nebulized INHALATION 2.5 mg RT-TID PRN Administration Bronchospasm Apixaban 5 mg 12/14/19 21:00 12/17/19 08:30 Eliquis PO 5 mg BID TAVO Administration Aspirin 81 mg 12/15/19 09:00 12/17/19 08:29 Aspirin PO 81 mg DAILY TAVO Administration Benzonatate 200 mg 12/17/19 11:11 Tessalon Perles PO TID PRN Cough Carvedilol 18.75 mg 12/14/19 20:00 12/17/19 08:28 Coreg PO 18.75 mg BID-W/MEALS TAVO Administration Furosemide 40 mg 12/15/19 09:00 12/17/19 08:30 Lasix PO 40 mg DAILY TAVO Administration Cefepime HCl 2 gm/ Sodium 100 mls @ 200 mls/hr 12/15/19 09:00 12/17/19 09:19 Chloride IVPB 200 mls/hr Q12HR TAVO Administration Ibuprofen 800 mg 12/14/19 15:57 Motrin PO TID PRN Pain Loratadine 10 mg 12/15/19 09:00 12/17/19 08:29 Claritin PO 10 mg DAILY TAVO Administration Miscellaneous Information 1 each 12/14/19 14:22 Pneumonia Protocol Utilized PO ONCE PRN Per Protocol Pantoprazole Sodium 40 mg 12/15/19 09:00 12/17/19 08:29 Protonix PO 40 mg DAILY TAVO Administration Sacubitril/Valsartan 1 each 12/14/19 21:00 12/17/19 10:18 Entresto 24 Mg-26 Mg Tablet PO 1 each BID TAVO Administration Spironolactone 12.5 mg 12/15/19 09:00 12/17/19 08:29 Aldactone PO 12.5 mg DAILY TAVO Administration Intake and Output 12/16/19 12/17/19 12/17/19 22:59 06:59 14:59 Other: Voiding Method Toilet Toilet # Voids 2 12/15/19 07:47 12/14/19 11:10
[2019-12-17] MEDS: ACETAMINOPHEN TAB 325 MG TAB PO PRN (15:21)
[2019-12-17] MEDS: BENZONATATE 100 MG CAP PO PRN (20:46)
[2019-12-18] MEDS: CEFEPIME 2 GM in SODIUM CHLORIDE 0.9% 100 ML IVPB SCH ×2 (07:35→20:53)
[2019-12-18] MEDS: LORATADINE 10 MG TAB PO SCH (07:36)
[2019-12-18] MEDS: carvediloL 12.5 MG TAB PO SCH ×2 (07:36→17:43)
[2019-12-18] MEDS: FUROSEMIDE 40 MG TAB PO SCH (07:37)
[2019-12-18] MEDS: PANTOPRAZOLE 40 MG TABLET PO SCH (07:37)
[2019-12-18] MEDS: APIXABAN 5 MG TAB PO SCH ×2 (07:37→20:53)
[2019-12-18] MEDS: BENZONATATE 100 MG CAP PO PRN ×2 (07:37→20:53)
[2019-12-18] MEDS: SPIRONOLACTONE 25 MG TAB PO SCH (07:38)
[2019-12-18] MEDS: ASPIRIN 81 MG PO SCH (07:39)
[2019-12-18] MEDS: SACUBITRIL/VALSARTAN 24 MG-26 MG TABLET PO SCH ×2 (07:39→20:53)
--- NOTE | 2019-12-18 12:21 | NM ---
EXAMINATION TYPE: NM WBC whole body DATE OF EXAM: 12/18/2019 COMPARISON: NONE HISTORY: Bacteremia, unknown FOCUS TECHNIQUE: Following administration of 18.3 mCi Tc99m Ceretec. Images obtained 4 hour(s) and 21 katiuska r(s) post injection. FINDINGS: Normal background activity the osseous structures. Normal uptake spleen. Normal excretion within the colon on the delayed images. No suspicious focal radiotracer accumulation to suggest a focus of infection. IMPRESSION: Normal white blood cell scan. No evidence for abnormal tracer activity.
--- NOTE | 2019-12-18 12:24 | P.PN ---
Subjective HISTORY OF PRESENTING ILLNESS This is a pleasant 49-year-old male past medical history significant for nonischemic dilated cardiomyopathy status post AICD placement 11/13/2019, chronic systolic heart failure, COPD, paroxysmal typical atrial flutter noted 03/2020 on eliquis and sleep apnea. He follows in the office with Dr. Reddy. He is seen and examined sitting up in bed in no acute distress. He feels like his breathing is improving slightly. He is still coughing a dry cough with no significant sputum production. Blood pressure 119/79 heart rate 97 afebrile and maintaining oxygen saturation on room air. He continues to be on IV antibiotics per infectious disease. PHYSICAL EXAMINATION CONSTITUTIONAL: No apparent distress. HEENT: Head is normocephalic. Pupils are equal, round. Sclerae anicteric. Mucous membranes of the mouth are moist. No JVD. No carotid bruit. CHEST EXAMINATION: Lungs are clear to auscultation. No chest wall tenderness is noted on palpation or with deep breathing. HEART EXAMINATION: Regular rate and rhythm. S1, S2 heard. No murmurs, gallops or rub. EXTREMITIES: 2+ peripheral pulses, no lower extremity edema and no calf tenderness. ASSESSMENT Bacteremia with cough and fever Leukocytosis Non-ischemic dilated cardiomyopathy Chronic systolic heart failure s/p AICD implant 11/13/2019 Paroxysmal atrial flutter on eliquis PLAN Continue current medical regimen and treatment per ID. Nurse Practitioner note has been reviewed, I agree with a documented findings and plan of care. Patient was seen and examined. Objective - Vital Signs Vital signs: Vital Signs Temp 98.9 F 12/18/19 07:00 Pulse 97 12/18/19 07:00 Resp 20 12/18/19 07:00 BP 119/79 12/18/19 07:00 Pulse Ox 92 L 12/18/19 07:00 Intake & Output 12/17/19 12/18/19 12/18/19 18:59 06:59 18:59 Other: Voiding Method Toilet # Voids 2 - Labs CBC & Chem 7: 12/15/19 07:47 12/14/19 11:10 Labs: Microbiology - Last 24 Hours (Table) 12/15/19 07:47 Blood Culture Gram Stain - Final Blood Blood Culture - Final Serratia marcescens
--- NOTE | 2019-12-18 12:53 | PN ---
PROGRESS NOTE DATE OF SERVICE: 12/18/2019 REASON FOR FOLLOWUP: Serratia marcescens bacteremia. INTERVAL HISTORY: The patient is currently afebrile, patient is breathing comfortably. Patient denies having any chest pain, no shortness of breath, oral mucosa dry, no nausea, no vomiting, no abdominal pain, no diarrhea. PHYSICAL EXAMINATION: Blood pressure is 119/79 with a pulse of 97, temperature 98.9, he is 92% on room air. General description is a middle-aged male, up in the bed in no distress. RESPIRATORY SYSTEM: Unlabored breathing, decreased breath sounds at the base, no wheeze. HEART: S1, S2. Regular rate and rhythm. ABDOMEN: Soft, no tenderness. LABS: No new labs have been obtained today. Blood cultures 12/16 has been negative so far. Sputum currently pending. WBC scan is currently pending. DIAGNOSTIC IMPRESSION AND PLAN: Patient with a history of MRSA bacteremia with no obvious clinical focus of infection. The patient did have recently AICD placement. The site looks clean. Will keep the patient on cefepime 2 g q.12 hours for the WBC scan to finalize. Continue supportive care. MMODL / IJN: [id number] /
--- NOTE | 2019-12-18 15:17 | P.PN ---
Subjective 49-year-old male with a history of nonischemic dilated daily myopathy had any recently placed AICD. Patient is bacteremic with Serratia marcescens patient is presently on cefepime patient follow-up cultures are negative resources not clear. Patient remains on IV antibiotics at this time and will require IV antibiotics upon discharge patient had a WBC scan which did not localize this to the device. Constitutional: Denied any fatigue denied any fever. Cardio vascular: denied any chest pain, palpitations Gastrointestinal denied any nausea vomiting Pulmonary: Denied any shortness of breath cough Neurologic denied any new focal deficits All inpatient medications were reviewed and appropriate changes in these medications as dictated in the interval history and assessment and plan. Objective - Vital Signs Vital signs: Vital Signs Temp 98.9 F 12/18/19 07:00 Pulse 97 12/18/19 07:00 Resp 20 12/18/19 07:00 BP 119/79 12/18/19 07:00 Pulse Ox 92 L 12/18/19 07:00 Intake & Output 12/17/19 12/18/19 12/18/19 18:59 06:59 18:59 Intake Total 200 Balance 200 Intake: Oral 200 Other: Voiding Method Toilet # Voids 2 2 - Exam PHYSICAL EXAMINATION: GENERAL: The patient is alert and oriented x3, not in any acute distress. Well developed, well nourished. obese HEENT: Pupils are round and equally reacting to light. EOMI. No scleral icterus. No conjunctival pallor. Normocephalic, atraumatic. No pharyngeal erythema. No thyromegaly. CARDIOVASCULAR: S1 and S2 present. No murmurs, rubs, or gallops. PULMONARY: Chest is clear to auscultation, no wheezing or crackles. ABDOMEN: Soft, nontender, nondistended, normoactive bowel sounds. No palpable organomegaly. MUSCULOSKELETAL: No joint swelling or deformity. EXTREMITIES: No cyanosis, clubbing, or pedal edema. NEUROLOGICAL: Gross neurological examination did not reveal any focal deficits. SKIN: No rashes. - Labs CBC & Chem 7: 12/15/19 07:47 12/14/19 11:10 Labs: Microbiology - Last 24 Hours (Table) 12/15/19 12:46 Gram Stain - Final Sputum Sputum Culture - Final 12/17/19 08:16 Blood Culture - Preliminary Blood No Growth after 24 hours 12/15/19 07:47 Blood Culture Gram Stain - Final Blood Blood Culture - Final Serratia marcescens Assessment and Plan Plan: 1 bacteremia with Serratia marcescens source is not clear continue with cefepime. -congestive heart failure chronic systolic dysfunction without any acute exacerbation patient had a recent AICD placement. Patient is being continued on heart failure medications patient is presently euvolemicpatient is presently on entresto, Aldactone and Lasix. -sleep apnea -proximal atrial fibrillation on Eliquis.
--- NOTE | 2019-12-19 07:15 | DS ---
DISCHARGE SUMMARY Please add to discharge summary: His COVID-19 ruled out, negative. Chronic systolic and diastolic heart failure. MMODL / IJN: [id number] /
[2019-12-19] MEDS: CEFEPIME 2 GM in SODIUM CHLORIDE 0.9% 100 ML IVPB SCH ×2 (08:13→21:26)
[2019-12-19] MEDS: APIXABAN 5 MG TAB PO SCH ×2 (08:14→21:26)
[2019-12-19] MEDS: PANTOPRAZOLE 40 MG TABLET PO SCH (08:14)
[2019-12-19] MEDS: FUROSEMIDE 40 MG TAB PO SCH (08:14)
[2019-12-19] MEDS: carvediloL 12.5 MG TAB PO SCH ×2 (08:15→17:35)
[2019-12-19] MEDS: SPIRONOLACTONE 25 MG TAB PO SCH (08:16)
[2019-12-19] MEDS: LORATADINE 10 MG TAB PO SCH (08:16)
[2019-12-19] MEDS: SACUBITRIL/VALSARTAN 24 MG-26 MG TABLET PO SCH ×2 (08:16→21:26)
[2019-12-19] MEDS: ASPIRIN 81 MG PO SCH (08:16)
--- NOTE | 2019-12-19 09:47 | PN ---
PROGRESS NOTE A 49-year-old white male who is doing well at this time. He has had no fever, no chills. Nuclear bone scan is negative for any infection. Echo shows systolic CHF, unchanged on ejection fraction. History of MRSA bacteremia. The white blood cell scan is negative. Remains on cefepime 2 g 12 hours. He still has a congested cough. CARDIOVASCULAR: S1, S2. LUNGS: Clear. GI: Soft. Blood cultures negative. PLAN: Possible oral antibiotics and discharged home today. Fever, unclear etiology, tracheobronchitis, systolic CHF. Negative white blood cell scan. Please see further orders. MMODL / IJN: [id number] /
[2019-12-19] MEDS: BENZONATATE 100 MG CAP PO PRN ×2 (11:18→17:35)
--- NOTE | 2019-12-19 11:44 | P.PN ---
Subjective HISTORY OF PRESENTING ILLNESS This is a pleasant 49-year-old male past medical history significant for nonischemic dilated cardiomyopathy status post AICD placement 11/13/2019, chronic systolic heart failure, COPD, paroxysmal typical atrial flutter noted 03/2020 on eliquis and sleep apnea. He follows in the office with Dr. Reddy. He is seen and examined laying flat in bed in no acute distress. He continues to be on IV antibiotics per infectious disease. He denies chest pain, shortness of breath, dizziness or palpitations. Blood pressure 115/80 heart rate 91 afebrile and maintaining oxygen saturation on room air. Repeat blood cultures from yesterday are showing no growth at 24 hours. PHYSICAL EXAMINATION CONSTITUTIONAL: No apparent distress. HEENT: Head is normocephalic. Pupils are equal, round. Sclerae anicteric. Mucous membranes of the mouth are moist. No JVD. No carotid bruit. CHEST EXAMINATION: Lungs are clear to auscultation. No chest wall tenderness is noted on palpation or with deep breathing. Left anterior chest wall ICD implant site dry, clean with no erythema, drainage or tenderness. HEART EXAMINATION: Regular rate and rhythm. S1, S2 heard. No murmurs, gallops or rub. EXTREMITIES: 2+ peripheral pulses, no lower extremity edema and no calf tenderness. ASSESSMENT Bacteremia with cough and fever Leukocytosis Non-ischemic dilated cardiomyopathy Chronic systolic heart failure s/p AICD implant 11/13/2019 Paroxysmal atrial flutter on eliquis PLAN Infectious disease is requesting a THAIS be performed. This will take place Sunday. Procedure explained to the patient in detail and he is agreeable to move forward. NPO after midnight Sunday. Nurse Practitioner note has been reviewed, I agree with a documented findings and plan of care. Patient was seen and examined. Objective - Vital Signs Vital signs: Vital Signs Temp 98 F 12/19/19 07:00 Pulse 91 12/19/19 07:00 Resp 16 12/19/19 07:45 BP 115/80 12/19/19 07:00 Pulse Ox 94 L 12/19/19 07:00 Intake & Output 12/18/19 12/19/19 12/19/19 18:59 06:59 18:59 Intake Total 200 200 Balance 200 200 Intake: Oral 200 200 Other: Voiding Method Toilet # Voids 2 2 - Labs CBC & Chem 7: 12/15/19 07:47 12/14/19 11:10 Labs: Microbiology - Last 24 Hours (Table) 12/17/19 08:16 Blood Culture - Preliminary Blood No Growth after 48 hours 12/18/19 06:55 Blood Culture - Preliminary Blood No Growth after 24 hours 12/15/19 12:46 Gram Stain - Final Sputum Sputum Culture - Final
--- NOTE | 2019-12-19 15:17 | PN ---
PROGRESS NOTE DATE OF SERVICE: 12/19/2019 REASON FOR FOLLOWUP: Serratia marcescens bacteremia. INTERVAL HISTORY: The patient is currently afebrile. The patient is breathing comfortably. The patient is complaining of more coughing today, recently sputum, no hemoptysis, no chest pain. Denies any nausea, no vomiting. No abdominal pain. No diarrhea. PHYSICAL EXAMINATION: His blood pressure is 115/80 with a pulse of 91, temperature 98, he is 94% on room air. General description is a middle-aged male, up in the bed in no distress. RESPIRATORY SYSTEM: Unlabored breathing, decreased breath sounds in the base, with no wheeze. HEART: S1, S2. Regular rate and rhythm. ABDOMEN: Soft, no tenderness. LABS: No new labs have been obtained today. Blood culture from 12/14 or 12/16 has been negative. DIAGNOSTIC IMPRESSION AND PLAN: Patient with Serratia marcescens bacteremia. This patient currently with no obvious clinical focus. WBC was not helpful. No evidence of any pneumonia on the CT angiogram with more cough. A chest x-ray will be obtained. Awaiting a THAIS. Will need midline and outpatient antibiotic. Discussed with the admitting physician. MMODL / IJN: [id number] /
--- NOTE | 2019-12-19 15:35 | XR ---
EXAMINATION TYPE: XR chest 1V portable DATE OF EXAM: 12/19/2019 Comparison: 12/14/2019 Clinical History: 49-year-old male shortness of breath Findings: Left anterior chest wall ICD generator with right ventricular lead. Heart borderline enlarged. Low satish ng volumes with crowded vascular markings. Hazy densities relating to overlying soft tissue. Difficul t to exclude left basilar opacity. Otherwise, no consolidation or flank pleural effusion. Impression: Borderline heart size and hypoventilatory changes. Large patient body habitus; difficult to exclude m ild pulmonary vascular congestion versus technical artifact. No definite focal infiltrate.
[2019-12-19 15:50] LABS: HGB 11.4 gm/dL (13.0-17.5); MCH 28.7 pg (25.0-35.0); MCHC 31.6 g/dL (31.0-37.0); Mean Platelet Volume 7.9; Platelet Count 321 k/uL (150-450); RBC 3.95 m/uL (4.30-5.90); RDW 13.9 % (11.5-15.5); WBC 14.6 k/uL (3.8-10.6)
[2019-12-19 16:15] LABS: Albumin 3.6 g/dL (3.5-5.0); Calcium 8.5 mg/dL (8.4-10.2); Magnesium 1.9 mg/dL (1.6-2.3); Total Bilirubin 1.1 mg/dL (0.2-1.3)
[2019-12-20] MEDS: ACETAMINOPHEN TAB 325 MG TAB PO PRN (04:21)
[2019-12-20] MEDS: carvediloL 12.5 MG TAB PO SCH ×2 (07:53→17:55)
[2019-12-20] MEDS: APIXABAN 5 MG TAB PO SCH ×2 (07:54→20:04)
[2019-12-20] MEDS: FUROSEMIDE 40 MG TAB PO SCH (07:54)
[2019-12-20] MEDS: PANTOPRAZOLE 40 MG TABLET PO SCH (07:54)
[2019-12-20] MEDS: SPIRONOLACTONE 25 MG TAB PO SCH (07:54)
[2019-12-20] MEDS: ASPIRIN 81 MG PO SCH (07:54)
[2019-12-20] MEDS: LORATADINE 10 MG TAB PO SCH (07:54)
[2019-12-20] MEDS: CEFEPIME 2 GM in SODIUM CHLORIDE 0.9% 100 ML IVPB SCH ×2 (07:55→20:04)
[2019-12-20] MEDS: SACUBITRIL/VALSARTAN 24 MG-26 MG TABLET PO SCH ×2 (08:18→20:04)
[2019-12-20] MEDS: BENZONATATE 100 MG CAP PO PRN ×2 (10:14→20:04)
--- NOTE | 2019-12-20 20:19 | PN ---
PROGRESS NOTE Serratia marcescens bacteremia. He is currently afebrile. Breathing comfortably. Some mild coughing. Chest x-ray was read as negative. No chest pain. No abdominal pain. No diarrhea. Blood pressure 115/80, pulse 90, temp 98, O2 94%. Lungs, no wheeze, mild rhonchi. Heart S1, S2. Abdomen is soft. ASSESSMENT: Serratia marcescens bacteremia. No focus. White blood cell scan negative. No pneumonia on CT scan. THAIS will be done Sunday. PICC line with cefepime for 10 days and repeat blood cultures. Discharge home after THAIS. MMODL / IJN: [id number] /
[2019-12-20] MEDS: SYMBICORT 160-4.5 MCG INHALER INHALATION SCH (20:36)
--- NOTE | 2019-12-20 23:06 | PN ---
PROGRESS NOTE DATE OF SERVICE: 12/20/2019 REASON FOR FOLLOWUP: Pseudomonas bacteremia. INTERVAL HISTORY: The patient did spike a low-grade fever of 100.5 this afternoon. The patient feeling better, breathing comfortably, complains mostly dry in nature. No chest pain. No nausea, no vomiting. No abdominal pain, no diarrhea. PHYSICAL EXAMINATION: Blood pressure is 107/78 with a pulse of 94, temperature 99, T-max is 100.5. He is 99% on room air. General description is a middle-aged male up in the chair in no distress. Respiratory system: Unlabored breathing, decreased breath sounds at the base. No wheeze. Heart S1, S2. Regular rate and rhythm. Abdomen soft, no tenderness. LABS: No new labs have been obtained today. Blood culture repeat has been negative so far. DIAGNOSTIC IMPRESSION AND PLAN: Patient with Serratia marcescens bacteremia with no obvious focus. WBC scan was negative as well. Waiting for the THAIS to rule out an endovascular source or the AICD lead. Patient is covered with cefepime 2g q12 to continue. Repeat the labs tomorrow and monitor clinical course closely. MMODL / IJN: [id number] / MTDD
[2019-12-21] MEDS: PANTOPRAZOLE 40 MG TABLET PO SCH (08:06)
[2019-12-21] MEDS: SPIRONOLACTONE 25 MG TAB PO SCH (08:06)
[2019-12-21] MEDS: FUROSEMIDE 40 MG TAB PO SCH (08:06)
[2019-12-21] MEDS: CEFEPIME 2 GM in SODIUM CHLORIDE 0.9% 100 ML IVPB SCH ×2 (08:07→20:02)
[2019-12-21] MEDS: LORATADINE 10 MG TAB PO SCH (08:07)
[2019-12-21] MEDS: ASPIRIN 81 MG PO SCH (08:07)
[2019-12-21] MEDS: APIXABAN 5 MG TAB PO SCH ×2 (08:07→20:02)
[2019-12-21] MEDS: carvediloL 12.5 MG TAB PO SCH ×2 (08:07→17:33)
[2019-12-21] MEDS: SACUBITRIL/VALSARTAN 24 MG-26 MG TABLET PO SCH ×2 (08:08→20:02)
[2019-12-21 08:25] LABS: Basophils % (A) 0 %; Eosinophils # (A) 0.2 k/uL (0-0.7); Eosinophils % (A) 2 %; HCT 33.5 % (39.0-53.0); HGB 10.8 gm/dL (13.0-17.5); Hypochromasia Slight; Lymphocytes # (A) 1.1 k/uL (1.0-4.8); Lymphocytes % (A) 12 %; MCH 30.1 pg (25.0-35.0); MCHC 32.2 g/dL (31.0-37.0); MCV 93.5 fL (80.0-100.0); Mean Platelet Volume 8.9; Monocytes # (A) 0.4 k/uL (0-1.0); Monocytes % (A) 4 %; Neutrophils # (A) 6.7 k/uL (1.3-7.7); Neutrophils % (A) 79 %; Platelet Count 253 k/uL (150-450); RBC 3.59 m/uL (4.30-5.90); RDW 13.6 % (11.5-15.5); WBC 8.5 k/uL (3.8-10.6)
[2019-12-21 08:26] LABS: Potassium 3.9 mmol/L (3.5-5.1)
[2019-12-21 08:29] LABS: Calcium 8.4 mg/dL (8.4-10.2)
[2019-12-21] MEDS: SYMBICORT 160-4.5 MCG INHALER INHALATION SCH ×2 (08:36→21:40)
[2019-12-21 08:42] LABS: C Reactive Protein 191.1 mg/L (<10.0)
[2019-12-21] MEDS: BENZONATATE 100 MG CAP PO PRN (18:01)
--- NOTE | 2019-12-22 00:21 | PN ---
PROGRESS NOTE A 49-year-old white male. THAIS is planned for in the morning. Continue on IV cefepime. Possible discharge home tomorrow with a PICC line after THAIS. Follow up in next 24 to 48 hours. Blood cultures will be done after 2 weeks more of cefepime, current treatment continue. MMODL / IJN: [id number] /
--- NOTE | 2019-12-22 02:09 | PN ---
PROGRESS NOTE DATE OF SERVICE: 12/21/2019 REASON FOR FOLLOWUP: Serratia marcescens bacteremia, question of endovascular source. INTERVAL HISTORY: The patient is currently afebrile. The patient is breathing comfortably. Denies having any chest pain or shortness of breath. Cough is improved. No nausea, no vomiting. No abdominal pain, no diarrhea. PHYSICAL EXAMINATION: Blood pressure is 124/78 with a pulse of 94, temperature 98.3. He is 96% on room air. General description is a middle-aged male lying in bed in no distress. RESPIRATORY SYSTEM: Unlabored breathing, clear to auscultation anteriorly. HEART: S1, S2. Regular rate and rhythm. ABDOMEN: Soft, no tenderness. LABS: Hemoglobin is 10.8, white count 8.5, creatinine is 1.14. Blood culture repeat has been negative. DIAGNOSTIC IMPRESSION AND PLAN: Patient with Serratia marcescens bacteremia with concern for possible endovascular source. Awaiting THAIS tomorrow. Patient's follow-up blood cultures have been negative and has got a Midline. Will be finishing therapy with cefepime 2 grams q.12. Duration of antibiotic on the basis of the echo report. Continue with supportive care. MMODL / IJN: [id number] /
[2019-12-22] MEDS: CEFEPIME 2 GM in SODIUM CHLORIDE 0.9% 100 ML IVPB SCH ×2 (07:58→16:26)
[2019-12-22] MEDS: SYMBICORT 160-4.5 MCG INHALER INHALATION SCH (08:44)
[2019-12-22] MEDS ORDERED: fentaNYL (PF) 50 MCG/ML 2 ML AMP ONE (09:30)
[2019-12-22] MEDS: BENZOCAINE SPRAY 1 CAN TOPICAL ONE ×2 (09:54→10:01)
[2019-12-22] MEDS ORDERED: SODIUM CHLORIDE 0.9% 500 ML 500 ML IV ONE (10:10)
[2019-12-22] MEDS: fentaNYL (PF) 50 MCG/ML 2 ML AMP IV ONE ×2 (10:14→10:18)
[2019-12-22] MEDS ORDERED: MIDAZOLAM 2 MG/2 ML VIAL IV ONE (10:14)
[2019-12-22] MEDS: carvediloL 12.5 MG TAB PO SCH (11:03)
[2019-12-22] MEDS: SPIRONOLACTONE 25 MG TAB PO SCH (11:04)
[2019-12-22] MEDS: LORATADINE 10 MG TAB PO SCH (11:05)
[2019-12-22] MEDS: ASPIRIN 81 MG PO SCH (11:05)
[2019-12-22] MEDS: SACUBITRIL/VALSARTAN 24 MG-26 MG TABLET PO SCH (11:05)
[2019-12-22] MEDS: FUROSEMIDE 40 MG TAB PO SCH (11:05)
[2019-12-22] MEDS: APIXABAN 5 MG TAB PO SCH (11:05)
[2019-12-22] MEDS: PANTOPRAZOLE 40 MG TABLET PO SCH (11:05)
--- NOTE | 2019-12-22 11:21 | ECHOT ---
TRANSESOPHAGEAL ECHOCARDIOGRAM TRANSESOPHAGEAL ECHO: INDICATION: Sepsis, rule out infective endocarditis. PROCEDURE NOTE: After obtaining informed consent, transesophageal echocardiogram was performed in left lateral position using an Omni plane probe. Local and IV sedation were obtained using Xylocaine spray, 2 mg of Versed and 25 mcg of fentanyl. Patient tolerated the procedure well without any obvious immediate complications. FINDINGS: 1. There is mitral valve, mitral valve appears anatomically normal. There is mild mitral regurgitation noted. There is no evidence of vegetation. 2. Aortic valve with a 3-leaflet valve. There is no evidence of aortic stenosis or regurgitation. There is no vegetation on the aortic valve. 3. Tricuspid valve is free of vegetation. 4. Left atrium appears mildly enlarged, right atrium and right ventricle seen within normal limits. Aorta appears within normal limits. 5. Interatrial septum, there is no evidence of jnyl-by-taenc shunt by color-flow Doppler or [id number] shunt by agitated saline contrast study. 6. Left ventricle has normal size shows moderate to severe LV systolic dysfunction with an ejection fraction of 30% to 35%. 7. There is hypokinesis involving the apex and the anteroseptum suggestive of prior myocardial infarction. CONCLUSION: 1. No evidence of vegetation noted on this study. 2. Cardiomyopathy with severe LV dysfunction. MMODL / IJN: [id number] /
--- NOTE | 2019-12-22 14:02 | P.DS ---
Providers Date of admission: 12/15/19 13:11 Expected date of discharge: 12/22/19 Attending physician: Chicho Ryan Consults: 12/14/19 14:39 Consult Physician Routine Consulting Provider: Sarah Juarez Consult Reason/Comments: FUO, poss tracheobronchitis, poss UTI Do you want consulting provider notified?: Yes 12/16/19 12:47 Consult Physician Routine Consulting Provider: Pete Qiu Consult Reason/Comments: rule out iinfected icd/systolic chf Do you want consulting provider notified?: Yes 12/19/19 11:24 Consult Physician Routine Consulting Provider: Willy Wiseman Consult Reason/Comments: SOB Fever Do you want consulting provider notified?: Already Contacted Primary care physician: Chicho Ryan [facility] Course: Final diagnoses Bacteremia with Serratia marcescens, etiology unclear Chronic CHF, systolic dysfunction, without acute exacerbation Nonischemic dilated cardiomyopathy Recent AICD placement, 11/13/2019 Sleep apnea Paroxysmal atrial flutter Morbid Obesity, BMI 43 Hospital course: This a 49-year-old gentleman with history of nonischemic dilated cardiomyopathy with recently placed AICD with bacteremia with Serratia marcescens. Maintained on IV antibiotics as per infectious disease. Patient will be discharged home pending THAIS results, final DC recommendations and clearance from cardiology and ID today, in a stable condition with guarded prognosis. The impression and plan of care has been dictated as directed. : I performed a history and examination of this patient, discussed the same with the dictator. I agree with the dictator's note ,documented as a scribe. Any additional findings or plans will be noted. Patient Condition at Discharge: Stable Plan - Discharge Summary New Discharge Prescriptions: New Cefepime HCl [Maxipime] 2 gm IV Q12H #20 vial Acetaminophen Tab [Tylenol] 650 mg PO Q6HR PRN tab PRN Reason: Fever And/ Or Pain Budesonide-Formot 160-4.5 Mcg [Symbicort 160-4.5 Mcg Inhaler] 2 puff INHALATION RT-BID #1 inh Continue Loratadine [Claritin] 10 mg PO DAILY Aspirin 81 mg PO DAILY #30 chew Apixaban [Eliquis] 5 mg PO BID #60 tab Albuterol Nebulized [Ventolin Nebulized] 2.5 mg INHALATION TID PRN 30 Days #90 nebu PRN Reason: Bronchospasm Furosemide [Lasix] 40 mg PO DAILY Spironolactone [Aldactone] 12.5 mg PO DAILY Pantoprazole [Protonix] 40 mg PO DAILY Carvedilol [Coreg*] 18.75 mg PO BID #270 tablet Sacubitril/Valsartan [Entresto 24 mg-26 mg Tablet] 1 tab PO BID Discharge Medication List Loratadine [Claritin] 10 mg PO DAILY 03/11/19 [History] Albuterol Nebulized [Ventolin Nebulized] 2.5 mg INHALATION TID PRN 30 Days #90 nebu 03/21/19 [Rx] Apixaban [Eliquis] 5 mg PO BID #60 tab 03/21/19 [Rx] Aspirin 81 mg PO DAILY #30 chew 03/21/19 [Rx] Furosemide [Lasix] 40 mg PO DAILY 10/03/19 [History] Pantoprazole [Protonix] 40 mg PO DAILY 10/03/19 [History] Spironolactone [Aldactone] 12.5 mg PO DAILY 10/03/19 [History] Carvedilol [Coreg*] 18.75 mg PO BID #270 tablet 11/13/19 [Rx] Sacubitril/Valsartan [Entresto 24 mg-26 mg Tablet] 1 tab PO BID 12/14/19 [History] Cefepime HCl [Maxipime] 2 gm IV Q12H #20 vial 12/19/19 [Rx] Acetaminophen Tab [Tylenol] 650 mg PO Q6HR PRN tab 12/22/19 [Rx] Budesonide-Formot 160-4.5 Mcg [Symbicort 160-4.5 Mcg Inhaler] 2 puff INHALATION RT-BID #1 inh 12/22/19 [Rx] Follow up Appointment(s)/Referral(s): Sixto Reddy MD [STAFF PHYSICIAN] - 2 Weeks Chicho Ryan MD [Primary Care Provider] - 3 Days [facility], [NON-STAFF] - [facility],Infusion [NON-STAFF] - Ambulatory/Diagnostic Orders: Complete Blood Count w/diff [LAB.AMB] Time Frame: 3 Days, Location: None Selected
[2019-12-22 14:54] VITALS: BP 104/71; PULSE 95; RESP 16; TEMP 98.2
--- NOTE | 2019-12-22 17:38 | PN ---
PROGRESS NOTE DATE OF SERVICE: 12/22/2019 REASON FOR FOLLOWUP: Serratia marcescens bacteremia. INTERVAL HISTORY: Patient is currently afebrile, patient is breathing comfortably. Patient denies having chest pain or shortness of breath or cough. No nausea, no vomiting, no abdominal pain, no diarrhea. PHYSICAL EXAMINATION: Blood pressure 120/58 with a pulse of 81, temperature is 97.7. He is 99% on room air. General description is a middle-aged male, lying in bed in no distress. RESPIRATORY SYSTEM: Unlabored breathing, clear to auscultation anteriorly. HEART: S1, S2. Regular rate and rhythm. ABDOMEN: Soft, no tenderness. LABS: No new labs been obtained today. Blood cultures 12/16 and 12/17 negative. DIAGNOSTIC IMPRESSION AND PLAN: Patient with Serratia marcescens bacteremia. Patient did have extensive workup with no clinical focus , WBC scan negative this morning. PLAN: The plan is to finish the course of therapy with cefepime 2 g every 12hr and close outpatient followup. MMODL / IJN: [id number] / JANETT
--- NOTE | 2019-12-24 09:36 | CDI ---
Documentation Clarification Form Date: 12/24/2019 09:13:36 AM From: Tracy Rivas Phone: If you have a question about this query, please contact Verónica Cuba Owner/Operator at [phone] between 8am and 5pm. Admit Date: 12/15/2019 01:11:00 PM Patient Name: Darek Mccollum Visit Number: [id number] Discharge Date: 12/22/2019 05:56:00 PM ATTENTION: The Clinical Documentation Specialists (CDI) and [facility] Coding Staff appreciate your assistance in clarifying documentation. Please respond to the clarification below the line at the bottom and electronically sign. The CDI & [facility] Coding staff will review the response and follow-up if needed. Please note: Queries are made part of the Legal Health Record. If you have any questions, please contact the author of this message via ITS. Dr. Chicho Ryan Per ID consult and progress note documentation "Patient presents with sepsis. DCS documents bacteremia. Please clarify if patient had sepsis or was sepsis ruled out. (Covid ruled out per query) History/Risk Factors: Blood culture positive for Serratia Marcessens, fever and tachycardia Clinical Indicators: WBC up to 14.6 on 12/18 Lactic acid: 1.5 Blood cultures: Serratia Marcessens Vitals signs on admission: 102.7 F, 115 bpm, 24, 123/78 98% RA Treatment: IV antibiotics, THAIS, Midline ID Consult: patient presented with sepsis Antibiotics: Cefepime In your professional opinion, please clarify if these findings signify one of the following conditions, whether the condition is POA, and cause, if known: Condition Sepsis ruled out SIRS, without underlying infectious process Sepsis Severe Sepsis Septic Shock Other, please specify Unable to determine SIRS Criteria (2 or more of the following may indicate SIRS): -Temperature < 96.8F (36C) or > 101.0F (38.3C) -Heart Rate > 90 bpm -Respiratory Rate > 20 breaths/min or PaCO2 < 32 mmHg -White Blood Cell Count > 12,000 or < 4,000 cells/mm3 or > 10% bands -Lactate >2.0 mmol/L (>4.0 is equivalent to septic shock) MTDD
--- NOTE | 2019-12-24 22:02 | DS ---
DISCHARGE SUMMARY ADDENDUM TO DISCHARGE SUMMARY: Sepsis; Serratia marcescens sepsis; unclear etiology. MMODL / IJN: [id number] /
--- NOTE | 2020-02-19 15:13 | CDI ---
Date: 02.19.2020 CDS/Horticultural Nursery Assistant Name: Nikki Vidal Phone: If any questions, call Verónica Cuba Plasterer Helper at [phone] Patient Name: Darek Mccollum Admit Date 12.14.19 Discharge Date: 12.22.19 ATTENTION: The [facility] Coding Staff appreciate your assistance in clarifying documentation. Please respond to the clarification below the line at the bottom and electronically sign. The [facility] Coding staff will review the response and follow-up if needed. Please note: Queries are made part of the Legal Health Record. If you have any questions, please contact the Plasterer Helper. Dear Dr. Wiseman On you documentation of the THAIS, I found where you documented the utilization of the Omni plane probe and the color flow doppler. But I cannot find where you utilized the pulse wave. I need this information so that the correct charges can be applied. Please document whether the pulse wave was utilized. Thank you for your kind consideration. no pulse wave MTDD
== END 2019-12-22 17:56 | disposition home health service (06) ==
LOC: EC 10:09 → 4SSUR 14:45 → OBSVTOIN 12-15 13:11 → INTOOBSV 12-15 13:11 → 4SSUR 12-16 19:35 → UNDODISIN 12-22 17:56
PROVIDERS: ADMIT Family Medicine; ATTEND Family Medicine
DX: A41.53 Sepsis due to Serratia (principal); I50.42 Chronic combined systolic (congestive) and diastolic (congestive) heart failure; I42.8 Other cardiomyopathies; I34.0 Nonrheumatic mitral (valve) insufficiency; G47.30 Sleep apnea, unspecified; I48.92 Unspecified atrial flutter; R82.90 Unspecified abnormal findings in urine; E66.01 Morbid (severe) obesity due to excess calories; J44.9 Chronic obstructive pulmonary disease, unspecified; I47.2 Ventricular tachycardia; R79.1 Abnormal coagulation profile; R79.82 Elevated C-reactive protein (CRP); R31.9 Hematuria, unspecified; I48.0 Paroxysmal atrial fibrillation; Z20.828 Contact with and (suspected) exposure to other viral communicable diseases; Z95.810 Presence of automatic (implantable) cardiac defibrillator; Z79.899 Other long term (current) drug therapy; Z79.01 Long term (current) use of anticoagulants; Z79.82 Long term (current) use of aspirin; Z98.890 Other specified postprocedural states; Z68.41 Body mass index [BMI] 40.0-44.9, adult; Z86.14 Personal history of Methicillin resistant Staphylococcus aureus infection; Z82.49 Family history of ischemic heart disease and other diseases of the circulatory system; Z84.89 Family history of other specified conditions; Z82.3 Family history of stroke; Z83.79 Family history of other diseases of the digestive system; Z83.438 Family history of other disorder of lipoprotein metabolism and other lipidemia
CPT/HCPCS: 96365 ×2; 96366 ×9; 96367 ×2; 99284; 36415; 94640 ×4; 93005 ×2; 93312; 93320; 93325; 36410; 76937; 85379; 80053 ×2; 80048; 83605; 83615; 83735; 85025 ×3; 85027; 85610; 85730; 86140 ×3; 81001; 87040 ×4; 87070; 87086; 87205; 87077; 87186; 84145 ×2; 71045; 71046; 71275; G0378 ×9; C8929; C1751; U0003; A9569; J2250; J2930; J0456 ×2; J0692 ×8; J3010; J1956; Q9950; Q9967; 93306

== ENCOUNTER → 2020-01-13 | Day surgery (SDC) | payer OTHER ==
[2020-01-13 13:34] VITALS: BP 130/88; PULSE 96; RESP 16; TEMP 97.9
== END ==
LOC: CATHCVL 12:44
PROVIDERS: ATTEND Internal Medicine Infectious Disease
DX: R78.81 Bacteremia (principal); B96.89 Other specified bacterial agents as the cause of diseases classified elsewhere; J44.9 Chronic obstructive pulmonary disease, unspecified; I50.9 Heart failure, unspecified; Z95.810 Presence of automatic (implantable) cardiac defibrillator; Z79.01 Long term (current) use of anticoagulants; Z79.899 Other long term (current) drug therapy; Z79.51 Long term (current) use of inhaled steroids; Z79.82 Long term (current) use of aspirin
CPT/HCPCS: 36410; 76937

== ENCOUNTER 2020-03-17 11:00 | Inpatient (IN) | payer OTHER ==
[2020-03-17] MEDS ORDERED: IPRATROPIUM-ALBUTEROL 3 ML NEB INHALATION STA (12:10)
--- NOTE | 2020-03-17 12:26 | ED ---
URI HPI - History of Present Illness MD Complaint: cough, other (SOB) -: days(s) Severity: moderate Severity scale (1-10): 7 Consistency: constant Improves With: nothing Worsens With: activity Associated Symptoms: nasal congestion, cough, shortness of breath Treatments Prior to Arrival: none <Abdelrahman Her - Last Filed: 03/17/20 16:09> - General Source: patient Mode of arrival: ambulatory Limitations: no limitations <Donna Lomeli - Last Filed: 03/17/20 16:41> - General Chief Complaint: Upper Respiratory Infection Stated Complaint: Coughing and nausea Time Seen by Provider: 03/17/20 11:24 - History of Present Illness Initial Comments: 49-year-old male patient presents to the emergency department today for evaluation of cough and shortness of breath. Patient states that his symptoms a present for the last 2 days. Patient states at times he does have posttussive vomiting. States he occasionally coughs up sputum. Patient does report wheezing. States he becomes more short of breath with activity. States he does have a bitter taste in his mouth. He denies any fever or chills. Denies chest pain. Denies nasal congestion, nasal drainage, ear pain. Patient denies any sick contacts. There is a history of congestive heart failure with denies any extremity swelling. Patient denies any recent rash, chest pain, abdominal pain, diarrhea, constipation, back pain, numbness, tingling, dizziness, weakness, hematuria, dysuria, urinary urgency, urinary frequency, headache, visual changes, or any other complaints. (Donna Lomeli) - Related Data Home Medications Medication Instructions Recorded Confirmed Loratadine [Claritin] 10 mg PO DAILY 03/11/19 03/17/20 Furosemide [Lasix] 40 mg PO DAILY 10/03/19 03/17/20 Pantoprazole [Protonix] 40 mg PO DAILY 10/03/19 03/17/20 Spironolactone [Aldactone] 12.5 mg PO DAILY 10/03/19 03/17/20 Sacubitril/Valsartan [Entresto 24 1 tab PO BID 12/14/19 03/17/20 mg-26 mg Tablet] Albuterol Nebulized [Ventolin 2.5 mg INHALATION RT-TID PRN 03/17/20 03/17/20 Nebulized] guaiFENesin SYRUP 100MG/5ML 200 - 400 mg PO Q4H PRN 03/17/20 03/17/20 [Robitussin] Previous Rx's Medication Instructions Recorded Apixaban [Eliquis] 5 mg PO BID #60 tab 03/21/19 Aspirin 81 mg PO DAILY #30 chew 03/21/19 carvediloL [Coreg*] 18.75 mg PO BID #270 tablet 11/13/19 Allergies Allergy/AdvReac Type Severity Reaction Status Date / Time No Known Allergies Allergy Verified 03/17/20 13:28 Review of Systems ROS Other: All systems not noted in ROS Statement are negative. <Abdelrahman Her - Last Filed: 03/17/20 16:09> ROS Other: All systems not noted in ROS Statement are negative. <Donna Lomeli - Last Filed: 03/17/20 16:41> ROS Statement: Those systems with pertinent positive or pertinent negative responses have been documented in the HPI. Past Medical History Past Medical History: Asthma, Chest Pain / Angina, Heart Failure, COPD, Sleep Apnea/CPAP/BIPAP Additional Past Medical History / Comment(s): No CPAP currently. , SEE DR. VYAS H & P recent aicd placement 11/13/2019 History of Any Multi-Drug Resistant Organisms: None Reported Past Surgical History: Heart Catheterization Additional Past Surgical History / Comment(s): defribrillator Past Anesthesia/Blood Transfusion Reactions: No Reported Reaction Past Psychological History: No Psychological Hx Reported Smoking Status: Current every day smoker, Never smoker Past Alcohol Use History: None Reported Past Drug Use History: None Reported - Past Family History Mother Family Medical History: AFIB, Chest Pain / Angina, CVA/TIA, GERD/Reflux, Hyperlipidemia, Hypertension Father Family Medical History: Chest Pain / Angina, Coronary Artery Disease (CAD), CVA/TIA, Hyperlipidemia, Hypertension Additional Family Medical History / Comment(s): Open heart surgery 08/12/18 <Donna Lomeli - Last Filed: 03/17/20 16:41> General Exam General appearance: alert, in no apparent distress, anxious, in distress, other Head exam: Present: atraumatic, normocephalic, normal inspection Eye exam: Present: normal appearance, PERRL, EOMI. Absent: scleral icterus, conjunctival injection, periorbital swelling ENT exam: Present: normal exam, mucous membranes moist Neck exam: Present: normal inspection. Absent: tenderness, meningismus, lymphadenopathy Respiratory exam: Present: normal lung sounds bilaterally, wheezes, rhonchi, accessory muscle use, decreased breath sounds, prolonged expiratory. Absent: respiratory distress, rales, stridor Cardiovascular Exam: Present: normal rhythm, tachycardia, normal heart sounds. Absent: regular rate, systolic murmur, diastolic murmur, rubs, gallop, clicks GI/Abdominal exam: Present: soft, normal bowel sounds. Absent: distended, tenderness, guarding, rebound, rigid Extremities exam: Present: normal inspection, full ROM, normal capillary refill. Absent: tenderness, pedal edema, joint swelling, calf tenderness Back exam: Present: normal inspection Neurological exam: Present: alert, oriented X3, CN II-XII intact Psychiatric exam: Present: normal affect, normal mood Skin exam: Present: warm, dry, intact, normal color. Absent: rash <Abdelrahman Her - Last Filed: 03/17/20 16:09> Limitations: no limitations General appearance: alert, in no apparent distress, other (This is a well- developed, well-nourished adult male patient in mild respiratory distress. Vital signs upon presentation are temperature 98.6F, pulse 117, respirations 18, blood pressure 129/80, pulse ox 98% on room air.) Eye exam: Present: normal appearance, PERRL, EOMI. Absent: scleral icterus, conjunctival injection, periorbital swelling ENT exam: Present: normal exam, normal oropharynx, mucous membranes moist Respiratory exam: Present: wheezes (Respiratory wheezing noted in the posterior lung reich.), accessory muscle use (Abdominal). Absent: normal lung sounds bilaterally, respiratory distress, rales, rhonchi, stridor Cardiovascular Exam: Present: regular rate, normal rhythm, normal heart sounds. Absent: systolic murmur, diastolic murmur, rubs, gallop, clicks GI/Abdominal exam: Present: soft, normal bowel sounds. Absent: distended, tenderness, guarding, rebound, rigid Neurological exam: Present: alert, oriented X3, CN II-XII intact Psychiatric exam: Present: normal affect, normal mood Skin exam: Present: warm, dry, intact, normal color. Absent: rash <Donna Lomeli - Last Filed: 03/17/20 16:41> Course Vital Signs 03/17/20 03/17/20 03/17/20 11:18 11:21 12:11 Temperature 98.6 F Pulse Rate 117 H Respiratory 18 20 18 Rate Blood Pressure 129/80 O2 Sat by Pulse 98 Oximetry 03/17/20 03/17/20 03/17/20 12:21 12:59 13:18 Temperature Pulse Rate 116 H 125 H 123 H Respiratory 20 Rate Blood Pressure O2 Sat by Pulse Oximetry 03/17/20 13:21 Temperature Pulse Rate 120 H Respiratory 20 Rate Blood Pressure 89/68 O2 Sat by Pulse 95 Oximetry Medical Decision Making - Lab Data Result diagrams: 03/17/20 13:23 03/17/20 13:23 <Abdelrahman Her - Last Filed: 03/17/20 16:09> - Lab Data Result diagrams: 03/17/20 13:23 03/17/20 13:23 - Radiology Data Radiology results: report reviewed, image reviewed <Donna Lomeli - Last Filed: 03/17/20 16:41> - Medical Decision Making 49-year-old male patient presents to the emergency department today for evaluation of shortness of breath and cough for the last 2 days. Patient admitted to coughing up sputum. Denied fever or chills. States that he was having some nausea. No leg swelling. Does have a history of congestive heart failure, does have a defibrillator. Patient was recently admitted to the hospital for bacteremia. Upon arrival patient was tachycardic. He did have some low blood pressures during the visit here. Labs reviewed and did reveal normal white blood cell count. An elevated d-dimer at 10, elevated CRP and LDH. Lymphocytes are low and the rent them to elevated so I did consider coronavirus as a possible cause for his symptoms. We obtained CT chest angio which was non-diagnostic for PE, showed small pleural effusions, and a large per icardial effusion. Patient is given IV fluids for low BPs. The case was discussed with my attending. We will perform STAT ECHO, VQ scan, and given subq anticoagulants. He will be admitted to the ICU. COVID is pending. (Donna Lomeli) - Lab Data Lab Results 03/17/20 03/17/20 03/17/20 Range/Units 13:23 13:23 13:23 WBC 9.0 (3.8-10.6) k/uL RBC 4.00 L (4.30-5.90) m/uL Hgb 10.8 L (13.0-17.5) gm/dL Hct 34.2 L (39.0-53.0) % MCV 85.4 (80.0-100.0) fL MCH 26.9 (25.0-35.0) pg MCHC 31.5 (31.0-37.0) g/dL RDW 15.3 (11.5-15.5) % Plt Count 268 (150-450) k/uL Neutrophils % 89 % Lymphocytes % 7 % Monocytes % 2 % Eosinophils % 1 % Basophils % 1 % Neutrophils # 8.0 H (1.3-7.7) k/uL Lymphocytes # 0.6 L (1.0-4.8) k/uL Monocytes # 0.2 (0-1.0) k/uL Eosinophils # 0.1 (0-0.7) k/uL Basophils # 0.0 (0-0.2) k/uL Hypochromasia Slight PT 10.9 (9.0-12.0) sec INR 1.1 (<1.2) APTT 30.9 H (22.0-30.0) sec D-Dimer 10.87 H (<0.60) mg/L FEU Sodium 137 (137-145) mmol/L Potassium 3.8 (3.5-5.1) mmol/L Chloride 103 (98-107) mmol/L Carbon Dioxide 23 (22-30) mmol/L Anion Gap 11 mmol/L BUN 21 H (9-20) mg/dL Creatinine 1.63 H (0.66-1.25) mg/dL Est GFR (CKD-EPI)AfAm 57 (>60 ml/min/1.73 sqM) Est GFR (CKD-EPI)NonAf 49 (>60 ml/min/1.73 sqM) Glucose 122 H (74-99) mg/dL Plasma Lactic Acid Simeon (0.7-2.0) mmol/L Calcium 8.2 L (8.4-10.2) mg/dL Magnesium 1.8 (1.6-2.3) mg/dL Total Bilirubin 1.1 (0.2-1.3) mg/dL AST 134 H (17-59) U/L ALT 82 H (4-49) U/L Alkaline Phosphatase 117 (38-126) U/L Lactate Dehydrogenase 675 H (313-618) U/L Troponin I (0.000-0.034) ng/mL C-Reactive Protein 254.7 H (<10.0) mg/L Total Protein 6.7 (6.3-8.2) g/dL Albumin 3.2 L (3.5-5.0) g/dL 03/17/20 03/17/20 Range/Units 13:23 14:50 WBC (3.8-10.6) k/uL RBC (4.30-5.90) m/uL Hgb (13.0-17.5) gm/dL Hct (39.0-53.0) % MCV (80.0-100.0) fL MCH (25.0-35.0) pg MCHC (31.0-37.0) g/dL RDW (11.5-15.5) % Plt Count (150-450) k/uL Neutrophils % % Lymphocytes % % Monocytes % % Eosinophils % % Basophils % % Neutrophils # (1.3-7.7) k/uL Lymphocytes # (1.0-4.8) k/uL Monocytes # (0-1.0) k/uL Eosinophils # (0-0.7) k/uL Basophils # (0-0.2) k/uL Hypochromasia PT (9.0-12.0) sec INR (<1.2) APTT (22.0-30.0) sec D-Dimer (<0.60) mg/L FEU Sodium (137-145) mmol/L Potassium (3.5-5.1) mmol/L Chloride (98-107) mmol/L Carbon Dioxide (22-30) mmol/L Anion Gap mmol/L BUN (9-20) mg/dL Creatinine (0.66-1.25) mg/dL Est GFR (CKD-EPI)AfAm (>60 ml/min/1.73 sqM) Est GFR (CKD-EPI)NonAf (>60 ml/min/1.73 sqM) Glucose (74-99) mg/dL Plasma Lactic Acid Simeon 1.3 (0.7-2.0) mmol/L Calcium (8.4-10.2) mg/dL Magnesium (1.6-2.3) mg/dL Total Bilirubin (0.2-1.3) mg/dL AST (17-59) U/L ALT (4-49) U/L Alkaline Phosphatase (38-126) U/L Lactate Dehydrogenase (313-618) U/L Troponin I <0.012 (0.000-0.034) ng/mL C-Reactive Protein (<10.0) mg/L Total Protein (6.3-8.2) g/dL Albumin (3.5-5.0) g/dL - Radiology Data Two-view x-ray of the chest is obtained. Report was reviewed in its entirety. Impression by Dr. Mack shows limited due to large patient body habitus and AP portable technique. There is mild to moderate cardiomegaly. Allow for exam limitations noted F no acute process. CT chest angiography for PE was obtained. Report was reviewed in its entirety. Impression by Dr. Rodriguez shows nondiagnostic assessment for pulmonary embolism due to artifact and suboptimal opacification of the pulmonary arteries. Pulmonary embolism is not excluded based on this exam. Consider follow-up VQ scan is clinically warranted. Moderate to large sized pericardial effusion with small bilateral pleural effusions correlate clinically. (Donna Loemli) Critical Care Time Critical Care Time: Yes Total Critical Care Time: 65 <Abdelrahman Her - Last Filed: 03/17/20 16:09> Disposition <Abdelrahman Her - Last Filed: 03/17/20 16:09> Decision to Admit Reason: Admit from EC Decision Date: 03/17/20 Decision Time: 16:15 <Donna Lomeli - Last Filed: 03/17/20 16:41> Clinical Impression: Pericardial effusion, Dyspnea Disposition: ADMITTED IP TO THIS [facility] Condition: Serious Referrals: Chicho Ryan MD [Primary Care Provider] - 1-2 days
--- NOTE | 2020-03-17 13:08 | XR ---
EXAMINATION TYPE: XR chest 1V portable DATE OF EXAM: 03/17/2020 Comparison: 12/19/2019 Clinical History: 49-year-old male cough, Suspected COVID-19 pneumonia Findings: Left anterior chest wall AICD generator with right ventricular lead. There is large patient body habi tus and AP portable technique resulting in underpenetration. Heart mild to moderately enlarged, possi rosa m in part magnified due to AP technique. Hazy density at the left base and limitation due to overly ing generator device. No obvious consolidation or sizable effusion. Impression: Limited due to large patient body habitus and AP portable technique. There is mild to moderate cardio megaly. Allowing for exam limitations, no definite acute process. If concern for early COVID pneumoni a, radiographic follow-up may be helpful.
[2020-03-17 13:47] LABS: Basophils % (A) 1 %; Eosinophils # (A) 0.1 k/uL (0-0.7); Eosinophils % (A) 1 %; HCT 34.2 % (39.0-53.0); HGB 10.8 gm/dL (13.0-17.5); Hypochromasia Slight; Lymphocytes # (A) 0.6 k/uL (1.0-4.8); Lymphocytes % (A) 7 %; MCH 26.9 pg (25.0-35.0); MCHC 31.5 g/dL (31.0-37.0); MCV 85.4 fL (80.0-100.0); Mean Platelet Volume 9.4; Monocytes # (A) 0.2 k/uL (0-1.0); Monocytes % (A) 2 %; Neutrophils % (A) 89 %; Platelet Count 268 k/uL (150-450); RDW 15.3 % (11.5-15.5)
[2020-03-17 14:05] LABS: INR 1.1 (<1.2); Partial Thromboplastin Time 30.9 sec (22.0-30.0); Prothrombin Time 10.9 sec (9.0-12.0)
[2020-03-17 14:08] LABS: Albumin 3.2 g/dL (3.5-5.0); Calcium 8.2 mg/dL (8.4-10.2); Magnesium 1.8 mg/dL (1.6-2.3); Potassium 3.8 mmol/L (3.5-5.1); Total Bilirubin 1.1 mg/dL (0.2-1.3); Total Protein 6.7 g/dL (6.3-8.2)
[2020-03-17] MEDS ORDERED: SODIUM CHLORIDE 0.9% 500 ML 250 ML IV ONE (14:18)
[2020-03-17 14:21] LABS: C Reactive Protein 254.7 mg/L (<10.0)
[2020-03-17 14:26] LABS: D-Dimer 10.87 mg/L FEU (<0.60)
[2020-03-17] MEDS ORDERED: SODIUM CHLORIDE 0.9% 500 ML 500 ML IV ONE (14:36)
--- NOTE | 2020-03-17 15:46 | CT ---
EXAMINATION TYPE: CT chest angio for PE DATE OF EXAM: 03/17/2020 COMPARISON: 12/14/2019 HISTORY: Shortness of breath and elevated d-dimer. CT DLP: 995.9 mGycm Automated exposure control for dose reduction was used. CONTRAST: CT Chest for pulmonary embolism performed with with IV Contrast, patient injected with 80ml mL of Iso flora 370. FINDINGS: LUNGS: A bilateral pleural effusions are seen. Subsegmental areas of consolidation most typical of at electasis. No obvious pneumothorax. Exam limited due to motion. MEDIASTINUM: There is severe motion artifact. There is a moderate to large sized pericardial effusion . Assessment for pulmonary embolism is nondiagnostic. Cannot exclude a pulmonary embolism.. The heart is enlarged and there is a cardiac device. Aorta of normal caliber.. OTHER: Mild hypertrophic changes in the vertebral column. IMPRESSION: 1. Nondiagnostic assessment for pulmonary embolism due to artifact and suboptimal opacification of th e pulmonary arteries. Pulmonary embolism is not excluded based on this exam. Consider follow-up VQ sc an as clinically warranted. 2. Moderate to large sized pericardial effusion with small bilateral pleural effusions correlate clin ically.
[2020-03-17] MEDS ORDERED: SODIUM CHLORIDE 0.9% 1,000 ML IV STA (16:01)
[2020-03-17] MEDS ORDERED: SODIUM CHLORIDE 0.9% 500 ML 500 ML IV STA (16:01)
[2020-03-17] MEDS ORDERED: methylPREDNISolone SOD SUCCI 125 MG/2 ML VIAL IV STA (16:03)
[2020-03-17] MEDS ORDERED: IPRATROPIUM-ALBUTEROL 3 ML NEB INHALATION PRN (16:03)
[2020-03-17] MEDS ORDERED: NALOXONE 0.4 MG/ML 1 ML VIAL IV PRN (16:03)
--- NOTE | 2020-03-17 18:37 | NM ---
EXAMINATION TYPE: NM pul vent and perfuse DATE OF EXAM: 03/17/2020 COMPARISON: Chest x-ray and CTA chest from earlier today. HISTORY: Shortness of breath. TECHNIQUE: Utilizing inhalation of 66.1 mCi Tc 99m DTPA aerosol and intravenous injection of 5.4 mCi of Tc 99m MAA, ventilation and perfusion images are acquired post injection in multiple projections. FINDINGS: Cardiomegaly redemonstrated. There is no evidence of mismatched defects. IMPRESSION: Low scintigraphic evidence for acute pulmonary embolism.
[2020-03-17 18:53] LABS: Glucose,Whole Blood 90 mg/dL (75-99)
--- NOTE | 2020-03-17 19:00 | ECHOF ---
Referral Reason:effusion MEASUREMENTS -------- HEIGHT: 167.6 cm WEIGHT: 141.5 kg BP: 89/40 IVSd: 1.2 cm (0.6 - 1.1) LVIDd: 4.2 cm (3.9 - 5.3) LVPWd: 1.3 cm (0.6 - 1.1) EDV(Teich): 78 ml IVSs: 1.6 cm LVIDs: 3.2 cm LVPWs: 1.7 cm %IVS Thck: 38 % ESV(Teich): 41 ml EF(Teich): 47 % %FS: 23 % SV(Teich): 37 ml LA Diam: 3.6 cm (2.7 - 3.8) RVIDd: 3.4 cm (< 3.3) Ao Diam: 3.2 cm (2.0 - 3.7) EPSS: 1.1 cm MV E Loy: 0.71 m/s MV DecT: 252 ms MV Dec Coffey: 2.8 m/s MV A Loy: 0.79 m/s MV E/A Ratio: 0.91 MV PHT: 73 ms AV Vmax: 1.26 m/s AV maxP.33 mmHg TR Vmax: 2.91 m/s TR maxP.81 mmHg RAP: 5.00 mmHg RVSP: 38.81 mmHg MV EF SLOPE: 75.59 mm/s (70 - 150) MV EXCURSION: 16.07 mm (> 18.000) FINDINGS -------- Resting tachycardia (HR>100bpm). This was a technically difficult study with suboptimal views. The left ventricular size is normal. There is mild concentric left ventricular hypertrophy. Overa ll left ventricular systolic function is mildly impaired with, an EF between 45 - 50 %. The right ventricle is mildly enlarged. The left atrial size is normal. The right atrium was not well visualized. The aortic valve is trileaflet and appears structurally normal. The mitral valve is normal. Mild tricuspid regurgitation present. There is mild pulmonary hypertension. The right ventricular systolic pressure, as measured by Doppler, is 38.81mmHg. Trace/mild (physiologic) pulmonic regurgitation. The aortic root size is normal. IVC Not well visulized. There is a moderate, generalized pericardial effusion present. Fibrinous strands/Septae noted within pericardium. 5.0mg of Lumason was utilized for enhancement of images CONCLUSIONS -------- 1. The left ventricular size is normal. 2. There is mild concentric left ventricular hypertrophy. 3. Overall left ventricular systolic function is mildly impaired with, an EF between 45 - 50 %. 4. The right ventricle is mildly enlarged. 5. There is a moderate, generalized pericardial effusion present. Fibrinous strands/Septae noted with in pericardium. 6. 5.0mg of Lumason was utilized for enhancement of images 7. Mild tricuspid regurgitation present. 8. There is mild pulmonary hypertension. 9. The right ventricular systolic pressure, as measured by Doppler, is 38.81mmHg. 10. Trace/mild (physiologic) pulmonic regurgitation. CHILLER HAND: Adrianne Farley RDCS
[2020-03-17] MEDS ORDERED: ALBUTEROL NEBULIZED 2.5 MG/3 ML INHALATION SCH (20:00)
[2020-03-17] MEDS: SACUBITRIL/VALSARTAN 24 MG-26 MG TABLET PO SCH (21:20)
[2020-03-17] MEDS: carvediloL 12.5 MG TAB PO SCH ×2 (21:21→21:41)
--- NOTE | 2020-03-17 23:14 | HP ---
HISTORY AND PHYSICAL This patient is a 49-year-old white male who came to the hospital with significant shortness of breath and chronic cough, worsening cough and shortness of breath for many months. He was found on CT scan of his chest to have a large pericardial effusion, for which the cardiothoracic surgeon has been consulted. 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 He has been on Eliquis for atrial fibrillation. He is short of breath with any activity. mild history of CHF. Home medicines include Aldactone 12.5 daily, Entresto one b.i.d., albuterol 40 daily, Claritin 10 daily, Protonix 40 daily. PAST MEDICAL HISTORY: Systolic CHF, COPD, angina, heart failure, sleep apnea, asthma, AICD placement 11/13/2019, history of heart catheterization, defibrillator. Does not smoke, drink alcohol or do drugs. FAMILY HISTORY: Mother with atrial fibrillation, CVA, TIA, GERD, dyslipidemia, hypertension. Father with chest pain, angina, coronary artery disease, CVA, TIA. PHYSICAL EXAMINATION: He was in some respiratory distress. He is obese. BMI is over 40. CARDIOVASCULAR: S1, S2. Distant heart sounds. LUNGS: Transmitted upper airway sounds. HEMATOLOGY: Negative Homans. PSYCH: Fair mood and affect. EXTREMITIES: Two plus edema. Negative for DVT of the legs. GI: Abdomen is soft. NEUROLOGIC: Cranial nerves intact. VITAL SIGNS: Pulse 116-123, respiratory rate 18-20, blood pressure low 90s over 60s, oxygenation 95%. BUN 21, creatinine 1.63, hemoglobin 10.8, white count 9. ASSESSMENT: He had a negative V/Q scan. CT shows large pericardial effusion with pleural effusions. He was given IV fluids. He is going to get a STAT echo. V/Q scan was negative. His COVID is pending. He was given Lovenox, off Eliquis, in case surgery is needed. next 24 to 48 hours for possible pericardial window. ICU time 45 minutes. MMODL / IJN: [id number] /
[2020-03-18] MEDS: ALBUTEROL HFA INHALER INHALATION SCH ×5 (00:28→20:20)
[2020-03-18 06:03] LABS: Basophils % (A) 0 %; Eosinophils % (A) 1 %; HCT 29.7 % (39.0-53.0); Hypochromasia Moderate; Lymphocytes % (A) 11 %; MCH 26.7 pg (25.0-35.0); MCHC 30.9 g/dL (31.0-37.0); MCV 86.6 fL (80.0-100.0); Mean Platelet Volume 9.8; Monocytes # (A) 0.3 k/uL (0-1.0); Monocytes % (A) 3 %; Neutrophils # (A) 7.3 k/uL (1.3-7.7); Neutrophils % (A) 84 %; Platelet Count 209 k/uL (150-450); RBC 3.43 m/uL (4.30-5.90); WBC 8.7 k/uL (3.8-10.6)
[2020-03-18 06:08] LABS: Albumin 2.5 g/dL (3.5-5.0); Calcium 7.5 mg/dL (8.4-10.2); Magnesium 1.7 mg/dL (1.6-2.3); Phosphorus 2.9 mg/dL (2.5-4.5); Potassium 3.6 mmol/L (3.5-5.1); Total Bilirubin 1.1 mg/dL (0.2-1.3); Total Protein 5.5 g/dL (6.3-8.2)
[2020-03-18 06:27] LABS: HGB 9.2 gm/dL (13.0-17.5)
--- NOTE | 2020-03-18 07:31 | XR ---
EXAMINATION TYPE: XR chest 1V DATE OF EXAM: 03/18/2020 COMPARISON: 03/17/2020 HISTORY: Chest pain TECHNIQUE: Single frontal view of the chest is obtained. FINDINGS: Right lower lobe infiltrate and/or atelectasis identified. The cardiac silhouette size is within normal limits. The osseous structures are intact. IMPRESSION: 1. Right lower lobe infiltrate and/or atelectasis identified.
[2020-03-18] MEDS ORDERED: Potassium Replacement Protocol 1 EACH MISC MISCELLANE PRN (07:57)
[2020-03-18] MEDS ORDERED: Magnesium Replacement Protocol 1 EACH MISC MISCELLANE PRN (07:58)
[2020-03-18] MEDS ORDERED: POTASSIUM CHLORIDE ER 20 MEQ TAB.ER PO SCH (08:00)
[2020-03-18] MEDS ORDERED: PIPERACILLIN-TAZOBACTAM 3.375 GM in SODIUM CHLORIDE 0.9% 100 ML IVPB SCH (08:00)
--- NOTE | 2020-03-18 08:45 | P.GSCN ---
History of Present Illness Consult date: 03/18/20 Reason for Consult: Pericardial effusion Requesting physician: Abderlahman Her History of present illness: This is a 49-year-old gentleman who follows on an outpatient basis with Dr. Chicho Ryan. He has a previous medical history of chronic systolic congestive heart failure status post AICD placement, chronic atrial fibrillation on Eliquis for anticoagulation, obstructive sleep apnea without home CPAP use, asthma, morbid obesity, and family history of heart disease. Of note he had a heart catheterization in March 2019 with demonstration of normal coronary arteries. He presented to [facility] emergency room yesterday with complaints of significant cough over the last couple of days. He denied any chest pain, shortness of breath, dizziness, fevers, or sick contacts. He did endorse some nausea and vomiting but denied any other symptoms. Chest x-ray completed in the emergency room was limited due to his body habitus, it did demonstrate mild to moderate cardiomegaly, but no acute pulmonary process. Chest CTA was ordered which could not exclude pulmonary embolism, there was noted to be a moderate to large pericardial effusion with small bilateral pleural effusions. White blood cell count 9.0, hemoglobin 10.8, d-dimer 10.87, BUN 21, creatinine 1.63, troponin negative, LDH 675, C-reactive protein to 54.7, pro-calcitonin 15.69, lactic acid 1.3. He has remained afebrile, tachycardic in the low 100s, blood pressure has been variable. Covid 19 test was taken, pending. Transthoracic echocardiogram was completed demonstrating mildly impaired left ventricular systolic function with EF 45-50%, mildly enlarged right ventricle, normal aortic and mitral valve, mild tricuspid regurgitation with mild pulmonary hypertension, and moderate generalized pericardial effusion with fibrinous stranding noted in the pericardium. A VQ scan was also completed without evidence of acute pulmonary embolism. The patient was admitted for evaluation and treatment with consultation placed to cardiology, pulmonology, and infectious disease. In addition Dr. Ryan from cardiothoracic surgery was consulted regarding treatment for pericardial effusion. Review of Systems Review of systems was completed and was negative except as noted - Respiratory Reports cough Past Medical History Past Medical History: Atrial Fibrillation, Asthma, Chest Pain / Angina, Heart Failure, COPD, Sleep Apnea/CPAP/BIPAP Additional Past Medical History / Comment(s): No CPAP currently. , SEE DR. VYAS H & P recent aicd placement 11/13/2019 History of Any Multi-Drug Resistant Organisms: None Reported Past Surgical History: Heart Catheterization Past Anesthesia/Blood Transfusion Reactions: No Reported Reaction Type of Cardiac Device: AICD Past Psychological History: No Psychological Hx Reported Smoking Status: Never smoker Past Alcohol Use History: None Reported Past Drug Use History: None Reported - Past Family History Mother Family Medical History: AFIB, Chest Pain / Angina, CVA/TIA, GERD/Reflux, Hyperlipidemia, Hypertension Father Family Medical History: Chest Pain / Angina, Coronary Artery Disease (CAD), CVA/TIA, Hyperlipidemia, Hypertension Additional Family Medical History / Comment(s): Open heart surgery 08/12/18 Medications and Allergies Home Medications Medication Instructions Recorded Confirmed Type Loratadine [Claritin] 10 mg PO DAILY 03/11/19 03/17/20 History Apixaban [Eliquis] 5 mg PO BID #60 tab 03/21/19 03/17/20 Rx Aspirin 81 mg PO DAILY #30 chew 03/21/19 03/17/20 Rx Furosemide [Lasix] 40 mg PO DAILY 10/03/19 03/17/20 History Pantoprazole [Protonix] 40 mg PO DAILY 10/03/19 03/17/20 History Spironolactone [Aldactone] 12.5 mg PO DAILY 10/03/19 03/17/20 History carvediloL [Coreg*] 18.75 mg PO BID #270 tablet 11/13/19 03/17/20 Rx Sacubitril/Valsartan [Entresto 24 1 tab PO BID 12/14/19 03/17/20 History mg-26 mg Tablet] Albuterol Nebulized [Ventolin 2.5 mg INHALATION RT-TID PRN 03/17/20 03/17/20 History Nebulized] guaiFENesin SYRUP 100MG/5ML 200 - 400 mg PO Q4H PRN 03/17/20 03/17/20 History [Robitussin] Allergies Allergy/AdvReac Type Severity Reaction Status Date / Time No Known Allergies Allergy Verified 03/17/20 13:28 Surgical - Exam Vital Signs Temp Pulse Resp BP Pulse Ox 98.6 F 117 H 18 129/80 98 03/17/20 11:18 03/17/20 11:18 03/17/20 11:18 03/17/20 11:18 03/17/20 11:18 - General well developed, well nourished, no distress, no pain, obese - Eyes normal ocular movement - ENT no hearing loss - Neck no masses, no bruits, trachea midline - Respiratory Lungs sounds diminished bilaterally. Respirations even, nonlabored. Currently on 4 L nasal cannula oxygen saturation 95%. Strong dry cough. No chest wall deformities. No clubbing or cyanosis present. - Cardiovascular S1, S2 present. Tachycardic but regular rate and rhythm, sinus tach on telemetry. Palpable peripheral pulses bilaterally. No edema present. No calf pain or tenderness noted. - Abdomen Abdomen: soft, non tender, bowel sounds - Genitourinary Deferred - Rectum Deferred - Integumentary no rash, no growths - Neurologic normal coordination, normal sensation - Musculoskeletal normal posture - Psychiatric oriented to time, oriented to person, oriented to place, speech is normal, memory intact Results - Labs 03/18/20 05:04 03/18/20 05:04 Abnormal Lab Results - Last 24 Hours (Table) 03/17/20 03/17/20 03/17/20 Range/Units 13:23 13:23 13:23 RBC 4.00 L (4.30-5.90) m/uL Hgb 10.8 L (13.0-17.5) gm/dL Hct 34.2 L (39.0-53.0) % MCHC (31.0-37.0) g/dL Neutrophils # 8.0 H (1.3-7.7) k/uL Lymphocytes # 0.6 L (1.0-4.8) k/uL ESR (0-15) mm/hr APTT 30.9 H (22.0-30.0) sec D-Dimer 10.87 H (<0.60) mg/L FEU Sodium (137-145) mmol/L BUN 21 H (9-20) mg/dL Creatinine 1.63 H (0.66-1.25) mg/dL Glucose 122 H (74-99) mg/dL Calcium 8.2 L (8.4-10.2) mg/dL Ferritin 900.0 H (22.0-322.0) ng/mL AST 134 H (17-59) U/L ALT 82 H (4-49) U/L Lactate Dehydrogenase 675 H (313-618) U/L C-Reactive Protein 254.7 H (<10.0) mg/L Total Protein (6.3-8.2) g/dL Albumin 3.2 L (3.5-5.0) g/dL Procalcitonin (0.02-0.09) ng/mL Rheumatoid Factor (0-15) IU/mL 03/17/20 03/17/20 03/17/20 Range/Units 13:23 13:23 13:23 RBC (4.30-5.90) m/uL Hgb (13.0-17.5) gm/dL Hct (39.0-53.0) % MCHC (31.0-37.0) g/dL Neutrophils # (1.3-7.7) k/uL Lymphocytes # (1.0-4.8) k/uL ESR 106 H (0-15) mm/hr APTT (22.0-30.0) sec D-Dimer (<0.60) mg/L FEU Sodium (137-145) mmol/L BUN (9-20) mg/dL Creatinine (0.66-1.25) mg/dL Glucose (74-99) mg/dL Calcium (8.4-10.2) mg/dL Ferritin (22.0-322.0) ng/mL AST (17-59) U/L ALT (4-49) U/L Lactate Dehydrogenase (313-618) U/L C-Reactive Protein (<10.0) mg/L Total Protein (6.3-8.2) g/dL Albumin (3.5-5.0) g/dL Procalcitonin 15.69 H (0.02-0.09) ng/mL Rheumatoid Factor 20 H (0-15) IU/mL 03/18/20 03/18/20 Range/Units 05:04 05:04 RBC 3.43 L (4.30-5.90) m/uL Hgb 9.2 L D (13.0-17.5) gm/dL Hct 29.7 L (39.0-53.0) % MCHC 30.9 L (31.0-37.0) g/dL Neutrophils # (1.3-7.7) k/uL Lymphocytes # (1.0-4.8) k/uL ESR (0-15) mm/hr APTT (22.0-30.0) sec D-Dimer (<0.60) mg/L FEU Sodium 136 L (137-145) mmol/L BUN (9-20) mg/dL Creatinine 1.43 H (0.66-1.25) mg/dL Glucose 108 H (74-99) mg/dL Calcium 7.5 L (8.4-10.2) mg/dL Ferritin (22.0-322.0) ng/mL AST 103 H (17-59) U/L ALT 62 H (4-49) U/L Lactate Dehydrogenase (313-618) U/L C-Reactive Protein (<10.0) mg/L Total Protein 5.5 L (6.3-8.2) g/dL Albumin 2.5 L (3.5-5.0) g/dL Procalcitonin (0.02-0.09) ng/mL Rheumatoid Factor (0-15) IU/mL Microbiology - Last 24 Hours (Table) 03/17/20 13:23 Blood Culture Gram Stain - Preliminary Blood 03/17/20 13:23 Blood Culture - Final Blood Diabetes panel 03/17/20 03/18/20 Range/Units 13:23 05:04 Sodium 137 136 L (137-145) mmol/L Potassium 3.8 3.6 (3.5-5.1) mmol/L Chloride 103 105 (98-107) mmol/L Carbon Dioxide 23 25 (22-30) mmol/L BUN 21 H 17 (9-20) mg/dL Creatinine 1.63 H 1.43 H (0.66-1.25) mg/dL Glucose 122 H 108 H (74-99) mg/dL Calcium 8.2 L 7.5 L (8.4-10.2) mg/dL AST 134 H 103 H (17-59) U/L ALT 82 H 62 H (4-49) U/L Alkaline Phosphatase 117 93 (38-126) U/L Total Protein 6.7 5.5 L (6.3-8.2) g/dL Albumin 3.2 L 2.5 L (3.5-5.0) g/dL Calcium panel 03/17/20 03/18/20 Range/Units 13:23 05:04 Calcium 8.2 L 7.5 L (8.4-10.2) mg/dL Phosphorus 2.9 (2.5-4.5) mg/dL Albumin 3.2 L 2.5 L (3.5-5.0) g/dL Pituitary panel 03/17/20 03/18/20 Range/Units 13:23 05:04 Sodium 137 136 L (137-145) mmol/L Potassium 3.8 3.6 (3.5-5.1) mmol/L Chloride 103 105 (98-107) mmol/L Carbon Dioxide 23 25 (22-30) mmol/L BUN 21 H 17 (9-20) mg/dL Creatinine 1.63 H 1.43 H (0.66-1.25) mg/dL Glucose 122 H 108 H (74-99) mg/dL Calcium 8.2 L 7.5 L (8.4-10.2) mg/dL Adrenal panel 03/17/20 03/18/20 Range/Units 13:23 05:04 Sodium 137 136 L (137-145) mmol/L Potassium 3.8 3.6 (3.5-5.1) mmol/L Chloride 103 105 (98-107) mmol/L Carbon Dioxide 23 25 (22-30) mmol/L BUN 21 H 17 (9-20) mg/dL Creatinine 1.63 H 1.43 H (0.66-1.25) mg/dL Glucose 122 H 108 H (74-99) mg/dL Calcium 8.2 L 7.5 L (8.4-10.2) mg/dL Total Bilirubin 1.1 1.1 (0.2-1.3) mg/dL AST 134 H 103 H (17-59) U/L ALT 82 H 62 H (4-49) U/L Alkaline Phosphatase 117 93 (38-126) U/L Total Protein 6.7 5.5 L (6.3-8.2) g/dL Albumin 3.2 L 2.5 L (3.5-5.0) g/dL - Imaging Chest x-ray: report reviewed, image reviewed CT scan - chest: report reviewed, image reviewed Additional studies: Transthoracic echocardiogram films reviewed with Dr. Ryan Assessment and Plan Assessment: 1. Moderate generalized pericardial effusion with fibrinous stranding 2. Chronic systolic heart failure status post AICD placement in November 2019, EF 45-50% on yesterday's transthoracic echocardiogram 3. Chronic atrial fibrillation on Eliquis for anticoagulation, currently sinu 4. Obstructive sleep apnea with CPAP use 5. Asthma 6. Morbid obesity 7. Family history of heart disease Plan: The patient was seen and examined at the bedside. Chart/diagnostics were reviewed with Dr. Ryan who will see the patient today. continue current medication regimen per primary care service. Appreciate cardiology and pulmonology recommendations. Continue to hold liquids in case surgery is warranted. More recommendations to follow once patient has been seen by Dr. Ryan. Thank you for this consult. We will follow with you. Time with Patient: Greater than 30
[2020-03-18] MEDS: MAGNESIUM SULFATE-D5W PMX 1 GM in DEXTROSE/WATER 1 100ML.BAG IVPB SCH ×2 (09:09→10:21)
[2020-03-18] MEDS: ENOXAPARIN 40 MG/0.4 ML SYRINGE SQ SCH (09:09)
[2020-03-18] MEDS: PANTOPRAZOLE 40 MG/10 ML VIAL IV SCH (09:09)
[2020-03-18] MEDS: LORATADINE 10 MG TAB PO SCH (09:10)
[2020-03-18] MEDS: SPIRONOLACTONE 25 MG TAB PO SCH (09:10)
[2020-03-18] MEDS: FUROSEMIDE 40 MG TAB PO SCH (09:10)
[2020-03-18] MEDS: carvediloL 12.5 MG TAB PO SCH ×2 (09:11→16:59)
[2020-03-18] MEDS: ASPIRIN 81 MG PO SCH (09:11)
[2020-03-18] MEDS: COLCHICINE 0.6 MG EACH PO SCH (09:12)
[2020-03-18] MEDS: SACUBITRIL/VALSARTAN 24 MG-26 MG TABLET PO SCH ×2 (10:34→23:17)
[2020-03-18] MEDS: CEFEPIME 2 GM in SODIUM CHLORIDE 0.9% 100 ML IVPB SCH (16:22)
--- NOTE | 2020-03-18 19:04 | P.CNPUL ---
History of Present Illness Consult date: 03/18/20 Reason for consult: dyspnea, cough Chief complaint: Progressive cough with shortness of breath History of present illness: This is a 49-year-old gentleman with past medical history of chronic systolic congestive heart failure status post AICD placement, chronic atrial fibrillation on Eliquis for anticoagulation, obstructive sleep apnea without home CPAP use, asthma, morbid obesity, and family history of heart disease. Patient had a history of heart catheterization in March 2019 with demonstration of normal coronary arteries. He presented to [facility] emergency room yesterday with complaints of significant cough over the last couple of days. He denied any chest pain, but have exertional shortness of breath, denies any dizziness, fevers, or sick contacts. His Chest x-ray completed in the emergency room was limited due to his body habitus, it did demonstrate mild to moderate cardiomegaly, but no acute pulmonary process. Chest CTA was ordered which could not exclude pulmonary embolism, there was noted to be a moderate to large pericardial effusion with small bilateral pleural effusions. White blood cell count 9.0, hemoglobin 10.8, d-dimer 10.87, BUN 21, creatinine 1.63, troponin negative, LDH 675, C-reactive protein to 54.7, pro-calcitonin 15.69, lactic acid 1.3. He has remained afebrile, tachycardic in the low 100s, blood pressure has been variable. Covid 19 test was taken, pending. Transthoracic echocardiogram was completed demonstrating mildly impaired left ventricular systolic function with EF 45-50%, mildly enlarged right ventricle, normal aortic and mitral valve, mild tricuspid regurgitation with mild pulmonary hypertension, and moderate generalized pericardial effusion with fibrinous stranding noted in the pericardium. A VQ scan was also completed without evidence of acute pulmonary embolism. Patient has been eval by cardiothoracic surgery being planned for pericardial window for tomorrow, patient's blood culture also coming positive for Serratia has been on Maxime Review of Systems All systems: negative Past Medical History Past Medical History: Atrial Fibrillation, Asthma, Chest Pain / Angina, Heart Failure, COPD, Sleep Apnea/CPAP/BIPAP Additional Past Medical History / Comment(s): No CPAP currently. , SEE DR. VYAS H & P recent aicd placement 11/13/2019 History of Any Multi-Drug Resistant Organisms: None Reported Past Surgical History: Heart Catheterization Additional Past Surgical History / Comment(s): defribrillator Past Anesthesia/Blood Transfusion Reactions: No Reported Reaction Type of Cardiac Device: AICD Past Psychological History: No Psychological Hx Reported Smoking Status: Never smoker Past Alcohol Use History: None Reported Past Drug Use History: None Reported - Past Family History Mother Family Medical History: AFIB, Chest Pain / Angina, CVA/TIA, GERD/Reflux, Hyperlipidemia, Hypertension Father Family Medical History: Chest Pain / Angina, Coronary Artery Disease (CAD), CVA/TIA, Hyperlipidemia, Hypertension Additional Family Medical History / Comment(s): Open heart surgery 08/12/18 Medications and Allergies Home Medications Medication Instructions Recorded Confirmed Type Loratadine [Claritin] 10 mg PO DAILY 03/11/19 03/17/20 History Apixaban [Eliquis] 5 mg PO BID #60 tab 03/21/19 03/17/20 Rx Aspirin 81 mg PO DAILY #30 chew 03/21/19 03/17/20 Rx Furosemide [Lasix] 40 mg PO DAILY 10/03/19 03/17/20 History Pantoprazole [Protonix] 40 mg PO DAILY 10/03/19 03/17/20 History Spironolactone [Aldactone] 12.5 mg PO DAILY 10/03/19 03/17/20 History carvediloL [Coreg*] 18.75 mg PO BID #270 tablet 11/13/19 03/17/20 Rx Sacubitril/Valsartan [Entresto 24 1 tab PO BID 12/14/19 03/17/20 History mg-26 mg Tablet] Albuterol Nebulized [Ventolin 2.5 mg INHALATION RT-TID PRN 03/17/20 03/17/20 History Nebulized] guaiFENesin SYRUP 100MG/5ML 200 - 400 mg PO Q4H PRN 03/17/20 03/17/20 History [Robitussin] Allergies Allergy/AdvReac Type Severity Reaction Status Date / Time No Known Allergies Allergy Verified 03/17/20 13:28 Physical Exam Vitals: Vital Signs Temp Pulse Resp BP Pulse Ox 03/18/20 18:00 98 27 H 94 L 03/18/20 17:00 98 28 H 112/80 94 L 03/18/20 16:00 98.1 F 87 30 H 102/57 95 03/18/20 15:00 92 26 H 98/74 90 L 03/18/20 14:00 89 25 H 87/60 97 03/18/20 13:00 89 19 92/55 92 L 03/18/20 12:08 95 03/18/20 12:00 97.8 F 94 32 H 107/69 95 03/18/20 11:00 92 25 H 105/74 96 03/18/20 10:00 97 27 H 106/70 94 L 03/18/20 09:00 109 H 30 H 128/67 95 03/18/20 08:00 98.3 F 105 H 30 H 98/26 94 L 03/18/20 07:00 112 H 35 H 103/61 95 03/18/20 06:00 108 H 36 H 105/80 90 L 03/18/20 05:00 104 H 30 H 117/66 94 L 03/18/20 04:00 105 H 28 H 152/57 95 03/18/20 03:00 109 H 31 H 93/54 96 03/18/20 02:00 106 H 31 H 91/53 93 L 03/18/20 01:00 101 H 30 H 92/56 96 03/18/20 00:00 96 30 H 100/45 92 L 03/17/20 23:00 97 27 H 93/62 93 L 03/17/20 22:00 98 27 H 94/62 96 03/17/20 21:00 98 25 H 95 03/17/20 20:00 102 H 24 119/86 98 03/17/20 19:04 97.9 F 101 H 22 119/86 96 Intake and Output 03/18/20 03/18/20 03/18/20 06:59 14:59 22:59 Intake Total 500 300 100 Balance 500 300 100 Intake: Intake, IV Titration 300 100 Amount Cefepime 2 gm In Sodium 100 Chloride 0.9% 100 ml @ 25 mls/hr IVPB Q8HR [facility] Rx# :[id number] Magnesium Sulfate-D5w Pmx 200 1 gm In Dextrose/Water 1 100ml.bag @ 100 mls/hr IVPB Q1H [facility] Rx#: [id number] Piperacillin-Tazobactam 3 100 .375 gm In Sodium Chloride 0.9% 100 ml @ 25 mls/hr IVPB Q8HR [facility] Rx# :[id number] Oral 500 Other: Voiding Method Toilet Toilet # Voids 0 0 0 - General well developed morbidly obese male, well nourished, no distress, no pain, obese - Eyes normal ocular movement - ENT no hearing loss - Neck no masses, no bruits, trachea midline - Respiratory Lungs sounds diminished bilaterally. Respirations even, nonlabored. Currently on 4 L nasal cannula oxygen saturation 95%. Strong dry cough. No chest wall deformities. No clubbing or cyanosis present. - Cardiovascular S1, S2 present. Tachycardic but regular rate and rhythm, sinus tach on telemetry. Palpable peripheral pulses bilaterally. No edema present. No calf pain or tenderness noted. - Abdomen Abdomen: soft, non tender, bowel sounds - Genitourinary Deferred - Rectum Deferred - Integumentary no rash, no growths - Neurologic normal coordination, normal sensation - Musculoskeletal normal posture - Psychiatric oriented to time, oriented to person, oriented to place, speech is normal, memory intact Results - Laboratory Findings CBC and BMP: 03/18/20 05:04 03/18/20 15:17 PT/INR, D-dimer PT 10.9 sec (9.0-12.0) 03/17/20 13:23 INR 1.1 (<1.2) 03/17/20 13:23 D-Dimer 10.87 mg/L FEU (<0.60) H 03/17/20 13:23 Abnormal lab findings: Abnormal Labs 03/17/20 03/17/20 03/17/20 13:23 13:23 13:23 RBC 4.00 L Hgb 10.8 L Hct 34.2 L MCHC Neutrophils # 8.0 H Lymphocytes # 0.6 L ESR APTT 30.9 H D-Dimer 10.87 H Sodium BUN 21 H Creatinine 1.63 H Glucose 122 H Calcium 8.2 L Ferritin 900.0 H AST 134 H ALT 82 H Lactate Dehydrogenase 675 H C-Reactive Protein 254.7 H Total Protein Albumin 3.2 L Procalcitonin Rheumatoid Factor 03/17/20 03/17/20 03/17/20 13:23 13:23 13:23 RBC Hgb Hct MCHC Neutrophils # Lymphocytes # ESR 106 H APTT D-Dimer Sodium BUN Creatinine Glucose Calcium Ferritin AST ALT Lactate Dehydrogenase C-Reactive Protein Total Protein Albumin Procalcitonin 15.69 H Rheumatoid Factor 20 H 03/18/20 03/18/20 05:04 05:04 RBC 3.43 L Hgb 9.2 L D Hct 29.7 L MCHC 30.9 L Neutrophils # Lymphocytes # ESR APTT D-Dimer Sodium 136 L BUN Creatinine 1.43 H Glucose 108 H Calcium 7.5 L Ferritin AST 103 H ALT 62 H Lactate Dehydrogenase C-Reactive Protein Total Protein 5.5 L Albumin 2.5 L Procalcitonin Rheumatoid Factor - Diagnostic Findings Chest x-ray: report reviewed, image reviewed CT scan - chest: report reviewed, image reviewed (Echocardiogram results reviewed as well) Assessment and Plan Assessment: Serratia bacteremia, source likely pulmonary ID service following Moderate to large pericardial effusion with fibrinous stranding Chronic systolic heart failure status post AICD ejection fraction most recent 45% Bilateral pleural effusion likely related to pericardial effusion Morbid obesity obstructive sleep apnea Plan: Continue antibiotics Follow-up on cold with 19 testing Pericardial window for tomorrow Supplemental oxygen Deep breathing exercise incentive spirometry Maximize medical therapy for heart failure Further recommendations pending plan of care as per clinical response of the patient Time with Patient: Greater than 30
--- NOTE | 2020-03-18 19:47 | P.HPCAR ---
History of Present Illness This is Dr. Reddy dictating a consult on this patient The patient was interviewed and examined IMPRESSION / ASSESSMENT: Serositis with moderate pericardial effusion Serratia bacteremia Likely pulmonary infection per Dr. Cintron No evidence for device infection at least superficially PLAN: Pericardial window plan for tomorrow I will speak to Dr. Cintron and to the ID service regarding gram-negative bacteremia with Serratia We will continue his cardio myopathy medications HPI patient has been experiencing shortness of breath nasal congestion and a lot of coughing for the last several days. He was also complaining of nausea He underwent a CAT scan which showed pleural effusions and a moderate size pericardial effusion. This was confirmed on 2-D echo However I reviewed the echo there appeared to be fibrinous septae and stance in the pericardial space suggesting that this effusion had been present for some time However he's had a single chamber ICD implant several months back and following that he has had a 2-D echo as well as a THAIS in January which did not show any evidence for pericardial effusion This is most likely related to the inflammatory state with elevated CRP EKG showed sinus tachycardia no NE depression ROS: No fever chills or rigors, no cough, phlegm or expectoration, no nausea, vomiting or diarrhea, no hematuria, dysuria, no musculoskeletal complaints, no strokes or seizures, no skin lesions. EXAMINATION: Ht when he was in the emergency room his blood pressure was low but with IV fluids he has responded I saw him in the evening thereafter once he was admitted and his blood pressure normalized. He had no fever chills he was just complaining of cough I saw him again this morning he sitting comfortably in a chair. His blood pressure is normal Heart sounds are distant Breath sounds are decreased bilaterally Mild JVD Blood pressure stable this morning REVIEW OF LABS, ECG & MEDICAL DATA Labs are significant. White count is normal hemoglobin 10.8-9.2 H normal renal function is normal Ferritin 900, troponins normal LFTs mildly abnormal C-reactive protein is 254 No clear-cut evidence for pulmonary embolism secondary to poor opacification Moderate size pericardial effusion and small bilateral pleural effusions 2-D echo shows ejection fraction 45-50%, RV enlargement Moderate-sized pericardial effusion, generalized with fibrinous strands and septae within the pericardium RVSP 38 mmHg Covid 19 test negative Primary blood culture shows Serratia marcescens Gram-negative rods Physical Exam Vitals: Vital Signs Temp Pulse Resp BP Pulse Ox 03/18/20 19:00 96 29 H 93/47 94 L 03/18/20 18:00 98 27 H 94 L 03/18/20 17:00 98 28 H 112/80 94 L 03/18/20 16:00 98.1 F 87 30 H 102/57 95 03/18/20 15:00 92 26 H 98/74 90 L 03/18/20 14:00 89 25 H 87/60 97 03/18/20 13:00 89 19 92/55 92 L 03/18/20 12:08 95 03/18/20 12:00 97.8 F 94 32 H 107/69 95 03/18/20 11:00 92 25 H 105/74 96 03/18/20 10:00 97 27 H 106/70 94 L 03/18/20 09:00 109 H 30 H 128/67 95 03/18/20 08:00 98.3 F 105 H 30 H 98/26 94 L 03/18/20 07:00 112 H 35 H 103/61 95 03/18/20 06:00 108 H 36 H 105/80 90 L 03/18/20 05:00 104 H 30 H 117/66 94 L 03/18/20 04:00 105 H 28 H 152/57 95 03/18/20 03:00 109 H 31 H 93/54 96 03/18/20 02:00 106 H 31 H 91/53 93 L 03/18/20 01:00 101 H 30 H 92/56 96 03/18/20 00:00 96 30 H 100/45 92 L 03/17/20 23:00 97 27 H 93/62 93 L 03/17/20 22:00 98 27 H 94/62 96 03/17/20 21:00 98 25 H 95 03/17/20 20:00 102 H 24 119/86 98 Intake and Output 03/18/20 03/18/20 03/18/20 06:59 14:59 22:59 Intake Total 500 300 160 Balance 500 300 160 Intake: IV 60 .9 20 60 Intake, IV Titration 300 100 Amount Cefepime 2 gm In Sodium 100 Chloride 0.9% 100 ml @ 25 mls/hr IVPB Q8HR [facility] Rx# :[id number] Magnesium Sulfate-D5w Pmx 200 1 gm In Dextrose/Water 1 100ml.bag @ 100 mls/hr IVPB Q1H [facility] Rx#: [id number] Piperacillin-Tazobactam 3 100 .375 gm In Sodium Chloride 0.9% 100 ml @ 25 mls/hr IVPB Q8HR [facility] Rx# :[id number] Oral 500 Other: Voiding Method Toilet Toilet # Voids 0 0 0 Past Medical History Past Medical History: Atrial Fibrillation, Asthma, Chest Pain / Angina, Heart Failure, COPD, Sleep Apnea/CPAP/BIPAP Additional Past Medical History / Comment(s): No CPAP currently. , SEE DR. VYAS H & P recent aicd placement 11/13/2019 History of Any Multi-Drug Resistant Organisms: None Reported Past Surgical History: Heart Catheterization Additional Past Surgical History / Comment(s): defribrillator Past Anesthesia/Blood Transfusion Reactions: No Reported Reaction Type of Cardiac Device: AICD Past Psychological History: No Psychological Hx Reported Smoking Status: Never smoker Past Alcohol Use History: None Reported Past Drug Use History: None Reported - Past Family History Mother Family Medical History: AFIB, Chest Pain / Angina, CVA/TIA, GERD/Reflux, Hyperlipidemia, Hypertension Father Family Medical History: Chest Pain / Angina, Coronary Artery Disease (CAD), CVA/TIA, Hyperlipidemia, Hypertension Additional Family Medical History / Comment(s): Open heart surgery 08/12/18 Physical Examination Vital Signs Temp Pulse Resp BP Pulse Ox 03/18/20 19:00 96 29 H 93/47 94 L 03/18/20 18:00 98 27 H 94 L 03/18/20 17:00 98 28 H 112/80 94 L 03/18/20 16:00 98.1 F 87 30 H 102/57 95 03/18/20 15:00 92 26 H 98/74 90 L 03/18/20 14:00 89 25 H 87/60 97 03/18/20 13:00 89 19 92/55 92 L 03/18/20 12:08 95 03/18/20 12:00 97.8 F 94 32 H 107/69 95 03/18/20 11:00 92 25 H 105/74 96 03/18/20 10:00 97 27 H 106/70 94 L 03/18/20 09:00 109 H 30 H 128/67 95 03/18/20 08:00 98.3 F 105 H 30 H 98/26 94 L 03/18/20 07:00 112 H 35 H 103/61 95 03/18/20 06:00 108 H 36 H 105/80 90 L 03/18/20 05:00 104 H 30 H 117/66 94 L 03/18/20 04:00 105 H 28 H 152/57 95 03/18/20 03:00 109 H 31 H 93/54 96 03/18/20 02:00 106 H 31 H 91/53 93 L 03/18/20 01:00 101 H 30 H 92/56 96 03/18/20 00:00 96 30 H 100/45 92 L 03/17/20 23:00 97 27 H 93/62 93 L 03/17/20 22:00 98 27 H 94/62 96 03/17/20 21:00 98 25 H 95 03/17/20 20:00 102 H 24 119/86 98 Intake and Output 03/18/20 03/18/20 03/18/20 06:59 14:59 22:59 Intake Total 500 300 160 Balance 500 300 160 Intake: IV 60 .9 20 60 Intake, IV Titration 300 100 Amount Cefepime 2 gm In Sodium 100 Chloride 0.9% 100 ml @ 25 mls/hr IVPB Q8HR [facility] Rx# :[id number] Magnesium Sulfate-D5w Pmx 200 1 gm In Dextrose/Water 1 100ml.bag @ 100 mls/hr IVPB Q1H [facility] Rx#: [id number] Piperacillin-Tazobactam 3 100 .375 gm In Sodium Chloride 0.9% 100 ml @ 25 mls/hr IVPB Q8HR [facility] Rx# :[id number] Oral 500 Other: Voiding Method Toilet Toilet # Voids 0 0 0 Results 03/18/20 05:04 03/18/20 15:17 Cardiac Enzymes 03/18/20 Range/Units 05:04 AST 103 H (17-59) U/L CBC 03/18/20 Range/Units 05:04 WBC 8.7 (3.8-10.6) k/uL RBC 3.43 L (4.30-5.90) m/uL Hgb 9.2 L D (13.0-17.5) gm/dL Hct 29.7 L (39.0-53.0) % Plt Count 209 (150-450) k/uL Comprehensive Metabolic Panel 03/18/20 03/18/20 Range/Units 05:04 15:17 Sodium 136 L (137-145) mmol/L Potassium 3.6 4.2 (3.5-5.1) mmol/L Chloride 105 (98-107) mmol/L Carbon Dioxide 25 (22-30) mmol/L BUN 17 (9-20) mg/dL Creatinine 1.43 H (0.66-1.25) mg/dL Glucose 108 H (74-99) mg/dL Calcium 7.5 L (8.4-10.2) mg/dL AST 103 H (17-59) U/L ALT 62 H (4-49) U/L Alkaline Phosphatase 93 (38-126) U/L Total Protein 5.5 L (6.3-8.2) g/dL Albumin 2.5 L (3.5-5.0) g/dL Current Medications Generic Name Dose Route Start Last Admin Trade Name Freq PRN Reason Stop Dose Admin Acetaminophen 650 mg 03/17/20 16:03 Tylenol Tab PO Q4HR PRN Fever and/or Mild Pain Albuterol Sulfate 2 puff 03/17/20 23:59 03/18/20 15:49 Ventolin Hfa Inhaler INHALATION Not Given RT-QID [facility] Albuterol/Ipratropium 3 ml 03/17/20 16:03 Duoneb 0.5 Mg-3 Mg/3 Ml Soln INHALATION RT-Q4H PRN Shortness Of Breath Or Wheezing Aspirin 81 mg 03/18/20 09:00 03/18/20 09:11 Aspirin PO 81 mg DAILY [facility] Administration Carvedilol 18.75 mg 03/17/20 19:30 03/18/20 16:59 Coreg PO 18.75 mg AC-BID [facility] Administration Colchicine 0.6 mg 03/18/20 09:00 03/18/20 09:12 Colchicine 0.6 Mg Each PO 0.6 mg DAILY [facility] Administration Enoxaparin Sodium 40 mg 03/18/20 09:00 03/18/20 09:09 Lovenox SQ 40 mg DAILY [facility] Administration Furosemide 40 mg 03/18/20 09:00 03/18/20 09:10 Lasix PO 40 mg DAILY [facility] Administration Cefepime HCl 2 gm/ Sodium 100 mls @ 25 mls/hr 03/18/20 16:00 03/18/20 16:22 Chloride IVPB 25 mls/hr Q8HR [facility] Administration Cefazolin Sodium 3 gm/ Sodium 100 mls @ 200 mls/hr 03/19/20 06:15 Chloride IVPB 03/19/20 06:44 ONCE ONE Loratadine 10 mg 03/18/20 09:00 03/18/20 09:10 Claritin PO 10 mg DAILY [facility] Administration Miscellaneous Information 1 each 03/18/20 07:57 Potassium Replacement Protocol 1 Each Misc MISCELLANE DAILY PRN Per Protocol Protocol Miscellaneous Information 1 each 03/18/20 07:58 Magnesium Replacement Protocol 1 Each Misc MISCELLANE DAILY PRN Per Protocol Protocol Morphine Sulfate 4 mg 03/17/20 16:03 Morphine Sulfate (Inj) IV Q4HR PRN Pain Scale 8 to 10 Naloxone HCl 0.2 mg 03/17/20 16:03 Narcan IV Q2M PRN Opioid Reversal Pantoprazole Sodium 40 mg 03/18/20 09:00 03/18/20 09:09 Protonix IV 40 mg DAILY [facility] Administration Sacubitril/Valsartan 1 each 03/17/20 21:00 03/18/20 10:34 Entresto 24 Mg-26 Mg Tablet PO 1 each BID [facility] Administration Spironolactone 12.5 mg 03/18/20 09:00 03/18/20 09:10 Aldactone PO 12.5 mg DAILY [facility] Administration Intake and Output 03/18/20 03/18/20 03/18/20 06:59 14:59 22:59 Intake Total 500 300 160 Balance 500 300 160 Intake: IV 60 .9 20 60 Intake, IV Titration 300 100 Amount Cefepime 2 gm In Sodium 100 Chloride 0.9% 100 ml @ 25 mls/hr IVPB Q8HR [facility] Rx# :[id number] Magnesium Sulfate-D5w Pmx 200 1 gm In Dextrose/Water 1 100ml.bag @ 100 mls/hr IVPB Q1H [facility] Rx#: [id number] Piperacillin-Tazobactam 3 100 .375 gm In Sodium Chloride 0.9% 100 ml @ 25 mls/hr IVPB Q8HR [facility] Rx# :[id number] Oral 500 Other: Voiding Method Toilet Toilet # Voids 0 0 0 03/18/20 05:04 03/18/20 15:17
--- NOTE | 2020-03-18 21:51 | PN ---
PROGRESS NOTE This patient is a 49-year-old white male who presents with systolic heart failure, AICD placement, comes into the hospital with large pericardial effusion, started on colchicine 0.6 mg a day. Cardiothoracic Surgery is planning for cardiac window for tomorrow. He is positive for Serratia and has been on Maxipime for a long time. Cardiology saw him today as well as surgeon who assessed Serratia bacteremia, source likely pulmonary. ID Service following. large pericardial effusion, fibrinous stranding, chronic systolic heart failure, bilateral pleural effusions, morbid obesity. He has obstructive sleep apnea. Continue antibiotics. Pericardial window. IV antibiotics. Prognosis extremely guarded. ICU time 30 minutes. MMODL / IJN: [id number] /
[2020-03-19] MEDS: CEFEPIME 2 GM in SODIUM CHLORIDE 0.9% 100 ML IVPB SCH ×4 (00:12→23:27)
[2020-03-19 05:45] LABS: Basophils % (A) 0 %; Eosinophils # (A) 0.1 k/uL (0-0.7); Eosinophils % (A) 1 %; HCT 27.6 % (39.0-53.0); HGB 8.4 gm/dL (13.0-17.5); Hypochromasia Marked; Lymphocytes # (A) 0.8 k/uL (1.0-4.8); Lymphocytes % (A) 10 %; MCH 26.6 pg (25.0-35.0); MCHC 30.3 g/dL (31.0-37.0); MCV 87.6 fL (80.0-100.0); Mean Platelet Volume 9.5; Monocytes # (A) 0.2 k/uL (0-1.0); Monocytes % (A) 2 %; Neutrophils % (A) 85 %; Platelet Count 195 k/uL (150-450); RBC 3.15 m/uL (4.30-5.90); WBC 8.3 k/uL (3.8-10.6)
[2020-03-19 05:55] LABS: Calcium 7.6 mg/dL (8.4-10.2); Magnesium 2.1 mg/dL (1.6-2.3); Potassium 3.9 mmol/L (3.5-5.1)
[2020-03-19] MEDS ORDERED: ceFAZolin 3 GM in SODIUM CHLORIDE 0.9% 100 ML IVPB ONE (06:15)
[2020-03-19] MEDS: PANTOPRAZOLE 40 MG/10 ML VIAL IV SCH (07:45)
--- NOTE | 2020-03-19 07:47 | XR ---
EXAMINATION TYPE: XR chest 1V portable DATE OF EXAM: 03/19/2020 COMPARISON: R chest x-ray 03/18/2020 HISTORY: Follow-up, pneumonia TECHNIQUE: Single frontal view of the chest is obtained. FINDINGS: Lung volumes remain low. Heart shadow is enlarged. Generators present in the left pectoral region, there is a lead in the right ventricle. No evident pneumothorax. Bibasilar increased density is noted. IMPRESSION: Low lung volumes. Basilar atelectasis, correlate to exclude pneumonia, possible associat ed effusions. PA and lateral chest x-ray may be of benefit when patient is stable. Persistent pericar dial effusion.
[2020-03-19] MEDS ORDERED: ePHEDrine SULFATE/0.9% NACL/PF 50 MG/5 ML SYRINGE IV ONE (08:30)
[2020-03-19] MEDS ORDERED: fentaNYL (PF) 50 MCG/ML 2 ML AMP ONE (08:30)
[2020-03-19] MEDS ORDERED: PHENYLEPHRINE-0.9% NACL SYG 1 MG/10 ML SYRINGE ONE (08:30)
[2020-03-19] MEDS ORDERED: SUCCINYLCHOLINE CHLORIDE VIAL 200 MG/10 ML VIAL IV ONE (08:30)
[2020-03-19] MEDS ORDERED: MIDAZOLAM 2 MG/2 ML VIAL ONE (08:30)
[2020-03-19] MEDS ORDERED: ETOMIDATE 2 MG/ML 10 ML VIAL ONE (08:30)
[2020-03-19] MEDS: ALBUTEROL HFA INHALER INHALATION SCH ×4 (08:49→19:55)
[2020-03-19] MEDS ORDERED: LACTATED RINGERS 1,000 ML IV ONE ×3 (09:29→10:06)
[2020-03-19] MEDS ORDERED: NOREPINEPHRIN 4 MG-0.9% NS PMX 4 MG/250 ML ML IV ONE (10:14)
[2020-03-19] MEDS: NOREPINEPHRINE 4 MG in SODIUM CHLORIDE 0.9% 250 ML IV SCH ×3 (10:19→23:31)
[2020-03-19] MEDS ORDERED: SODIUM CHLORIDE 0.9% 500 ML 500 ML IV ONE (10:19)
[2020-03-19 10:35] LABS: ABG HCO3 23 mmol/L (21-25); ABG Oxygen Saturation 99.4 % (94-97); ABG PCO2 45 mmHg (35-45); ABG PH 7.32 (7.35-7.45); ABG PO2 241 mmHg (83-108); ABG TCO2 25 mmol/L (19-24)
[2020-03-19 10:36] LABS: Allen Test Performed? no
--- NOTE | 2020-03-19 10:56 | OP ---
OPERATIVE REPORT DATE OF SERVICE: 03/19/2020 ATTENDING SURGEON: Dr. Javier Hidalgo. CADDY/CADDIE SUPERVISOR: Claribel [place]. PREOPERATIVE DIAGNOSIS: Large pericardial effusion. POSTOPERATIVE DIAGNOSIS: Large pericardial effusion. PROCEDURE: Subxiphoid pericardial window. ANESTHESIA: General. BLOOD LOSS: 50 cc. FINDINGS: 600 mL of serous/cloudy fluid. SUMMARY: Patient brought to the operating room, placed in the supine position. From administration of a general endotracheal anesthetic, placement of an arterial line for adequate IV access, the chest and abdomen were prepped and draped in normal sterile fashion using chlorhexidine paint and sterile towels. A 3-4 cm incision was made over the xiphoid and carried distally in the midline. The linea alba was divided. The subxiphoid space was then dissected free. The xiphoid was then carefully removed as the patient was very obese and deep. Once the subxiphoid space was dissected, the pericardium was identified. The pericardium was opened. It was definitely thickened. A piece of pericardium, the size of a quarter, was excised. Approximately 500 to 600 cc of serous cloudy fluid was removed. The fluid and pericardium were sent to pathology for full studies including cytology, cell count and culture. A #36-[place] right angle chest tube was placed intrapericardial along the diaphragmatic surface through a separate stab incision. The incision was closed in 3 layers. Steri-Strips were applied. No complications. Patient tolerated procedure well, was taken back to the intensive care unit intubated but in stable condition. MMODL / IJN: [id number] /
--- NOTE | 2020-03-19 11:16 | P.PN ---
Subjective Progress Note Date: 03/19/20 (Critical care time spent 35 minutes) Principal diagnosis: 03/19/2020, patient seen eval examined, patient is status post pericardial window from this morning, on ventilator, assist control rate of 16, tidal volume of 450 100% oxygen ABG reviewed patient is waking up now once awake will be placed on CPAP and pressure support of 5 and 5 with 40% oxygen, patient is on levo fed drip as well 0.04 will bring it down to 0.02 mics subsequently will DC it in the meantime we'll give a fluid bolus of 500 mL of LR as well, This is a 49-year-old gentleman with past medical history of chronic systolic congestive heart failure status post AICD placement, chronic atrial fibrillation on Eliquis for anticoagulation, obstructive sleep apnea without home CPAP use, asthma, morbid obesity, and family history of heart disease. Patient had a history of heart catheterization in March 2019 with demonstration of normal coronary arteries. He presented to [facility] emergency room yesterday with complaints of significant cough over the last couple of days. He denied any chest pain, but have exertional shortness of breath, denies any dizziness, fevers, or sick contacts. His Chest x-ray completed in the emergency room was limited due to his body habitus, it did demonstrate mild to moderate cardiomegaly, but no acute pulmonary process. Chest CTA was ordered which could not exclude pulmonary embolism, there was noted to be a moderate to large pericardial effusion with small bilateral pleural effusions. White blood cell count 9.0, hemoglobin 10.8, d-dimer 10.87, BUN 21, creatinine 1.63, troponin negative, LDH 675, C-reactive protein to 54.7, pro-calcitonin 15.69, lactic acid 1.3. He has remained afebrile, tachycardic in the low 100s, blood pressure has been variable. Covid 19 test was taken, pending. Transthoracic echocardiogram was completed demonstrating mildly impaired left ventricular systolic function with EF 45-50%, mildly enlarged right ventricle, normal aortic and mitral valve, mild tricuspid regurgitation with mild pulmonary hypertension, and moderate generalized pericardial effusion with fibrinous stranding noted in the pericardium. A VQ scan was also completed without evidence of acute pulmonary embolism. Patient has been eval by cardiothoracic surgery being planned for pericardial window for tomorrow, patient's blood culture also coming positive for Serratia has been on Maxipime Serratia bacteremia, source likely pulmonary ID service following Moderate to large pericardial effusion with fibrinous stranding status post pericardial window Chronic systolic heart failure status post AICD ejection fraction most recent 45% Bilateral pleural effusion likely related to pericardial effusion Morbid obesity obstructive sleep apnea Objective - Vital Signs Vital signs: Vital Signs Temp 99.3 F 03/19/20 08:00 Pulse 109 H 03/19/20 08:00 Resp 21 03/19/20 08:00 BP 104/53 03/19/20 08:00 Pulse Ox 95 03/19/20 08:00 Intake & Output 03/18/20 03/19/20 03/19/20 18:59 06:59 18:59 Intake Total 460 0 1929.992 Output Total 0 50 Balance 460 0 1879.992 Weight 140.5 kg Intake: IV 60 0 1720 .9 20 60 0 20 Intake, IV Titration 400 209.992 Amount Cefepime 2 gm In Sodium 100 100 Chloride 0.9% 100 ml @ 25 mls/hr IVPB Q8HR [facility] Rx# :[id number] Magnesium Sulfate-D5w Pmx 200 1 gm In Dextrose/Water 1 100ml.bag @ 100 mls/hr IVPB Q1H [facility] Rx#: [id number] Norepinephrine 4 mg In 9.992 Sodium Chloride 0.9% 250 ml @ 0.05 MCG/KG/MIN 26. 765 mls/hr IV .Q9H30M [facility] Rx#:[id number] Piperacillin-Tazobactam 3 100 .375 gm In Sodium Chloride 0.9% 100 ml @ 25 mls/hr IVPB Q8HR [facility] Rx# :[id number] ceFAZolin 3 gm In Sodium 100 Chloride 0.9% 100 ml @ 200 mls/hr IVPB ONCE ONE Rx#:[id number] Output: Urine 0 Estimated Blood Loss 50 Other: Voiding Method Toilet Toilet # Voids 0 1 0 - Exam - General well developed morbidly obese male, well nourished, no distress, no pain, obese intubated on ventilator being weaned - Eyes normal ocular movement - ENT no hearing loss - Neck no masses, no bruits, trachea midline - Respiratory Lungs sounds diminished bilaterally. Respirations even, nonlabored. Currently on 4 L nasal cannula oxygen saturation 95%. Strong dry cough. No chest wall deformities. No clubbing or cyanosis present. - Cardiovascular S1, S2 present. Tachycardic but regular rate and rhythm, sinus tach on telemetry. Palpable peripheral pulses bilaterally. No edema present. No calf pain or tenderness noted. - Abdomen Abdomen: soft, non tender, bowel sounds - Genitourinary Deferred - Rectum Deferred - Integumentary no rash, no growths - Neurologic normal coordination, normal sensation - Musculoskeletal normal posture - Psychiatric oriented to time, oriented to person, oriented to place, speech is normal, rachel ry intact - Labs CBC & Chem 7: 03/19/20 04:47 03/19/20 04:47 Labs: Abnormal Lab Results - Last 24 Hours (Table) 03/19/20 03/19/20 03/19/20 Range/Units 04:47 04:47 10:33 RBC 3.15 L (4.30-5.90) m/uL Hgb 8.4 L (13.0-17.5) gm/dL Hct 27.6 L (39.0-53.0) % MCHC 30.3 L (31.0-37.0) g/dL Lymphocytes # 0.8 L (1.0-4.8) k/uL ABG pH 7.32 L (7.35-7.45) ABG pO2 241 H (83-108) mmHg ABG Total CO2 25 H (19-24) mmol/L ABG O2 Saturation 99.4 H (94-97) % Sodium 132 L (137-145) mmol/L Creatinine 1.40 H (0.66-1.25) mg/dL Glucose 114 H (74-99) mg/dL Calcium 7.6 L (8.4-10.2) mg/dL Microbiology - Last 24 Hours (Table) 03/18/20 12:02 Blood Culture Gram Stain - Preliminary Blood 03/18/20 12:02 Blood Culture - Final Blood 03/17/20 13:23 Blood Culture Gram Stain - Preliminary Blood Blood Culture - Preliminary Serratia marcescens 03/17/20 13:23 Blood Culture - Final Blood Assessment and Plan Assessment: Serratia bacteremia, source likely pulmonary ID service following Moderate to large pericardial effusion with fibrinous stranding status post pericardial window Chronic systolic heart failure status post AICD ejection fraction most recent 4 5% Bilateral pleural effusion likely related to pericardial effusion Morbid obesity obstructive sleep apnea Plan: Fluid bolus intubated Vasopressors Continue vent support once awake will put on CPAP 5 pressure support of 5 and monitor urine output closely Continue antibiotics Pericardial window for tomorrow Once extubated then Supplemental oxygen Deep breathing exercise incentive spirometry Maximize medical therapy for heart failure Further recommendations pending plan of care as per clinical response of the patient
--- NOTE | 2020-03-19 12:12 | XR ---
EXAMINATION TYPE: XR chest 1V portable DATE OF EXAM: 03/19/2020 COMPARISON: Prior chest x-ray 03/19/2020 HISTORY: Shortness of breath TECHNIQUE: Single frontal view of the chest is obtained. FINDINGS: Endotracheal tube shows the distal tip at the level of the right mainstem bronchus. No oth er significant interval change. IMPRESSION: Selective intubation, report relayed to the intensive care unit at the time of interpret ation of the exam.
--- NOTE | 2020-03-19 12:23 | P.PN ---
Subjective Patient was seen this morning. He was sitting in a chair and comfortable He denied any chest discomfort. He was coughing a little bit. He did not appear febrile. He has no fever Heart sounds are soft and can barely hear them. He has a pericardial effusion with a mild JVP Breath sounds are reduced bilaterally Abdomen soft ICD site has healed well there is no evidence of infection of the pocket Blood cultures show Serratia growing once again despite antibiotics This gentleman has had Serratia bacteremia and sepsis that is ongoing despite medical treatment. We have already evaluated him for endocarditis. His THAIS did not show any clear-cut masses his ICD site is healed well I will speak to Dr. Juarez after he undergoes pericardial window placement and drainage of the pericardial fluid Further management were discussed thereafter Impression Patient admitted with cough and evidence of systemic inflammation Positive blood cultures for Serratia continue History of cardio myopathy with improvement in LV function Single-chamber ICD that does not show any overt signs of infection my last evaluation Continue current medications for heart failure and final recommendations will be made after I speak to the infectious disease service Objective - Vital Signs Vital signs: Vital Signs Temp 99.3 F 03/19/20 08:00 Pulse 109 H 03/19/20 08:00 Resp 21 03/19/20 08:00 BP 104/53 03/19/20 08:00 Pulse Ox 95 03/19/20 08:00 Intake & Output 03/18/20 03/19/20 03/19/20 18:59 06:59 18:59 Intake Total 460 0 1929.992 Output Total 0 50 Balance 460 0 1879.992 Weight 140.5 kg Intake: IV 60 0 1720 .9 20 60 0 20 Intake, IV Titration 400 209.992 Amount Cefepime 2 gm In Sodium 100 100 Chloride 0.9% 100 ml @ 25 mls/hr IVPB Q8HR [facility] Rx# :[id number] Magnesium Sulfate-D5w Pmx 200 1 gm In Dextrose/Water 1 100ml.bag @ 100 mls/hr IVPB Q1H [facility] Rx#: [id number] Norepinephrine 4 mg In 9.992 Sodium Chloride 0.9% 250 ml @ 0.05 MCG/KG/MIN 26. 765 mls/hr IV .Q9H30M [facility] Rx#:[id number] Piperacillin-Tazobactam 3 100 .375 gm In Sodium Chloride 0.9% 100 ml @ 25 mls/hr IVPB Q8HR [facility] Rx# :[id number] ceFAZolin 3 gm In Sodium 100 Chloride 0.9% 100 ml @ 200 mls/hr IVPB ONCE ONE Rx#:[id number] Output: Urine 0 Estimated Blood Loss 50 Other: Voiding Method Toilet Toilet # Voids 0 1 0 - Labs CBC & Chem 7: 03/19/20 04:47 03/19/20 04:47 Labs: Abnormal Lab Results - Last 24 Hours (Table) 03/19/20 03/19/20 03/19/20 Range/Units 04:47 04:47 10:33 RBC 3.15 L (4.30-5.90) m/uL Hgb 8.4 L (13.0-17.5) gm/dL Hct 27.6 L (39.0-53.0) % MCHC 30.3 L (31.0-37.0) g/dL Lymphocytes # 0.8 L (1.0-4.8) k/uL ABG pH 7.32 L (7.35-7.45) ABG pO2 241 H (83-108) mmHg ABG Total CO2 25 H (19-24) mmol/L ABG O2 Saturation 99.4 H (94-97) % Sodium 132 L (137-145) mmol/L Creatinine 1.40 H (0.66-1.25) mg/dL Glucose 114 H (74-99) mg/dL Calcium 7.6 L (8.4-10.2) mg/dL Microbiology - Last 24 Hours (Table) 03/18/20 12:02 Blood Culture Gram Stain - Preliminary Blood 03/18/20 12:02 Blood Culture - Final Blood 03/17/20 13:23 Blood Culture Gram Stain - Preliminary Blood Blood Culture - Preliminary Serratia marcescens
[2020-03-19] MEDS: DEXMEDETOMIDINE/0.9% NACL(PMX) 400 MCG in EMPTY BAG 1 BAG IV SCH ×2 (12:56→23:28)
--- NOTE | 2020-03-19 13:13 | XR ---
EXAMINATION TYPE: XR chest 1V portable DATE OF EXAM: 03/19/2020 COMPARISON: Prior chest x-ray same dated earlier time HISTORY: Intubated, endotracheal tube reposition TECHNIQUE: Single frontal view of the chest is obtained. FINDINGS: There is been interval repositioning of the endotracheal tube which is overlying the trach eal air column in appropriate position. Median sternal drain is in place. NG tube has been placed in the interval, distal tip is overlying the stomach. Patient is rotated. IMPRESSION: Instrumentation as described.
[2020-03-19] MEDS: carvediloL 12.5 MG TAB PO SCH (13:57)
[2020-03-19] MEDS: FUROSEMIDE 40 MG TAB PO SCH (13:57)
[2020-03-19] MEDS: SPIRONOLACTONE 25 MG TAB PO SCH (13:58)
[2020-03-19] MEDS: SACUBITRIL/VALSARTAN 24 MG-26 MG TABLET PO SCH (13:58)
[2020-03-19] MEDS: ASPIRIN 81 MG PO SCH (14:02)
[2020-03-19] MEDS: COLCHICINE 0.6 MG EACH PO SCH (14:02)
[2020-03-19] MEDS: LORATADINE 10 MG TAB PO SCH (14:02)
[2020-03-19] MEDS: ENOXAPARIN 40 MG/0.4 ML SYRINGE SQ SCH (14:02)
[2020-03-19] MEDS: SODIUM CHLORIDE 0.9% 1,000 ML IV SCH (14:15)
[2020-03-19 15:23] LABS: Appearance,BF Cloudy; Color,BF Red; Nucleated Cells, Body Fluid 1100 /uL; RBC, Body Fluid 50200 /uL
[2020-03-19 15:41] LABS: Mononuclear WBC,Body Fluid 6 %; Polynuclear WBC,Body Fluid 94 %
[2020-03-19] MEDS ORDERED: SODIUM CHLORIDE 0.9% 1,000 ML IV SCH (15:45)
--- NOTE | 2020-03-19 16:03 | PN ---
PROGRESS NOTE This patient is a 49-year-old white male, status post pericardial window from this morning, on the ventilator, assist control of 16, tidal volume 450, 100% oxygen. ABG reviewed. Hopefully he will be able to be weaned off the CPAP. Saw cardiology notes. Discussed case with Infectious Disease. All this patient's trouble seemed to start on the recurrence from last admission when he was sent home on IV antibiotics for 6 weeks for Serratia bacteremia, which I think is from AICD placement with the wound closure being poor with a recurrent infection into the chest. When he came to the emergency room, maybe he caught a bug, which may be implanted in the AICD. There is no other reason that I can think of. The infection would have cleared after 6 weeks of IV antibiotics to get the recurrent infection back, and now he has got a pericardial window for pericardial effusion. He has a history of chronic atrial fibrillation, on Eliquis. He has sleep apnea. He has home CPAP, asthma, morbid obesity, systolic CHF. He has positive Serratia in the blood. He has moderate to large pericardial effusions, chronic systolic heart failure, Serratia bacteremia, status post AICD placement, morbid obesity. He is an obese white male. He is on the vent, resting comfortably. NECK: Supple. CARDIOVASCULAR: S1, S2. LUNGS: Diminished bilaterally. Abdomen is distended, obesity. EXTREMITIES: No edema. LABS: Reviewed. ASSESSMENT: 1. Serratia bacteremia. I believe AICD is the cause, but will wait to see what Infectious Disease believes. 2. Moderate to a large pericardial effusion, status post pericardial window. 3. Chronic systolic heart failure. 4. Bilateral pleural effusion. 5. Morbid obesity. Continue current treatments. Try to wean off the ventilator. Continue broad-spectrum antibiotics. Await for multiple consultations and recommendations. Prognosis guarded. MMODL / IJN: [id number] /
--- NOTE | 2020-03-19 18:08 | PN ---
PROGRESS NOTE DATE OF SERVICE: 03/19/2020 REASON FOR FOLLOWUP: Serratia marcescens bacteremia. INTERVAL HISTORY: The patient is currently afebrile. The patient was taken to the OR and the patient is status post pericardial window. Post procedure the patient is intubated. He is awake and alert, though not trying to communicate. Hemodynamically stable, not on any pressor support. FiO2 is currently stable at 50%. PHYSICAL EXAMINATION: Blood pressure is 97/73 with a pulse of 130, temperature 98.1. He is 97% on 50% FiO2. General description is a middle-aged male intubated on the vent. RESPIRATORY SYSTEM: Unlabored breathing with decreased intensity of breath sounds. No wheeze. HEART: S1, S2. Regular rate and rhythm. ABDOMEN: Soft. No tenderness. LABS: Hemoglobin is 8.4, white count 8.3, BUN of 15, creatinine 1.40. Pericardial fluid looks cloudy. Blood culture with Serratia marcescens. DIAGNOSTIC IMPRESSION AND PLAN: Patient admitted to hospital with sepsis with Serratia marcescens bacteremia with evidence of pericardial fluid, status post pericardial window. Fluid looks cloudy. The patient is currently covered with cefepime. Will discuss further with Cardiology, as the ICD may be the likely source of this infection and may need to be removed. For now, will keep the patient on cefepime while waiting for the culture to finalize. Daily blood cultures to document clearance of his bacteremia. MMODL / IJN: [id number] /
[2020-03-19] MEDS: ACETAMINOPHEN TAB 325 MG TAB PO PRN (18:23)
[2020-03-19 20:56] LABS: Amylase, Fluid Source Pericardial Fluid; Cholesterol,Body Fluid 114 mg/dL; Glucose, Body Fluid 27 mg/dL; Total Protein, Body Fluid 4400 mg/dL
[2020-03-19] MEDS: CHLORHEXIDINE GLUCONATE 15 ML CUP MUCOUS MEM SCH (21:24)
[2020-03-19 23:35] LABS: Glucose,Whole Blood 101 mg/dL (75-99)
[2020-03-20] MEDS: ACETAMINOPHEN TAB 325 MG TAB PO PRN (00:18)
[2020-03-20] MEDS: NOREPINEPHRINE 4 MG in SODIUM CHLORIDE 0.9% 250 ML IV SCH (03:57)
[2020-03-20] MEDS: SODIUM CHLORIDE 0.9% 1,000 ML IV SCH ×2 (03:57→12:00)
[2020-03-20 04:11] LABS: HCT 29.4 % (39.0-53.0); HGB 9.1 gm/dL (13.0-17.5); Hypochromasia Moderate; MCH 26.6 pg (25.0-35.0); MCHC 30.9 g/dL (31.0-37.0); MCV 86.2 fL (80.0-100.0); Mean Platelet Volume 8.5; Platelet Count 286 k/uL (150-450); RBC 3.41 m/uL (4.30-5.90); RDW 15.4 % (11.5-15.5); WBC 10.8 k/uL (3.8-10.6)
[2020-03-20 04:25] LABS: Calcium 7.8 mg/dL (8.4-10.2)
[2020-03-20 05:19] LABS: ABG Base Excess -6.3 mmol/L; ABG HCO3 19 mmol/L (21-25); ABG Oxygen Saturation 99.2 % (94-97); ABG PCO2 30 mmHg (35-45); ABG PO2 177 mmHg (83-108); ABG TCO2 20 mmol/L (19-24); Allen Test Performed? Yes
[2020-03-20] MEDS: ALBUTEROL HFA INHALER INHALATION SCH ×4 (07:32→18:42)
[2020-03-20] MEDS: CEFEPIME 2 GM in SODIUM CHLORIDE 0.9% 100 ML IVPB SCH ×2 (07:56→15:37)
[2020-03-20] MEDS: PANTOPRAZOLE 40 MG/10 ML VIAL IV SCH (08:30)
[2020-03-20] MEDS: ENOXAPARIN 40 MG/0.4 ML SYRINGE SQ SCH (08:31)
[2020-03-20] MEDS: LORATADINE 10 MG TAB PO SCH (08:31)
[2020-03-20] MEDS: COLCHICINE 0.6 MG EACH PO SCH (08:31)
[2020-03-20] MEDS: ASPIRIN 81 MG PO SCH (08:31)
[2020-03-20] MEDS: CHLORHEXIDINE GLUCONATE 15 ML CUP MUCOUS MEM SCH (08:31)
[2020-03-20 09:17] LABS: ABG Base Excess -4.8 mmol/L; ABG HCO3 20 mmol/L (21-25); ABG Oxygen Saturation 97.5 % (94-97); ABG PCO2 29 mmHg (35-45); ABG PH 7.43 (7.35-7.45); ABG PO2 97 mmHg (83-108); ABG TCO2 20 mmol/L (19-24)
[2020-03-20 09:18] LABS: Allen Test Performed? no
--- NOTE | 2020-03-20 09:24 | XR ---
EXAMINATION TYPE: XR chest 1V portable DATE OF EXAM: 03/20/2020 CLINICAL HISTORY: Tube placement TECHNIQUE: Semiupright portable view of the chest COMPARISON: 03/19/2020 chest radiograph FINDINGS: Endotracheal tube distal tip between the clavicles and jagdeep. Enteric tube with nonvisual ization of the distal tip. Mediastinal drain. Left-sided chest tube. Left-sided single-chamber AICD. Cardiomegaly. There is no focal air space opacity. No pneumothorax seen. Cardiac silhouetting of the left hemidiaphragm limits evaluation for left pleural effusion. No right pleural effusion. The osseou s structures are intact. IMPRESSION: 1. Appropriate radiographic position of endotracheal tube. Additional tubes redemonstrated. 2. Cardiomegaly.
--- NOTE | 2020-03-20 09:58 | P.PN ---
Subjective Progress Note Date: 03/20/20 Principal diagnosis: Large pericardial effusion. Past medical history significant for chronic systolic congestive heart failure status post AICD placement in November 2019, chronic persistent atrial fibrillation on Eliquis for anticoagulation, obstructive sleep apnea without home CPAP use, asthma, morbid obesity and family history of heart disease. POD #1 subxiphoid pericardial window. The patient is seen in follow-up today on 03/20/2020 at his bedside in the intensive care unit. The patient remains intubated and is on mechanical ventilator support with current mechanical ventilator settings assist control 12, TV 500, FiO2 35% PEEP of 5. Arterial blood gas results this morning show a pH of 7.40, pCO2 30, pO2 177, HCO3 19, base excess -6.3 and oxygen saturation 99.5. He is awake, and alert. The patient remains sedated with Precedex drip at 0.1 mg/kg per hour. He is also on levothyroxine drip at 0.04 mcg/kg/m for blood pressure support. He is shaking his head appropriately to yes and no questions, and his shaking his head no when asked if having any pain. Subxi phoid chest tube remains in place to low continuous wall suction -20 cm H2O. No air leak is present. Draining thin serosanguineous drainage with 60 mL output in the last 8 hours and 100 mL output since surgery. During the pericardial window yesterday 600 mL of serous/cloudy fluid was drained. Surgical pathology and cytology specimens results remain pending. Bedside telemetry showing normal sinus rhythm heart rate 92 and bedside oxygen saturation saturations are 95% on current mechanical ventilator settings. T-max temperature in the last 24 hours 101.8F. Objective - Vital Signs Vital signs: Vital Signs Temp 99.1 F 03/20/20 08:00 Pulse 105 H 03/20/20 09:00 Resp 26 H 03/20/20 09:00 BP 106/70 03/20/20 09:00 Pulse Ox 95 03/20/20 09:00 Intake & Output 03/19/20 03/20/20 03/20/20 18:59 06:59 18:59 Intake Total 3662.422 1629.693 238.132 Output Total 300 927 180 Balance 3362.422 702.693 58.132 Weight 139.706 kg Intake: IV 1870 1036 178 A Line 170 36 3 Cefepime 2 gm In Sodium 100 Chloride 0.9% 100 ml @ 25 mls/hr IVPB Q8HR [facility] Rx# :[id number] Sodium Chloride 0.9% 1, 900 75 000 ml @ 75 mls/hr IV . [id number] [facility] Rx#:[id number] ceFAZolin 3 gm In Sodium 100 Chloride 0.9% 100 ml @ 200 mls/hr IVPB ONCE ONE Rx#:[id number] Intake, IV Titration 1717.422 593.693 60.132 Amount Cefepime 2 gm In Sodium 100 Chloride 0.9% 100 ml @ 25 mls/hr IVPB Q8HR [facility] Rx# :[id number] Dexmedetomidine/0.9% NaCl 100 43.848 (Pmx) 400 mcg In Empty Bag 1 bag @ Titrate IV . Q0M [facility] Rx#:[id number] Norepinephrine 4 mg In 217.422 549.845 60.132 Sodium Chloride 0.9% 250 ml @ 0.05 MCG/KG/MIN 26. 765 mls/hr IV .Q9H30M [facility] Rx#:[id number] Sodium Chloride 0.9% 1, 450 000 ml @ 75 mls/hr IV . [id number] [facility] Rx#:[id number] Sodium Chloride 0.9% 1, 250 000 ml @ 999 mls/hr IV . Q1H1M [facility] Rx#:[id number] Sodium Chloride 0.9% 500 500 ml 500 ml @ 999 mls/hr IV .Q31M ONE Rx#:[id number] ceFAZolin 3 gm In Sodium 100 Chloride 0.9% 100 ml @ 200 mls/hr IVPB ONCE ONE Rx#:[id number] Tube Feeding 75 Other 0 Output: Chest Tube Drainage 60 Chest Tube Mediastinal 60 Gastric Drainage 500 Urine 250 367 180 Estimated Blood Loss 50 Other: Voiding Method Indwelling Catheter Indwelling Catheter Indwelling Catheter # Voids 0 ABP, PAP, CO, CI - Last Documented Arterial Blood Pressure 102/64 - Constitutional General appearance: Present: cooperative, morbidly obese, no acute distress - EENT Eyes: Present: PERRLA, normal appearance. Absent: scleral icterus ENT: Present: hearing grossly normal - Neck Details: Neck is supple, no JVD, no lymphadenopathy. - Respiratory Details: Lung sounds with scattered rhonchi throughout, diminished to his bilateral bases. Respirations are symmetrical and nonlabored with mechanical ventilator support. Mechanical ventilator settings are assist control 12, TV 500, FiO2 35%, PEEP of 5. - Cardiovascular Details: Regular rhythm and rate. S1 and S2 present, negative for S3, gallop or murmur. Bedside telemetry showing normal sinus rhythm heart rate 92 BPM. No edema present. Knee-high sequential compression devices in place to his bilateral lower extremities. - Gastrointestinal Gastrointestinal Comment(s): Abdomen is soft, nontender and nondistended. Active bowel sounds present in all 4 abdominal quadrants. No guarding or rigidity. OG tube in place to low inte rmittent wall suction. - Genitourinary Genitourinary Comment(s): Domingo catheter for accurate I&O. Draining clear roger urine. 270 mL output in the last 8 hours. - Integumentary Integumentary Comment(s): Skin is warm and dry. No clubbing or cyanosis is present. Subxiphoid incision is clean and dry, with silver impregnated dressing in place. - Neurologic Neurologic Comment(s): Precedex drip infusing at 0.1 mg/kg per hour. Following simple commands appropriately. Neurologic: Present: CNII-XII intact - Musculoskeletal Musculoskeletal: Present: generalized weakness, strength equal bilaterally - Psychiatric Psychiatric Comment(s): Unable to thoroughly assess due to Precedex drip in place at 0.1 mg/kg per hour. - Allied health notes Allied health notes reviewed: nursing - Labs CBC & Chem 7: 03/20/20 04:00 03/20/20 04:00 Labs: Abnormal Lab Results - Last 24 Hours (Table) 03/19/20 03/19/20 03/20/20 Range/Units 10:33 23:33 04:00 WBC 10.8 H (3.8-10.6) k/uL RBC 3.41 L (4.30-5.90) m/uL Hgb 9.1 L (13.0-17.5) gm/dL Hct 29.4 L (39.0-53.0) % MCHC 30.9 L (31.0-37.0) g/dL ABG pH 7.32 L (7.35-7.45) ABG pCO2 (35-45) mmHg ABG pO2 241 H (83-108) mmHg ABG HCO3 (21-25) mmol/L ABG Total CO2 25 H (19-24) mmol/L ABG O2 Saturation 99.4 H (94-97) % Sodium (137-145) mmol/L Chloride (98-107) mmol/L Carbon Dioxide (22-30) mmol/L Creatinine (0.66-1.25) mg/dL Glucose (74-99) mg/dL POC Glucose (mg/dL) 101 H (75-99) mg/dL Calcium (8.4-10.2) mg/dL 03/20/20 03/20/20 03/20/20 Range/Units 04:00 05:13 09:10 WBC (3.8-10.6) k/uL RBC (4.30-5.90) m/uL Hgb (13.0-17.5) gm/dL Hct (39.0-53.0) % MCHC (31.0-37.0) g/dL ABG pH (7.35-7.45) ABG pCO2 30 L 29 L (35-45) mmHg ABG pO2 177 H (83-108) mmHg ABG HCO3 19 L 20 L (21-25) mmol/L ABG Total CO2 (19-24) mmol/L ABG O2 Saturation 99.2 H 97.5 H (94-97) % Sodium 135 L (137-145) mmol/L Chloride 108 H (98-107) mmol/L Carbon Dioxide 18 L (22-30) mmol/L Creatinine 1.27 H (0.66-1.25) mg/dL Glucose 111 H (74-99) mg/dL POC Glucose (mg/dL) (75-99) mg/dL Calcium 7.8 L (8.4-10.2) mg/dL Microbiology - Last 24 Hours (Table) 03/19/20 09:46 Gram Stain - Preliminary Pericardial Fluid Body Fluid Culture - Preliminary 03/19/20 04:47 Blood Culture - Preliminary Blood No Growth after 24 hours 03/18/20 12:02 Blood Culture Gram Stain - Preliminary Blood Blood Culture - Preliminary Gram Neg Bacilli 03/17/20 13:23 Blood Culture Gram Stain - Final Blood Blood Culture - Final Serratia marcescens 03/19/20 09:46 Anaerobic Culture - Preliminary Pericardial Fluid 03/19/20 09:46 Fungal Culture - Preliminary Pericardial Fluid - Imaging and Cardiology Chest x-ray: report reviewed, image reviewed Assessment and Plan Assessment: 1. Moderate generalized pericardial effusion with fibrinous stranding, status post subxiphoid pericardial window 2. Chronic systolic heart failure status post AICD placement in November 2019, EF 45-50% on yesterday's transthoracic echocardiogram 3. Chronic atrial fibrillation on Eliquis for anticoagulation, currently sinu 4. Obstructive sleep apnea with CPAP use 5. Asthma 6. Morbid obesity 7. Family history of heart disease Plan: 1. Keep subxiphoid chest tube in place to low continuous wall suction -20 cm H2O. Continue to record accurate I's and O's. 2. Mechanical ventilator and ICU management recommendations per Dr. Cintron. 3. Surgical pathology and cytology results remain pending. We will continue to follow. 4. Pain management per current when necessary regimen. 5. GI and DVT prophylaxis. 6. More recommendations to follow based on patient's clinical course. Time with Patient: Greater than 30
[2020-03-20] MEDS: MORPHINE SULFATE 4 MG/ML SYRINGE IV PRN ×2 (10:29→16:19)
[2020-03-20] MEDS ORDERED: methylPREDNISolone SOD SUCCI 125 MG/2 ML VIAL IV SCH (11:00)
[2020-03-20 11:38] LABS: Glucose,Whole Blood 82 mg/dL (75-99)
[2020-03-20] MEDS: INSULIN ASPART (NovoLOG) 100 UNIT/ML VIAL SQ SCH ×4 (11:38→19:50)
--- NOTE | 2020-03-20 13:57 | P.PN ---
Subjective This is Jena Solitario PA-C dictating a progress note on this patient The patient was interviewed and examined by me as well as by Dr. Reddy Case discussed with Dr. Reddy and he agrees with the plan of care HPI/interval history Patient is a 49-year-old male with nonischemic cardiomyopathy status post recent AICD placement in November 2019, CHF, chronic atrial fibrillation, obstructive sleep apnea, asthma who presented with complaints of cough and shortness of breath. He was found to have a moderate pericardial effusion with fibrinous strands and septate within the pericardium. Blood cultures are positive for Serratia and gram-negative bacilli despite ongoing antibiotic treatment.Yesterday he underwent a sub-xiphoid pericardial window. The pericardium was noted to be thickened and 500-600 mL of serous cloudy fluid was removed. Patient seen and examined in the ICU. He was just extubated. Bedside telemetry reveals sinus tachycardia. Patient was complaining of some shortness of breath and discomfort but he attributes this to just being extubated. EXAMINATION Temperature 101F, pulse 116, blood pressure 92/73, respirations 22, oxygen saturation 94% on 2 L nasal cannula Patient seen and examined in the ICU, coughing, in mild respiratory distress Lungs are rhonchorous bilaterally Heart is tachycardic, no audible murmurs REVIEW OF LABS, ECG WBC 10, hemoglobin 9.1, platelets 286, sodium 135, potassium 4.0, BUN 14 creatin ine 1.27 IMPRESSION / ASSESSMENT: #1 shortness of breath secondary to pericardial effusion status post pericardial window, postop day #1 #2 sepsis, blood cultures positive for Serratia and gram-negative bacilli #3 nonischemic cardiomyopathy status post single-chamber ICD placement in November 2019, most recent echocardiogram showing EF 45-50% #4 chronic congestive heart failure, systolic #5 chronic atrial fibrillation, currently in sinus tachycardia, anticoagulated with eliquis #6 obstructive sleep apnea #7 asthma PLAN: Will likely schedule him for an ICD extraction later this week once he is stable after his pericardial window Will review his records from the office for further recommendations regarding device therapy Treatment of bacteremia per infectious disease Awaiting pericardial fluid cultures and analysis Further management thereafter Objective - Vital Signs Vital signs: Vital Signs Temp 101.1 F H 03/20/20 12:00 Pulse 113 H 03/20/20 13:00 Resp 19 03/20/20 13:00 BP 109/77 03/20/20 13:00 Pulse Ox 94 L 03/20/20 13:00 Intake & Output 03/19/20 03/20/20 03/20/20 18:59 06:59 18:59 Intake Total 3662.422 1629.693 569.016 Output Total 300 927 375 Balance 3362.422 702.693 194.016 Weight 139.706 kg Intake: IV 1870 1036 490 A Line 170 36 15 Cefepime 2 gm In Sodium 100 Chloride 0.9% 100 ml @ 25 mls/hr IVPB Q8HR [facility] Rx# :[id number] Sodium Chloride 0.9% 1, 900 375 000 ml @ 75 mls/hr IV . [id number] [facility] Rx#:[id number] ceFAZolin 3 gm In Sodium 100 Chloride 0.9% 100 ml @ 200 mls/hr IVPB ONCE ONE Rx#:[id number] Intake, IV Titration 1717.422 593.693 79.016 Amount Cefepime 2 gm In Sodium 100 Chloride 0.9% 100 ml @ 25 mls/hr IVPB Q8HR [facility] Rx# :[id number] Dexmedetomidine/0.9% NaCl 100 43.848 16.475 (Pmx) 400 mcg In Empty Bag 1 bag @ Titrate IV . Q0M [facility] Rx#:[id number] Norepinephrine 4 mg In 217.422 549.845 62.541 Sodium Chloride 0.9% 250 ml @ 0.05 MCG/KG/MIN 26. 765 mls/hr IV .Q9H30M [facility] Rx#:[id number] Sodium Chloride 0.9% 1, 450 000 ml @ 75 mls/hr IV . [id number] [facility] Rx#:[id number] Sodium Chloride 0.9% 1, 250 000 ml @ 999 mls/hr IV . Q1H1M [facility] Rx#:[id number] Sodium Chloride 0.9% 500 500 ml 500 ml @ 999 mls/hr IV .Q31M ONE Rx#:[id number] ceFAZolin 3 gm In Sodium 100 Chloride 0.9% 100 ml @ 200 mls/hr IVPB ONCE ONE Rx#:[id number] Tube Feeding 75 Other 0 Output: Chest Tube Drainage 60 20 Chest Tube Mediastinal 60 20 Gastric Drainage 500 Urine 250 367 355 Estimated Blood Loss 50 Other: Voiding Method Indwelling Catheter Indwelling Catheter Indwelling Catheter # Voids 0 ABP, PAP, CO, CI - Last Documented Arterial Blood Pressure 102/64 - Labs CBC & Chem 7: 03/20/20 04:00 03/20/20 04:00 Labs: Abnormal Lab Results - Last 24 Hours (Table) 03/19/20 03/20/20 03/20/20 Range/Units 23:33 04:00 04:00 WBC 10.8 H (3.8-10.6) k/uL RBC 3.41 L (4.30-5.90) m/uL Hgb 9.1 L (13.0-17.5) gm/dL Hct 29.4 L (39.0-53.0) % MCHC 30.9 L (31.0-37.0) g/dL ABG pCO2 (35-45) mmHg ABG pO2 (83-108) mmHg ABG HCO3 (21-25) mmol/L ABG O2 Saturation (94-97) % Sodium 135 L (137-145) mmol/L Chloride 108 H (98-107) mmol/L Carbon Dioxide 18 L (22-30) mmol/L Creatinine 1.27 H (0.66-1.25) mg/dL Glucose 111 H (74-99) mg/dL POC Glucose (mg/dL) 101 H (75-99) mg/dL Calcium 7.8 L (8.4-10.2) mg/dL 03/20/20 03/20/20 Range/Units 05:13 09:10 WBC (3.8-10.6) k/uL RBC (4.30-5.90) m/uL Hgb (13.0-17.5) gm/dL Hct (39.0-53.0) % MCHC (31.0-37.0) g/dL ABG pCO2 30 L 29 L (35-45) mmHg ABG pO2 177 H (83-108) mmHg ABG HCO3 19 L 20 L (21-25) mmol/L ABG O2 Saturation 99.2 H 97.5 H (94-97) % Sodium (137-145) mmol/L Chloride (98-107) mmol/L Carbon Dioxide (22-30) mmol/L Creatinine (0.66-1.25) mg/dL Glucose (74-99) mg/dL POC Glucose (mg/dL) (75-99) mg/dL Calcium (8.4-10.2) mg/dL Microbiology - Last 24 Hours (Table) 03/19/20 09:46 Gram Stain - Preliminary Pericardial Fluid Body Fluid Culture - Preliminary 03/19/20 04:47 Blood Culture - Preliminary Blood No Growth after 24 hours 03/18/20 12:02 Blood Culture Gram Stain - Preliminary Blood Blood Culture - Preliminary Gram Neg Bacilli 03/17/20 13:23 Blood Culture Gram Stain - Final Blood Blood Culture - Final Serratia marcescens 03/19/20 09:46 Anaerobic Culture - Preliminary Pericardial Fluid 03/19/20 09:46 Fungal Culture - Preliminary Pericardial Fluid
--- NOTE | 2020-03-20 16:02 | P.PN ---
Subjective Progress Note Date: 03/20/20 (Critical care time spent 35 minutes) Principal diagnosis: Failure to wean requiring extended vent support Serratia bacteremia, source likely pulmonary ID service following Moderate to large pericardial effusion with fibrinous stranding status post pericardial window Chronic systolic heart failure status post AICD ejection fraction most recent 45% Bilateral pleural effusion likely related to pericardial effusion 03/20/2020, patient is status post pericardial window, 500 mL of thick serous fluid has been removed, postop day #1, patient cannot be extubated as he was hav ing intermittent mild clonus along with dependence on vasopressors and requiring sedation, patient was place placed on Precedex, the do the levo fed drip is gradually being tapered off, patient placed on CPAP of 5 pressure support of 5 between parameters are reviewed arterial blood gas done successfully weaned and extubated, blood culture continued to grow gram-negative rods and second one however third appears to be negative so far Gram stain on pericardial fluid has been negative, white cell count hemoglobin remained stable, the renal functions improve a bit, she remains on broad-spectrum antibiotics with Cefepime, cytology on pericardial fluid and biopsies pending, postextubation will increase activity as tolerated patient has been off of pressors increase activity as tolerated we'll monitor overnight in ICU remains stable can be moved out of the ICU to [facility] with remote telemetry 03/19/2020, patient seen eval examined, patient is status post pericardial window from this morning, on ventilator, assist control rate of 16, tidal volume of 450 100% oxygen ABG reviewed patient is waking up now once awake will be placed on CPAP and pressure support of 5 and 5 with 40% oxygen, patient is on levo fed drip as well 0.04 will bring it down to 0.02 mics subsequently will DC it in the meantime we'll give a fluid bolus of 500 mL of LR as well, This is a 49-year-old gentleman with past medical history of chronic systolic congestive heart failure status post AICD placement, chronic atrial fibrillation on Eliquis for anticoagulation, obstructive sleep apnea without home CPAP use, asthma, morbid obesity, and family history of heart disease. Patient had a history of heart catheterization in March 2019 with demonstration of normal coronary arteries. He presented to [facility] emergency room yesterday with complaints of significant cough over the last couple of days. He denied any chest pain, but have exertional shortness of breath, denies any dizziness, fevers, or sick contacts. His Chest x-ray completed in the emergency room was limited due to his body habitus, it did demonstrate mild to moderate cardiomegaly, but no acute pulmonary process. Chest CTA was ordered which could not exclude pulmonary embolism, there was noted to be a moderate to large pericardial effusion with small bilateral pleural effusions. White blood cell count 9.0, hemoglobin 10.8, d-dimer 10.87, BUN 21, creatinine 1.63, troponin negative, LDH 675, C-reactive protein to 54.7, pro-calcitonin 15.69, lactic acid 1.3. He has remained afebrile, tachycardic in the low 100s, blood pressure has been variable. Covid 19 test was taken, pending. Transthoracic echocardiogram was completed demonstrating mildly impaired left ventricular systolic function with EF 45-50%, mildly enlarged right ventricle, normal aortic and mitral valve, mild tricuspid regurgitation with mild pulmonary hypertension, and moderate generalized pericardial effusion with fibrinous stranding noted in the pericardium. A VQ scan was also completed without evidence of acute pulmonary embolism. Patient has been eval by cardiothoracic surgery being planned for pericardial window for tomorrow, patient's blood culture also coming positive for Serratia has been on Maxipime Objective - Vital Signs Vital signs: Vital Signs Temp 101.1 F H 03/20/20 12:00 Pulse 116 H 03/20/20 15:00 Resp 16 03/20/20 15:00 BP 117/82 03/20/20 15:00 Pulse Ox 94 L 03/20/20 15:00 Intake & Output 03/19/20 03/20/20 03/20/20 18:59 06:59 18:59 Intake Total 3662.422 1629.693 725.016 Output Total 300 927 475 Balance 3362.422 702.693 250.016 Weight 139.706 kg Intake: IV 1870 1036 646 A Line 170 36 21 Cefepime 2 gm In Sodium 100 Chloride 0.9% 100 ml @ 25 mls/hr IVPB Q8HR [facility] Rx# :[id number] Sodium Chloride 0.9% 1, 900 525 000 ml @ 75 mls/hr IV . [id number] [facility] Rx#:[id number] ceFAZolin 3 gm In Sodium 100 Chloride 0.9% 100 ml @ 200 mls/hr IVPB ONCE ONE Rx#:[id number] Intake, IV Titration 1717.422 593.693 79.016 Amount Cefepime 2 gm In Sodium 100 Chloride 0.9% 100 ml @ 25 mls/hr IVPB Q8HR [facility] Rx# :[id number] Dexmedetomidine/0.9% NaCl 100 43.848 16.475 (Pmx) 400 mcg In Empty Bag 1 bag @ Titrate IV . Q0M [facility] Rx#:[id number] Norepinephrine 4 mg In 217.422 549.845 62.541 Sodium Chloride 0.9% 250 ml @ 0.05 MCG/KG/MIN 26. 765 mls/hr IV .Q9H30M [facility] Rx#:[id number] Sodium Chloride 0.9% 1, 450 000 ml @ 75 mls/hr IV . [id number] [facility] Rx#:[id number] Sodium Chloride 0.9% 1, 250 000 ml @ 999 mls/hr IV . Q1H1M [facility] Rx#:[id number] Sodium Chloride 0.9% 500 500 ml 500 ml @ 999 mls/hr IV .Q31M [facility] Rx#:[id number] ceFAZolin 3 gm In Sodium 100 Chloride 0.9% 100 ml @ 200 mls/hr IVPB ONCE ONE Rx#:[id number] Tube Feeding 75 Other 0 Output: Chest Tube Drainage 60 40 Chest Tube Mediastinal 60 40 Gastric Drainage 500 Urine 250 367 435 Estimated Blood Loss 50 Other: Voiding Method Indwelling Catheter Indwelling Catheter Indwelling Catheter # Voids 0 ABP, PAP, CO, CI - Last Documented Arterial Blood Pressure 102/64 - Exam - General well developed morbidly obese male, well nourished, no distress, no pain, obese intubated on ventilator being weaned - Eyes normal ocular movement - ENT no hearing loss - Neck no masses, no bruits, trachea midline - Respiratory Lungs sounds diminished bilaterally. Respirations even, nonlabored. Currently on 4 L nasal cannula oxygen saturation 95%. Strong dry cough. No chest wall deformities. No clubbing or cyanosis present. - Cardiovascular S1, S2 present. Tachycardic but regular rate and rhythm, sinus tach on telemetry. Palpable peripheral pulses bilaterally. No edema present. No calf pain or tenderness noted. - Abdomen Abdomen: soft, non tender, bowel sounds - Genitourinary Deferred - Rectum Deferred - Integumentary no rash, no growths - Neurologic normal coordination, normal sensation - Musculoskeletal normal posture - Psychiatric oriented to time, oriented to person, oriented to place, speech is normal, memory intact - Labs CBC & Chem 7: 03/20/20 04:00 03/20/20 04:00 Labs: Abnormal Lab Results - Last 24 Hours (Table) 03/19/20 03/20/20 03/20/20 Range/Units 23:33 04:00 04:00 WBC 10.8 H (3.8-10.6) k/uL RBC 3.41 L (4.30-5.90) m/uL Hgb 9.1 L (13.0-17.5) gm/dL Hct 29.4 L (39.0-53.0) % MCHC 30.9 L (31.0-37.0) g/dL ABG pCO2 (35-45) mmHg ABG pO2 (83-108) mmHg ABG HCO3 (21-25) mmol/L ABG O2 Saturation (94-97) % Sodium 135 L (137-145) mmol/L Chloride 108 H (98-107) mmol/L Carbon Dioxide 18 L (22-30) mmol/L Creatinine 1.27 H (0.66-1.25) mg/dL Glucose 111 H (74-99) mg/dL POC Glucose (mg/dL) 101 H (75-99) mg/dL Calcium 7.8 L (8.4-10.2) mg/dL 03/20/20 03/20/20 Range/Units 05:13 09:10 WBC (3.8-10.6) k/uL RBC (4.30-5.90) m/uL Hgb (13.0-17.5) gm/dL Hct (39.0-53.0) % MCHC (31.0-37.0) g/dL ABG pCO2 30 L 29 L (35-45) mmHg ABG pO2 177 H (83-108) mmHg ABG HCO3 19 L 20 L (21-25) mmol/L ABG O2 Saturation 99.2 H 97.5 H (94-97) % Sodium (137-145) mmol/L Chloride (98-107) mmol/L Carbon Dioxide (22-30) mmol/L Creatinine (0.66-1.25) mg/dL Glucose (74-99) mg/dL POC Glucose (mg/dL) (75-99) mg/dL Calcium (8.4-10.2) mg/dL Microbiology - Last 24 Hours (Table) 03/19/20 09:46 Gram Stain - Preliminary Pericardial Fluid Body Fluid Culture - Preliminary 03/19/20 04:47 Blood Culture - Preliminary Blood No Growth after 24 hours 03/18/20 12:02 Blood Culture Gram Stain - Preliminary Blood Blood Culture - Preliminary Gram Neg Bacilli 03/17/20 13:23 Blood Culture Gram Stain - Final Blood Blood Culture - Final Serratia marcescens 03/19/20 09:46 Anaerobic Culture - Preliminary Pericardial Fluid 03/19/20 09:46 Fungal Culture - Preliminary Pericardial Fluid Assessment and Plan Assessment: Failure to wean due to multiple comorbidities postoperatively did require extra 24 hours to wean extubated Serratia bacteremia, source likely pulmonary ID service following Moderate to large pericardial effusion with fibrinous stranding status post p ericardial window Chronic systolic heart failure status post AICD ejection fraction most recent 45% Bilateral pleural effusion likely related to pericardial effusion Morbid obesity obstructive sleep apnea Plan: Continue gentle rehydration Extubated patient on 2-4 L oxygen Increase activity as tolerated Once patient is stable can start by mouth Can be moved out of the ICU in next 24 hours if remains stable Monitor off of Vasopressors Continue antibiotics Status post Pericardial window Continue Supplemental oxygen, titrated down as tolerated Deep breathing exercise incentive spirometry Maximize medical therapy for heart failure Further recommendations pending plan of care as per clinical response of the patient Time with Patient: Greater than 30
[2020-03-20 16:44] LABS: Glucose,Whole Blood 132 mg/dL (75-99)
--- NOTE | 2020-03-20 17:22 | PN ---
PROGRESS NOTE DATE OF SERVICE: 03/20/2020 REASON FOR FOLLOW UP: Serratia marcescens bacteremia. INTERVAL HISTORY: Patient did have a low-grade fever of 100.4 Fahrenheit this afternoon. The patient has been extubated. He is breathing comfortably. Complaining of some pain to the chest area with the pericardial window. No nausea, no vomiting. No abdominal pain or diarrhea. PHYSICAL EXAMINATION: Blood pressure is 99/69 with a pulse of 130, temperature 100, T-max 101. He is 94% on 2 L nasal cannula. General description is a middle-aged male up in the chair in no distress. Respiratory system: Unlabored breathing, decreased breath sounds at bases. No wheeze. Heart S1, S2. Regular rate and rhythm. Abdomen soft, no tenderness. LABS: Hemoglobin is 9.1, white count 10.8, BUN of 14, creatinine is 1.27. Blood cultures 03/19 so far negative. DIAGNOSTIC IMPRESSION AND PLAN: Patient with Serratia marcescens bacteremia, source possible AICD with a plan for removal of the same ( ) mentioned next week, with purulent pericarditis status post pericardial window. Those cultures are pending. Patient to continue with cefepime while waiting for the culture to finalize and monitor clinical course closely. MMODL / IJN: [id number] /
[2020-03-20 19:44] LABS: Glucose,Whole Blood 156 mg/dL (75-99)
--- NOTE | 2020-03-20 22:28 | PN ---
PROGRESS NOTE 49-year-old white male. Temperature a 100.4 this afternoon. The patient has been extubated. He has severe cough and congestion and wheezing. I start him on IV Solu- Medrol 60 q.8h. He has chest wall pain over the pericardial window. Discussed the case with Cardiology about removing the AICD as a source of the Serratia infection in his blood that he has had for over two months. They will take it out next week when he stabilizes. Also discussed case Dr. Juarez. He has a pulse of 130, blood pressure 99/69, T-max 101, 94 on 2 L. Lungs with decreased breath sounds, scattered rhonchi and wheeze. Heart S1, S2. Abdomen is soft. White count 7.8, hemoglobin 9.1. Creatinine is 1.27. ASSESSMENT: 1. Serratia marcescens bacteremia, source possible AICD with plan for removal of the same mentioned next week. 2. Purulent pericarditis status post pericardial window. Cultures are pending. Continue with cefepime. Wait for AICD to be removed. Continue with ( ) for pericardial effusion. Prognosis extremely guarded. Hopefully the AICD is removed soon. MMODL / IJN: [id number] /
[2020-03-21] MEDS: NOREPINEPHRINE 4 MG in SODIUM CHLORIDE 0.9% 250 ML IV SCH ×3 (00:21→18:06)
[2020-03-21] MEDS: CEFEPIME 2 GM in SODIUM CHLORIDE 0.9% 100 ML IVPB SCH ×4 (00:25→23:59)
[2020-03-21 05:13] LABS: Basophils % (A) 0 %; Eosinophils % (A) 0 %; HCT 28.1 % (39.0-53.0); HGB 8.5 gm/dL (13.0-17.5); Hypochromasia Moderate; Lymphocytes # (A) 0.4 k/uL (1.0-4.8); Lymphocytes % (A) 5 %; MCH 26.2 pg (25.0-35.0); MCHC 30.3 g/dL (31.0-37.0); MCV 86.6 fL (80.0-100.0); Mean Platelet Volume 9.9; Monocytes # (A) 0.2 k/uL (0-1.0); Monocytes % (A) 2 %; Neutrophils # (A) 7.1 k/uL (1.3-7.7); Neutrophils % (A) 91 %; Platelet Count 198 k/uL (150-450); RBC 3.25 m/uL (4.30-5.90); RDW 15.3 % (11.5-15.5); WBC 7.8 k/uL (3.8-10.6)
[2020-03-21 05:15] LABS: African American GFR (CKD) >90 (>60 ml/min/1.73 sqM); Anion Gap 3 mmol/L; Blood Urea Nitrogen 15 mg/dL (9-20); Carbon Dioxide 21 mmol/L (22-30); Chloride 111 mmol/L (98-107); Glucose 153 mg/dL (74-99); Non-African American GFR(CKD) >90 (>60 ml/min/1.73 sqM); Potassium 4.7 mmol/L (3.5-5.1); Sodium 135 mmol/L (137-145)
[2020-03-21] MEDS: SODIUM CHLORIDE 0.9% 1,000 ML IV SCH ×2 (05:34→13:41)
[2020-03-21 06:32] LABS: Glucose,Whole Blood 140 mg/dL (75-99)
[2020-03-21] MEDS: INSULIN ASPART (NovoLOG) 100 UNIT/ML VIAL SQ SCH ×4 (06:32→20:01)
--- NOTE | 2020-03-21 06:38 | XR ---
EXAMINATION TYPE: XR chest 1V portable DATE OF EXAM: 03/21/2020 COMPARISON: 03/20/2020 HISTORY: Tube placement TECHNIQUE: Single frontal view of the chest is obtained. FINDINGS: ET and NG tube have been removed. Cardiac device again noted with mediastinal drain. Persi stent left lower lobe consolidation and small effusion. Tiny right effusion with subsegmental consoli dation. No overt failure. No pneumothorax. Heart is enlarged. IMPRESSION: 1. ET and NG tube removal with persistent lower lobe infiltrate and small effusion greater on the lef t.
[2020-03-21] MEDS: ALBUTEROL HFA INHALER INHALATION SCH ×4 (08:18→18:40)
[2020-03-21] MEDS: PANTOPRAZOLE 40 MG/10 ML VIAL IV SCH (08:31)
[2020-03-21] MEDS: COLCHICINE 0.6 MG EACH PO SCH (08:31)
[2020-03-21] MEDS: ASPIRIN 81 MG PO SCH (08:31)
[2020-03-21] MEDS: LORATADINE 10 MG TAB PO SCH (08:31)
[2020-03-21] MEDS: ENOXAPARIN 40 MG/0.4 ML SYRINGE SQ SCH (08:32)
--- NOTE | 2020-03-21 09:06 | P.PN ---
Subjective Progress Note Date: 03/21/20 Principal diagnosis: Large pericardial effusion. Past medical history significant for chronic systolic congestive heart failure status post AICD placement in November 2019, chronic persistent atrial fibrillation on Eliquis for anticoagulation, obstructive sleep apnea without home CPAP use, asthma, morbid obesity and family history of heart disease. POD #2 subxiphoid pericardial window. The patient is seen in follow-up today on 03/21/2020 at his bedside in the intensive care unit. The patient is currently sitting up to the bedside chair in the intensive care unit, he is awake, alert and oriented 3 and is in no acute distress. He was successfully extubated yesterday and is currently on 2 L nasal cannula with oxygen saturation is 95%. He remains hemodynamically stable and is currently on no inotropic or pressor support. Subxiphoid chest tube remains in place to low continuous wall suction -20 cm H2O. No air leak is present. Draining thin serosanguineous drainage with 40 mL output in the last 24 hours. Surgical pathology and cytology specimen results remain pending. Bedside telemetry showing sinus tachycardia heart rate 118 BPM. T-max temperature the last 24 hours 101.1F. Remains on cefepime for antibiotic coverage managed by infectious disease. Objective - Vital Signs Vital signs: Vital Signs Temp 98.1 F 03/21/20 08:00 Pulse 117 H 03/21/20 08:00 Resp 28 H 03/21/20 08:00 BP 122/93 03/21/20 08:00 Pulse Ox 97 03/21/20 08:00 Intake & Output 03/20/20 03/21/20 03/21/20 18:59 06:59 18:59 Intake Total 9550.071 4895 506 Output Total 665 475 110 Balance 594.016 611 396 Weight 137.2 kg Intake: IV 980 936 256 A Line 30 36 6 Cefepime 2 gm In Sodium 200 100 Chloride 0.9% 100 ml @ 25 mls/hr IVPB Q8HR [facility] Rx# :[id number] Sodium Chloride 0.9% 1, 750 900 150 000 ml @ 75 mls/hr IV . [id number] [facility] Rx#:[id number] Intake, IV Titration 79.016 Amount Dexmedetomidine/0.9% NaCl 16.475 (Pmx) 400 mcg In Empty Bag 1 bag @ Titrate IV . Q0M [facility] Rx#:[id number] Norepinephrine 4 mg In 62.541 Sodium Chloride 0.9% 250 ml @ 0.05 MCG/KG/MIN 26. 765 mls/hr IV .Q9H30M [facility] Rx#:[id number] Oral 200 150 250 Output: Chest Tube Drainage 50 30 40 Chest Tube Mediastinal 50 30 40 Urine 615 445 70 Other: Voiding Method Indwelling Catheter Indwelling Catheter Indwelling Catheter ABP, PAP, CO, CI - Last Documented Arterial Blood Pressure 102/64 - Constitutional General appearance: Present: cooperative, morbidly obese, no acute distress - EENT Eyes: Present: PERRLA, normal appearance. Absent: scleral icterus ENT: Present: hearing grossly normal - Neck Details: Neck is supple, no JVD, no lymphadenopathy. - Respiratory Details: Lung sounds with few scattered crackles throughout, diminished to his bilateral bases. No wheezes or rhonchi. Respirations are symmetrical and nonlabored. Oxygen saturation is 95% on 2 L nasal cannula. - Cardiovascular Details: Regular rhythm and tachycardic rate. S1 and S2 present, negative for S3, gallop or murmur. Subxiphoid chest tube to low continuous wall suction -20 cm H2O. No air leak is present. Draining thin serosanguineous drainage with 40 mL output in the last 24 hours. - Gastrointestinal Gastrointestinal Comment(s): Abdomen is soft, nontender and nondistended. Active bowel sounds present in all 4 abdominal quadrants. Morbidly obese. Tolerating oral intake. Passing flatus. - Genitourinary Genitourinary Comment(s): Domingo catheter for accurate I&O. Draining clear roger urine. 300 mL output in the last 8 hours. - Integumentary Integumentary Comment(s): Skin is warm and dry. No clubbing or cyanosis is present. Subxiphoid incision with silver impregnated dressing clean and dry and in place. - Neurologic Neurologic: Present: CNII-XII intact - Musculoskeletal Musculoskeletal: Present: gait normal, generalized weakness, strength equal bilaterally - Psychiatric Psychiatric: Present: A&O x's 3, appropriate affect, intact judgment & insight - Allied health notes Allied health notes reviewed: nursing - Labs CBC & Chem 7: 03/21/20 04:25 03/21/20 04:25 Labs: Abnormal Lab Results - Last 24 Hours (Table) 0903/20/20 03/20/20 Range/Units 09:10 16:43 19:43 RBC (4.30-5.90) m/uL Hgb (13.0-17.5) gm/dL Hct (39.0-53.0) % MCHC (31.0-37.0) g/dL Lymphocytes # (1.0-4.8) k/uL ABG pCO2 29 L (35-45) mmHg ABG HCO3 20 L (21-25) mmol/L ABG O2 Saturation 97.5 H (94-97) % Sodium (137-145) mmol/L Chloride (98-107) mmol/L Carbon Dioxide (22-30) mmol/L Glucose (74-99) mg/dL POC Glucose (mg/dL) 132 H 156 H (75-99) mg/dL Calcium (8.4-10.2) mg/dL 03/21/20 03/21/20 03/21/20 Range/Units 04:25 04:25 06:30 RBC 3.25 L (4.30-5.90) m/uL Hgb 8.5 L (13.0-17.5) gm/dL Hct 28.1 L (39.0-53.0) % MCHC 30.3 L (31.0-37.0) g/dL Lymphocytes # 0.4 L (1.0-4.8) k/uL ABG pCO2 (35-45) mmHg ABG HCO3 (21-25) mmol/L ABG O2 Saturation (94-97) % Sodium 135 L (137-145) mmol/L Chloride 111 H (98-107) mmol/L Carbon Dioxide 21 L (22-30) mmol/L Glucose 153 H (74-99) mg/dL POC Glucose (mg/dL) 140 H (75-99) mg/dL Calcium 8.0 L (8.4-10.2) mg/dL Microbiology - Last 24 Hours (Table) 03/19/20 04:47 Blood Culture - Preliminary Blood No Growth after 48 hours 03/18/20 12:02 Blood Culture Gram Stain - Final Blood Blood Culture - Final Serratia marcescens 03/19/20 09:46 Gram Stain - Preliminary Pericardial Fluid Body Fluid Culture - Preliminary - Imaging and Cardiology Chest x-ray: report reviewed, image reviewed Assessment and Plan Assessment: 1. Moderate generalized pericardial effusion with fibrinous stranding, status post subxiphoid pericardial window 2. Chronic systolic heart failure status post AICD placement in November 2019, EF 45-50% on yesterday's transthoracic echocardiogram 3. Chronic atrial fibrillation on Eliquis for anticoagulation, currently sinu 4. Obstructive sleep apnea with CPAP use 5. Asthma 6. Morbid obesity 7. Family history of heart disease Plan: 1. Keep subxiphoid chest tube in place to low continuous wall suction -20 cm H2O. Continue to record accurate I's and O's. 2. Wean oxygen as tolerated. Encourage use of incentive spirometry 10 times every hour while awake. Bronchodilators and pulmonary management recommendations per Dr. Cintron. 3. Surgical pathology and cytology results remain pending. We will continue to follow. 4. Pain management per current when necessary regimen. 5. GI and DVT prophylaxis. 6. More recommendations to follow based on patient's clinical course. Time with Patient: Greater than 30
[2020-03-21] MEDS: FUROSEMIDE 40 MG TAB PO SCH (10:46)
[2020-03-21] MEDS: METOPROLOL SUCCINATE (ER) 25 MG TAB.ER.24H PO SCH (10:46)
[2020-03-21 11:51] LABS: Glucose,Whole Blood 148 mg/dL (75-99)
[2020-03-21] MEDS ORDERED: predniSONE 20 MG TAB PO SCH (13:30)
--- NOTE | 2020-03-21 13:31 | P.PN ---
Subjective This is Jena Solitario PA-C dictating a progress note on this patient The patient was interviewed and examined by me as well as by Dr. Reddy Case discussed with Dr. Reddy and he agrees with the plan of care HPI/interval history Patient is a 49-year-old male with nonischemic cardiomyopathy status post recent AICD placement in November 2019, CHF, chronic atrial fibrillation, obstructive sleep apnea, asthma who presented with complaints of cough and shortness of breath. He was found to have a moderate pericardial effusion with fibrinous strands and septate within the pericardium. Blood cultures are positive for Serratia and gram-negative bacilli despite ongoing antibiotic treatment. he underwent a sub- xiphoid pericardial window. The pericardium was noted to be thickened and 500- 600 mL of serous cloudy fluid was removed. Patient seen and examined in the ICU. His breathing is much better today. He denies any chest pain. Bedside telemetry revealed sinus tachycardia with heart rates in the 110s EXAMINATION Patient is afebrile, pulse 111, respirations 28, blood pressure 120/82, oxygen saturation 95% on 2 L nasal cannula Patient seen and examined sitting up in the chair in no acute distress Heart is tachycardic, no audible murmurs Lungs diminished at the bases Mild lower extremity edema bilaterally REVIEW OF LABS, ECG WBC 7.8, hemoglobin 8.5, platelets 198, sodium 135, potassium 4.3, BUN 15, creatinine 0.98 IMPRESSION / ASSESSMENT: #1 shortness of breath secondary to pericardial effusion status post pericardial window, postop day #2 pericardial fluid analysis consistent with exudative pathology #2 sepsis, blood cultures positive for Serratia and gram-negative bacilli #3 nonischemic cardiomyopathy status post single-chamber ICD placement in November 2019, most recent echocardiogram showing EF 45-50% #4 chronic congestive heart failure, systolic #5 chronic atrial fibrillation, currently in sinus tachycardia, anticoagulated with eliquis #6 obstructive sleep apnea #7 asthma PLAN: Start metoprolol succinate 25 mg daily Lasix 40 mg by mouth daily Still awaiting the results of the pericardial fluid cultures Will likely schedule him for an ICD extraction later this week once he is stable after his pericardial window Likely LifeVest afterwards and then reassessment of LV function for decision regarding future device therapy Treatment of bacteremia per infectious disease Further management thereafter Objective - Vital Signs Vital signs: Vital Signs Temp 98.1 F 03/21/20 08:00 Pulse 111 H 03/21/20 11:00 Resp 28 H 03/21/20 11:00 BP 120/82 03/21/20 11:00 Pulse Ox 95 03/21/20 11:00 Intake & Output 03/20/20 03/21/20 03/21/20 18:59 06:59 18:59 Intake Total 9987.777 8386 740 Output Total 665 475 200 Balance 594.016 611 540 Weight 137.2 kg Intake: IV 980 936 490 A Line 30 36 15 Cefepime 2 gm In Sodium 200 100 Chloride 0.9% 100 ml @ 25 mls/hr IVPB Q8HR [facility] Rx# :[id number] Sodium Chloride 0.9% 1, 750 900 375 000 ml @ 75 mls/hr IV . [id number] [facility] Rx#:[id number] Intake, IV Titration 79.016 Amount Dexmedetomidine/0.9% NaCl 16.475 (Pmx) 400 mcg In Empty Bag 1 bag @ Titrate IV . Q0M [facility] Rx#:[id number] Norepinephrine 4 mg In 62.541 Sodium Chloride 0.9% 250 ml @ 0.05 MCG/KG/MIN 26. 765 mls/hr IV .Q9H30M [facility] Rx#:[id number] Oral 200 150 250 Output: Chest Tube Drainage 50 30 40 Chest Tube Mediastinal 50 30 40 Urine 615 445 160 Other: Voiding Method Indwelling Catheter Indwelling Catheter Indwelling Catheter ABP, PAP, CO, CI - Last Documented Arterial Blood Pressure 102/64 - Labs CBC & Chem 7: 03/21/20 04:25 03/21/20 04:25 Labs: Abnormal Lab Results - Last 24 Hours (Table) 03/20/20 03/20/20 03/21/20 Range/Units 16:43 19:43 04:25 RBC 3.25 L (4.30-5.90) m/uL Hgb 8.5 L (13.0-17.5) gm/dL Hct 28.1 L (39.0-53.0) % MCHC 30.3 L (31.0-37.0) g/dL Lymphocytes # 0.4 L (1.0-4.8) k/uL Sodium (137-145) mmol/L Chloride (98-107) mmol/L Carbon Dioxide (22-30) mmol/L Glucose (74-99) mg/dL POC Glucose (mg/dL) 132 H 156 H (75-99) mg/dL Calcium (8.4-10.2) mg/dL 03/21/20 03/21/20 03/21/20 Range/Units 04:25 06:30 11:50 RBC (4.30-5.90) m/uL Hgb (13.0-17.5) gm/dL Hct (39.0-53.0) % MCHC (31.0-37.0) g/dL Lymphocytes # (1.0-4.8) k/uL Sodium 135 L (137-145) mmol/L Chloride 111 H (98-107) mmol/L Carbon Dioxide 21 L (22-30) mmol/L Glucose 153 H (74-99) mg/dL POC Glucose (mg/dL) 140 H 148 H (75-99) mg/dL Calcium 8.0 L (8.4-10.2) mg/dL Microbiology - Last 24 Hours (Table) 03/19/20 09:46 Anaerobic Culture - Preliminary Pericardial Fluid 03/19/20 09:46 Gram Stain - Preliminary Pericardial Fluid Body Fluid Culture - Preliminary 03/19/20 04:47 Blood Culture - Preliminary Blood No Growth after 48 hours 03/18/20 12:02 Blood Culture Gram Stain - Final Blood Blood Culture - Final Serratia marcescens
[2020-03-21 16:27] LABS: Glucose,Whole Blood 143 mg/dL (75-99)
[2020-03-21 19:58] LABS: Glucose,Whole Blood 159 mg/dL (75-99)
[2020-03-21] MEDS: methylPREDNISolone SOD SUCCI 40 MG/ML 1 ML VIAL IV SCH (20:02)
[2020-03-22] MEDS: SODIUM CHLORIDE 0.9% 1,000 ML IV SCH (04:15)
--- NOTE | 2020-03-22 06:46 | XR ---
EXAMINATION TYPE: XR chest 1V portable DATE OF EXAM: 03/22/2020 CLINICAL HISTORY: Difficulty breathing progress study. TECHNIQUE: Single AP portable upright view of the chest is obtained. COMPARISON: Chest x-ray from one day earlier and older studies. FINDINGS: Stable cardiomegaly with single lead pacemaker/ICD. Stable small left pleural effusion and associated left basilar atelectasis and/or infiltrate. Right lung remains clear. Osseous structures are intact. Overlying mediastinal drainage catheter redemonstrated. IMPRESSION: Cardiomegaly with small left pleural effusion and associated left base atelectasis and/or infiltrate. No significant change from one day earlier.
[2020-03-22 06:54] LABS: Basophils % (A) 0 %; Eosinophils % (A) 0 %; HCT 28.5 % (39.0-53.0); HGB 8.5 gm/dL (13.0-17.5); Hypochromasia Marked; Lymphocytes # (A) 0.6 k/uL (1.0-4.8); Lymphocytes % (A) 4 %; MCH 26.7 pg (25.0-35.0); MCHC 29.9 g/dL (31.0-37.0); MCV 89.3 fL (80.0-100.0); Monocytes # (A) 0.3 k/uL (0-1.0); Monocytes % (A) 2 %; Neutrophils % (A) 92 %; Platelet Count 307 k/uL (150-450); RBC 3.19 m/uL (4.30-5.90)
[2020-03-22 07:02] LABS: African American GFR (CKD) >90 (>60 ml/min/1.73 sqM); Anion Gap 7 mmol/L; Blood Urea Nitrogen 16 mg/dL (9-20); Carbon Dioxide 21 mmol/L (22-30); Chloride 110 mmol/L (98-107); Glucose 143 mg/dL (74-99); Non-African American GFR(CKD) 79 (>60 ml/min/1.73 sqM); Potassium 4.5 mmol/L (3.5-5.1); Sodium 138 mmol/L (137-145)
[2020-03-22 07:13] LABS: Glucose,Whole Blood 146 mg/dL (75-99)
[2020-03-22] MEDS ORDERED: MAGNESIUM HYDROXIDE 2,400 MG/10 ML CUP PO PRN (07:18)
[2020-03-22] MEDS ORDERED: bisacodyL 10 MG SUPP RECTAL PRN (07:18)
[2020-03-22] MEDS: CEFEPIME 2 GM in SODIUM CHLORIDE 0.9% 100 ML IVPB SCH ×3 (08:16→23:33)
[2020-03-22] MEDS: ENOXAPARIN 40 MG/0.4 ML SYRINGE SQ SCH (08:16)
[2020-03-22] MEDS: methylPREDNISolone SOD SUCCI 40 MG/ML 1 ML VIAL IV SCH ×2 (08:16→20:22)
[2020-03-22] MEDS: ALBUTEROL HFA INHALER INHALATION SCH ×4 (08:16→20:53)
[2020-03-22] MEDS: INSULIN ASPART (NovoLOG) 100 UNIT/ML VIAL SQ SCH ×4 (08:16→20:22)
[2020-03-22] MEDS: FUROSEMIDE 40 MG TAB PO SCH (08:17)
[2020-03-22] MEDS: ASPIRIN 81 MG PO SCH (08:17)
[2020-03-22] MEDS: METOPROLOL SUCCINATE (ER) 25 MG TAB.ER.24H PO SCH (08:17)
[2020-03-22] MEDS: LORATADINE 10 MG TAB PO SCH (08:17)
[2020-03-22] MEDS: COLCHICINE 0.6 MG EACH PO SCH (08:17)
[2020-03-22] MEDS: PANTOPRAZOLE 40 MG TABLET PO SCH (08:17)
--- NOTE | 2020-03-22 08:50 | P.PN ---
Subjective Progress Note Date: 03/22/20 Principal diagnosis: Large pericardial effusion. Past medical history significant for chronic systolic congestive heart failure status post AICD placement in November 2019, chronic persistent atrial fibrillation on Eliquis for anticoagulation, obstructive sleep apnea without home CPAP use, asthma, morbid obesity and family history of heart disease. POD #3 subxiphoid pericardial window. The patient is currently sitting up in the recliner in the intensive care unit in no acute distress. Denies pain, shortness of breath. Remains hemodynamically stable. Medial chest tube remains in place to continuous wall suction with minimal output. No new concerns. Objective - Vital Signs Vital signs: Vital Signs Temp 98.1 F 03/22/20 04:00 Pulse 105 H 03/22/20 08:00 Resp 22 03/22/20 08:00 BP 122/86 03/22/20 08:00 Pulse Ox 93 L 03/22/20 08:00 Intake & Output 03/21/20 03/22/20 03/22/20 18:59 06:59 18:59 Intake Total 1877 1200 75 Output Total 610 1377 90 Balance 1267 -177 -15 Weight 142.2 kg Intake: IV 1127 1000 75 A Line 27 Cefepime 2 gm In Sodium 200 100 Chloride 0.9% 100 ml @ 25 mls/hr IVPB Q8HR [facility] Rx# :[id number] Sodium Chloride 0.9% 1, 900 900 75 000 ml @ 75 mls/hr IV . [id number] [facility] Rx#:[id number] Oral 750 200 Output: Chest Tube Drainage 55 12 0 Chest Tube Mediastinal 55 12 0 Urine 555 1365 90 Other: Voiding Method Indwelling Catheter Indwelling Catheter ABP, PAP, CO, CI - Last Documented Arterial Blood Pressure 102/64 - Constitutional General appearance: Present: cooperative, morbidly obese, no acute distress - Respiratory Details: Lungs sounds diminished bilaterally. Respirations even, nonlabored. Currently on 2 L nasal cannula with oxygen saturation 96%. Able to achieve 1000 mL on his incentive spirometry. - Cardiovascular Details: S1, S2 present. Tachycardic but regular rate and rhythm, sinus tach with heart rate in the high 90s to low 100s on telemetry. Palpable peripheral pulses bilaterally. No edema present. No calf pain or tenderness noted. Medial chest tube present to continuous wall suction, 12 mL of thin serous drainage overnight, 47 mL in the last 24 hours. - Gastrointestinal Gastrointestinal Comment(s): Abdomen soft, nontender, nondistended. Active bowel sounds present 4 quadrants. Tolerating diet. Positive flatus, negative bowel movement - Genitourinary Genitourinary Comment(s): Domingo present draining clear, yellow urine. Output 80-150 mL per hour overnight. - Integumentary Integumentary Comment(s): Skin is warm and dry with evidence of good perfusion. - Neurologic Neurologic: Present: CNII-XII intact - Musculoskeletal Musculoskeletal: Present: gait normal, strength equal bilaterally - Psychiatric Psychiatric: Present: A&O x's 3, appropriate affect, intact judgment & insight - Allied health notes Allied health notes reviewed: nursing - Labs CBC & Chem 7: 03/22/20 06:01 03/22/20 06:01 Labs: Abnormal Lab Results - Last 24 Hours (Table) 03/21/20 03/21/20 03/21/20 Range/Units 11:50 16:26 19:56 WBC (3.8-10.6) k/uL RBC (4.30-5.90) m/uL Hgb (13.0-17.5) gm/dL Hct (39.0-53.0) % MCHC (31.0-37.0) g/dL Neutrophils # (1.3-7.7) k/uL Lymphocytes # (1.0-4.8) k/uL Chloride (98-107) mmol/L Carbon Dioxide (22-30) mmol/L Glucose (74-99) mg/dL POC Glucose (mg/dL) 148 H 143 H 159 H (75-99) mg/dL Calcium (8.4-10.2) mg/dL 03/22/20 03/22/20 03/22/20 Range/Units 06:01 06:01 07:10 WBC 13.0 H (3.8-10.6) k/uL RBC 3.19 L (4.30-5.90) m/uL Hgb 8.5 L (13.0-17.5) gm/dL Hct 28.5 L (39.0-53.0) % MCHC 29.9 L (31.0-37.0) g/dL Neutrophils # 12.0 H (1.3-7.7) k/uL Lymphocytes # 0.6 L (1.0-4.8) k/uL Chloride 110 H (98-107) mmol/L Carbon Dioxide 21 L (22-30) mmol/L Glucose 143 H (74-99) mg/dL POC Glucose (mg/dL) 146 H (75-99) mg/dL Calcium 8.0 L (8.4-10.2) mg/dL Microbiology - Last 24 Hours (Table) 03/19/20 04:47 Blood Culture - Preliminary Blood No Growth after 72 hours 03/19/20 09:46 Anaerobic Culture - Preliminary Pericardial Fluid 03/19/20 09:46 Gram Stain - Preliminary Pericardial Fluid Body Fluid Culture - Preliminary - Imaging and Cardiology Chest x-ray: report reviewed, image reviewed Assessment and Plan Assessment: 1. Large generalized pericardial effusion with fibrinous stranding, status post subxiphoid pericardial window 2. Bacteremia with Serratia 3. Chronic systolic heart failure, nonischemic cardiomyopathy status post AICD placement in November 2019, EF 45-50% on transthoracic echocardiogram 4. Chronic atrial fibrillation on Eliquis for anticoagulation, currently sinus 5. Obstructive sleep apnea without CPAP use 6. Asthma 7. Morbid obesity 8. Family history of heart disease Plan: 1. Awaiting discontinuation of pericardial chest tube for pathology, cytology, culture results. 2. Wean oxygen as tolerated. Encourage use of incentive spirometry 10 times every hour while awake. Bronchodilators, steroids per Dr. Cintron. 3. IV antibiotics per infectious disease 4. Pain management per current regimen. 5. GI and DVT prophylaxis. 6. Management of comorbid conditions per primary, pulmonology, cardiology 7. May transfer out of ICU from cardiothoracic surgery standpoint when okay with other services 8. More recommendations to follow Time with Patient: Greater than 30
--- NOTE | 2020-03-22 09:28 | PN ---
PROGRESS NOTE A 49-year-old white male status post pericardial window day 2. He had a 60 cc per shift of serous fluid out of his chest tube, pericardial fluid, serous in nature. He still has some cough and congestion. Cardiology is going to remove his AICD later this week. Remains on Colcrys 0.6 mg per day. He is on cefepime to cover Serratia marcescens bacteremia. He appears to be getting better. He is sitting up in bed talking. He is 94% on 2 L. Respiratory rate is 18 to 20, blood pressure 110/60s, pulse is in the low 90s to 100. Lungs are clear. Cardiovascular is S1, S2. No rubs are appreciated. Endocrine with BMI is 40. hematology 2+ edema. Chest x-ray this morning shows the ET and NG tube removal with persistent lower lobe infiltrates, small pleural effusion, greater on the left. Remains on cefepime. Pericardial fluid, continue to await for fluid results for pathology. Continue broad-spectrum antibiotics. AICD removed later in the week. Continue Solu-Medrol steroids for breathing, inflammation and IV cefepime for Serratia bacteremia. Prognosis guarded. MMODL / IJN: [id number] /
--- NOTE | 2020-03-22 09:57 | P.PN ---
Subjective Progress Note Date: 03/22/20 This is a 49-year-old gentleman with history of cardiomyopathy status post AICD placement in November 2019. He was admitted to the hospital with a large pericardial effusion and also sepsis. He is being treated with antibiotics. Patient had pericardiocentesis. He is sitting up in the chair and seemed to be doing well. No complaints of any chest pain. He may be transferred to telemetry unit. The plan is to continue antibiotic therapy. There is a plan for possible removal of the AICD. His recent LV function showed ejection fraction of 40-45%. Additionally guarded the insertion of the AICD will be made depending upon the clinical course. Patient is cleared by cardiothoracic surgeons to be transf erred to telemetry unit. Prognosis still guarded Objective - Vital Signs Vital signs: Vital Signs Temp 98.1 F 03/22/20 04:00 Pulse 105 H 03/22/20 08:00 Resp 22 03/22/20 08:00 BP 122/86 03/22/20 08:00 Pulse Ox 93 L 03/22/20 08:00 Intake & Output 03/21/20 03/22/20 03/22/20 18:59 06:59 18:59 Intake Total 1877 1200 75 Output Total 610 1377 90 Balance 1267 -177 -15 Weight 142.2 kg Intake: IV 1127 1000 75 A Line 27 Cefepime 2 gm In Sodium 200 100 Chloride 0.9% 100 ml @ 25 mls/hr IVPB Q8HR [facility] Rx# :[id number] Sodium Chloride 0.9% 1, 900 900 75 000 ml @ 75 mls/hr IV . [id number] [facility] Rx#:[id number] Oral 750 200 Output: Chest Tube Drainage 55 12 0 Chest Tube Mediastinal 55 12 0 Urine 555 1365 90 Other: Voiding Method Indwelling Catheter Indwelling Catheter ABP, PAP, CO, CI - Last Documented Arterial Blood Pressure 102/64 - Exam GENERAL EXAM: Patient is alert and oriented and doesn't appear to be in any acute distress HEENT: Normocephalic. Normal reaction of pupils, equal size, normal range of extraocular motion. No erythema or exudates in the throat. NECK: No masses, no nuchal rigidity. CHEST: No chest wall deformity. LUNGS: Accept default HEART: [S1 and S2 normal with no audible mumurs or gallops. Regular rhythm, femorals equal on both sides..] ABDOMEN: No hepatosplenomegaly, normal bowel sounds, no guarding or rigidity. SKIN: No rashes CENTRAL NERVOUS SYSTEM: No focal deficits. EXTREMITIES: [No cyanosis, clubbing or edema.] - Labs CBC & Chem 7: 03/22/20 06:01 03/22/20 06:01 Labs: Abnormal Lab Results - Last 24 Hours (Table) 03/21/20 03/21/20 03/21/20 Range/Units 11:50 16:26 19:56 WBC (3.8-10.6) k/uL RBC (4.30-5.90) m/uL Hgb (13.0-17.5) gm/dL Hct (39.0-53.0) % MCHC (31.0-37.0) g/dL Neutrophils # (1.3-7.7) k/uL Lymphocytes # (1.0-4.8) k/uL Chloride (98-107) mmol/L Carbon Dioxide (22-30) mmol/L Glucose (74-99) mg/dL POC Glucose (mg/dL) 148 H 143 H 159 H (75-99) mg/dL Calcium (8.4-10.2) mg/dL 03/22/20 03/22/20 03/22/20 Range/Units 06:01 06:01 07:10 WBC 13.0 H (3.8-10.6) k/uL RBC 3.19 L (4.30-5.90) m/uL Hgb 8.5 L (13.0-17.5) gm/dL Hct 28.5 L (39.0-53.0) % MCHC 29.9 L (31.0-37.0) g/dL Neutrophils # 12.0 H (1.3-7.7) k/uL Lymphocytes # 0.6 L (1.0-4.8) k/uL Chloride 110 H (98-107) mmol/L Carbon Dioxide 21 L (22-30) mmol/L Glucose 143 H (74-99) mg/dL POC Glucose (mg/dL) 146 H (75-99) mg/dL Calcium 8.0 L (8.4-10.2) mg/dL Microbiology - Last 24 Hours (Table) 03/19/20 09:46 Gram Stain - Preliminary Pericardial Fluid Body Fluid Culture - Preliminary 03/19/20 04:47 Blood Culture - Preliminary Blood No Growth after 72 hours 03/19/20 09:46 Anaerobic Culture - Preliminary Pericardial Fluid Assessment and Plan (1) History of automatic internal cardiac defibrillator (AICD) Current Visit: Yes Status: Acute Code(s): Z95.810 - PRESENCE OF AUTOMATIC (IMPLANTABLE) CARDIAC DEFIBRILLATOR SNOMED Code(s): 693627134 (2) Pericardial effusion Current Visit: Yes Status: Acute Code(s): I31.3 - PERICARDIAL EFFUSION (NONINFLAMMATORY) SNOMED Code(s): 889811299 (3) Bacteremia Current Visit: No Status: Acute Code(s): R78.81 - BACTEREMIA SNOMED Code(s): 9868050 (4) History of cardiomyopathy Current Visit: Yes Status: Acute Code(s): Z86.79 - PERSONAL HISTORY OF OTHER DISEASES OF THE CIRCULATORY SYSTEM SNOMED Code(s): 477360792765174 Plan: Patient is clinically doing better. He possible transfer to telemetry. Continu e antibiotic therapy. Possible extraction of the AICD
--- NOTE | 2020-03-22 11:00 | CDI ---
Documentation Clarification Form Date: 03/22/2020 CDS: Rosa August RN, CCDS Admit Date: 03/17/2020 Patient Name: Darek Mccollum [id number] ATTENTION: The Clinical Documentation Specialists (CDI) and [facility] Coding Staff appreciate your assistance in clarifying documentation. Please respond to the clarification below the line at the bottom and electronically sign. The CDI & [facility] Coding staff will review the response and follow-up if needed. Please note: Queries are made part of the Legal Health Record. If you have any questions, please contact the author of this message via ITS. Dr. Ryan: The diagnosis Sepsis is documented In the ID progress note 03/19. History/Risk Factors: 49-year-old male presents to the ED with cough and shortness of breath. Medical History: Systolic CHF; COPD; Sleep Apnea, Asthma and AICD Placement 11/719. Clinical Indicators: 03/17 Admission VSS. B/P: 129/80; HR: 117; Temp: 98.6 F; RR: 18; SpO2: 98% room air. 03/18 B/P: 92/49; HR: 99; Temp 100.1 F; RR: 22; SpO2: 95% 4L nasal cannula 03/17 Blood Culture: Serratia marcescens 03/19 Subxiphoid pericardial window. Cultures pending. Internal Medicine progress note 03/20 Discussed the case with Cardiology about removing the AICD as a source of the Serratia infection in his blood that he has had for over two months. ID Progress Note 03/19: Patient admitted to hospital with sepsis with Serratia marcescens bacteremia with evidence of pericardial fluid, status post pericardial window. Treatment: 03/17 0.9NS 1.250L bolus followed by 130cc/hr; 03/18 Zosyn Ivpb; 03/19 Cefazolin Ivpb x 1; 03/22 Cefepime Ivpb, Please clarify if the Sepsis was: Present/active this admission Treated and resolved this admission Ruled out Other, please specify Clinically unable to determine (Last Query Form Revision: March 2019) MTDD
--- NOTE | 2020-03-22 11:26 | PN ---
PROGRESS NOTE DATE OF SERVICE: 03/21/2020 REASON FOR FOLLOWUP: Serratia marcescens bacteremia. INTERVAL HISTORY: Patient is currently afebrile, has been breathing comfortably. Denies having any worsening chest pain or shortness of breath. Minimal cough. No sputum. No nausea, no vomiting. No abdominal pain no diarrhea. PHYSICAL EXAMINATION: Blood pressure is 124/92 with a pulse of 80, temperature of 97.8. He is 95% on 2 L nasal cannula. General description is a middle-aged male lying in bed in no distress respiratory system: Unlabored breathing, decreased breath sounds in the base, with some wheeze heart S1, S2. Regular rate and rhythm no tenderness. LABS: Hemoglobin 8.5, white count 7.2, BUN of 15 and 0.98. Blood cultures 03/19 so far negative. DIAGNOSTIC IMPRESSION AND PLAN: Patient with Serratia marcescens bacteremia source possible AICD as patient did have extensive workup. Wounds last admission on a new focus of infection. Keep he patient on cefepime as blood culture has been negative and monitor clinical course closely. MMODL / IJN: [id number] /
[2020-03-22 11:36] LABS: Glucose,Whole Blood 145 mg/dL (75-99)
[2020-03-22 16:36] LABS: Glucose,Whole Blood 182 mg/dL (75-99)
--- NOTE | 2020-03-22 17:14 | PN ---
PROGRESS NOTE DATE OF SERVICE: 03/22/2020 REASON FOR FOLLOWUP: Serratia marcescens bacteremia. INTERVAL HISTORY: Patient is currently afebrile. The patient is breathing comfortably. The patient denies having any chest pain, no shortness of breath. Minimal cough. No nausea, no vomiting. No abdominal pain or diarrhea. PHYSICAL EXAMINATION: Blood pressure is 129/60 with a pulse of 90, temperature 97.8. He is 93% on room air. General description is a middle-aged male, up in the bed in no distress. RESPIRATORY SYSTEM: Unlabored breathing, decreased breath sounds in the base, no wheeze. HEART: S1, S2. Regular rate and rhythm. ABDOMEN: Soft, no tenderness. LABS: Hemoglobin 8.4, white count 13, with a BUN of 16, creatinine is 1.11. Blood culture of 03/19 has been negative so far. DIAGNOSTIC IMPRESSION AND PLAN: Patient with Serratia marcescens bacteremia. Concern likely possible AICD infection. Plan at this time is to continue cefepime 2 g. Waiting for the pneumonia AICD and monitor clinical course closely. MMODL / IJN: [id number] /
--- NOTE | 2020-03-22 17:17 | P.PN ---
Subjective Progress Note Date: 03/22/20 Principal diagnosis: Failure to wean requiring extended vent support Serratia bacteremia, source likely pulmonary ID service following Moderate to large pericardial effusion with fibrinous stranding status post pericardial window Chronic systolic heart failure status post AICD ejection fraction most recent 45% Bilateral pleural effusion likely related to pericardial effusion 03/22/2020, patient seen eval examined last reviewed medications reviewed care plan discussed, respiratory status remains stable, patient remains on room air, denies any chest pain, still have chest tube, no air leak is present, Domingo's catheter has been removed will DC the IV fluids increase activity as tolerated, cultures are pending including pericardial fluid repeat blood culture however saldaña s been negative initial were positive for Serratia, patient remains on the broad-spectrum antibiotics IV steroids, white cell count remains elevated but stable 13,000, patient can be moved out of the ICU 03/20/2020, patient is status post pericardial window, 500 mL of thick serous fluid has been removed, postop day #1, patient cannot be extubated as he was having intermittent mild clonus along with dependence on vasopressors and requiring sedation, patient was place placed on Precedex, the do the levo fed drip is gradually being tapered off, patient placed on CPAP of 5 pressure support of 5 between parameters are reviewed arterial blood gas done successfully weaned and extubated, blood culture continued to grow gram-negative rods and second one however third appears to be negative so far Gram stain on pericardial fluid has been negative, white cell count hemoglobin remained stable, the renal functions improve a bit, she remains on broad-spectrum antibiotics with Cefepime, cytology on pericardial fluid and biopsies pending, postextubation will increase activity as tolerated patient has been off of pressors increase activity as tolerated we'll monitor overnight in ICU remains stable can be moved out of the ICU to [facility] with remote telemetry 03/19/2020, patient seen eval examined, patient is status post pericardial window from this morning, on ventilator, assist control rate of 16, tidal volume of 450 100% oxygen ABG reviewed patient is waking up now once awake will be plac ed on CPAP and pressure support of 5 and 5 with 40% oxygen, patient is on levo fed drip as well 0.04 will bring it down to 0.02 mics subsequently will DC it in the meantime we'll give a fluid bolus of 500 mL of LR as well, This is a 49-year-old gentleman with past medical history of chronic systolic congestive heart failure status post AICD placement, chronic atrial fibrillation on Eliquis for anticoagulation, obstructive sleep apnea without home CPAP use, asthma, morbid obesity, and family history of heart disease. Patient had a history of heart catheterization in March 2019 with demo nstration of normal coronary arteries. He presented to [facility] emergency room yesterday with complaints of significant cough over the last couple of days. He denied any chest pain, but have exertional shortness of breath, denies any dizziness, fevers, or sick contacts. His Chest x-ray completed in the emergency room was limited due to his body habitus, it did demonstrate mild to moderate cardiomegaly, but no acute pulmonary process. Chest CTA was ordered which could not exclude pulmonary embolism, there was noted to be a moderate to large pericardial effusion with small bilateral pleural effusions. White blood cell count 9.0, hemoglobin 10.8, d-dimer 10.87, BUN 21, creatinine 1.63, troponin negative, LDH 675, C-reactive protein to 54.7, pro-calcitonin 15.69, lactic acid 1.3. He has remained afebrile, tachycardic in the low 100s, blood pressure has been variable. Covid 19 test was taken, pending. Transthoracic echocardiogram was completed demonstrating mildly impaired left ventricular systolic function with EF 45-50%, mildly enlarged right ventricle, normal aortic and mitral valve, mild tricuspid regurgitation with mild pulmonary hypertension, and moderate generalized pericardial effusion with fibrinous stranding noted in the pericardium. A VQ scan was also completed without evidence of acute pulmonary embolism. Patient has been eval by cardiothoracic surgery being planned for pericardial window for tomorrow, patient's blood culture also coming positive for Serratia has been on Maxipime Objective - Vital Signs Vital signs: Vital Signs Temp 97.9 F 03/22/20 16:00 Pulse 96 03/22/20 16:00 Resp 19 03/22/20 16:00 BP 106/76 03/22/20 16:00 Pulse Ox 94 L 03/22/20 16:00 Intake & Output 03/21/20 03/22/20 03/22/20 18:59 06:59 18:59 Intake Total 1877 1200 775 Output Total 610 1377 1685 Balance 1267 -177 -910 Weight 142.2 kg Intake: IV 1127 1000 775 A Line 27 Cefepime 2 gm In Sodium 200 100 100 Chloride 0.9% 100 ml @ 25 mls/hr IVPB Q8HR [facility] Rx# :[id number] Sodium Chloride 0.9% 1, 900 900 675 000 ml @ 75 mls/hr IV . [id number] [facility] Rx#:[id number] Oral 750 200 Output: Chest Tube Drainage 55 12 0 Chest Tube Mediastinal 55 12 0 Urine 555 1365 1685 Other: Voiding Method Indwelling Catheter Indwelling Catheter Bedside Commode ABP, PAP, CO, CI - Last Documented Arterial Blood Pressure 102/64 - Exam - General well developed morbidly obese male, well nourished, no distress, no pain, obese intubated on ventilator being weaned - Eyes normal ocular movement - ENT no hearing loss - Neck no masses, no bruits, trachea midline - Respiratory Lungs sounds diminished bilaterally. Respirations even, nonlabored. Currently on 4 L nasal cannula oxygen saturation 95%. Strong dry cough. No chest wall deformities. No clubbing or cyanosis present. - Cardiovascular S1, S2 present. Tachycardic but regular rate and rhythm, sinus tach on telemetry. Palpable peripheral pulses bilaterally. No edema present. No calf pain or tenderness noted. - Abdomen Abdomen: soft, non tender, bowel sounds - Genitourinary Deferred - Rectum Deferred - Integumentary no rash, no growths - Neurologic normal coordination, normal sensation - Musculoskeletal normal posture - Psychiatric oriented to time, oriented to person, oriented to place, speech is normal, memory intact - Labs CBC & Chem 7: 03/22/20 06:01 03/22/20 06:01 Labs: Abnormal Lab Results - Last 24 Hours (Table) 03/21/20 03/22/20 03/22/20 Range/Units 19:56 06:01 06:01 WBC 13.0 H (3.8-10.6) k/uL RBC 3.19 L (4.30-5.90) m/uL Hgb 8.5 L (13.0-17.5) gm/dL Hct 28.5 L (39.0-53.0) % MCHC 29.9 L (31.0-37.0) g/dL Neutrophils # 12.0 H (1.3-7.7) k/uL Lymphocytes # 0.6 L (1.0-4.8) k/uL Chloride 110 H (98-107) mmol/L Carbon Dioxide 21 L (22-30) mmol/L Glucose 143 H (74-99) mg/dL POC Glucose (mg/dL) 159 H (75-99) mg/dL Calcium 8.0 L (8.4-10.2) mg/dL 03/22/20 03/22/20 03/22/20 Range/Units 07:10 11:32 16:29 WBC (3.8-10.6) k/uL RBC (4.30-5.90) m/uL Hgb (13.0-17.5) gm/dL Hct (39.0-53.0) % MCHC (31.0-37.0) g/dL Neutrophils # (1.3-7.7) k/uL Lymphocytes # (1.0-4.8) k/uL Chloride (98-107) mmol/L Carbon Dioxide (22-30) mmol/L Glucose (74-99) mg/dL POC Glucose (mg/dL) 146 H 145 H 182 H (75-99) mg/dL Calcium (8.4-10.2) mg/dL Microbiology - Last 24 Hours (Table) 03/19/20 09:46 Gram Stain - Preliminary Pericardial Fluid Body Fluid Culture - Preliminary 03/19/20 04:47 Blood Culture - Preliminary Blood No Growth after 72 hours Assessment and Plan Assessment: Pericardial temponade, status post window Serratia bacteremia, source likely pulmonary ID service following Moderate to large pericardial effusion with fibrinous stranding status post pericardial window Chronic systolic heart failure status post AICD ejection fraction most recent 45% Bilateral pleural effusion likely related to pericardial effusion Morbid obesity obstructive sleep apnea Baseline COPD not in exacerbation Plan: IV fluid can be Hep-Lock Continue on room air up and about Increase activity as tolerated Once patient is stable can start by mouth Can be moved out of the ICU Continue antibiotics Status post Pericardial window Deep breathing exercise incentive spirometry Maximize medical therapy for heart failure Further recommendations pending plan of care as per clinical response of the patient Time with Patient: Greater than 30
--- NOTE | 2020-03-22 17:25 | P.PN ---
Progress Note - Text Discussed with patient. Discussed with nurse We'll plan lead extraction and device extraction tomorrow Clear liquids tilt 6 AM tomorrow morning Nothing by mouth Thereafter except meds
[2020-03-22] MEDS ORDERED: SODIUM CHLORIDE 0.9% 1,000 ML IV SCH ×2 (17:30)
--- NOTE | 2020-03-22 18:17 | PN ---
PROGRESS NOTE 49-year-old white male, cardiomyopathy status post AICD and a large pericardial effusion, sepsis being treated with antibiotics. Positive Serratia marcescens in the bloodstream again, pericardiocentesis. Getting large serous amount of fluids coming out of the heart. Ejection fraction 40 to 45%. Prognosis guarded. Hope to get the AICD removed in the near future. PHYSICAL EXAMINATION: Temperature 98.1, pulse 100 to 105, respiratory 18 to 22, blood pressure 132/86, O2 is 93. He is sitting up in a chair. His cough is much improved he states, but he still coughs. Chest essentially clear. GI soft. Bandage over his mid chest and abdomen area. Hematology: Negative Homans. Psych: Fair mood and affect. ASSESSMENT: Hemoglobin 8.5, white count 13, BUN 16, creatinine 1.11. ASSESSMENT: 1. History of automatic internal cardiac defibrillator. 2. Pericardial effusion. 3. Bacteremia. 4. History of cardiomyopathy. Doing better. Go to telemetry. Continue with antibiotics. Extract the AICD as soon as possible per Cardiology. MMODL / IJN: [id number] /
[2020-03-22 20:18] LABS: Glucose,Whole Blood 157 mg/dL (75-99)
[2020-03-23] MEDS: INSULIN ASPART (NovoLOG) 100 UNIT/ML VIAL SQ SCH ×4 (06:46→20:52)
[2020-03-23 06:47] LABS: Glucose,Whole Blood 161 mg/dL (75-99)
[2020-03-23 07:35] LABS: HCT 28.9 % (39.0-53.0); HGB 8.4 gm/dL (13.0-17.5); Hypochromasia Marked; MCH 26.6 pg (25.0-35.0); MCHC 28.9 g/dL (31.0-37.0); MCV 92.2 fL (80.0-100.0); Mean Platelet Volume 8.5; Platelet Count 281 k/uL (150-450); RBC 3.14 m/uL (4.30-5.90); RDW 15.5 % (11.5-15.5); WBC 12.3 k/uL (3.8-10.6)
--- NOTE | 2020-03-23 07:37 | P.PN ---
Subjective Progress Note Date: 03/23/20 Principal diagnosis: Large pericardial effusion. Past medical history significant for chronic systolic congestive heart failure status post AICD placement in November 2019, chronic persistent atrial fibrillation on Eliquis for anticoagulation, obstructive sleep apnea without home CPAP use, asthma, morbid obesity and family history of heart disease. POD #4 subxiphoid pericardial window. The patient is currently laying in bed in the intensive care unit in no acute distress. Denies pain, shortness of breath. Remains hemodynamically stable. Medial chest tube remains in place to water seal with no output. Patient scheduled for ICD device removal today. Objective - Vital Signs Vital signs: Vital Signs Temp 98.6 F 03/23/20 00:00 Pulse 80 03/23/20 00:00 Resp 20 03/23/20 00:00 BP 102/65 03/23/20 00:00 Pulse Ox 94 L 03/23/20 00:00 Intake & Output 03/22/20 03/23/20 03/23/20 18:59 06:59 18:59 Intake Total 950 100 Output Total 2185 Balance -1235 100 Weight 139.933 kg Intake: IV 950 100 Cefepime 2 gm In Sodium 200 100 Chloride 0.9% 100 ml @ 25 mls/hr IVPB Q8HR [facility] Rx# :[id number] Sodium Chloride 0.9% 1, 750 000 ml @ 75 mls/hr IV . [id number] [facility] Rx#:[id number] Output: Chest Tube Drainage 0 Chest Tube Mediastinal 0 Urine 2185 Other: Voiding Method Bedside Commode Bedside Commode # Voids 2 ABP, PAP, CO, CI - Last Documented Arterial Blood Pressure 102/64 - Constitutional General appearance: Present: cooperative, morbidly obese, no acute distress - Respiratory Details: Lungs sounds diminished bilaterally. Respirations even, nonlabored. Currently on room air with oxygen saturation 94%. Able to achieve 1250 mL on his incentive spirometry. - Cardiovascular Details: S1, S2 present. Tachycardic but regular rate and rhythm, sinus tach with heart rate in the high 90s to low 100s on telemetry. Palpable peripheral pulses bilaterally. No edema present. No calf pain or tenderness noted. Medial chest tube present to waterseal, no drainage in the last 24 hours. - Gastrointestinal Gastrointestinal Comment(s): Abdomen soft, nontender, nondistended. Active bowel sounds present 4 quadrants. Tolerating diet, currently nothing by mouth for device removal today. Positive flatus, negative bowel movement - Genitourinary Genitourinary Comment(s): Domingo discontinued yesterday, patient has voided - Integumentary Integumentary Comment(s): Skin is warm and dry with evidence of good perfusion. - Neurologic Neurologic: Present: CNII-XII intact - Musculoskeletal Musculoskeletal: Present: gait normal, strength equal bilaterally - Psychiatric Psychiatric: Present: A&O x's 3, appropriate affect, intact judgment & insight - Allied health notes Allied health notes reviewed: nursing - Labs CBC & Chem 7: 03/22/20 06:01 03/22/20 06:01 Labs: Abnormal Lab Results - Last 24 Hours (Table) 03/22/20 03/22/20 03/22/20 Range/Units 11:32 16:29 20:17 POC Glucose (mg/dL) 145 H 182 H 157 H (75-99) mg/dL C-Reactive Protein (<10.0) mg/L 03/23/20 03/23/20 Range/Units 06:19 06:45 POC Glucose (mg/dL) 161 H (75-99) mg/dL C-Reactive Protein 66.2 H (<10.0) mg/L Microbiology - Last 24 Hours (Table) 03/19/20 09:46 Gram Stain - Preliminary Pericardial Fluid Body Fluid Culture - Preliminary 03/19/20 04:47 Blood Culture - Preliminary Blood No Growth after 72 hours Assessment and Plan Assessment: 1. Large generalized pericardial effusion with fibrinous stranding, status post subxiphoid pericardial window, pathology/cytology/cultures pending 2. Bacteremia with Serratia 3. Chronic systolic heart failure, nonischemic cardiomyopathy status post AICD placement in November 2019, EF 45-50% on transthoracic echocardiogram 4. Chronic atrial fibrillation on Eliquis for anticoagulation, currently sinus 5. Obstructive sleep apnea without CPAP use 6. Asthma 7. Morbid obesity 8. Family history of heart disease Plan: 1. Awaiting discontinuation of pericardial chest tube for pathology, cytology, culture results. 2. Encourage use of incentive spirometry 10 times every hour while awake. Bronchodilators, steroids per Dr. Cintron. 3. IV antibiotics per infectious disease 4. Pain management per current regimen. 5. GI and DVT prophylaxis. 6. Management of comorbid conditions per primary, pulmonology, cardiology 7. May transfer out of ICU from cardiothoracic surgery standpoint when okay with other services 8. More recommendations to follow Time with Patient: Greater than 30
[2020-03-23 07:50] LABS: Calcium 7.8 mg/dL (8.4-10.2); Potassium 4.4 mmol/L (3.5-5.1)
[2020-03-23] MEDS: ALBUTEROL HFA INHALER INHALATION SCH ×4 (07:59→20:15)
[2020-03-23] MEDS: ENOXAPARIN 40 MG/0.4 ML SYRINGE SQ SCH (08:00)
[2020-03-23] MEDS: CEFEPIME 2 GM in SODIUM CHLORIDE 0.9% 100 ML IVPB SCH ×2 (08:00→18:54)
[2020-03-23] MEDS: ASPIRIN 81 MG PO SCH (08:01)
[2020-03-23] MEDS: FUROSEMIDE 40 MG TAB PO SCH (08:01)
[2020-03-23] MEDS: METOPROLOL SUCCINATE (ER) 25 MG TAB.ER.24H PO SCH (08:01)
[2020-03-23] MEDS: methylPREDNISolone SOD SUCCI 40 MG/ML 1 ML VIAL IV SCH ×2 (08:01→20:52)
[2020-03-23] MEDS: PANTOPRAZOLE 40 MG TABLET PO SCH (08:01)
[2020-03-23] MEDS: COLCHICINE 0.6 MG EACH PO SCH (08:01)
[2020-03-23] MEDS: LORATADINE 10 MG TAB PO SCH (08:02)
--- NOTE | 2020-03-23 09:55 | P.PN ---
Subjective Progress Note Date: 03/23/20 Principal diagnosis: Failure to wean requiring extended vent support Serratia bacteremia, source likely pulmonary ID service following Moderate to large pericardial effusion with fibrinous stranding status post pericardial window Chronic systolic heart failure status post AICD ejection fraction most recent 45% Bilateral pleural effusion likely related to pericardial effusion 03/23/2020, patient sitting upright on the chair breathing comfortably denies any chest pain, patient is still have a chest tube, chest tube will be Probably for another day, patient is being planned for removal of AICD, followed by placement of life jacket, cultures and cytology still pending on pericardial fluid, hemodynamic stable patient is awaiting placement for medical floor with remote telemetry 03/22/2020, patient seen eval examined last reviewed medications reviewed care plan discussed, respiratory status remains stable, patient remains on room air, denies any chest pain, still have chest tube, no air leak is present, Domingo's catheter has been removed will DC the IV fluids increase activity as tolerated, cultures are pending including pericardial fluid repeat blood culture however has been negative initial were positive for Serratia, patient remains on the broad-spectrum antibiotics IV steroids, white cell count remains elevated but stable 13,000, patient can be moved out of the ICU 03/20/2020, patient is status post pericardial window, 500 mL of thick serous fluid has been removed, postop day #1, patient cannot be extubated as he was having intermittent mild clonus along with dependence on vasopressors and requiring sedation, patient was place placed on Precedex, the do the levo fed drip is gradually being tapered off, patient placed on CPAP of 5 pressure suppor t of 5 between parameters are reviewed arterial blood gas done successfully weaned and extubated, blood culture continued to grow gram-negative rods and second one however third appears to be negative so far Gram stain on pericardial fluid has been negative, white cell count hemoglobin remained stable, the renal functions improve a bit, she remains on broad-spectrum antibiotics with Cefepime, cytology on pericardial fluid and biopsies pending, postextubation will increase activity as tolerated patient has been off of pressors increase activity as tolerated we'll monitor overnight in ICU remains stable can be moved out of the ICU to [facility] with remote telemetry 03/19/2020, patient seen eval examined, patient is status post pericardial window from this morning, on ventilator, assist control rate of 16, tidal volume of 450 100% oxygen ABG reviewed patient is waking up now once awake will be placed on CPAP and pressure support of 5 and 5 with 40% oxygen, patient is on levo fed drip as well 0.04 will bring it down to 0.02 mics subsequently will DC it in the meantime we'll give a fluid bolus of 500 mL of LR as well, This is a 49-year-old gentleman with past medical history of chronic systolic congestive heart failure status post AICD placement, chronic atrial fibrillation on Eliquis for anticoagulation, obstructive sleep apnea without home CPAP use, asthma, morbid obesity, and family history of heart disease. Patient had a history of heart catheterization in March 2019 with demonstration of normal coronary arteries. He presented to [facility] emergency room yesterday with complaints of significant cough over the last couple of days. He denied any chest pain, but have exertional shortness of breath, denies any dizziness, fevers, or sick contacts. His Chest x-ray completed in the emergency room was limited due to his body habitus, it did demonstrate mild to moderate cardiomegaly, but no acute pulmonary process. Chest CTA was ordered which could not exclude pulmonary embolism, there was noted to be a moderate to large pericardial effusion with small bilateral pleural effusions. White blood cell count 9.0, hemoglobin 10.8, d-dimer 10.87, BUN 21, creatinine 1.63, troponin negative, LDH 675, C-reactive protein to 54.7, pro-calcitonin 15.69, lactic acid 1.3. He has remained afebrile, tachycardic in the low 100s, blood pressure has been variable. Covid 19 test was taken, pending. Transthoracic echocardiogram was completed demonstrating mildly impaired left ventricular systolic function with EF 45-50%, mildly enlarged right ventricle, normal aortic and mitral valve, mild tricuspid regurgitation with mild pulmonary hypertension, and moderate generalized pericardial effusion with fibrinous stranding noted in the pericardium. A VQ scan was also completed without evidence of acute pulmonary embolism. Patient has been eval by cardiothoracic surgery being planned for pericardial window for tomorrow, patient's blood culture also coming positive for Serratia has been on Maxipime Objective - Vital Signs Vital signs: Vital Signs Temp 97.5 F L 03/23/20 08:00 Pulse 75 03/23/20 08:00 Resp 20 03/23/20 08:00 BP 123/75 03/23/20 08:00 Pulse Ox 93 L 03/23/20 08:00 Intake & Output 03/22/20 03/23/20 03/23/20 18:59 06:59 18:59 Intake Total 950 100 Output Total 2185 Balance -1235 100 Weight 139.933 kg Intake: IV 950 100 Cefepime 2 gm In Sodium 200 100 Chloride 0.9% 100 ml @ 25 mls/hr IVPB Q8HR [facility] Rx# :[id number] Sodium Chloride 0.9% 1, 750 000 ml @ 75 mls/hr IV . [id number] [facility] Rx#:[id number] Output: Chest Tube Drainage 0 Chest Tube Mediastinal 0 Urine 2185 Other: Voiding Method Bedside Commode Bedside Commode # Voids 2 ABP, PAP, CO, CI - Last Documented Arterial Blood Pressure 102/64 - Exam - General well developed morbidly obese male, well nourished, no distress, no pain, obese intubated on ventilator being weaned - Eyes normal ocular movement - ENT no hearing loss - Neck no masses, no bruits, trachea midline - Respiratory Lungs sounds diminished bilaterally. Respirations even, nonlabored. Currently on 4 L nasal cannula oxygen saturation 95%. Strong dry cough. No chest wall deformities. No clubbing or cyanosis present. - Cardiovascular S1, S2 present. Tachycardic but regular rate and rhythm, sinus tach on telemetry. Palpable peripheral pulses bilaterally. No edema present. No calf pain or tenderness noted. - Abdomen Abdomen: soft, non tender, bowel sounds - Genitourinary Deferred - Rectum Deferred - Integumentary no rash, no growths - Neurologic normal coordination, normal sensation - Musculoskeletal normal posture - Psychiatric oriented to time, oriented to person, oriented to place, speech is normal, memory intact - Labs CBC & Chem 7: 03/23/20 06:19 03/23/20 06:19 Labs: Abnormal Lab Results - Last 24 Hours (Table) 03/22/20 03/22/20 03/22/20 Range/Units 11:32 16:29 20:17 WBC (3.8-10.6) k/uL RBC (4.30-5.90) m/uL Hgb (13.0-17.5) gm/dL Hct (39.0-53.0) % MCHC (31.0-37.0) g/dL Chloride (98-107) mmol/L Carbon Dioxide (22-30) mmol/L BUN (9-20) mg/dL Glucose (74-99) mg/dL POC Glucose (mg/dL) 145 H 182 H 157 H (75-99) mg/dL Calcium (8.4-10.2) mg/dL C-Reactive Protein (<10.0) mg/L 03/23/20 03/23/20 03/23/20 Range/Units 06:19 06:19 06:19 WBC 12.3 H (3.8-10.6) k/uL RBC 3.14 L (4.30-5.90) m/uL Hgb 8.4 L (13.0-17.5) gm/dL Hct 28.9 L (39.0-53.0) % MCHC 28.9 L (31.0-37.0) g/dL Chloride 111 H (98-107) mmol/L Carbon Dioxide 21 L (22-30) mmol/L BUN 21 H (9-20) mg/dL Glucose 155 H (74-99) mg/dL POC Glucose (mg/dL) (75-99) mg/dL Calcium 7.8 L (8.4-10.2) mg/dL C-Reactive Protein 66.2 H (<10.0) mg/L 03/23/20 Range/Units 06:45 WBC (3.8-10.6) k/uL RBC (4.30-5.90) m/uL Hgb (13.0-17.5) gm/dL Hct (39.0-53.0) % MCHC (31.0-37.0) g/dL Chloride (98-107) mmol/L Carbon Dioxide (22-30) mmol/L BUN (9-20) mg/dL Glucose (74-99) mg/dL POC Glucose (mg/dL) 161 H (75-99) mg/dL Calcium (8.4-10.2) mg/dL C-Reactive Protein (<10.0) mg/L Microbiology - Last 24 Hours (Table) 03/19/20 04:47 Blood Culture - Preliminary Blood No Growth after 96 hours 03/19/20 09:46 Gram Stain - Preliminary Pericardial Fluid Body Fluid Culture - Preliminary Assessment and Plan Assessment: Pericardial temponade, status post window Serratia bacteremia, source likely pulmonary ID service following Moderate to large pericardial effusion with fibrinous stranding status post pericardial window Chronic systolic heart failure status post AICD ejection fraction most recent 45% Bilateral pleural effusion likely related to pericardial effusion Morbid obesity obstructive sleep apnea Baseline COPD not in exacerbation Plan: IV fluid can be Hep-Lock Continue on room air up and about Increase activity as tolerated Once patient is stable can start by mouth Can be moved out of the ICU Continue antibiotics Status post Pericardial window For removal of AICD and chest tube later on today or tomorrow Deep breathing exercise incentive spirometry Maximize medical therapy for heart failure Follow-up on pericardial fluid cytology Further recommendations pending plan of care as per clinical response of the patient
[2020-03-23 11:52] LABS: Glucose,Whole Blood 131 mg/dL (75-99)
--- NOTE | 2020-03-23 12:49 | PN ---
PROGRESS NOTE Mr. Mccollum is a 49-year-old gentleman who is admitted to hospital with pericardial effusion, thought to be secondary to an infected AICD. He is going to have removal of the hardware. On exam, heart rate is 75 beats per minute. Blood pressure is 123/75, respiratory rate is 18, O2 saturation is 93%. He is afebrile. Chest exam reveals good air entry bilaterally. Heart exam reveals first and second heart sounds. No gallop. Exam of extremities did not reveal any edema. Peripheral pulses are felt. LABS: Show that his hemoglobin is 8.4, potassium is 4.4, creatinine is 1.1. ASSESSMENT: 1. Pericardial effusion. 2. Infected AICD. PLAN: Patient will undergo removal of the hardware today. MMODL / IJN: [id number] /
[2020-03-23] MEDS ORDERED: ceFAZolin 1,000 MG in SODIUM CHLORIDE 0.9% IRRIGATIO 250 ML IRRIGATION ONE (15:00)
--- NOTE | 2020-03-23 15:31 | PN ---
PROGRESS NOTE DATE OF SERVICE: 03/23/2020 REASON FOR FOLLOWUP: Serratia marcescens bacteremia with concern for possible AICD infection. INTERVAL HISTORY: The patient is currently afebrile. The patient is feeling better, breathing comfortably. He did have mild cough but no sputum, no nausea, no vomiting. No abdominal pain or diarrhea. PHYSICAL EXAMINATION: Blood pressure 135/89 with a pulse of 68, temperature 97.7. He is 94% on room air. General description is a middle-aged male up in the bed in no distress. RESPIRATORY SYSTEM: Unlabored breathing. Clear to auscultation anteriorly. HEART: S1, S2. Regular rate and rhythm. ABDOMEN: Soft. No tenderness. LABS: Hemoglobin 8. 5, white count 12.3. Creatinine is 1.17. Blood culture repeat is so far negative. DIAGNOSTIC IMPRESSION AND PLAN: Patient with Serratia marcescens bacteremia episode and concern for possible AICD infection, scheduled to be removed this afternoon. This should be sent for the cultures. Continue with the cefepime and will monitor clinical course closely. MMODL / IJN: [id number] /
--- NOTE | 2020-03-23 16:20 | P.PN ---
Progress Note - Text Diagnosis History of nonischemic cardiomyopathy with congestive heart failure status post single chamber ICD Recurrent bacteremia with Serratia No other obvious source We will remove ICD lead and generator today LifeVest for 3 months in the interim. While antibiotics are being administered and confirm that the bacteremia has been addressed Reassessment for subcutaneous ICD after 3 months when reconfirm the patient has no bacteremia Continue cardio myopathy medications
[2020-03-23] MEDS ORDERED: MIDAZOLAM 2 MG/2 ML VIAL ONE (16:36)
[2020-03-23] MEDS ORDERED: fentaNYL (PF) 50 MCG/ML 2 ML AMP ONE (16:36)
[2020-03-23] MEDS ORDERED: KETAMINE 10 MG/ML 20 ML VIAL ONE (16:36)
[2020-03-23] MEDS ORDERED: PROPOFOL 10 MG/ML 20 ML VIAL IV ONE (16:36)
[2020-03-23] MEDS ORDERED: IV FLUID CONTINUATION 1,000 ML IV ONE (16:36)
[2020-03-23] MEDS ORDERED: LIDOCAINE 1% INJ 10MG/ML (20 ML MDV) ONE ×2 (17:10→17:12)
[2020-03-23] MEDS ORDERED: LIDOCAINE 1% INJ 10MG/ML (20 ML MDV) SQ ONE (17:12)
--- NOTE | 2020-03-23 17:44 | P.PCN ---
Preoperative Diagnosis: Diagnosis Recurrent Serratia bacteremia despite IV antibiotics No clear-cut source Patient has an ICD No evidence for superficial skin infection or cellulitis No tenderness over the ICD site No swelling over the ICD site No evidence for pocket infection on examination THAIS was negative in the past However in view of recurrent bacteremia ICD explantation was recommended by ID. The patient has developed pansinusitis and systemic inflammation with high CRP and positive blood cultures for Serratia repeatedly Patient was brought to the EP lab in a fasting state with informed consent was obtained prior to the procedure the left shoulder area was prepped and draped as a protocol 1% lidocaine was used for local anesthesia a 4 cm incision was made parallel to the deltopectoral groove about 1.5 cm medial to it incision was carried down to level of the pectoralis muscle and the subfascial pocket was made hemostasis was assured. Procedures Level of the generator Generator was explanted There was no evidence for pocket infection Cultures were taken Tissue biopsy was taken for culture The lead is freed from the sonic soft tissue and from the lead sleeve and was carefully extracted Sutures applied around the access site to prevent backbleeding The pocket was irrigated antibiotic solution The wound is closed in 3 layers and dressed per protocol Procedure Surgeon ICD lead extraction Single-chamber ICD generator explantation Primary closure of the wound No clinical evidence for infection in the pocket or at the ICD lead insertion site Plan Restart carvedilol Restart ENTRESTO Restart all cardio myopathy medications In 12 days ELIQUIS should be started LifeVest for 3 months Form has been completed and is in the chart
--- NOTE | 2020-03-23 17:45 | P.PRLE ---
RE: Darek Mccollum Dear Chicho Mccollum underwent a extraction and ICD generator explant There was no evidence for pocket infection clinically nor was there any infection at the lead insertion site The entire system is been removed and hopefully his recurrent bacteremia will resolve On restarting his carvedilol and ENTRESTO and all his other cardio myopathy medications and he should go back on ELIQUIS in the next 1-2 days
[2020-03-23] MEDS ORDERED: HYDROcodone/APAP 5-325MG 1 EACH TAB PO PRN (17:46)
[2020-03-23] MEDS ORDERED: ACETAMINOPHEN TAB 325 MG TAB PO PRN (17:46)
[2020-03-23] MEDS ORDERED: ACETAMINOPHEN IV (For NPO) 1,000 MG in EMPTY BAG 1 BAG IVPB ONE (17:46)
[2020-03-23 18:52] LABS: Glucose,Whole Blood 127 mg/dL (75-99)
[2020-03-23] MEDS: carvediloL 3.125 MG TAB PO SCH (19:58)
[2020-03-23 20:47] LABS: Glucose,Whole Blood 138 mg/dL (75-99)
[2020-03-23] MEDS: SACUBITRIL/VALSARTAN 24 MG-26 MG TABLET PO SCH (22:34)
[2020-03-24] MEDS: CEFEPIME 2 GM in SODIUM CHLORIDE 0.9% 100 ML IVPB SCH ×4 (01:19→23:47)
[2020-03-24 07:02] LABS: Glucose,Whole Blood 139 mg/dL (75-99)
[2020-03-24] MEDS: INSULIN ASPART (NovoLOG) 100 UNIT/ML VIAL SQ SCH ×4 (07:03→21:32)
[2020-03-24] MEDS: ALBUTEROL HFA INHALER INHALATION SCH ×4 (07:40→20:27)
[2020-03-24] MEDS: ASPIRIN 81 MG PO SCH (09:16)
[2020-03-24] MEDS: ENOXAPARIN 40 MG/0.4 ML SYRINGE SQ SCH (09:16)
[2020-03-24] MEDS: carvediloL 3.125 MG TAB PO SCH ×2 (09:17→17:04)
[2020-03-24] MEDS: LORATADINE 10 MG TAB PO SCH (09:17)
[2020-03-24] MEDS: PANTOPRAZOLE 40 MG TABLET PO SCH (09:17)
[2020-03-24] MEDS: FUROSEMIDE 40 MG TAB PO SCH (09:17)
[2020-03-24] MEDS: COLCHICINE 0.6 MG EACH PO SCH (09:18)
[2020-03-24] MEDS: SACUBITRIL/VALSARTAN 24 MG-26 MG TABLET PO SCH ×2 (09:18→21:45)
--- NOTE | 2020-03-24 09:25 | P.PN ---
<Lupe Michaels - Last Filed: 03/24/20 09:12> Subjective Progress Note Date: 03/24/20 Principal diagnosis: Large pericardial effusion. Past medical history significant for chronic systolic congestive heart failure status post AICD placement in November 2019, chronic persistent atrial fibrillation on Eliquis for anticoagulation, obstructive sleep apnea without home CPAP use, asthma, morbid obesity and family history of heart disease. POD #5 subxiphoid pericardial window. The patient is currently sitting up in the recliner in the intensive care unit in no acute distress. Denies pain, shortness of breath. Remains hemodynamically stable. Medial chest tube remains in place to water seal with no output. Patient had ICD removed yesterday Objective - Vital Signs Vital signs: Vital Signs Temp 97.7 F 03/24/20 08:00 Pulse 96 03/24/20 08:00 Resp 18 03/24/20 08:00 BP 103/82 03/24/20 08:00 Pulse Ox 98 03/24/20 08:00 Intake & Output 03/23/20 03/24/20 03/24/20 18:59 06:59 18:59 Intake Total 400 350 Output Total 350 400 0 Balance 50 -50 0 Weight 138.3 kg Intake: IV 400 100 Cefepime 2 gm In Sodium 100 100 Chloride 0.9% 100 ml @ 25 mls/hr IVPB Q8HR [facility] Rx# :[id number] Oral 250 Output: Urine 350 400 0 Other: Voiding Method Bedside Commode Bedside Commode # Voids 0 ABP, PAP, CO, CI - Last Documented Arterial Blood Pressure 102/64 - Constitutional General appearance: Present: cooperative, morbidly obese, no acute distress - Respiratory Details: Lungs sounds diminished bilaterally. Respirations even, nonlabored. Currently on 2 LPM nasal cannula with oxygen saturation 98%. Able to achieve 1250 mL on his incentive spirometry. - Cardiovascular Details: S1, S2 present. Regular rate and rhythm, sinus rhythm on telemetry. Palpable peripheral pulses bilaterally. No edema present. No calf pain or tenderness noted. Medial chest tube present to waterseal, no drainage in the last 24 hours. - Gastrointestinal Gastrointestinal Comment(s): Abdomen soft, nontender, nondistended. Active bowel sounds present 4 quadrants. Tolerating diet. - Genitourinary Genitourinary Comment(s): Patient continues to void - Integumentary Integumentary Comment(s): Skin is warm and dry with evidence of good perfusion. Left anterior chest wall ICD site with dry, intact dressing - Neurologic Neurologic: Present: CNII-XII intact - Musculoskeletal Musculoskeletal: Present: gait normal, strength equal bilaterally - Psychiatric Psychiatric: Present: A&O x's 3, appropriate affect, intact judgment & insight - Allied health notes Allied health notes reviewed: nursing - Labs CBC & Chem 7: 03/23/20 06:19 03/23/20 06:19 Labs: Abnormal Lab Results - Last 24 Hours (Table) 03/23/20 03/23/20 03/23/20 Range/Units 11:50 18:51 20:46 POC Glucose (mg/dL) 131 H 127 H 138 H (75-99) mg/dL 03/24/20 Range/Units 07:00 POC Glucose (mg/dL) 139 H (75-99) mg/dL Microbiology - Last 24 Hours (Table) 03/19/20 04:47 Blood Culture - Preliminary Blood No Growth after 120 hours 03/22/20 06:01 Blood Culture - Preliminary Blood No Growth after 24 hours 03/23/20 17:20 Gram Stain - Preliminary Chest Tissue Culture - Preliminary 03/23/20 17:20 Gram Stain - Preliminary Chest Wound Culture - Preliminary 03/23/20 17:20 Anaerobic Culture - Preliminary Chest 03/23/20 17:20 Anaerobic Culture - Preliminary Chest 03/19/20 09:46 Anaerobic Culture - Final Pericardial Fluid 03/19/20 09:46 Gram Stain - Final Pericardial Fluid Body Fluid Culture - Final Assessment and Plan Assessment: 1. Large generalized pericardial effusion with fibrinous stranding, status post subxiphoid pericardial window, pathology/cytology pending, cultures with no growth 2. Bacteremia with Serratia 3. Chronic systolic heart failure, nonischemic cardiomyopathy status post AICD placement in November 2019, EF 45-50% on transthoracic echocardiogram 4. Chronic atrial fibrillation on Eliquis for anticoagulation, currently sinus 5. Obstructive sleep apnea without CPAP use 6. Asthma 7. Morbid obesity 8. Family history of heart disease Plan: 1. Pericardial chest tube discontinued without incident. 2. Encourage use of incentive spirometry 10 times every hour while awake. Bronchodilators, steroids per Dr. Cintron. 3. IV antibiotics per infectious disease 4. Pain management per current regimen. 5. GI and DVT prophylaxis. 6. Management of comorbid conditions per primary, pulmonology, cardiology 7. Patient may be discharged to home from cardiothoracic surgery standpoint when ok with other services. 8. Follow up appointment made for patient in cardiothoracic surgery office upon discharge. Please call with any further questions Time with Patient: Greater than 30 <Roberto Farrell - Last Filed: 03/31/20 14:11> Objective - Vital Signs Vital signs: Vital Signs Temp 97.6 F 03/26/20 06:48 Pulse 81 03/26/20 06:48 Resp 18 03/26/20 06:48 BP 124/86 03/26/20 06:48 Pulse Ox 93 L 03/26/20 06:48 ABP, PAP, CO, CI - Last Documented Arterial Blood Pressure 102/64 - Labs CBC & Chem 7: 03/26/20 07:01 03/26/20 07:01
[2020-03-24] MEDS: methylPREDNISolone SOD SUCCI 40 MG/ML 1 ML VIAL IV SCH ×2 (10:26→21:31)
--- NOTE | 2020-03-24 10:48 | P.PN ---
Subjective Progress Note Date: 03/24/20 Principal diagnosis: Failure to wean requiring extended vent support Serratia bacteremia, source likely pulmonary ID service following Moderate to large pericardial effusion with fibrinous stranding status post pericardial window Chronic systolic heart failure status post AICD ejection fraction most recent 45% Bilateral pleural effusion likely related to pericardial effusion 03/24/2020, patient seen eval examined during the rounds labs reviewed medications reviewed care plan discussed, denies any chest pain breathing comfortably has been on 3 due to oxygen FiO2 decreased to 2 L oxygen saturation remained stable 698%, patient is status post removal of AICD yesterday during the procedure got sedation, has been confused and disoriented major part of the night but this morning awake alert oriented 3 denies any specific complaints sitting upright on the chair breathing comfortably labs reviewed, 03/23/2020, patient sitting upright on the chair breathing comfortably denies any chest pain, patient is still have a chest tube, chest tube will be Probably for another day, patient is being planned for removal of AICD, followed by placement of life jacket, cultures and cytology still pending on pericardial fluid, hemodynamic stable patient is awaiting placement for medical floor with remote telemetry 03/22/2020, patient seen eval examined last reviewed medications reviewed care plan discussed, respiratory status remains stable, patient remains on room air, denies any chest pain, still have chest tube, no air leak is present, Domingo's catheter has been removed will DC the IV fluids increase activity as tolerated, cultures are pending including pericardial fluid repeat blood culture however has been negative initial were positive for Serratia, patient remains on the broad-spectrum antibiotics IV steroids, white cell count remains elevated but stable 13,000, patient can be moved out of the ICU 03/20/2020, patient is status post pericardial window, 500 mL of thick serous fluid has been removed, postop day #1, patient cannot be extubated as he was hav ing intermittent mild clonus along with dependence on vasopressors and requiring sedation, patient was place placed on Precedex, the do the levo fed drip is gradually being tapered off, patient placed on CPAP of 5 pressure support of 5 between parameters are reviewed arterial blood gas done successfully weaned and extubated, blood culture continued to grow gram-negative rods and second one however third appears to be negative so far Gram stain on pericardial fluid has been negative, white cell count hemoglobin remained stable, the renal functions improve a bit, she remains on broad-spectrum antibiotics with Cefepime, cytology on pericardial fluid and biopsies pending, postextubation will increase activity as tolerated patient has been off of pressors increase activity as tolerated we'll monitor overnight in ICU remains stable can be moved out of the ICU to [facility] with remote telemetry 03/19/2020, patient seen eval examined, patient is status post pericardial window from this morning, on ventilator, assist control rate of 16, tidal volume of 450 100% oxygen ABG reviewed patient is waking up now once awake will be placed on CPAP and pressure support of 5 and 5 with 40% oxygen, patient is on levo fed drip as well 0.04 will bring it down to 0.02 mics subsequently will DC it in the meantime we'll give a fluid bolus of 500 mL of LR as well, This is a 49-year-old gentleman with past medical history of chronic systolic congestive heart failure status post AICD placement, chronic atrial fibrillation on Eliquis for anticoagulation, obstructive sleep apnea without home CPAP use, asthma, morbid obesity, and family history of heart disease. Patient had a history of heart catheterization in March 2019 with demonstration of normal coronary arteries. He presented to [facility] emergency room yesterday with complaints of significant cough over the last couple of days. He denied any chest pain, but have exertional shortness of breath, denies any dizziness, fevers, or sick contacts. His Chest x-ray completed in the emergency room was limited due to his body habitus, it did demonstrate mild to moderate cardiomegaly, but no acute pulmonary process. Chest CTA was ordered which could not exclude pulmonary embolism, there was noted to be a moderate to large pericardial effusion with small bilateral pleural effusions. White blood cell count 9.0, hemoglobin 10.8, d-dimer 10.87, BUN 21, creatinine 1.63, troponin negative, LDH 675, C-reactive protein to 54.7, pro-calcitonin 15.69, lactic acid 1.3. He has remained afebrile, tachycardic in the low 100s, blood pressure has been variable. Covid 19 test was taken, pending. Transthoracic echocardiogram was completed demonstrating mildly impaired left ventricular systolic function with EF 45-50%, mildly enlarged right ventricle, normal aortic and mitral valve, mild tricuspid regurgitation with mild pulmonary hypertension, and moderate generalized pericardial effusion with fibrinous stranding noted in the pericardium. A VQ scan was also completed without evidence of acute pulmonary embolism. Patient has been eval by cardiothoracic surgery being planned for pericardial window for tomorrow, patient's blood culture also coming positive for Serratia has been on Maxipime Objective - Vital Signs Vital signs: Vital Signs Temp 97.7 F 03/24/20 08:00 Pulse 96 03/24/20 08:00 Resp 18 03/24/20 08:00 BP 103/82 03/24/20 08:00 Pulse Ox 98 03/24/20 08:00 Intake & Output 03/23/20 03/24/20 03/24/20 18:59 06:59 18:59 Intake Total 400 350 Output Total 350 400 0 Balance 50 -50 0 Weight 138.3 kg Intake: IV 400 100 Cefepime 2 gm In Sodium 100 100 Chloride 0.9% 100 ml @ 25 mls/hr IVPB Q8HR [facility] Rx# :[id number] Oral 250 Output: Urine 350 400 0 Other: Voiding Method Bedside Commode Bedside Commode # Voids 0 ABP, PAP, CO, CI - Last Documented Arterial Blood Pressure 102/64 - Exam - General well developed morbidly obese male, well nourished, no distress, no pain, obese intubated on ventilator being weaned - Eyes normal ocular movement - ENT no hearing loss - Neck no masses, no bruits, trachea midline - Respiratory Lungs sounds diminished bilaterally. Respirations even, nonlabored. Currently on 4 L nasal cannula oxygen saturation 95%. Strong dry cough. No chest wall deformities. No clubbing or cyanosis present. - Cardiovascular S1, S2 present. Tachycardic but regular rate and rhythm, sinus tach on telemetry. Palpable peripheral pulses bilaterally. No edema present. No calf pain or tenderness noted. - Abdomen Abdomen: soft, non tender, bowel sounds - Genitourinary Deferred - Rectum Deferred - Integumentary no rash, no growths - Neurologic normal coordination, normal sensation - Musculoskeletal normal posture - Psychiatric oriented to time, oriented to person, oriented to place, speech is normal, memory intact - Labs CBC & Chem 7: 03/23/20 06:19 03/23/20 06:19 Labs: Abnormal Lab Results - Last 24 Hours (Table) 03/23/20 03/23/20 03/23/20 Range/Units 11:50 18:51 20:46 POC Glucose (mg/dL) 131 H 127 H 138 H (75-99) mg/dL 03/24/20 Range/Units 07:00 POC Glucose (mg/dL) 139 H (75-99) mg/dL Microbiology - Last 24 Hours (Table) 03/19/20 04:47 Blood Culture - Preliminary Blood No Growth after 120 hours 03/22/20 06:01 Blood Culture - Preliminary Blood No Growth after 24 hours 03/23/20 17:20 Gram Stain - Preliminary Chest Tissue Culture - Preliminary 03/23/20 17:20 Gram Stain - Preliminary Chest Wound Culture - Preliminary 03/23/20 17:20 Anaerobic Culture - Preliminary Chest 03/23/20 17:20 Anaerobic Culture - Preliminary Chest 03/19/20 09:46 Anaerobic Culture - Final Pericardial Fluid 03/19/20 09:46 Gram Stain - Final Pericardial Fluid Body Fluid Culture - Final Assessment and Plan Assessment: Pericardial temponade, status post window Serratia bacteremia, source likely pulmonary ID service following Moderate to large pericardial effusion with fibrinous stranding status post pericardial window Chronic systolic heart failure status post AICD ejection fraction most recent 45%, status post removal of AICD Bilateral pleural effusion likely related to pericardial effusion Morbid obesity obstructive sleep apnea Baseline COPD not in exacerbation Plan: IV fluid can be Hep-Lock Continue on 2 L nasal cannula and wean down to room air up and about, keeping saturation of 92% or above Increase activity as tolerated Can be moved out of the ICU Continue antibiotics Status post Pericardial window and removal of AICD and chest tube Deep breathing exercise incentive spirometry Maximize medical therapy for heart failure Follow-up on pericardial fluid cytology Further recommendations pending plan of care as per clinical response of the patient Time with Patient: Greater than 30
[2020-03-24 12:17] LABS: Glucose,Whole Blood 94 mg/dL (75-99)
[2020-03-24 13:09] VITALS: BMI 49.1
--- NOTE | 2020-03-24 14:56 | PN ---
PROGRESS NOTE A 49-year-old gentleman is admitted to hospital with pericardial effusion, had infected hardware with pericardial effusion. He had large pericardial effusion and underwent a subxiphoid pericardial window. The hardware was removed yesterday. The chest tube was removed today. On exam, patient is afebrile. Heart rate is 90 beats per minute. Blood pressure is 102/80, respiratory rate 18. Chest exam reveals diminished air. Good air entry bilaterally. Heart exam reveals first and second heart sounds. No gallop. No murmur. No rub. Exam of extremities did not reveal any edema. Patient is currently on aspirin, Coreg, Lasix, insulin, and Entresto. ASSESSMENT: Status post infected AICD with pericardial effusion and removal of hardware. PLAN: Patient will have a life vest set up and will be discharged home after that. MMODL / IJN: [id number] /
--- NOTE | 2020-03-24 16:56 | PN ---
PROGRESS NOTE A 49-year-old white male, status post AICD removal yesterday with positive Serratia marcescens in the blood. Denies any chest pain, breathing difficulty. We set his oxygen down to 2 L, confused and disoriented major part of the night in morning, he is sitting up, breathing decent at this time. Temperature 97.7, pulse 90, respiratory rate 16 to 18, blood pressure 27375x, O2 saturation 98. CARDIOVASCULAR S1, S2. LUNGS: Clear. GI: Soft, distended, obesity. HEMATOLOGY: Negative Homans. PSYCH: Fair mood and affect. White count 12.3, hemoglobin 8.4, BUN 21, creatinine 1.17. Sugars in the mid 100. ASSESSMENT: Pericardial tamponade, status post window, Serratia bacteremia, large pericardial effusion, chronic systolic heart failure, bilateral perfusion, morbid obesity, sleep apnea, COPD. Continue on 2 L. Increase activity. Stay on antibiotics, possible move out of the ICU. Wait for Dr. Juarez's recommendations for long-term antibiotics. MMODL / IJN: [id number] /
--- NOTE | 2020-03-24 17:26 | PN ---
PROGRESS NOTE DATE OF SERVICE: 03/24/2020 REASON FOR FOLLOWUP: Serratia marcescens bacteremia. INTERVAL HISTORY: The patient is currently afebrile. The patient is feeling better. Breathing comfortably. Did have slight soreness in the chest from his AICD. Patient denies having any chest pain or cough. No abdominal pain, no diarrhea. PHYSICAL EXAMINATION: Blood pressure 130/83 with a pulse of 96, temperature is 97.5, he is 98% on 2 L nasal cannula. General description is a middle-aged male, up in the chair in no distress. RESPIRATORY SYSTEM: Unlabored breathing, clear to auscultation anteriorly. HEART: S1, S2. Regular rate and rhythm. ABDOMEN: Soft, no tenderness. LABS: Hemoglobin of 8.4, white count of 12.3, BUN of 21, creatinine 1.17. DIAGNOSTIC IMPRESSION AND PLAN: Patient with Serratia marcescens bacteremia. This has been a recurrent episode. Did have an extensive workup on last admission and no other obvious focus. Patient is covered with cefepime. AICD has been removed. Will get a PICC line and continue with IV cefepime, . Will watch clinical response and continue supportive care. MMODL / IJN: [id number] /
[2020-03-24 17:46] LABS: Glucose,Whole Blood 146 mg/dL (75-99)
[2020-03-24 21:16] LABS: Glucose,Whole Blood 188 mg/dL (75-99)
[2020-03-25 07:07] LABS: Glucose,Whole Blood 135 mg/dL (75-99)
[2020-03-25] MEDS: INSULIN ASPART (NovoLOG) 100 UNIT/ML VIAL SQ SCH ×4 (07:24→20:28)
[2020-03-25] MEDS: LORATADINE 10 MG TAB PO SCH (08:23)
[2020-03-25] MEDS: ASPIRIN 81 MG PO SCH (08:23)
[2020-03-25] MEDS: carvediloL 3.125 MG TAB PO SCH ×2 (08:23→17:04)
[2020-03-25] MEDS: PANTOPRAZOLE 40 MG TABLET PO SCH (08:24)
[2020-03-25] MEDS: SACUBITRIL/VALSARTAN 24 MG-26 MG TABLET PO SCH ×2 (08:24→20:28)
[2020-03-25] MEDS: methylPREDNISolone SOD SUCCI 40 MG/ML 1 ML VIAL IV SCH ×2 (08:24→20:28)
[2020-03-25] MEDS: ENOXAPARIN 40 MG/0.4 ML SYRINGE SQ SCH (08:25)
[2020-03-25] MEDS: COLCHICINE 0.6 MG EACH PO SCH (08:26)
[2020-03-25] MEDS: CEFEPIME 2 GM in SODIUM CHLORIDE 0.9% 100 ML IVPB SCH ×3 (08:26→23:28)
[2020-03-25] MEDS: FUROSEMIDE 40 MG TAB PO SCH (08:37)
[2020-03-25] MEDS: ALBUTEROL HFA INHALER INHALATION SCH ×4 (08:43→20:06)
--- NOTE | 2020-03-25 09:17 | CDI ---
Documentation Clarification Form Date: 03/25/2020 CDS: Rosa August RN, CCDS Admit Date: 03/17/2020 Patient Name: Darek Mccollum ATTENTION: The Clinical Documentation Specialists (CDI) and [facility] Coding Staff appreciate your assistance in clarifying documentation. Please respond to the clarification below the line at the bottom and electronically sign. The CDI & [facility] Coding staff will review the response and follow-up if needed. Please note: Queries are made part of the Legal Health Record. If you have any questions, please contact the author of this message via ITS. Dr. Ryan, The patient is described as confused and disoriented in your progress note 03/24/20 History/Risk Factors: 49-year-old male presents to the ED with cough and shortness of breath. Medical History: Systolic CHF; COPD; Sleep Apnea, Asthma and AICD Placement 11/719. Clinical Indicators: VSS 03/23 18:52 B/P: 128/69; RR: 16; SpO2: 96% 3l Nasal cannula 03/24 00:00 B/P: 92/62; HR: 52; Temp 97.1 F; RR: 12; SpO2: 95% 4L nasal cannula Labs: 03/17 Blood Culture: Serratia marcescens 03/23 Wbc 12.3; CRP 66.2 03/22 CXR- Cardiomegaly with small left pleural effusion and associated left base atelectasis and/or infiltrate. Treatment:03/18 Cefepime Ivpb, 03/23 ICD generator explanation. 03/23 Cefazolin Iv x1, 03/23 Entresto po bid, In your professional opinion, please clarify the etiology of the Altered Mental Status, if known. Metabolic Encephalopathy (Underlying Medical Illness) Encephalopathy (specify Type and Underlying Medical Illness) Other condition (please specify) Unable to determine (Last Revision: October 2017) MTDD
[2020-03-25] MEDS: NOREPINEPHRINE 4 MG in SODIUM CHLORIDE 0.9% 250 ML IV SCH (09:42)
[2020-03-25 11:54] LABS: Glucose,Whole Blood 120 mg/dL (75-99)
--- NOTE | 2020-03-25 13:56 | P.PN ---
Subjective HISTORY OF PRESENTING ILLNESS This is a pleasant 49-year-old male past medical history significant for cardiomyopathy s/p pericardial window lead extraction and explant. He follows in the office with Dr. Reddy. He is seen and examined sitting up in the chair eating breakfast. He denies symptoms of chest pain, shortness of breath, dizziness or palpitations. LifeVest is in place. Blood pressure 127/85 heart rate 110 maintaining oxygen saturation on room air. Currently maintained on aspirin 81 mg daily, carvedilol 3.125 mg twice a day, Lasix 40 mg daily and Entresto 24/26 mg twice a day. Awaiting PICC line placement for outpatient IV antibiotics. PHYSICAL EXAMINATION CONSTITUTIONAL: No apparent distress. HEENT: Head is normocephalic. Pupils are equal, round. Sclerae anicteric. Mucous membranes of the mouth are moist. No JVD. No carotid bruit. CHEST EXAMINATION: Lungs are clear to auscultation. No chest wall tenderness is noted on palpation or with deep breathing. HEART EXAMINATION: Regular rate and rhythm. S1, S2 heard. No murmurs, gallops or rub. EXTREMITIES: 2+ peripheral pulses, no lower extremity edema and no calf tenderness. ASSESSMENT Nonischemic cardiomyopathy Recurrent bacteremia Status post infected AICD with pericardial effusion and removal of hardware Pericardial effusion status post pericardial window Chronic systolic heart failure Paroxysmal atrial fibrillation on long-term anticoagulation Morbid obesity, BMI 49 Obstructive sleep apnea PLAN Stable on current medical regimen. Follow up with Dr. Reddy upon discharge. We will follow along as needed, please call with further questions or concerns. Nurse Practitioner note has been reviewed, I agree with a documented findings and plan of care. Patient was seen and examined. Objective - Vital Signs Vital signs: Vital Signs Temp 97.7 F 03/25/20 08:14 Pulse 110 H 03/25/20 08:14 Resp 15 03/25/20 08:14 BP 127/85 03/25/20 08:14 Pulse Ox 94 L 03/25/20 08:14 Intake & Output 03/24/20 03/25/20 03/25/20 18:59 06:59 18:59 Intake Total 396 100 Output Total 0 Balance 396 100 Weight 138.3 kg Intake: IV 100 100 Cefepime 2 gm In Sodium 100 100 Chloride 0.9% 100 ml @ 25 mls/hr IVPB Q8HR [facility] Rx# :[id number] Oral 296 Output: Urine 0 Other: Voiding Method Bedside Commode Urinal # Voids 4 2 1 # Bowel Movements 1 ABP, PAP, CO, CI - Last Documented Arterial Blood Pressure 102/64 - Labs CBC & Chem 7: 03/23/20 06:19 03/23/20 06:19 Labs: Abnormal Lab Results - Last 24 Hours (Table) 03/24/20 03/24/20 03/25/20 Range/Units 17:45 21:13 07:05 POC Glucose (mg/dL) 146 H 188 H 135 H (75-99) mg/dL 03/25/20 Range/Units 11:47 POC Glucose (mg/dL) 120 H (75-99) mg/dL Microbiology - Last 24 Hours (Table) 03/19/20 04:47 Blood Culture - Final Blood No Growth after 144 hours 03/22/20 06:01 Blood Culture - Preliminary Blood No Growth after 48 hours 03/23/20 17:20 Gram Stain - Preliminary Chest Wound Culture - Preliminary 03/23/20 17:20 Gram Stain - Preliminary Chest Tissue Culture - Preliminary
[2020-03-25 16:59] LABS: Glucose,Whole Blood 140 mg/dL (75-99)
[2020-03-25 20:05] LABS: Glucose,Whole Blood 135 mg/dL (75-99)
--- NOTE | 2020-03-25 23:14 | PN ---
PROGRESS NOTE A white male who is on medical floor now out of the ICU, soreness in his chest from having his AICD removed. Still has a slight cough. No chest pain. Temperature 97.5, O2 is 98 on 2 L, blood pressure 130/83. HEMATOLOGY: Negative Homans. Hemoglobin is 8.4, white count 12.3, BUN is 21, creatinine 1.7. Serratia bacteremia cover with cefepime. AICD removed. Get a PICC line. Continue IV cefepime. Wait for cultures of the AICD. Continue with cardiac treatment for systolic CHF and atrial fibrillation. Prognosis guarded. MMODL / IJN: [id number] /
--- NOTE | 2020-03-25 23:19 | PN ---
PROGRESS NOTE DATE OF SERVICE: 03/25/2020 REASON FOR FOLLOWUP: Serratia marcescens bacteremia. INTERVAL HISTORY: The patient is currently afebrile, has been breathing comfortably. The patient denies having any chest pain, shortness of breath. Occasional cough. No nausea, no vomiting. No abdominal pain or diarrhea. PHYSICAL EXAMINATION: Blood pressure is 121/77 with a pulse of 115, temperature 97.7. He is 94% on room air. General description is a middle-aged male lying in bed in no distress. RESPIRATORY SYSTEM: Unlabored breathing, decreased breath sounds at bases. No wheeze. HEART: S1, S2. Regular rate and rhythm. ABDOMEN: Soft, no tenderness. LABS: No new labs have been obtained today. DIAGNOSTIC IMPRESSION AND PLAN: Patient with Serratia marcescens bacteremia with concern for possible which has been discontinued. So far those cultures are pending. Blood culture repeat has been negative. He will get a PICC line has he needs at least 2 to 4 weeks of antibiotic depending upon clinical response and continue supportive care. MMODL / IJN: [id number] /
[2020-03-26 07:06] LABS: Glucose,Whole Blood 138 mg/dL (75-99)
[2020-03-26] MEDS: INSULIN ASPART (NovoLOG) 100 UNIT/ML VIAL SQ SCH ×3 (07:23→16:58)
[2020-03-26] MEDS: methylPREDNISolone SOD SUCCI 40 MG/ML 1 ML VIAL IV SCH (07:24)
[2020-03-26] MEDS: FUROSEMIDE 40 MG TAB PO SCH (07:24)
[2020-03-26] MEDS: ASPIRIN 81 MG PO SCH (07:24)
[2020-03-26] MEDS: LORATADINE 10 MG TAB PO SCH (07:24)
[2020-03-26] MEDS: PANTOPRAZOLE 40 MG TABLET PO SCH (07:24)
[2020-03-26] MEDS: carvediloL 3.125 MG TAB PO SCH ×2 (07:25→16:58)
[2020-03-26] MEDS: CEFEPIME 2 GM in SODIUM CHLORIDE 0.9% 100 ML IVPB SCH ×2 (07:25→16:05)
[2020-03-26] MEDS: SACUBITRIL/VALSARTAN 24 MG-26 MG TABLET PO SCH (07:25)
[2020-03-26] MEDS: COLCHICINE 0.6 MG EACH PO SCH (07:26)
[2020-03-26 07:41] LABS: Anisocytosis Slight; Basophils # (A) 0.1 k/uL (0-0.2); Basophils % (A) 1 %; Eosinophils # (A) 0.1 k/uL (0-0.7); Eosinophils % (A) 0 %; HCT 33.9 % (39.0-53.0); HGB 10.6 gm/dL (13.0-17.5); Hypochromasia Moderate; Lymphocytes # (A) 1.6 k/uL (1.0-4.8); Lymphocytes % (A) 10 %; MCHC 31.1 g/dL (31.0-37.0); Mean Platelet Volume 8.1; Monocytes # (A) 0.5 k/uL (0-1.0); Monocytes % (A) 3 %; Neutrophils # (A) 12.9 k/uL (1.3-7.7); Neutrophils % (A) 85 %; Platelet Count 353 k/uL (150-450); RBC 3.91 m/uL (4.30-5.90); RDW 16.9 % (11.5-15.5); WBC 15.2 k/uL (3.8-10.6)
[2020-03-26 07:43] LABS: MCV 86.7 fL (80.0-100.0)
[2020-03-26 07:45] VITALS: BP 124/86; PULSE 81; RESP 18
[2020-03-26] MEDS: ENOXAPARIN 40 MG/0.4 ML SYRINGE SQ SCH (07:51)
[2020-03-26] MEDS: ALBUTEROL HFA INHALER INHALATION SCH ×5 (09:10→20:34)
[2020-03-26 10:26] LABS: Prothrombin Time 10.7 sec (9.9-11.9)
[2020-03-26 10:40] LABS: Albumin 3.6 g/dL (3.80-4.90); Albumin/Globulin Ratio 1.33 (1.60-3.17); Anion Gap 8.1 mmol/L (4.00-12.00); Calcium 8.8 mg/dL (8.7-10.3); Carbon Dioxide 29.9 mmol/L (21.6-31.8); Globulin 2.7 g/dL (1.6-3.3); Non-African American GFR(CKD) 71.6 (60.0-200.0); Potassium 4.2 mmol/L (3.5-5.5); Total Bilirubin 0.8 mg/dL (0.3-1.2); Total Protein 6.3 g/dL (6.2-8.2)
--- NOTE | 2020-03-26 11:15 | PN ---
PROGRESS NOTE ADDENDUM: Please add: Sepsis was ruled in due to Serratia Wendy bacteremia from AICD, most likely. MMODL / IJN: [id number] /
[2020-03-26 11:28] LABS: Glucose,Whole Blood 121 mg/dL (75-99)
--- NOTE | 2020-03-26 14:19 | CDI ---
Documentation Clarification Form Date: 03/25/2020 CDS: Rosa August RN, CCDS Admit Date: 03/17/2020 Patient Name: Darek Mccollum ATTENTION: The Clinical Documentation Specialists (CDI) and [facility] Coding Staff appreciate your assistance in clarifying documentation. Please respond to the clarification below the line at the bottom and electronically sign. The CDI & [facility] Coding staff will review the response and follow-up if needed. Please note: Queries are made part of the Legal Health Record. If you have any questions, please contact the author of this message via ITS. Dr. Ryan, The patient is described as confused and disoriented in your progress note 03/24/20 History/Risk Factors: 49-year-old male presents to the ED with cough and shortness of breath. Medical History: Systolic CHF; COPD; Sleep Apnea, Asthma and AICD Placement 11/719. Clinical Indicators: VSS 03/23 18:52 B/P: 128/69; RR: 16; SpO2: 96% 3l Nasal cannula 03/24 00:00 B/P: 92/62; HR: 52; Temp 97.1 F; RR: 12; SpO2: 95% 4L nasal cannula Labs: 03/17 Blood Culture: Serratia marcescens 03/23 Wbc 12.3; CRP 66.2 03/22 CXR- Cardiomegaly with small left pleural effusion and associated left base atelectasis and/or infiltrate. Treatment:03/18 Cefepime Ivpb, 03/23 ICD generator explanation. 03/23 Cefazolin Iv x1, 03/23 Entresto po bid, In your professional opinion, please clarify the etiology of the Altered Mental Status, if known. Metabolic Encephalopathy (Underlying Medical Illness) Encephalopathy (specify Type and Underlying Medical Illness) Encephalopathy Ruled Out Other condition (please specify) Unable to determine (Last Revision: October 2017) MTDD
[2020-03-26] MEDS ORDERED: LIDOCAINE 1% INJ 10MG/ML (20 ML MDV) ONE (14:23)
[2020-03-26] MEDS ORDERED: LIDOCAINE 1% INJ 10MG/ML (20 ML MDV) SQ ONE (14:37)
--- NOTE | 2020-03-26 15:01 | P.PN ---
Subjective Progress Note Date: 03/26/20 Principal diagnosis: Failure to wean requiring extended vent support Serratia bacteremia, source likely pulmonary ID service following Moderate to large pericardial effusion with fibrinous stranding status post pericardial window Chronic systolic heart failure status post AICD ejection fraction most recent 45% Bilateral pleural effusion likely related to pericardial effusion 03/26/2020, patient seen eval examined during the rounds labs reviewed medications reviewed care plan discussed, patient is status post PICC line and being planned for outpatient antibiotic therapy, denies any specific complaints, white cell count slightly up, oxygen saturation 93-98% on room air 03/24/2020, patient seen eval examined during the rounds labs reviewed medications reviewed care plan discussed, denies any chest pain breathing comfortably has been on 3 due to oxygen FiO2 decreased to 2 L oxygen saturation remained stable 698%, patient is status post removal of AICD yesterday during the procedure got sedation, has been confused and disoriented major part of the night but this morning awake alert oriented 3 denies any specific complaints sitting upright on the chair breathing comfortably labs reviewed, 03/23/2020, patient sitting upright on the chair breathing comfortably denies any chest pain, patient is still have a chest tube, chest tube will be Probably for another day, patient is being planned for removal of AICD, followed by placement of life jacket, cultures and cytology still pending on pericardial fluid, hemodynamic stable patient is awaiting placement for medical floor with remote telemetry 03/22/2020, patient seen eval examined last reviewed medications reviewed care plan discussed, respiratory status remains stable, patient remains on room air, denies any chest pain, still have chest tube, no air leak is present, Domingo's catheter has been removed will DC the IV fluids increase activity as tolerated, cultures are pending including pericardial fluid repeat blood culture however has been negative initial were positive for Serratia, patient remains on the broad-spectrum antibiotics IV steroids, white cell count remains elevated but stable 13,000, patient can be moved out of the ICU 03/20/2020, patient is status post pericardial window, 500 mL of thick serous fluid has been removed, postop day #1, patient cannot be extubated as he was having intermittent mild clonus along with dependence on vasopressors and requiring sedation, patient was place placed on Precedex, the do the levo fed drip is gradually being tapered off, patient placed on CPAP of 5 pressure support of 5 between parameters are reviewed arterial blood gas done successfu lly weaned and extubated, blood culture continued to grow gram-negative rods and second one however third appears to be negative so far Gram stain on pericardial fluid has been negative, white cell count hemoglobin remained stable, the renal functions improve a bit, she remains on broad-spectrum antibiotics with Cefepime, cytology on pericardial fluid and biopsies pending, postextubation will increase activity as tolerated patient has been off of pressors increase activity as tolerated we'll monitor overnight in ICU remains stable can be moved out of the ICU to [facility] with remote telemetry 03/19/2020, patient seen eval examined, patient is status post pericardial window from this morning, on ventilator, assist control rate of 16, tidal volume of 450 100% oxygen ABG reviewed patient is waking up now once awake will be placed on CPAP and pressure support of 5 and 5 with 40% oxygen, patient is on levo fed drip as well 0.04 will bring it down to 0.02 mics subsequently will DC it in the meantime we'll give a fluid bolus of 500 mL of LR as well, This is a 49-year-old gentleman with past medical history of chronic systolic congestive heart failure status post AICD placement, chronic atrial fibrillation on Eliquis for anticoagulation, obstructive sleep apnea without home CPAP use, asthma, morbid obesity, and family history of heart disease. Patient had a history of heart catheterization in March 2019 with demonstration of normal coronary arteries. He presented to [facility] emergency room yesterday with complaints of significant cough over the last couple of days. He denied any chest pain, but have exertional shortness of breath, denies any dizziness, fevers, or sick contacts. His Chest x-ray completed in the emergency room was limited due to his body h abitus, it did demonstrate mild to moderate cardiomegaly, but no acute pulmonary process. Chest CTA was ordered which could not exclude pulmonary embolism, there was noted to be a moderate to large pericardial effusion with small bilateral pleural effusions. White blood cell count 9.0, hemoglobin 10.8, d- dimer 10.87, BUN 21, creatinine 1.63, troponin negative, LDH 675, C-reactive protein to 54.7, pro-calcitonin 15.69, lactic acid 1.3. He has remained afebrile, tachycardic in the low 100s, blood pressure has been variable. Covid 19 test was taken, pending. Transthoracic echocardiogram was completed demonstrating mildly impaired left ventricular systolic function with EF 45-50%, mildly enlarged right ventricle, normal aortic and mitral valve, mild tricuspid regurgitation with mild pulmonary hypertension, and moderate generalized pericardial effusion with fibrinous stranding noted in the pericardium. A VQ scan was also completed without evidence of acute pulmonary embolism. Patient has been eval by cardiothoracic surgery being planned for pericardial window for tomorrow, patient's blood culture also coming positive for Serratia has been on Maxipime Objective - Vital Signs Vital signs: Vital Signs Temp 97.6 F 03/26/20 06:48 Pulse 81 03/26/20 06:48 Resp 18 03/26/20 06:48 BP 124/86 03/26/20 06:48 Pulse Ox 93 L 03/26/20 06:48 Intake & Output 03/25/20 03/26/20 03/26/20 18:59 06:59 18:59 Intake Total 296 Balance 296 Intake: Oral 296 Other: Voiding Method Toilet Urinal # Voids 1 1 1 ABP, PAP, CO, CI - Last Documented Arterial Blood Pressure 102/64 - Exam - General well developed morbidly obese male, well nourished, no distress, no pain, obese intubated on ventilator being weaned - Eyes normal ocular movement - ENT no hearing loss - Neck no masses, no bruits, trachea midline - Respiratory Lungs sounds diminished bilaterally. Respirations even, nonlabored. Currently on 4 L nasal cannula oxygen saturation 95%. Strong dry cough. No chest wall deformities. No clubbing or cyanosis present. - Cardiovascular S1, S2 present. Tachycardic but regular rate and rhythm, sinus tach on telemetry. Palpable peripheral pulses bilaterally. No edema present. No calf pain or tenderness noted. - Abdomen Abdomen: soft, non tender, bowel sounds - Genitourinary Deferred - Rectum Deferred - Integumentary no rash, no growths - Neurologic normal coordination, normal sensation - Musculoskeletal normal posture - Psychiatric oriented to time, oriented to person, oriented to place, speech is normal, memory intact - Labs CBC & Chem 7: 03/26/20 07:01 03/26/20 07:01 Labs: Abnormal Lab Results - Last 24 Hours (Table) 03/25/20 03/25/20 03/26/20 Range/Units 16:57 20:03 06:46 WBC (3.8-10.6) k/uL RBC (4.30-5.90) m/uL Hgb (13.0-17.5) gm/dL Hct (39.0-53.0) % RDW (11.5-15.5) % Neutrophils # (1.3-7.7) k/uL Glucose (70-110) mg/dL POC Glucose (mg/dL) 140 H 135 H 138 H (75-99) mg/dL AST (14-35) U/L ALT (10-49) U/L Albumin (3.80-4.90) g/dL Albumin/Globulin Ratio (1.60-3.17) g/dL 03/26/20 03/26/20 03/26/20 Range/Units 07:01 07:01 11:25 WBC 15.2 H (3.8-10.6) k/uL RBC 3.91 L (4.30-5.90) m/uL Hgb 10.6 L (13.0-17.5) gm/dL Hct 33.9 L (39.0-53.0) % RDW 16.9 H (11.5-15.5) % Neutrophils # 12.9 H (1.3-7.7) k/uL Glucose 117 H (70-110) mg/dL POC Glucose (mg/dL) 121 H (75-99) mg/dL AST 70 H (14-35) U/L ALT 95 H (10-49) U/L Albumin 3.60 L (3.80-4.90) g/dL Albumin/Globulin Ratio 1.33 L (1.60-3.17) g/dL Microbiology - Last 24 Hours (Table) 03/22/20 06:01 Blood Culture - Preliminary Blood No Growth after 72 hours 03/23/20 17:20 Gram Stain - Final Chest Wound Culture - Final Assessment and Plan Assessment: Pericardial temponade, status post window Serratia bacteremia, source likely pulmonary ID service following Moderate to large pericardial effusion with fibrinous stranding status post pericardial window Chronic systolic heart failure status post AICD ejection fraction most recent 45%, status post removal of AICD Bilateral pleural effusion likely related to pericardial effusion Morbid obesity obstructive sleep apnea Baseline COPD not in exacerbation Plan: IV fluid can be Hep-Lock Continue on room air up and about, keeping saturation of 92% or above Increase activity as tolerated Continue antibiotics Status post Pericardial window and removal of AICD and chest tube Deep breathing exercise incentive spirometry Maximize medical therapy for heart failure Follow-up on pericardial fluid cytology Further recommendations pending plan of care as per clinical response of the patient Agree with discharge planning and follow-up in outpatient races severe sleep study can be performed Time with Patient: Greater than 30
--- NOTE | 2020-03-26 16:17 | IR ---
EXAMINATION TYPE: IR cvc insert >=5 years DATE OF EXAM: 03/26/2020 COMPARISON: NONE CLINICAL HISTORY: Infection Needs long-term intravenous access for antibiotics. PROCEDURE: Hand hygiene obtained with soap and water and alcohol-based hand rub. After informed consent, the skin overlying the right cephalic vein with indwelling midline catheter w as prepped and draped. The overlying skin was prepped and draped and Lidocaine was used for local an esthesia. A skin jazmín was made with a scalpel. Access was gained to the catheter with a 0.018 inch wire was advanced. Access site was dilated with Peel-Away sheath and catheter tailored to the approp riate length and advanced such that the distal tip is at the cavoatrial junction. Spot image was obt ained verifying placement. Catheter was fixed to the skin and a sterile dressing was placed followin g hemostasis. Catheter was aspirated and flushed with saline. Patient was discharged in stable cond ition without complication.Maximal barrier technique is utilized. Fluoro time and fluoroscopic images submitted to document procedure: 0.4 minutes fluoroscopy time, 58 images obtained IMPRESSION: STATUS POST PICC line placement via midline access, this procedure performed at [facility] ed.
--- NOTE | 2020-03-26 16:26 | PN ---
PROGRESS NOTE DATE OF SERVICE: 03/26/2020 REASON FOR FOLLOWUP: Serratia marcescens bacteremia. INTERVAL HISTORY: The patient is currently afebrile. The patient is feeling better, breathing comfortably. The patient denies having any chest pain or shortness of breath. Minimal cough. No nausea, no vomiting. No abdominal pain or diarrhea. PHYSICAL EXAMINATION: Blood pressure 124/86, pulse of 81, temperature 97.6. He is 93% on room air. General description is a middle-aged male up in the chair in no distress. RESPIRATORY SYSTEM: Unlabored breathing with decreased breath sounds at the base. No wheeze. HEART: S1, S2. Regular rate and rhythm. ABDOMEN: Soft. No tenderness. LABS: Hemoglobin is 10.6, white count 15.2, BUN of 24, creatinine 1.2. Blood cultures and chest wall culture have been negative so far. DIAGNOSTIC IMPRESSION AND PLAN: Patient with Serratia marcescens bacteremia recurrent episode with concern for possible AICD infection the patient did have extensive workup on his last admission that was negative. Plan at this time is to continue cefepime 2 grams q.8 hours for at least 4-6 weeks, depending on clinical response. Will monitor his clinical course closely. Questions and concerns were answered. MMODL / IJN: [id number] /
[2020-03-26 16:40] LABS: Glucose,Whole Blood 140 mg/dL (75-99)
[2020-03-26 16:43] VITALS: TEMP 97.6
--- NOTE | 2020-03-29 08:34 | CDI ---
Documentation Clarification Form Date: 03/25/2020 CDS: Rosa August RN, CCDS Admit Date: 03/17/2020 Patient Name: Darek Mccollum ATTENTION: The Clinical Documentation Specialists (CDI) and [facility] Coding Staff appreciate your assistance in clarifying documentation. Please respond to the clarification below the line at the bottom and electronically sign. The CDI & [facility] Coding staff will review the response and follow-up if needed. Please note: Queries are made part of the Legal Health Record. If you have any questions, please contact the author of this message via ITS. Dr. Ryan, The patient is described as confused and disoriented in your progress note 03/24/20 History/Risk Factors: 49-year-old male presents to the ED with cough and shortness of breath. Medical History: Systolic CHF; COPD; Sleep Apnea, Asthma and AICD Placement 11/719. Clinical Indicators: VSS 03/23 18:52 B/P: 128/69; RR: 16; SpO2: 96% 3l Nasal cannula 03/24 00:00 B/P: 92/62; HR: 52; Temp 97.1 F; RR: 12; SpO2: 95% 4L nasal cannula Labs: 03/17 Blood Culture: Serratia marcescens 03/23 Wbc 12.3; CRP 66.2 03/22 CXR- Cardiomegaly with small left pleural effusion and associated left base atelectasis and/or infiltrate. Treatment:03/18 Cefepime Ivpb, 03/23 ICD generator explanation. 03/23 Cefazolin Iv x1, 03/23 Entresto po bid, In your professional opinion, please clarify the etiology of the Altered Mental Status, if known. Metabolic Encephalopathy (Underlying Medical Illness) Encephalopathy (specify Type and Underlying Medical Illness) Encephalopathy Ruled Out Other condition (please specify) Unable to determine (Last Revision: October 2017) MTDD
--- NOTE | 2020-04-01 12:18 | CDI ---
Documentation Clarification Form Date: 03/25/2020 CDS: Rosa August RN, CCDS Admit Date: 03/17/2020 Patient Name: Darek Mccollum ATTENTION: The Clinical Documentation Specialists (CDI) and [facility] Coding Staff appreciate your assistance in clarifying documentation. Please respond to the clarification below the line at the bottom and electronically sign. The CDI & [facility] Coding staff will review the response and follow-up if needed. Please note: Queries are made part of the Legal Health Record. If you have any questions, please contact the author of this message via ITS. Dr. Ryan, The patient is described as confused and disoriented in your progress note 03/24/20 History/Risk Factors: 49-year-old male presents to the ED with cough and shortness of breath. Medical History: Systolic CHF; COPD; Sleep Apnea, Asthma and AICD Placement 11/719. Clinical Indicators: VSS 03/23 18:52 B/P: 128/69; RR: 16; SpO2: 96% 3l Nasal cannula 03/24 00:00 B/P: 92/62; HR: 52; Temp 97.1 F; RR: 12; SpO2: 95% 4L nasal cannula Labs: 03/17 Blood Culture: Serratia marcescens 03/23 Wbc 12.3; CRP 66.2 03/22 CXR- Cardiomegaly with small left pleural effusion and associated left base atelectasis and/or infiltrate. Treatment:03/18 Cefepime Ivpb, 03/23 ICD generator explantation. 03/23 Cefazolin Iv x1, 03/23 Entresto po bid, In your professional opinion, please clarify the etiology of the Altered Mental Status, if known. Metabolic Encephalopathy (Underlying Medical Illness) Encephalopathy (specify Type and Underlying Medical Illness) Encephalopathy Ruled Out Other condition (please specify) Unable to determine (Last Revision: October 2017) MTDD
--- NOTE | 2020-04-06 08:24 | CDI ---
Documentation Clarification Form Date: 03/25/2020 CDS: Rosa August RN, CCDS Admit Date: 03/17/2020 Patient Name: Darek Mccollum ATTENTION: The Clinical Documentation Specialists (CDI) and [facility] Coding Staff appreciate your assistance in clarifying documentation. Please respond to the clarification below the line at the bottom and electronically sign. The CDI & [facility] Coding staff will review the response and follow-up if needed. Please note: Queries are made part of the Legal Health Record. If you have any questions, please contact the author of this message via ITS. Dr. Rayn, The patient is described as confused and disoriented in your progress note 03/24/20 History/Risk Factors: 49-year-old male presents to the ED with cough and shortness of breath. Medical History: Systolic CHF; COPD; Sleep Apnea, Asthma and AICD Placement 11/719. Clinical Indicators: VSS 03/23 18:52 B/P: 128/69; RR: 16; SpO2: 96% 3l Nasal cannula 03/24 00:00 B/P: 92/62; HR: 52; Temp 97.1 F; RR: 12; SpO2: 95% 4L nasal cannula Labs: 03/17 Blood Culture: Serratia marcescens 03/23 Wbc 12.3; CRP 66.2 03/22 CXR- Cardiomegaly with small left pleural effusion and associated left base atelectasis and/or infiltrate. Treatment:03/18 Cefepime Ivpb, 03/23 ICD generator explantation. 03/23 Cefazolin Iv x1, 03/23 Entresto po bid, In your professional opinion, please clarify the etiology of the Altered Mental Status, if known. Metabolic Encephalopathy (Underlying Medical Illness) Encephalopathy (specify Type and Underlying Medical Illness) Encephalopathy Ruled Out Other condition (please specify) Unable to determine (Last Revision: October 2017) MTDD
--- NOTE | 2020-04-18 06:46 | DS ---
DISCHARGE SUMMARY DATE OF ADMISSION: 03/17/2020 DATE OF DISCHARGE: 03/26/2020 MEDICATIONS: Claritin 10 mg daily, aspirin 81 mg daily, Eliquis 5 mg b.i.d., Lasix 40 mg daily, spironolactone 12.5 daily, Protonix 40 mg daily, Coreg 12.5 b.i.d., Entresto 24/26 b.i.d., guaifenesin cough syrup p.r.n., albuterol nebulizer q.i.d., Colcrys 0.6 mg daily, Coreg 3.125 b.i.d., Maxipime 2 g IV piggyback q.8 hours. DISCHARGE DIAGNOSES: 1. Serratia marcescens bacteremia automatic implantable cardioverter defibrillator infection. 2. Systolic congestive heart failure .. 3. Cardiomyopathy. 4. Hypertension. 5. Obstructive sleep apnea. 6. Obesity. 7. Pericardial effusion, status post pericardial window placement. 8. Chronic systolic heart failure. 9. Paroxysmal atrial fibrillation. HOSPITAL COURSE: Patient had a cardiac window placed for drainage of the pericardial effusion. This was monitored for multiple days. He was also treated for Serratia marcescens bacteremia secondary to AICD, which was removed. Once AICD was moved and pericardial window was drained, he fluid drained around the heart. Patient was stabilized and sent home. His cough minimize compared to when he came in and his breathing was better. He will follow up as an outpatient. LifeVest will have to be worn as an outpatient at this time in case he has cardiac arrhythmias. Diet regular, cardiac. Condition stable. Prognosis guarded. MMODL / IJN: [id number] /
== END 2020-03-26 20:30 | disposition home health service (06) | DRG 270 ==
LOC: EC 11:00 → 2SICU 16:04 → 4SSUR 03-24 17:39
PROVIDERS: ADMIT Family Medicine; ATTEND Family Medicine
PROC: 05HD33Z Insertion of Infusion Device into Right Cephalic Vein, Percutaneous Approach (ICD-10-PCS; 2020-03-18)
PROC: 0W9D0ZZ Drainage of Pericardial Cavity, Open Approach (ICD-10-PCS; principal; 2020-03-19 08:15)
PROC: 0JPT0PZ Removal of Cardiac Rhythm Related Device from Trunk Subcutaneous Tissue and Fascia, Open Approach (ICD-10-PCS; 2020-03-23 16:30)
PROC: 02PA3MZ Removal of Cardiac Lead from Heart, Percutaneous Approach (ICD-10-PCS; 2020-03-23 16:30)
PROC: 05HD33Z Insertion of Infusion Device into Right Cephalic Vein, Percutaneous Approach (ICD-10-PCS; 2020-03-24)
PROC: 02HV33Z Insertion of Infusion Device into Superior Vena Cava, Percutaneous Approach (ICD-10-PCS; 2020-03-26)
DX: T82.7XXA Infection and inflammatory reaction due to other cardiac and vascular devices, implants and grafts, initial encounter (principal); A41.53 Sepsis due to Serratia; I31.3 Pericardial effusion (noninflammatory); Z68.42 Body mass index [BMI] 45.0-49.9, adult; I50.22 Chronic systolic (congestive) heart failure; I42.8 Other cardiomyopathies; I48.19 Other persistent atrial fibrillation; Z20.828 Contact with and (suspected) exposure to other viral communicable diseases; I11.0 Hypertensive heart disease with heart failure; I27.22 Pulmonary hypertension due to left heart disease; E66.01 Morbid (severe) obesity due to excess calories; J44.9 Chronic obstructive pulmonary disease, unspecified; G47.33 Obstructive sleep apnea (adult) (pediatric); R00.0 Tachycardia, unspecified; R79.82 Elevated C-reactive protein (CRP); I07.1 Rheumatic tricuspid insufficiency; R41.0 Disorientation, unspecified; Y83.1 Surgical operation with implant of artificial internal device as the cause of abnormal reaction of the patient, or of later complication, without mention of misadventure at the time of the procedure; Z71.3 Dietary counseling and surveillance; Z79.82 Long term (current) use of aspirin; Z79.01 Long term (current) use of anticoagulants; Z79.899 Other long term (current) drug therapy; Z95.810 Presence of automatic (implantable) cardiac defibrillator; Z82.49 Family history of ischemic heart disease and other diseases of the circulatory system; Z82.3 Family history of stroke; Z83.438 Family history of other disorder of lipoprotein metabolism and other lipidemia
CPT/HCPCS: 33241; 33244; 36410; 36415; 36573; 71045; 71275; 76937; 78582; 80048; 80053; 82150; 82465; 82728; 82805; 82945; 83605; 83615; 83735; 84100; 84132; 84145; 84157; 84484; 85025; 85027; 85379; 85610; 85652; 85730; 86140; 86431; 86850; 86900; 86901; 87040; 87070; 87075; 87077; 87102; 87186; 87205; 88108; 88305; 88341; 88342; 89050; 93005; 93306; 94002; 94003; 94640; 96360; 96361; 99291

== ENCOUNTER → 2022-05-16 | Outpatient (CLI) | payer OTHER | END | disposition home or self-care (01) | LOC: LABWHC1 09:52 | PROVIDERS: ATTEND Nurse Practitioner Adult Health | DX: I49.3 Ventricular premature depolarization (principal) | CPT/HCPCS: 36415; 84443 ==